=== PATIENT | male | born 1955 | race Caucasian/White ===

== ENCOUNTER → 2017-10-14 | Day surgery (SDC) | payer MEDICARE, SELFPAY | END | disposition home or self-care (01) | PROVIDERS: Family Provider Family Medicine; PCP Family Medicine; Visit Provider Surgery | DX: Z12.11 Encounter for screening for malignant neoplasm of colon (principal); K57.30 Diverticulosis of large intestine without perforation or abscess without bleeding; K64.0 First degree hemorrhoids; J44.9 Chronic obstructive pulmonary disease, unspecified; D12.4 Benign neoplasm of descending colon | CPT/HCPCS: 45380; 88305; 99152; 99153; J2250; J3010 ==

== ENCOUNTER 2017-10-28 09:00 | Outpatient (RCR) | payer MEDICARE, SELFPAY ==
--- NOTE | 2017-10-21 14:39 | PT.OTN ---
Addendum entered and electronically signed by Minal Whyte, PT 10/21/17 14:43: Transition note: On October 21, 2017 our therapy services consisting of Speech, Occupational, and Physical Therapy transitioned from the [employer] electronic documentation system to a new [employer] electronic documentation system.?? All documentation prior to October 21 can be found under [employer] saved data. From October 21 forward all medical record documentation will be in [email or web address] Original Note: Physical Therapy Treatment Note PT-OP-C Subjective Start: 10/21/17 11:13 Freq: Status: Active Protocol: Activity Type Activity Date Activity User E-Sign Co-Sign Detail Recorded Client Recorded Date Recorded By Document 10/21/17 09:55 EA [id number] 10/21/17 14:22 EA 10/21/17 09:55 OP-PT Subjective [Patient Comments] -Patient Comments Patient reports not using STC and been wlaking at home and outdoors more. Patient states has been following recommended HEP -Patient Reported Progress Improving PT-OP-Q Treatments Start: 10/21/17 11:13 Freq: Status: Active Protocol: Activity Type Activity Date Activity User E-Sign Co-Sign Detail Recorded Client Recorded Date Recorded By Document 10/21/17 14:01 EA [id number] 10/21/17 14:22 EA 10/21/17 14:01 Cardio Equipment [Recumbent Elliptical (Biode[employer])] -Duration (Minutes) 10 -Resistance 3 -Other No use of hands Gym Equipment [Cable Column (Body Solid)] Leg Extension -Resistance 30-50 -Reps/Time 12-15 Hip Adduction -Resistance 20-30 -Reps/Time 12-15 Hip Abduction -Resistance 20-30 -Reps/Time 12-15 Therapeutic Exercises [Standing Exercises] 3 -Standing Exercise Name 3 way hip F/ABD /EXT -Side bilateral -Resistance AROM -Reps/Minutes 15 reps x2 2 -Standing Exercise Name Lunges hip flexors stretch w/ //bars to support -Side bilateral -Reps/Minutes 30 SH x 2 reps each side 1 -Standing Exercise Name Rails side step squat w/ heel raises -Side bilateral -Resistance GTB to both ankles -Reps/Minutes x 2 lines -Comments Hand support for balance only Manual Therapy Treatment [Joint Mobilizations] 1 -Joint R hip -Direction ANT/POST -Grade II -Body Position Supine -Reps/Duration 5 PT-OP-R Modalities Start: 10/21/17 11:13 Freq: Status: Active Protocol: Activity Type Activity Date Activity User E-Sign Co-Sign Detail Recorded Client Recorded Date Recorded By Document 10/21/17 14:01 LIZBETH [id number] 10/21/17 14:22 EA 10/21/17 14:01 Hot Pack/Cold Pack [Treatment] Hot Pack -Patient Position Supine -Patient Tolerance Good PT-OP-T Assessment and Plan Start: 10/21/17 11:13 Freq: Status: Active Protocol: Activity Type Activity Date Activity User E-Sign Co-Sign Detail Recorded Client Recorded Date Recorded By Document 10/21/17 14:01 LIZBETH [id number] 10/21/17 14:22 EA 10/21/17 14:01 Physical Therapy Assessment [Rehab Potential] -Rehabilitation Potential Good [Assessment Summary] -Assessment Patient tolerated treatment well and exhibits improved capacity in mobility w/ increased tolerance. However still requires frequent rest due to SOB. Physical Therapy Plan [Next Visit Focus/Plan] -Next Visit Plan Continue w/ current plan. Addition of shuttle and SL balance Current Diagnoses Unilateral primary osteoarthritis, right hip (10/21/17) Trochanteric bursitis, right hip (10/21/17) Iliotibial band syndrome, right leg (10/21/17)
--- NOTE | 2017-10-23 10:56 | PT.OTN ---
Current Diagnoses Unilateral primary osteoarthritis, right hip (10/23/17) Trochanteric bursitis, right hip (10/23/17) Iliotibial band syndrome, right leg (10/23/17) Physical Therapy Treatment Note PT-OP-A Visit Information Start: 10/21/17 11:13 Freq: Status: Active Protocol: Activity Type Activity Date Activity User E-Sign Co-Sign Detail Recorded Client Recorded Date Recorded By Document 10/23/17 10:55 LIZBETH [id number] 10/23/17 10:55 EA 10/23/17 10:55 Out-Patient Physical Therapy Visit Information [Visit Information] -Visit Type Treatment Note -Total Visit Minutes 45 -Visit Number 7 -Number of HEALTH DATA ANALYST Visits 0 PT-OP-C Subjective Start: 10/21/17 11:13 Freq: Status: Active Protocol: Activity Type Activity Date Activity User E-Sign Co-Sign Detail Recorded Client Recorded Date Recorded By Document 10/23/17 10:44 LIZBETH [id number] 10/23/17 10:54 EA 10/23/17 10:44 OP-PT Subjective [Patient Comments] -Patient Comments Patient reports able to mow the lawn for an hour; states hip is quite sore today but okay to mobilize. -Patient Reported Progress Same PT-OP-Q Treatments Start: 10/21/17 11:13 Freq: Status: Active Protocol: Activity Type Activity Date Activity User E-Sign Co-Sign Detail Recorded Client Recorded Date Recorded By Document 10/23/17 10:44 LIZBETH [id number] 10/23/17 10:54 EA 10/23/17 10:44 Cardio Equipment [Recumbent Elliptical (Biodex)] -Duration (Minutes) 10 -Resistance 3 Gym Equipment [Cable Column (Body Solid)] Leg Extension -Resistance 30-50lbs -Reps/Time 12 reps x2 Hip Adduction -Resistance 20-30lbs -Reps/Time 12 -15 x 2sets Hip Abduction -Resistance 20-30 x 2 sets -Reps/Time 12 -15 x 2 sets [Shuttle Recovery] Unilateral Squats -Details Single leg squat -Resistance 2 cord -Reps/Time x 15 x 2 Therapeutic Exercises [Standing Exercises] 3 -Standing Exercise Name 3 way hip F/ABD /EXT -Side bilateral -Resistance AROM -Reps/Minutes 15 reps x2 2 -Standing Exercise Name Lunges hip flexors stretch w/ //bars to support -Side bilateral -Reps/Minutes 30 SH x 2 reps each side 1 -Standing Exercise Name Rails side step squat w/ heel raises -Side bilateral -Reps/Minutes x 2 lines PT-OP-R Modalities Start: 10/21/17 11:13 Freq: Status: Active Protocol: Activity Type Activity Date Activity User E-Sign Co-Sign Detail Recorded Client Recorded Date Recorded By Document 10/23/17 10:44 EA [id number] 10/23/17 10:54 EA 10/23/17 10:44 Electric Stimulation [Electric Stimulation] Interferential Current (IFC) -Body Location right posterolat hip -Duration (Minutes) 15 -Patient Position Supine -Combined With Heat/Cold Hot Pack Hot Pack/Cold Pack [Treatment] Hot Pack -Patient Position Supine -Patient Tolerance Good PT-OP-T Assessment and Plan Start: 10/21/17 11:13 Freq: Status: Active Protocol: Activity Type Activity Date Activity User E-Sign Co-Sign Detail Recorded Client Recorded Date Recorded By Document 10/23/17 10:44 EA [id number] 10/23/17 10:54 EA 10/23/17 10:44 Physical Therapy Assessment [Assessment Summary] -Assessment Patient tolerated treament today but with difficulty due to hip pain and discomfort; patient had decreased right hip WB tolerance toda. Physical Therapy Plan [Next Visit Focus/Plan] -Next Visit Plan Cont w/ current program advance as tolerated.
--- NOTE | 2017-10-28 13:33 | PT.OTN ---
Current Diagnoses Unilateral primary osteoarthritis, right hip (10/28/17) Trochanteric bursitis, right hip (10/28/17) Iliotibial band syndrome, right leg (10/28/17) Physical Therapy Treatment Note PT-OP-A Visit Information Start: 10/21/17 11:13 Freq: Status: Active Protocol: Activity Type Activity Date Activity User E-Sign Co-Sign Detail Recorded Client Recorded Date Recorded By Document 10/28/17 12:56 EA [id number] 10/28/17 13:20 EA 10/28/17 12:56 Out-Patient Physical Therapy Visit Information [Visit Information] -Visit Type Treatment Note PT-OP-C Subjective Start: 10/21/17 11:13 Freq: Status: Active Protocol: Activity Type Activity Date Activity User E-Sign Co-Sign Detail Recorded Client Recorded Date Recorded By Document 10/28/17 12:56 EA [id number] 10/28/17 13:20 EA 10/28/17 12:56 OP-PT Subjective [Patient Comments] -Patient Comments Patient reports right hip pain is not changing in pain intesity; states pain increase w/ weight bearing. Pt also c/o back pain when cooking and brishing his teeth. Pt reports although he has been doing his HEp and taking medication, pain seems not improving. OP-PT Pain Assessment [Pain Behaviors] -Pain Behaviors Guarding PT-OP-Q Treatments Start: 10/21/17 11:13 Freq: Status: Active Protocol: Activity Type Activity Date Activity User E-Sign Co-Sign Detail Recorded Client Recorded Date Recorded By Document 10/28/17 12:56 EA [id number] 10/28/17 13:20 EA 10/28/17 12:56 Cardio Equipment [Recumbent Stepper (Sci-Fit)] -Duration (Minutes) 10 -Resistance 3 Therapeutic Exercises [Standing Exercises] 3 -Standing Exercise Name 3 way hip F/ABD /EXT -Side bilateral -Resistance AROM -Reps/Minutes 15 reps x2 2 -Standing Exercise Name Lunges hip flexors stretch w/ //bars to support -Side bilateral -Reps/Minutes 30 SH x 2 reps each side 1 -Standing Exercise Name Rails side step squat w/ heel raises -Side bilateral -Reps/Minutes x 2 lines Manual Therapy Treatment [Soft Tissue Mobilization] 1 -Comments not performed [Joint Mobilizations] 1 -Joint R hip -Direction ANT/POST -Grade II -Body Position Supine -Reps/Duration 5 Self-Care/Home Management Treatment [Education] -Patient Education Body Mechanics Pain Management -Other Education Discussed patient body mechanics with lifting and other activites that increase back pain. Discussed importance heating/cold application for pain management. PT-OP-R Modalities Start: 10/21/17 11:13 Freq: Status: Active Protocol: Activity Type Activity Date Activity User E-Sign Co-Sign Detail Recorded Client Recorded Date Recorded By Document 10/23/17 10:44 EA [id number] 10/23/17 10:54 EA 10/23/17 10:44 Electric Stimulation [Electric Stimulation] Interferential Current (IFC) -Body Location right posterolat hip -Duration (Minutes) 15 -Patient Position Supine -Combined With Heat/Cold Hot Pack Hot Pack/Cold Pack [Treatment] Hot Pack -Patient Position Supine -Patient Tolerance Good PT-OP-T Assessment and Plan Start: 10/21/17 11:13 Freq: Status: Active Protocol: Activity Type Activity Date Activity User E-Sign Co-Sign Detail Recorded Client Recorded Date Recorded By Document 10/28/17 12:56 EA [id number] 10/28/17 13:20 EA 10/28/17 12:56 Physical Therapy Assessment [Assessment Summary] -Assessment Patient does not tolerate some of the weight bearing exercises and manual therapy to right gluteal today due increased of hip pain. Patient have difficulty of managing the pain at this time. unable to tolerate heat and ES application. Advised to patient to cancel next session if pain continue to increase and seek his primary care. Patient is not progressing at this time. Physical Therapy Plan [Next Visit Focus/Plan] -Next Visit Plan Cont with current program ; refer patient to primary care if patient sysmtoms do not improve.
--- NOTE | 2018-03-24 15:04 | PT.OPDS ---
Current Diagnoses Unilateral primary osteoarthritis, right hip (10/28/17) Trochanteric bursitis, right hip (10/28/17) Iliotibial band syndrome, right leg (10/28/17) Provider Visit Care Team Role Provider Type Quentin Ornelas MD Family Provider Physician Primary Care Provider Specialty: Family Practice Address: [address] [place] [address], [phone] Email: [email or web address] Tej Zacarias Attending Provider Non-Staff Specialty: Medical Address: [address] [place] [address], [phone] Email: Visit Number Visit Number 7 Discharge Summary PT-OP-C Subjective Start: 10/21/17 11:13 Freq: Status: Active Protocol: Document 03/24/18 15:01 EA (Rec: 03/24/18 15:03 EA [id number]) OP-PT Subjective Patient Comments Patient Comments Pt reports that he is undergoing hip surgery on and requested to discharge from PT so he would start fresh. Patient Reported Progress Same PT-OP-T Assessment and Plan Start: 10/21/17 11:13 Freq: Status: Active Protocol: Document 03/24/18 15:01 EA (Rec: 03/24/18 15:03 EA [id number]) Physical Therapy Assessment Assessment Summary Assessment Patient is discharged to skilled PT per request. Physical Therapy Plan Discharge Physical Therapy Discharge Reasons Patient Request Discharge Comments Change medical status.
== END 2018-04-02 10:39 ==
LOC: PHYS 09:00
PROVIDERS: Family Provider Family Medicine; PCP Family Medicine; Visit Provider Orthopaedic Surgery
DX: M16.11 Unilateral primary osteoarthritis, right hip (principal); M70.61 Trochanteric bursitis, right hip; M76.31 Iliotibial band syndrome, right leg
CPT/HCPCS: 64550; 97010; 97110; 97535

== ENCOUNTER 2018-01-12 09:36 | Emergency (ER) | payer MEDICARE, SELFPAY ==
--- NOTE | 2018-01-12 09:48 | DI.RAD.S_ITS ---
PROCEDURE: XR RIBS RT MIN 3V W CXR 1V INDICATIONS: right rib pain TECHNIQUE: 2 views of the right ribs were acquired, along with a single view chest. COMPARISON: None. FINDINGS: Excessive motion artifact on one of the 2 rib views. Surgical changes and devices: None. BB skin marker over the lower costal margin. Bones and chest wall: No fractures or dislocations. No suspicious bony lesions. Overlying soft tissues appear unremarkable. There is a small radiopaque foreign body or artifact overlying the right midlung field at the level of the fifth anterior rib. Lungs and pleura: No pleural effusions or pneumothorax. Lungs appear clear. Mediastinum: Mediastinal contours appear normal. Heart size is normal. Aortic calcification. IMPRESSION: 1. No apparent rib fracture or suspicious bone lesion. 2. Thoracolumbar spondylosis and disc degeneration. 3. No acute cardiopulmonary abnormality. Dictated by: Stephen Mcbride M.D. on 01/12/2018 at 10:20 Approved by: Stephen Mcbride M.D. on 01/12/2018 at 10:24
[2018-01-12 09:49] VITALS: BP 156/90; PULSE 90; RESP 22; TEMP 36.7; O2SAT 95; BMI 28.6
[2018-01-12 11:45] LABS: Add Manual Diff / Slide Review NO; Basophils Percent Auto 1.1 % (0-2); Eosinophils Percent Auto 2.2 % (2-4); Hematocrit 41.4 % (41-53); Hemoglobin 14.2 g/dL (13.5-17.5); Lymphocytes Percent Auto 20.2 % (25-40); Mean Corpuscular HGB Conc 34.4 % (30-36); Mean Corpuscular Volume 87.2 fL (80-100); Monocytes Percent Auto 9.8 % (3-14); Neutrophils Absolute Auto 4600 /uL (3000-5900); Neutrophils Percent Auto 66.7 % (50-75); Platelet Count 199 X10^3/uL (150-400); Red Blood Cell Count 4.74 X10^6/uL (4.5-5.9); Red Cell Distribution Width 13.8 % (11.6-14.8); White Blood Cell Count 6.9 X10^3/uL (4.5-11.0)
[2018-01-12 11:52] LABS: Alanine Aminotransferase 18 IU/L (21-72); Albumin 4.8 g/dL (3.5-5.0); Albumin Globulin Ratio 1.5 (1.0-2.8); Alkaline Phosphatase 118 U/L (38-126); Aspartate Aminotransferase 21 IU/L (17-59); BUN Creatinine Ratio 27.5 (6-22); Bilirubin Total 0.5 mg/dL (0.2-1.3); Blood Urea Nitrogen 22 mg/dL (9-20); Calcium 9.7 mg/dL (8.4-10.2); Carbon Dioxide 30 mmol/L (22-32); Chloride 95 mmol/L (98-107); Estimated Glomerular Filt Rate > 60.0 mL/min (>60); Globulin 3.1 g/dL (1.7-4.1); Glucose 108 mg/dL (80-110); HEMOLYSIS < 15 (0-50); Lipase 82 U/L (23-300); Potassium 5.1 mmol/L (3.4-5.1); Sodium 134 mmol/L (137-145); Total Protein 7.9 g/dL (6.3-8.2)
--- NOTE | 2018-01-12 12:40 | ED_ITS ---
HPI - Extremity Problem General Chief complaint: Extremity Problem,Nontraumatic Stated complaint: right side rib pain Time Seen by Provider: 01/12/18 09:38 History of Present Illness HPI Narrative: HPI 62-year-old male with smoker lumbar pain status post surgery and right hip pain with pending replacement presents for evaluation of right lower/lateral chest wall and flank pain that is worsened with movement/deep breaths, and occurred with a gradual onset after engaging in lifting and twisting fenceposts in the course of building a fence. Pain has been present for approximately 2 days. Patient is taking oxycodone (prescribed for back and hip pain) without significant improvement in symptoms. Patient denies fevers, chills, cough, shortness breath, change in symptoms with eating, continues to take PO, pass flatus and stool, and urinate at baseline. M/S/F/SocHx notable for: please see HPI; remainder reviewed with patient and in chart. ROS: Negative constitutional, eye, cardiovascular, pulmonary, GI, , MSK, skin , neurologic, psychiatric, endocrine unless noted in the HPI. Exam Gen: Pleasant, non-toxic appearing, resting comfortably. HEENT: NC, AT, PEERL, EOMI. Resp: Clear to auscultation bilaterally, normal work of breathing, no accessory muscle usage. Card: Regular rate and rhythm with no murmurs, rubs, or gallops, extremities warm and well perfused. GI: Non-tender to palpation throughout all quadrants, no focal tenderness at McBurney's point, negative Dhillon's sign, non-distended, no rebound or guarding. : No suprapubic tenderness to palpation. MSK: No visible deformities, strength and tone without visually appreciable deficit. Right torso from approximately the 10th ribs through the 12th from a posterior axillary to and anterior axillary line with diffuse tenderness to palpation no palpable abnormalities. Twisting movements in deep inspiration provoked pain in this area. Skin: Normal color with no visible lesions. Neuro: AO x 3, no facial asymmetry, vision and hearing WNL. Psych: Mood and affect appropriate. Labs / Imaging: XR ribs right: no acute cardiopulmonary abnormality. No apparent rib fracture or suspicious bony lesions. WBC 6.9, Hb 14.2, Na 134, K 5.1, total bilirubin 0.5, AST 21, ALT 18, ALP 118, lipase 82. MDM Previous chart, nursing note, labs, imaging, and vitals reviewed. A: 62-year-old male with smoker lumbar pain status post surgery and right hip pain with pending replacement presents for evaluation of right lower/lateral chest wall and flank pain that is worsened with movement/deep breaths, and occurred with a gradual onset after engaging in lifting and twisting fenceposts in the course of building a fence. DDx & Evaluation: strongly suspect a muscle strain given the gradual onset of discomfort after lifting and twisting, this discomfort is reproduced with provoking movements consistent with the prior repetitive motion as well as palpation of the affected muscles on the torso. PE was considered but given the absence of shortness of breath or further identifiable risk factors further investigation is not presently warranted. Similarly, ACS and unstable angina are considered unlikely to the degree of which further evaluation is not indicated. Given the unremarkable abdominal exam and normal CBC, CMP, and lipase strongly doubt acute intra-abdominal pathology. Patient instructed to use NSAIDs and to follow up with his primary care physician. Impression: muscle strain (please reference below for remainder of encounter information) Related Data Previous Rx's Medication Instructions Recorded albuterol sulfate HFA 90 1 puff INHALATION Q4HP PRN #1 each 11/21/17 mcg/actuation aerosol inhaler bupropion HCl 150 mg tablet,12 hr 150 mg PO BID 49 Days #60 tab 11/27/17 sustained-release(smoking deterrent) lisinopril 20 mg PO QDAY #30 tab 12/23/17 ibuprofen 600 mg tablet 600 mg PO QID PRN #120 tab 01/06/18 oxycodone 5 mg tablet 7.5 mg PO QID PRN #180 tab 01/11/18 Allergies Allergy/AdvReac Type Severity Reaction Status Date / Time No Known Drug Allergies Allergy Verified 01/12/18 09:59 [facility] Medical History Uncomplicated opioid dependence (Chronic) Chronic pain syndrome (Chronic Unknown) Spinal stenosis (Chronic Unknown) Hypertension (Chronic Unknown) COPD (chronic obstructive pulmonary disease) (Chronic Unknown) Generalized headaches (Chronic 1999) Chronic back pain (Chronic 1979) Primary osteoarthritis of right hip (Chronic 06/17/17) Social History Smoking Status: Current some day smoker Exam Initial Vital Signs Initial Vital Signs: Vital Signs Temperature 98.1 F 01/12/18 09:49 Pulse Rate 90 01/12/18 09:49 Respiratory Rate 22 01/12/18 09:49 Blood Pressure 156/90 H 01/12/18 09:49 Pulse Oximetry 95 01/12/18 09:49 Course Orders Ordered: ED Orders 01/12/18 09:48 XR ribs RT min 3V w CXR1V Stat 01/12/18 11:22 Complete Blood Count AUTO DIFF Stat Comprehensive Metabolic Panel Stat Lipase Stat Vital Signs - 8 hr 01/12/18 09:49 Temperature 98.1 F Pulse Rate 90 Respiratory Rate 22 Blood Pressure 156/90 H Pulse Oximetry 95 MDM - Extremity (Nontraumatic) Lab Data Result diagrams: 01/12/18 11:22 01/12/18 11:22 Lab Results 01/12/18 01/12/18 Range/Units 11:22 11:22 WBC 6.9 (4.5-11.0) X10^3/uL RBC 4.74 (4.5-5.9) X10^6/uL Hgb 14.2 (13.5-17.5) g/dL Hct 41.4 (41-53) % MCV 87.2 (80-100) fL MCH 30.0 (26-34) PG MCHC 34.4 (30-36) % RDW 13.8 (11.6-14.8) % Plt Count 199 (150-400) X10^3/uL Neut % (Auto) 66.7 (50-75) % Lymph % (Auto) 20.2 L (25-40) % Towns % (Auto) 9.8 (3-14) % Eos % (Auto) 2.2 (2-4) % Baso % (Auto) 1.1 (0-2) % Neut # (Auto) 4600 (6078-6467) /uL Sodium 134 L (137-145) mmol/L Potassium 5.1 (3.4-5.1) mmol/L Chloride 95 L (98-107) mmol/L Carbon Dioxide 30 (22-32) mmol/L BUN 22 H (9-20) mg/dL Creatinine 0.80 (0.66-1.25) mg/dL Estimated GFR > 60.0 (>60) mL/min BUN/Creatinine Ratio 27.5 H (6-22) Glucose 108 (80-110) mg/dL Calcium 9.7 (8.4-10.2) mg/dL Total Bilirubin 0.5 (0.2-1.3) mg/dL AST 21 (17-59) IU/L ALT 18 L (21-72) IU/L Alkaline Phosphatase 118 (38-126) U/L Total Protein 7.9 (6.3-8.2) g/dL Albumin 4.8 (3.5-5.0) g/dL Globulin 3.1 (1.7-4.1) g/dL Albumin/Globulin Ratio 1.5 (1.0-2.8) Lipase 82 (23-300) U/L Discharge Plan Departure Prescriptions: No Action bupropion HCl (smoking deter) 150 mg tablet extended release 12 hr 150 mg PO BID 49 Days Qty: 60 RF: 3 ibuprofen 600 mg tablet 600 mg PO QID PRN (Reason: pain) Qty: 120 RF: 3 albuterol sulfate [Ventolin HFA] 90 mcg/actuation HFA aerosol inhaler 1 puff INHALATION Q4HP PRN (Reason: shortness of breath or wheezing) Qty: 1 RF: 5 lisinopril 20 mg tablet 20 mg PO QDAY Qty: 30 RF: 11 oxycodone 5 mg tablet 7.5 mg PO QID PRN (Reason: pain) Qty: 180 RF: 0
[2018-01-12 12:57] VITALS: BP 118/76; PULSE 84; RESP 18; O2SAT 95
== END 2018-01-12 12:59 | disposition home or self-care (01) ==
PROVIDERS: Emergency Provider Emergency Medicine; Family Provider Family Medicine; PCP Family Medicine
DX: S39.011A Strain of muscle, fascia and tendon of abdomen, initial encounter (principal)
CPT/HCPCS: 36415; 71101; 80053; 83690; 85025; 99282; 99284

== ENCOUNTER → 2018-03-04 10:56 | Outpatient (CLI) | payer MEDICARE, SELFPAY | PROVIDERS: Family Provider Family Medicine; PCP Family Medicine; Visit Provider Family Medicine | DX: Z01.818 Encounter for other preprocedural examination (principal); Z53.9 Procedure and treatment not carried out, unspecified reason ==

== ENCOUNTER → 2018-03-05 11:24 | Outpatient (CLI) | payer MEDICARE, SELFPAY ==
--- NOTE | 2018-03-05 11:26 | DI.RAD.S_ITS ---
PROCEDURE: XR CHEST 2V INDICATIONS: CHRONIC OBSTRUCTIVE PULMONARY DISEASE TECHNIQUE: 2 views of the chest were acquired. COMPARISON: [facility], , CHEST 1 VIEW, 10/09/2016, 9:47. FINDINGS: Surgical changes and devices: None. Lungs and pleura: No pleural effusions or pneumothorax. Lungs are clear. Mediastinum: Mediastinal contours are normal. Heart size is normal. Bones and chest wall: No suspicious bony abnormalities. Soft tissues appear unremarkable. IMPRESSION: No acute cardiopulmonary disease. Dictated by: Natalee Le M.D. on 03/05/2018 at 15:12 Approved by: Natalee Le M.D. on 03/05/2018 at 15:19
== END ==
PROVIDERS: Family Provider Family Medicine; PCP Family Medicine; Visit Provider Family Medicine
DX: J44.9 Chronic obstructive pulmonary disease, unspecified (principal)
CPT/HCPCS: 71046

== ENCOUNTER → 2018-03-23 09:40 | Outpatient (CLI) | payer MEDICARE, SELFPAY ==
[2018-03-23 10:37] LABS: Add Manual Diff / Slide Review NO; Basophils Percent Auto 1.2 % (0-2); Eosinophils Percent Auto 4.3 % (2-4); Hematocrit 41.2 % (41-53); Hemoglobin 14.4 g/dL (13.5-17.5); Lymphocytes Percent Auto 21.6 % (25-40); Mean Corpuscular HGB Conc 34.9 % (30-36); Mean Corpuscular Hemoglobin 30.1 PG (26-34); Mean Corpuscular Volume 86.2 fL (80-100); Neutrophils Absolute Auto 4200 /uL (3000-5900); Neutrophils Percent Auto 62.9 % (50-75); Platelet Count 187 X10^3/uL (150-400); Red Blood Cell Count 4.78 X10^6/uL (4.5-5.9); White Blood Cell Count 6.7 X10^3/uL (4.5-11.0)
[2018-03-23 10:44] LABS: BUN Creatinine Ratio 22.5 (6-22); Blood Urea Nitrogen 18 mg/dL (9-20); Calcium 9.5 mg/dL (8.4-10.2); Carbon Dioxide 32 mmol/L (22-32); Chloride 99 mmol/L (98-107); Cholesterol 197 mg/dL (140-199); Estimated Glomerular Filt Rate > 60.0 mL/min (>60); Glucose 104 mg/dL (80-110); HDL Cholesterol 43 mg/dL (40-60); HEMOLYSIS < 15 (0-50); LDL Cholesterol Calculated 107 mg/dL (<100); Potassium 4.5 mmol/L (3.4-5.1); Sodium 141 mmol/L (137-145); Triglycerides 235 mg/dL (35-150)
[2018-03-23 10:48] LABS: Hemoglobin A1C% w Est Avg Glu 5.3 % (4.0-6.0)
[2018-03-23 11:24] LABS: Vitamin D 25 Hydroxy (D3) 31.8 ng/mL (30.0-100.0)
== END ==
PROVIDERS: Family Provider Family Medicine; PCP Family Medicine; Visit Provider Student in an Organized Health Care Education/Training Program
DX: E78.00 Pure hypercholesterolemia, unspecified (principal); I10 Essential (primary) hypertension
CPT/HCPCS: 36415; 80048; 80061; 82306; 83036; 85025

== ENCOUNTER → 2018-04-06 13:57 | Outpatient (CLI) | payer MEDICARE, SELFPAY ==
--- NOTE | 2018-04-06 14:04 | DI.US.S_ITS ---
PROCEDURE: US ABD AORTA ANEURYSM SCREEN INDICATIONS: SCREEN TECHNIQUE: Real time scanning was performed of the aorta and iliac arteries, with image documentation. COMPARISON: None. FINDINGS: Aorta: Proximal aortic diameter measures 2.3 cm. Mid-aorta measures 2 cm. Distal aortic diameter is 1.8 cm. Iliac arteries: Right common iliac artery measures 1.2 cm. Left common iliac artery measures 1.2 cm. IMPRESSION: Negative for aneurysm. Dictated by: Phill Preciado M.D. on 04/06/2018 at 14:49 Approved by: Phill Preciado M.D. on 04/06/2018 at 14:49
== END ==
PROVIDERS: PCP Student in an Organized Health Care Education/Training Program; Visit Provider Student in an Organized Health Care Education/Training Program
DX: Z13.6 Encounter for screening for cardiovascular disorders (principal); Z72.0 Tobacco use
CPT/HCPCS: 76706

== ENCOUNTER → 2018-07-27 10:38 | Outpatient (CLI) | payer MEDICARE, SELFPAY ==
[2018-07-27 12:07] LABS: Alanine Aminotransferase 29 IU/L (21-72); Albumin 4.8 g/dL (3.5-5.0); Albumin Globulin Ratio 1.5 (1.0-2.8); Alkaline Phosphatase 140 U/L (38-126); Aspartate Aminotransferase 26 IU/L (17-59); Bilirubin Total 0.3 mg/dL (0.2-1.3); Cholesterol 174 mg/dL (140-199); Globulin 3.3 g/dL (1.7-4.1); HDL Cholesterol 55 mg/dL (40-60); HEMOLYSIS < 15 (0-50); LDL Cholesterol Calculated 62 mg/dL (<100); Total Protein 8.1 g/dL (6.3-8.2); Triglycerides 287 mg/dL (35-150)
[2018-07-27 12:37] LABS: Prostate Specific Antigen Scrn 1.31 ng/mL (0.1-4.0)
== END ==
PROVIDERS: PCP Student in an Organized Health Care Education/Training Program; Visit Provider Student in an Organized Health Care Education/Training Program
DX: E78.00 Pure hypercholesterolemia, unspecified (principal); Z12.5 Encounter for screening for malignant neoplasm of prostate; Z79.899 Other long term (current) drug therapy
CPT/HCPCS: 36415; 80061; 80076; G0103

== ENCOUNTER → 2018-11-18 08:16 | Outpatient (CLI) | payer MEDICARE, SELFPAY ==
--- NOTE | 2018-11-18 08:17 | DI.RAD.S_ITS ---
PROCEDURE: XR CHEST 2V INDICATIONS: cough TECHNIQUE: 2 views of the chest were acquired. COMPARISON: [facility], , XR CHEST 2V, 03/05/2018, 11:07. [facility], CR, CHEST 1 VIEW, 10/09/2016, 9:47. FINDINGS: Surgical changes and devices: None. Lungs and pleura: Lungs are clear except for a small degree of interstitial prominence and lung volumes are large, potentially reflecting prior smoking history. No pleural effusions or pneumothorax. Mediastinum: Mediastinal contours are normal. Heart size is normal. Bones and chest wall: No suspicious bony abnormalities. Soft tissues appear unremarkable. IMPRESSION: No pneumonia or neoplasm found. Mild interstitial prominence and large lung volumes, suspect prior smoking history. Dictated by: Ramos Arteaga M.D. on 11/18/2018 at 8:41 Approved by: Ramos Arteaga M.D. on 11/18/2018 at 8:41
== END ==
PROVIDERS: PCP Student in an Organized Health Care Education/Training Program; Visit Provider Physician Assistant
DX: R05 Cough (principal)
CPT/HCPCS: 71046

== ENCOUNTER 2018-11-18 09:11 | Inpatient (IN) | payer MEDICARE, SELFPAY ==
[2018-11-18] VITALS (15 sets, daily range): BP systolic 116–171; BP diastolic 73–97; PULSE 74–136; RESP 16–30; TEMP 36.3–37; O2SAT 78–95; BMI 31.7; BMI 30.6
[2018-11-18] MEDS: ALBUTEROL/IPRATROPIUM 3 ML AMPUL INH (09:32)
--- NOTE | 2018-11-18 09:52 | ED.SOB ---
HPI - SOB/Dyspnea General Chief Complaint: Shortness of Breath/Dyspnea Stated Complaint: HIGH HEART RATE,LOW OXYGEN Source: patient and old records reviewed Mode of arrival: wheelchair ( from walk-in clinic) Limitations: no limitations History of Present Illness This is a 63-year-old male comes to the emergency department with complaint of shortness of breath. Patient states he has had cold he thinks for couple days. He has had some nasal congestion, cough with green/yellow soni sputum. And some wheezing. Patient states that he had some similar symptoms about 10 years ago. Patient states that he has not had any chest pain or pressure, he has felt short of breath particularly with exertion. If he is just sitting still he does not feel short of breath. He has not had any swelling in his lower extremities. He does have COPD, he states he is in the process of quitting, he smoked for about 40 years least a pack per day. 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 Patient states he does use albuterol as needed typically. He says he uses it most days of the week off and a couple times during the day unless he has a very sedentary. Patient is not on a steroid inhaler. He is not currently on any oral steroids. He does take medication for hypertension, dyslipidemia, pain medication. He does not take an aspirin. He denies any other cardiac history. He has had hip surgery a couple months ago as well as a spinal fusion L3 in 5 in the past remotely. He occasionally has alcohol he denies any illicit. Dr. Camarena is his primary care. He was sent from the walk-in clinic for low O2 83 he did have a chest x-ray which was reviewed here in the ED. Patient is currently on nasal cannula 3 L he received 1 DuoNeb prior to evaluation in is feeling better. Related Data Home Medications Medication Instructions Recorded Confirmed docusate sodium 100 mg PO BID 11/18/18 11/18/18 lisinopril 20 mg PO DAILY 11/18/18 11/18/18 Previous Rx's Medication Instructions Recorded albuterol sulfate HFA 90 1 puff INHALATION Q4HP PRN #1 each 05/25/18 mcg/actuation aerosol inhaler ibuprofen 600 mg tablet 600 mg PO QID PRN #120 tab 07/14/18 cyclobenzaprine 10 mg tablet 10 mg PO TID PRN #90 tab 07/27/18 bupropion HCl 150 mg tablet,12 hr 150 mg PO TID #270 tab 08/21/18 sustained-release(smoking deterrent) pravastatin 10 mg tablet 10 mg PO BEDTIME #30 tab 09/23/18 naloxone 0.4 mg/mL injection 0.4 mg IM ONCE PRN #1 ml 10/21/18 syringe oxycodone-acetaminophen 10 mg-325 1 tab PO Q6H PRN #120 tab 10/21/18 mg tablet Allergies Allergy/AdvReac Type Severity Reaction Status Date / Time No Known Drug Allergies Allergy Verified 10/21/18 15:15 Review of Systems Review of Systems ROS Unobtainable: All systems reviewed & are unremarkable except as noted in HPI and below Constitutional Denies chills, Reports excessive sweating (Stairs while in the walk-in clinic), Denies fever(s), Denies lethargy and Denies weakness ENT Ears, Nose, Mouth, and Throat: Reports nasal congestion Cardiovascular Denies chest pain, Denies chest pain at rest, Denies chest pain with activity, Denies syncope, Reports rapid heart rate (Patient states chronically), Denies edema, Denies irregular heart rhythm, Denies lightheadedness, Denies palpitations, Denies dyspnea, Reports dyspnea on exertion and Denies orthopnea Respiratory Reports change in phlegm color, Reports chest congestion, Reports cough, Denies hemoptysis, Denies dyspnea, Reports dyspnea on exertion and Reports wheezing Gastrointestinal Gastrointestinal: Denies abdominal pain, Denies change in bowel habits, Denies diarrhea, Denies nausea and Denies vomiting Neurologic Denies syncope and Denies weakness Endocrine Reports excessive sweating (Stairs while in the walk-in clinic) and Denies palpitations Allergic/Immunologic Reports wheezing [facility] Medical History (Updated 11/18/18 @ 15:50 by Carolin Hammond MD) Uncomplicated opioid dependence (Chronic) Hypertension (Chronic Unknown) COPD (chronic obstructive pulmonary disease) (Chronic Unknown) Generalized headaches (Chronic 1999) Chronic back pain (Chronic 1979) Primary osteoarthritis of right hip (Chronic 06/17/17) Hyperlipidemia (Acute) Surgical History (Updated 11/18/18 @ 15:45 by Carolin Hammond MD) Hx of inguinal hernia repair (Resolved 1999) History of lumbar surgery (Resolved ~2015) History of right hip replacement (Acute) History of total right hip arthroplasty (Resolved) Family History (Updated 11/18/18 @ 15:46 by Carolin Hammond MD) Mother No problems noted. Father No problems noted. Father Natural with probable cause suspected Social History (Updated 11/18/18 @ 09:58 by Alissa Banda DO) details: female partner household members: friend(s) Smoking Status: Current every day smoker alcohol intake: current substance use type: does not use Social History (Updated 11/18/18 @ 09:58 by Alsisa Banda DO) details: female partner household members: friend(s) Smoking Status: Current every day smoker alcohol intake: current substance use type: does not use Exam Narrative Exam Narrative: GEN: well nourished, obese male, alert and oriented x 3, patient appears to be in mild distress. HEENT: Atraumatic, pupils are equal round reactive to light, extraocular movements are intact, nares mild clear rhinorrhea. HEART: Tachycardic but regular rate and rhythm without murmur, clicks, rubs. Pulses are equal in upper extremities. No JVD. No swelling in lower extremities. LUNGS:Lungs slightly decreased bilaterally, patient has bilateral expiratory wheezes in upper and lower lungs no rales, crackles, chest moves symmetrically. No tachypnea the patient is post DuoNeb. He is able to speak in full sentences. ABD:bowel sounds normal, soft, slightly distended, non-tender, no guarding, rebound, rigidity, no masses noted, no hepatosplenomegaly :No CVA tenderness MSCL: Non-tender, no muscle atrophy NEURO:CN 2-12 intact, sensation normal Initial Vital Signs Initial Vital Signs: Vital Signs Temperature 98.0 F 11/18/18 09:20 Pulse Rate 136 H 11/18/18 09:20 Respiratory Rate 30 H 11/18/18 09:20 Blood Pressure 151/87 H 11/18/18 09:20 Pulse Oximetry 78 L 11/18/18 09:20 Course Orders Ordered: ED Orders 11/18/18 10:02 CMP [Comprehensive Metabolic Panel] Stat D Dimer Stat Procalcitonin Routine Troponin & CK Cardiac Panel Stat 11/18/18 11:25 CT angio chest PE protocol Stat 11/18/18 14:35 Consult to Respiratory Therapy Evaluate & Treat Education, smoking cessation ONGOING 11/18/18 14:45 MRSA PCR Stat 11/18/18 15:30 Respiratory Panel (Film Array) Routine 11/18/18 15:34 RT Consult Eval and Treat Now 11/18/18 15:37 Education, smoking cessation ONGOING 11/18/18 17:30 Sputum Culture Routine 11/19/18 05:00 B Type Natriuretic Peptide Routine Basic Metabolic Panel Routine Complete Blood Count AUTO DIFF Routine Acetaminophen (Tylenol) 650 mg PO Q6HR PRN PRN Reason: As Needed for Fever/Mild Pain Hydrocodone Bitart/Acetaminophen ([place] 5/325) 1 tab PO Q4HR PRN PRN Reason: Pain, Moderate (4-6) Albuterol (Ventolin) 2.5 mg INH [id number] PRN PRN Reason: Shortness Of Breath Or Wheezing Budesonide (Pulmicort Flexhaler) 2 puff INH BID [facility] Last Admin: 11/18/18 16:30 Dose: 2 puff Bupropion HCl (Welbutrin) 150 mg PO TID [facility] Cyclobenzaprine HCl (Flexeril) 10 mg PO TID PRN PRN Reason: muscle spasm Docusate Sodium (Colace) 100 mg PO BID [facility] Enoxaparin Sodium (Lovenox) 40 mg SUBCUT 1700 [facility] Last Admin: 11/18/18 16:14 Dose: 40 mg Sodium Chloride (Normal Saline 0.45%) 1,000 mls @ 100 mls/hr IV CONT [facility] Last Admin: 11/18/18 16:15 Dose: 100 mls/hr Levofloxacin (Levaquin) 750 mg in 150 mls @ 100 mls/hr IV Q24H [facility] Last Admin: 11/18/18 16:14 Dose: 100 mls/hr Ibuprofen (Advil) 600 mg PO Q6HR PRN PRN Reason: As Needed for Fever/Mild Pain Ipratropium [place] (Atrovent Neb) 0.5 mg INH RTQ4HR [facility] Last Admin: 11/18/18 16:29 Dose: 0.5 mg Lisinopril (Zestril) 20 mg PO DAILY [facility] Methylprednisolone (Solu-Medrol 125 Mg Vial) 60 mg IV Q6HR [facility] Last Admin: 11/18/18 17:42 Dose: 60 mg Naloxone HCl (Narcan) 0.4 mg IV PRN PRN PRN Reason: opioid reversal Ondansetron HCl (Zofran) 4 mg IV Q8HR PRN PRN Reason: Nausea And Vomiting Oxycodone/Acetaminophen (Percocet 5/325) 2 tab PO Q4HR PRN PRN Reason: Pain, Severe (7-10) Last Admin: 11/18/18 17:44 Dose: 2 tab Pravastatin Sodium (Pravachol) 10 mg PO BEDTIME JAKE Sennosides (Senna) 17.2 mg PO BEDTIME JAKE Discontinued Medications Albuterol (Ventolin) 5 mg INH NOW ONE Stop: 11/18/18 09:54 Last Admin: 11/18/18 09:56 Dose: 5 mg Albuterol/Ipratropium (Duoneb) 3 ml INH NOW ONE Stop: 11/18/18 09:28 Last Admin: 11/18/18 09:32 Dose: 3 ml Sodium Chloride (Normal Saline 0.9%) 1,000 mls @ 1,000 mls/hr IV BOLUS ONE Stop: 11/18/18 10:52 Last Infusion: 11/18/18 10:48 Dose: 0 mls/hr Admin: 11/18/18 09:54 Dose: 1,000 mls/hr Methylprednisolone (Solu-Medrol 125 Mg Vial) 125 mg IV NOW ONE Stop: 11/18/18 09:54 Last Admin: 11/18/18 09:54 Dose: 125 mg Vital Signs - 8 hr 11/18/18 11:00 11/18/18 11:30 11/18/18 14:15 Temperature 97.4 F L Pulse Rate 106 H 103 H 118 H Respiratory Rate 24 22 25 H Blood Pressure 151/96 H Blood Pressure [Right Arm] 155/80 H 143/79 H Pulse Oximetry 95 94 91 11/18/18 15:46 11/18/18 15:52 11/18/18 16:37 Temperature 98.6 F Pulse Rate 110 H 114 H Respiratory Rate 22 Blood Pressure 166/97 H Blood Pressure [Right Arm] Pulse Oximetry 95 93 92 MDM - SOB/Dyspnea Lab Data Attestation: I reviewed the patient's lab results. Result diagrams: 11/18/18 09:30 11/18/18 10:02 Lab Results 11/18/18 11/18/18 11/18/18 Range/Units 09:30 09:30 10:02 WBC 9.7 (4.5-11.0) X10^3/uL RBC 4.94 (4.5-5.9) X10^6/uL Hgb 14.8 (13.5-17.5) g/dL Hct 42.8 (41-53) % MCV 86.7 (80-100) fL MCH 30.0 (26-34) PG MCHC 34.6 (30-36) % RDW 15.1 H (11.6-14.8) % Plt Count 221 (150-400) X10^3/uL Neut % (Auto) 72.7 (50-75) % Lymph % (Auto) 13.8 L (25-40) % [place] % (Auto) 10.4 (3-14) % Eos % (Auto) 2.4 (2-4) % Baso % (Auto) 0.7 (0-2) % Neut # (Auto) 7100 H (3943-8347) /uL Lymph # (Auto) 1300 (5127-2346) /uL [place] # (Auto) 1000 H (0-900) /uL Eos # (Auto) 200 (0-450) /uL Baso # (Auto) 100 (0-100) /uL RBC Morphology See Polychromasia 1+ H Anisocytosis 1+ H D-Dimer (<230) ng/mL Sodium 143 (137-145) mmol/L Potassium 4.7 (3.4-5.1) mmol/L Chloride 100 (98-107) mmol/L Carbon Dioxide 35 H (22-32) mmol/L BUN 31 H (9-20) mg/dL Creatinine 0.90 (0.66-1.25) mg/dL Estimated GFR > 60.0 (>60) mL/min BUN/Creatinine Ratio 34.4 H (6-22) Glucose 130 H (80-110) mg/dL Calcium 10.4 H (8.4-10.2) mg/dL Total Bilirubin 0.4 (0.2-1.3) mg/dL AST 26 (17-59) IU/L ALT 21 (21-72) IU/L Alkaline Phosphatase 134 H (38-126) U/L Total Creatine Kinase (55-170) U/L CK-MB (CK-2) CK-MB (CK-2) Rel Index Troponin I (0.01-0.034) ng/mL B-Natriuretic Peptide < 100 (<100) Total Protein 8.0 (6.3-8.2) g/dL Albumin 4.6 (3.5-5.0) g/dL Globulin 3.4 (1.7-4.1) g/dL Albumin/Globulin Ratio 1.4 (1.0-2.8) Procalcitonin (<0.5) ng/mL Nasal Screen MRSA (PCR) (Negative) Chlamy pneumoniae PCR (Not Detect) Adenovirus (PCR) (Not Detect) B.parapertussis DNA PCR (Not Detect) Coronavirus OC43 (PCR) (Not Detect) Coronavirus HKU1 (PCR) (Not Detect) Coronavirus 229E (PCR) (Not Detect) Coronavirus NL63 (PCR) (Not Detect) Human Metapneumovir PCR (Not Detect) Influenza Type A (PCR) (Not Detect) Influenza Type B (PCR) (Not Detect) M. pneumoniae (PCR) (Not Detect) Parainfluenza 1 (PCR) (Not Detect) Parainfluenza 2 (PCR) (Not Detect) Parainfluenza 3 (PCR) (Not Detect) Parainfluenza 4 (PCR) (Not Detect) RSV (PCR) (Not Detect) Entero/Rhino (PCR) (Not Detect) 11/18/18 11/18/18 11/18/18 Range/Units 10:02 10:02 10:02 WBC (4.5-11.0) X10^3/uL RBC (4.5-5.9) X10^6/uL Hgb (13.5-17.5) g/dL Hct (41-53) % MCV (80-100) fL MCH (26-34) PG MCHC (30-36) % RDW (11.6-14.8) % Plt Count (150-400) X10^3/uL Neut % (Auto) (50-75) % Lymph % (Auto) (25-40) % [place] % (Auto) (3-14) % Eos % (Auto) (2-4) % Baso % (Auto) (0-2) % Neut # (Auto) (3182-0975) /uL Lymph # (Auto) (2441-5726) /uL [place] # (Auto) (0-900) /uL Eos # (Auto) (0-450) /uL Baso # (Auto) (0-100) /uL RBC Morphology Polychromasia Anisocytosis D-Dimer 272 H (<230) ng/mL Sodium (137-145) mmol/L Potassium (3.4-5.1) mmol/L Chloride (98-107) mmol/L Carbon Dioxide (22-32) mmol/L BUN (9-20) mg/dL Creatinine (0.66-1.25) mg/dL Estimated GFR (>60) mL/min BUN/Creatinine Ratio (6-22) Glucose (80-110) mg/dL Calcium (8.4-10.2) mg/dL Total Bilirubin (0.2-1.3) mg/dL AST (17-59) IU/L ALT (21-72) IU/L Alkaline Phosphatase (38-126) U/L Total Creatine Kinase 88 (55-170) U/L CK-MB (CK-2) TNP CK-MB (CK-2) Rel Index TNP Troponin I < 0.012 (0.01-0.034) ng/mL B-Natriuretic Peptide (<100) Total Protein (6.3-8.2) g/dL Albumin (3.5-5.0) g/dL Globulin (1.7-4.1) g/dL Albumin/Globulin Ratio (1.0-2.8) Procalcitonin 0.05 (<0.5) ng/mL Nasal Screen MRSA (PCR) (Negative) Chlamy pneumoniae PCR (Not Detect) Adenovirus (PCR) (Not Detect) B.parapertussis DNA PCR (Not Detect) Coronavirus OC43 (PCR) (Not Detect) Coronavirus HKU1 (PCR) (Not Detect) Coronavirus 229E (PCR) (Not Detect) Coronavirus NL63 (PCR) (Not Detect) Human Metapneumovir PCR (Not Detect) Influenza Type A (PCR) (Not Detect) Influenza Type B (PCR) (Not Detect) M. pneumoniae (PCR) (Not Detect) Parainfluenza 1 (PCR) (Not Detect) Parainfluenza 2 (PCR) (Not Detect) Parainfluenza 3 (PCR) (Not Detect) Parainfluenza 4 (PCR) (Not Detect) RSV (PCR) (Not Detect) Entero/Rhino (PCR) (Not Detect) 11/18/18 11/18/18 Range/Units 14:45 15:30 WBC (4.5-11.0) X10^3/uL RBC (4.5-5.9) X10^6/uL Hgb (13.5-17.5) g/dL Hct (41-53) % MCV (80-100) fL MCH (26-34) PG MCHC (30-36) % RDW (11.6-14.8) % Plt Count (150-400) X10^3/uL Neut % (Auto) (50-75) % Lymph % (Auto) (25-40) % [place] % (Auto) (3-14) % Eos % (Auto) (2-4) % Baso % (Auto) (0-2) % Neut # (Auto) (2034-4970) /uL Lymph # (Auto) (8765-4296) /uL [place] # (Auto) (0-900) /uL Eos # (Auto) (0-450) /uL Baso # (Auto) (0-100) /uL RBC Morphology Polychromasia Anisocytosis D-Dimer (<230) ng/mL Sodium (137-145) mmol/L Potassium (3.4-5.1) mmol/L Chloride (98-107) mmol/L Carbon Dioxide (22-32) mmol/L BUN (9-20) mg/dL Creatinine (0.66-1.25) mg/dL Estimated GFR (>60) mL/min BUN/Creatinine Ratio (6-22) Glucose (80-110) mg/dL Calcium (8.4-10.2) mg/dL Total Bilirubin (0.2-1.3) mg/dL AST (17-59) IU/L ALT (21-72) IU/L Alkaline Phosphatase (38-126) U/L Total Creatine Kinase (55-170) U/L CK-MB (CK-2) CK-MB (CK-2) Rel Index Troponin I (0.01-0.034) ng/mL B-Natriuretic Peptide (<100) Total Protein (6.3-8.2) g/dL Albumin (3.5-5.0) g/dL Globulin (1.7-4.1) g/dL Albumin/Globulin Ratio (1.0-2.8) Procalcitonin (<0.5) ng/mL Nasal Screen MRSA (PCR) Negative for mrsa (Negative) Chlamy pneumoniae PCR Not detected (Not Detect) Adenovirus (PCR) Not detected (Not Detect) B.parapertussis DNA PCR Not detected (Not Detect) Coronavirus OC43 (PCR) Not detected (Not Detect) Coronavirus HKU1 (PCR) Not detected (Not Detect) Coronavirus 229E (PCR) Not detected (Not Detect) Coronavirus NL63 (PCR) Not detected (Not Detect) Human Metapneumovir PCR Not detected (Not Detect) Influenza Type A (PCR) Not detected (Not Detect) Influenza Type B (PCR) Not detected (Not Detect) M. pneumoniae (PCR) Not detected (Not Detect) Parainfluenza 1 (PCR) Not detected (Not Detect) Parainfluenza 2 (PCR) Not detected (Not Detect) Parainfluenza 3 (PCR) Not detected (Not Detect) Parainfluenza 4 (PCR) Not detected (Not Detect) RSV (PCR) Not detected (Not Detect) Entero/Rhino (PCR) Not detected (Not Detect) Urine Dip Bedside Urine Glucose Negative Bedside Urine Bilirubin - Negative Bedside Urine Ketone - Negative Urine Specific [place] 1.030 Bedside Urine Occult Blood - Negative Bedside Urine pH 6 Bedside Urine Protein +/- 15 Bedside Urine Urobilinogen - Negative Bedside Urine Nitrite - Negative Bedside Urine Leukocytes - Negative Esterase Imaging Data Chest x-ray: Radiologist's impression: Harvey Roberts 63 M [address] [address] XRay Report Signed Patient: Harvey Roberts SMR#: [id number] : [id number]:[id number] Age/Sex: 63 / MDate of Service: 11/18/18 Loc: [facility] Accession Number: [id number] Procedure: XR chest 2V Ordering Provider: Marissa Swan P.A-C PROCEDURE: XR CHEST 2V INDICATIONS: cough TECHNIQUE: 2 views of the chest were acquired. COMPARISON: [facility], CR, XR CHEST 2V, 03/05/2018, 11:07. [facility], CR, CHEST 1 VIEW, 10/09/2016, 9:47. FINDINGS: Surgical changes and devices: None. Lungs and pleura: Lungs are clear except for a small degree of interstitial prominence and lung volumes are large, potentially reflecting prior smoking history. No pleural effusions or pneumothorax. Mediastinum: Mediastinal contours are normal. Heart size is normal. Bones and chest wall: No suspicious bony abnormalities. Soft tissues appear unremarkable. IMPRESSION: No pneumonia or neoplasm found. Mild interstitial prominence and large lung volumes, suspect prior smoking history. Dictated by: Ramos Arteaga M.D. on 11/18/2018 at 8:41 Approved by: Ramos Arteaga M.D. on 11/18/2018 at 8:41 CT Angio chest: Radiologist's impression: 85 Alissa Banda, DO Find Patient Imaging Harvey Roberts 63 M 1955 ACTIVITY DATE EXAM STATUS AUTHOR 11/18/18 11:25 [place] [address] CT Scan Report Signed Patient: Harvey Roberts [facility]#: [id number] : [id number]:[id number] Age/Sex: 63 / MDate of Service: 11/18/18 Loc: ED Accession Number: [id number] Procedure: CT angio chest PE protocol Ordering Provider: Alissa Banda D.O. PROCEDURE: CT ANGIO CHEST PE PROTOCOL INDICATIONS: sob, low O2, sx 3 months ago. COPD. TECHNIQUE: After the administration of intravenous contrast, 2 mm thick sections acquired from the pulmonary apices to the posterior costophrenic angles. 3-dimensional maximum intensity projection (MIP) coronal and sagittal reformats were then acquired through the thorax. For radiation dose reduction, the following was used: automated exposure control, adjustment of mA and/or kV according to patient size. COMPARISON: None. FINDINGS: Image quality: Excellent. Pulmonary arteries: Pulmonary arteries are normal in size, and demonstrate no intraluminal filling defects to suggest central pulmonary embolism. Lungs and pleura: There is biapical scarring. Mild bibasilar dependent atelectasis is seen. No focal infiltrate or discrete pulmonary nodule or mass. No pleural effusions or pneumothorax. Central and peripheral airways are patent. Mediastinum: Heart size is normal, without pericardial effusion. No mediastinal or hilar adenopathy by size criteria. Subcentimeter lymph nodes are seen in mediastinum measures up to 6 mm in short axis diameter.. Thoracic aorta is normal in caliber and enhancement. Esophagus is normal in caliber, with a small hiatal hernia. Bones and chest wall: No suspicious bony lesions. Degenerative disc disease throughout thoracic spine is seen. No acute compression fracture or spondylolisthesis. No discrete rib abnormality is seen. Thyroid gland is within normal limits. No axillary or supraclavicular adenopathy. Abdomen: Visualized upper abdominal solid organs appear normal in the early arterial phase of enhancement. There is hepatic steatosis. IMPRESSION: 1. No evidence of pulmonary emboli. No thoracic aortic aneurysm or dissection. 2. Biapical scarring. Bibasilar dependent atelectasis. No pleural effusion or pneumothorax. Airway is patent. 3. No gross mediastinal or hilar lymphadenopathy. 4. Hepatic steatosis. Dictated by: Lion Kendall M.D. on 11/18/2018 at 11:55 Approved by: Lion Kendall M.D. on 11/18/2018 at 12:00 ECG Data Attestation: I personally reviewed and interpreted this ECG as follows: Prior ECG tracings: available for review Interpretation: Sinus tachycardia with a rate of 120 P are 170 QRS of 102 and QTC of 370. No ST elevation is appreciated. The patient does have Q-waves in V4 5 6. As well as lead 3 and 1. Patient has prior EKG from 10/09/2016. Rhythm appears similar. [facility] Narrative Medical decision making narrative: Suspect patient is having a COPD exacerbation from recent infection. Patient's heart rate is quite tachycardic although he states this is typical for him. EKG shows a sinus tachycardia. Patient's oxygenation was in the 70s when he 1st arrived on room air. He came up quite quickly with 3 L and is feeling better with 1 DuoNeb but is still wheezy. Plan for several more albuterol nebulized, Solu-Medrol. Chest x-ray was reviewed does not show any acute changes but lab work was obtained and as well as D-dimer only suspicion for PE he is much lower but with patient's elevated heart rate and history of hip surgery 3 months ago felt to be prudent to include. Patient's heart rate has been improving. His blood pressures been normal. He has been on 3 L nasal cannula. Plan for CT PE to make sure patient does not have a pulmonary emboli his dimer is elevated, he has history of hip surgery 3 months ago. Angiography is negative for PE or any obvious pneumonia or other major changes.. On recheck his lungs sound clear although slightly diminished. No wheezing at this time. Patient feels better just sitting on the bed when I turn off his nasal cannula he drops down to 88% but does not feel dyspneic. On ambulation trial patient dropped to 75% and feels quite dyspneic. Discussed with patient I do not feel comfortable D seeing him home. He is agreeable to stay, spoke with Dr. Hammond who accepts patient for COPD exacerbation Discharge Plan Departure Patient Disposition: Admitted as Observation Clinical Impression: COPD exacerbation Discharge Date/Time: 11/18/18 14:00 Interventions: ED Discharge Assessment Last Done: 11/18/18 13:47 Referrals: Miguel Angel Park MD [Primary Care Provider] - Admit Date/Time: 11/18/18 13:51 Admit Provider: Carolin Hammond
[2018-11-18 09:53] LABS: Basophils Absolute Auto 100 /uL (0-100); Basophils Percent Auto 0.7 % (0-2); Eosinophils Absolute Auto 200 /uL (0-450); Eosinophils Percent Auto 2.4 % (2-4); Hematocrit 42.8 % (41-53); Hemoglobin 14.8 g/dL (13.5-17.5); Lymphocytes Absolute Auto 1300 /uL (1100-4500); Lymphocytes Percent Auto 13.8 % (25-40); Mean Corpuscular HGB Conc 34.6 % (30-36); Mean Corpuscular Volume 86.7 fL (80-100); Monocytes Absolute Auto 1000 /uL (0-900); Monocytes Percent Auto 10.4 % (3-14); Neutrophils Absolute Auto 7100 /uL (1500-7000); Neutrophils Percent Auto 72.7 % (50-75); Red Blood Cell Count 4.94 X10^6/uL (4.5-5.9); Red Cell Distribution Width 15.1 % (11.6-14.8); White Blood Cell Count 9.7 X10^3/uL (4.5-11.0)
[2018-11-18] MEDS: methylPREDNISolone 125 MG/2 ML VIAL IV (09:54)
[2018-11-18] MEDS: SODIUM CHLORIDE 0.9% 1,000 ML 1000 ML IV (09:54)
[2018-11-18] MEDS: ALBUTEROL 2.5 MG/3 ML NEB (ADULT) 5 MG INH (09:56)
[2018-11-18 10:01] LABS: Add Manual Diff / Slide Review SLIDE REVIEW
--- NOTE | 2018-11-18 10:03 | ED_ITS ---
HPI - SOB/Dyspnea General Chief Complaint: Shortness of Breath/Dyspnea Stated Complaint: HIGH HEART RATE,LOW OXYGEN Source: patient and old records reviewed Mode of arrival: wheelchair ( from walk-in clinic) Limitations: no limitations History of Present Illness This is a 63-year-old male comes to the emergency department with complaint of shortness of breath. Patient states he has had cold he thinks for couple days. He has had some nasal congestion, cough with green/yellow soni sputum. And some wheezing. Patient states that he had some similar symptoms about 10 years ago. Patient states that he has not had any chest pain or pressure, he has felt short of breath particularly with exertion. If he is just sitting still he does not feel short of breath. He has not had any swelling in his lower extremities. He does have COPD, he states he is in the process of quitting, he smoked for about 40 years least a pack per day. 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 Patient states he does use albuterol as needed typically. He says he uses it most days of the week off and a couple times during the day unless he has a very sedentary. Patient is not on a steroid inhaler. He is not currently on any oral steroids. He does take medication for hypertension, dyslipidemia, pain medication. He does not take an aspirin. He denies any other cardiac history. He has had hip surgery a couple months ago as well as a spinal fusion L3 in 5 in the past remotely. He occasionally has alcohol he denies any illicit. Dr. Camarena is his primary care. He was sent from the walk- in clinic for low O2 83 he did have a chest x-ray which was reviewed here in the ED. Patient is currently on nasal cannula 3 L he received 1 DuoNeb prior to evaluation in is feeling better. Related Data Home Medications Medication Instructions Recorded Confirmed docusate sodium 100 mg PO BID 11/18/18 11/18/18 lisinopril 20 mg PO DAILY 11/18/18 11/18/18 Previous Rx's Medication Instructions Recorded albuterol sulfate HFA 90 1 puff INHALATION Q4HP PRN #1 each 05/25/18 mcg/actuation aerosol inhaler ibuprofen 600 mg tablet 600 mg PO QID PRN #120 tab 07/14/18 cyclobenzaprine 10 mg tablet 10 mg PO TID PRN #90 tab 07/27/18 bupropion HCl 150 mg tablet,12 hr 150 mg PO TID #270 tab 08/21/18 sustained-release(smoking deterrent) pravastatin 10 mg tablet 10 mg PO BEDTIME #30 tab 09/23/18 naloxone 0.4 mg/mL injection 0.4 mg IM ONCE PRN #1 ml 10/21/18 syringe oxycodone-acetaminophen 10 mg-325 1 tab PO Q6H PRN #120 tab 10/21/18 mg tablet Allergies Allergy/AdvReac Type Severity Reaction Status Date / Time No Known Drug Allergies Allergy Verified 10/21/18 15:15 Review of Systems Review of Systems ROS Unobtainable: All systems reviewed & are unremarkable except as noted in HPI and below Constitutional Denies chills, Reports excessive sweating (Stairs while in the walk-in clinic), Denies fever(s), Denies lethargy and Denies weakness ENT Ears, Nose, Mouth, and Throat: Reports nasal congestion Cardiovascular Denies chest pain, Denies chest pain at rest, Denies chest pain with activity, Denies syncope, Reports rapid heart rate (Patient states chronically), Denies edema, Denies irregular heart rhythm, Denies lightheadedness, Denies palpitations, Denies dyspnea, Reports dyspnea on exertion and Denies orthopnea Respiratory Reports change in phlegm color, Reports chest congestion, Reports cough, Denies hemoptysis, Denies dyspnea, Reports dyspnea on exertion and Reports wheezing Gastrointestinal Gastrointestinal: Denies abdominal pain, Denies change in bowel habits, Denies diarrhea, Denies nausea and Denies vomiting Neurologic Denies syncope and Denies weakness Endocrine Reports excessive sweating (Stairs while in the walk-in clinic) and Denies palpitations Allergic/Immunologic Reports wheezing [facility] Medical History (Updated 11/18/18 @ 15:50 by Carolin Hammond MD) Uncomplicated opioid dependence (Chronic) Hypertension (Chronic Unknown) COPD (chronic obstructive pulmonary disease) (Chronic Unknown) Generalized headaches (Chronic 1999) Chronic back pain (Chronic 1979) Primary osteoarthritis of right hip (Chronic 06/17/17) Hyperlipidemia (Acute) Surgical History (Updated 11/18/18 @ 15:45 by Carolin Hammond MD) Hx of inguinal hernia repair (Resolved 1999) History of lumbar surgery (Resolved ~2015) History of right hip replacement (Acute) History of total right hip arthroplasty (Resolved) Family History (Updated 11/18/18 @ 15:46 by Carolin Hammond MD) Mother No problems noted. Father No problems noted. Father Natural with probable cause suspected Social History (Updated 11/18/18 @ 09:58 by Alissa Banda DO) details: female partner household members: friend(s) Smoking Status: Current every day smoker alcohol intake: current substance use type: does not use Social History (Updated 11/18/18 @ 09:58 by Alissa Banda DO) details: female partner household members: friend(s) Smoking Status: Current every day smoker alcohol intake: current substance use type: does not use Exam Narrative Exam Narrative: GEN: well nourished, obese male, alert and oriented x 3, patient appears to be in mild distress. HEENT: Atraumatic, pupils are equal round reactive to light, extraocular movements are intact, nares mild clear rhinorrhea. HEART: Tachycardic but regular rate and rhythm without murmur, clicks, rubs. Pulses are equal in upper extremities. No JVD. No swelling in lower extremities. LUNGS:Lungs slightly decreased bilaterally, patient has bilateral expiratory wheezes in upper and lower lungs no rales, crackles, chest moves symmetrically. No tachypnea the patient is post DuoNeb. He is able to speak in full sentences. ABD:bowel sounds normal, soft, slightly distended, non-tender, no guarding, rebound, rigidity, no masses noted, no hepatosplenomegaly :No CVA tenderness MSCL: Non-tender, no muscle atrophy NEURO:CN 2-12 intact, sensation normal Initial Vital Signs Initial Vital Signs: Vital Signs Temperature 98.0 F 11/18/18 09:20 Pulse Rate 136 H 11/18/18 09:20 Respiratory Rate 30 H 11/18/18 09:20 Blood Pressure 151/87 H 11/18/18 09:20 Pulse Oximetry 78 L 11/18/18 09:20 Course Orders Ordered: ED Orders 11/18/18 10:02 CMP [Comprehensive Metabolic Panel] Stat D Dimer Stat Procalcitonin Routine Troponin & CK Cardiac Panel Stat 11/18/18 11:25 CT angio chest PE protocol Stat 11/18/18 14:35 Consult to Respiratory Therapy Evaluate & Treat Education, smoking cessation ONGOING 11/18/18 14:45 MRSA PCR Stat 11/18/18 15:30 Respiratory Panel (Film Array) Routine 11/18/18 15:34 RT Consult Eval and Treat Now 11/18/18 15:37 Education, smoking cessation ONGOING 11/18/18 17:30 Sputum Culture Routine 11/19/18 05:00 B Type Natriuretic Peptide Routine Basic Metabolic Panel Routine Complete Blood Count AUTO DIFF Routine Acetaminophen (Tylenol) 650 mg PO Q6HR PRN PRN Reason: As Needed for Fever/Mild Pain Hydrocodone Bitart/Acetaminophen ([place] 5/325) 1 tab PO Q4HR PRN PRN Reason: Pain, Moderate (4-6) Albuterol (Ventolin) 2.5 mg INH [id number] PRN PRN Reason: Shortness Of Breath Or Wheezing Budesonide (Pulmicort Flexhaler) 2 puff INH BID [facility] Last Admin: 11/18/18 16:30 Dose: 2 puff Bupropion HCl (Welbutrin) 150 mg PO TID [facility] Cyclobenzaprine HCl (Flexeril) 10 mg PO TID PRN PRN Reason: muscle spasm Docusate Sodium (Colace) 100 mg PO BID [facility] Enoxaparin Sodium (Lovenox) 40 mg SUBCUT 1700 [facility] Last Admin: 11/18/18 16:14 Dose: 40 mg Sodium Chloride (Normal Saline 0.45%) 1,000 mls @ 100 mls/hr IV CONT [facility] Last Admin: 11/18/18 16:15 Dose: 100 mls/hr Levofloxacin (Levaquin) 750 mg in 150 mls @ 100 mls/hr IV Q24H [facility] Last Admin: 11/18/18 16:14 Dose: 100 mls/hr Ibuprofen (Advil) 600 mg PO Q6HR PRN PRN Reason: As Needed for Fever/Mild Pain Ipratropium [place] (Atrovent Neb) 0.5 mg INH RTQ4HR [facility] Last Admin: 11/18/18 16:29 Dose: 0.5 mg Lisinopril (Zestril) 20 mg PO DAILY [facility] Methylprednisolone (Solu-Medrol 125 Mg Vial) 60 mg IV Q6HR [facility] Last Admin: 11/18/18 17:42 Dose: 60 mg Naloxone HCl (Narcan) 0.4 mg IV PRN PRN PRN Reason: opioid reversal Ondansetron HCl (Zofran) 4 mg IV Q8HR PRN PRN Reason: Nausea And Vomiting Oxycodone/Acetaminophen (Percocet 5/325) 2 tab PO Q4HR PRN PRN Reason: Pain, Severe (7-10) Last Admin: 11/18/18 17:44 Dose: 2 tab Pravastatin Sodium (Pravachol) 10 mg PO BEDTIME JAKE Sennosides (Senna) 17.2 mg PO BEDTIME JAKE Discontinued Medications Albuterol (Ventolin) 5 mg INH NOW ONE Stop: 11/18/18 09:54 Last Admin: 11/18/18 09:56 Dose: 5 mg Albuterol/Ipratropium (Duoneb) 3 ml INH NOW ONE Stop: 11/18/18 09:28 Last Admin: 11/18/18 09:32 Dose: 3 ml Sodium Chloride (Normal Saline 0.9%) 1,000 mls @ 1,000 mls/hr IV BOLUS ONE Stop: 11/18/18 10:52 Last Infusion: 11/18/18 10:48 Dose: 0 mls/hr Admin: 11/18/18 09:54 Dose: 1,000 mls/hr Methylprednisolone (Solu-Medrol 125 Mg Vial) 125 mg IV NOW ONE Stop: 11/18/18 09:54 Last Admin: 11/18/18 09:54 Dose: 125 mg Vital Signs - 8 hr 11/18/18 11:00 11/18/18 11:30 11/18/18 14:15 Temperature 97.4 F L Pulse Rate 106 H 103 H 118 H Respiratory Rate 24 22 25 H Blood Pressure 151/96 H Blood Pressure [Right Arm] 155/80 H 143/79 H Pulse Oximetry 95 94 91 11/18/18 15:46 11/18/18 15:52 11/18/18 16:37 Temperature 98.6 F Pulse Rate 110 H 114 H Respiratory Rate 22 Blood Pressure 166/97 H Blood Pressure [Right Arm] Pulse Oximetry 95 93 92 MDM - SOB/Dyspnea Lab Data Attestation: I reviewed the patient's lab results. Result diagrams: 11/18/18 09:30 11/18/18 10:02 Lab Results 11/18/18 11/18/18 11/18/18 Range/Units 09:30 09:30 10:02 WBC 9.7 (4.5-11.0) X10^3/uL RBC 4.94 (4.5-5.9) X10^6/uL Hgb 14.8 (13.5-17.5) g/dL Hct 42.8 (41-53) % MCV 86.7 (80-100) fL MCH 30.0 (26-34) PG MCHC 34.6 (30-36) % RDW 15.1 H (11.6-14.8) % Plt Count 221 (150-400) X10^3/uL Neut % (Auto) 72.7 (50-75) % Lymph % (Auto) 13.8 L (25-40) % [place] % (Auto) 10.4 (3-14) % Eos % (Auto) 2.4 (2-4) % Baso % (Auto) 0.7 (0-2) % Neut # (Auto) 7100 H (0077-7284) /uL Lymph # (Auto) 1300 (2628-8651) /uL [place] # (Auto) 1000 H (0-900) /uL Eos # (Auto) 200 (0-450) /uL Baso # (Auto) 100 (0-100) /uL RBC Morphology See Polychromasia 1+ H Anisocytosis 1+ H D-Dimer (<230) ng/mL Sodium 143 (137-145) mmol/L Potassium 4.7 (3.4-5.1) mmol/L Chloride 100 (98-107) mmol/L Carbon Dioxide 35 H (22-32) mmol/L BUN 31 H (9-20) mg/dL Creatinine 0.90 (0.66-1.25) mg/dL Estimated GFR > 60.0 (>60) mL/min BUN/Creatinine Ratio 34.4 H (6-22) Glucose 130 H (80-110) mg/dL Calcium 10.4 H (8.4-10.2) mg/dL Total Bilirubin 0.4 (0.2-1.3) mg/dL AST 26 (17-59) IU/L ALT 21 (21-72) IU/L Alkaline Phosphatase 134 H (38-126) U/L Total Creatine Kinase (55-170) U/L CK-MB (CK-2) CK-MB (CK-2) Rel Index Troponin I (0.01-0.034) ng/mL B-Natriuretic Peptide < 100 (<100) Total Protein 8.0 (6.3-8.2) g/dL Albumin 4.6 (3.5-5.0) g/dL Globulin 3.4 (1.7-4.1) g/dL Albumin/Globulin Ratio 1.4 (1.0-2.8) Procalcitonin (<0.5) ng/mL Nasal Screen MRSA (PCR) (Negative) Chlamy pneumoniae PCR (Not Detect) Adenovirus (PCR) (Not Detect) B.parapertussis DNA PCR (Not Detect) Coronavirus OC43 (PCR) (Not Detect) Coronavirus HKU1 (PCR) (Not Detect) Coronavirus 229E (PCR) (Not Detect) Coronavirus NL63 (PCR) (Not Detect) Human Metapneumovir PCR (Not Detect) Influenza Type A (PCR) (Not Detect) Influenza Type B (PCR) (Not Detect) M. pneumoniae (PCR) (Not Detect) Parainfluenza 1 (PCR) (Not Detect) Parainfluenza 2 (PCR) (Not Detect) Parainfluenza 3 (PCR) (Not Detect) Parainfluenza 4 (PCR) (Not Detect) RSV (PCR) (Not Detect) Entero/Rhino (PCR) (Not Detect) 11/18/18 11/18/18 11/18/18 Range/Units 10:02 10:02 10:02 WBC (4.5-11.0) X10^3/uL RBC (4.5-5.9) X10^6/uL Hgb (13.5-17.5) g/dL Hct (41-53) % MCV (80-100) fL MCH (26-34) PG MCHC (30-36) % RDW (11.6-14.8) % Plt Count (150-400) X10^3/uL Neut % (Auto) (50-75) % Lymph % (Auto) (25-40) % [place] % (Auto) (3-14) % Eos % (Auto) (2-4) % Baso % (Auto) (0-2) % Neut # (Auto) (7111-9716) /uL Lymph # (Auto) (7125-0601) /uL [place] # (Auto) (0-900) /uL Eos # (Auto) (0-450) /uL Baso # (Auto) (0-100) /uL RBC Morphology Polychromasia Anisocytosis D-Dimer 272 H (<230) ng/mL Sodium (137-145) mmol/L Potassium (3.4-5.1) mmol/L Chloride (98-107) mmol/L Carbon Dioxide (22-32) mmol/L BUN (9-20) mg/dL Creatinine (0.66-1.25) mg/dL Estimated GFR (>60) mL/min BUN/Creatinine Ratio (6-22) Glucose (80-110) mg/dL Calcium (8.4-10.2) mg/dL Total Bilirubin (0.2-1.3) mg/dL AST (17-59) IU/L ALT (21-72) IU/L Alkaline Phosphatase (38-126) U/L Total Creatine Kinase 88 (55-170) U/L CK-MB (CK-2) TNP CK-MB (CK-2) Rel Index TNP Troponin I < 0.012 (0.01-0.034) ng/mL B-Natriuretic Peptide (<100) Total Protein (6.3-8.2) g/dL Albumin (3.5-5.0) g/dL Globulin (1.7-4.1) g/dL Albumin/Globulin Ratio (1.0-2.8) Procalcitonin 0.05 (<0.5) ng/mL Nasal Screen MRSA (PCR) (Negative) Chlamy pneumoniae PCR (Not Detect) Adenovirus (PCR) (Not Detect) B.parapertussis DNA PCR (Not Detect) Coronavirus OC43 (PCR) (Not Detect) Coronavirus HKU1 (PCR) (Not Detect) Coronavirus 229E (PCR) (Not Detect) Coronavirus NL63 (PCR) (Not Detect) Human Metapneumovir PCR (Not Detect) Influenza Type A (PCR) (Not Detect) Influenza Type B (PCR) (Not Detect) M. pneumoniae (PCR) (Not Detect) Parainfluenza 1 (PCR) (Not Detect) Parainfluenza 2 (PCR) (Not Detect) Parainfluenza 3 (PCR) (Not Detect) Parainfluenza 4 (PCR) (Not Detect) RSV (PCR) (Not Detect) Entero/Rhino (PCR) (Not Detect) 11/18/18 11/18/18 Range/Units 14:45 15:30 WBC (4.5-11.0) X10^3/uL RBC (4.5-5.9) X10^6/uL Hgb (13.5-17.5) g/dL Hct (41-53) % MCV (80-100) fL MCH (26-34) PG MCHC (30-36) % RDW (11.6-14.8) % Plt Count (150-400) X10^3/uL Neut % (Auto) (50-75) % Lymph % (Auto) (25-40) % [place] % (Auto) (3-14) % Eos % (Auto) (2-4) % Baso % (Auto) (0-2) % Neut # (Auto) (5727-3754) /uL Lymph # (Auto) (2730-0396) /uL [place] # (Auto) (0-900) /uL Eos # (Auto) (0-450) /uL Baso # (Auto) (0-100) /uL RBC Morphology Polychromasia Anisocytosis D-Dimer (<230) ng/mL Sodium (137-145) mmol/L Potassium (3.4-5.1) mmol/L Chloride (98-107) mmol/L Carbon Dioxide (22-32) mmol/L BUN (9-20) mg/dL Creatinine (0.66-1.25) mg/dL Estimated GFR (>60) mL/min BUN/Creatinine Ratio (6-22) Glucose (80-110) mg/dL Calcium (8.4-10.2) mg/dL Total Bilirubin (0.2-1.3) mg/dL AST (17-59) IU/L ALT (21-72) IU/L Alkaline Phosphatase (38-126) U/L Total Creatine Kinase (55-170) U/L CK-MB (CK-2) CK-MB (CK-2) Rel Index Troponin I (0.01-0.034) ng/mL B-Natriuretic Peptide (<100) Total Protein (6.3-8.2) g/dL Albumin (3.5-5.0) g/dL Globulin (1.7-4.1) g/dL Albumin/Globulin Ratio (1.0-2.8) Procalcitonin (<0.5) ng/mL Nasal Screen MRSA (PCR) Negative for mrsa (Negative) Chlamy pneumoniae PCR Not detected (Not Detect) Adenovirus (PCR) Not detected (Not Detect) B.parapertussis DNA PCR Not detected (Not Detect) Coronavirus OC43 (PCR) Not detected (Not Detect) Coronavirus HKU1 (PCR) Not detected (Not Detect) Coronavirus 229E (PCR) Not detected (Not Detect) Coronavirus NL63 (PCR) Not detected (Not Detect) Human Metapneumovir PCR Not detected (Not Detect) Influenza Type A (PCR) Not detected (Not Detect) Influenza Type B (PCR) Not detected (Not Detect) M. pneumoniae (PCR) Not detected (Not Detect) Parainfluenza 1 (PCR) Not detected (Not Detect) Parainfluenza 2 (PCR) Not detected (Not Detect) Parainfluenza 3 (PCR) Not detected (Not Detect) Parainfluenza 4 (PCR) Not detected (Not Detect) RSV (PCR) Not detected (Not Detect) Entero/Rhino (PCR) Not detected (Not Detect) Urine Dip Bedside Urine Glucose Negative Bedside Urine Bilirubin - Negative Bedside Urine Ketone - Negative Urine Specific [place] 1.030 Bedside Urine Occult Blood - Negative Bedside Urine pH 6 Bedside Urine Protein +/- 15 Bedside Urine Urobilinogen - Negative Bedside Urine Nitrite - Negative Bedside Urine Leukocytes - Negative Esterase Imaging Data Chest x-ray: Radiologist's impression: Harvey Roberts 63 M [address] [address] XRay Report Signed Patient: Harvey Roberts SMR#: [id number] : 1955cct:[id number] Age/Sex: 63 / MDate of Service: 11/18/18 Loc: [facility] Accession Number: [id number] Procedure: XR chest 2V Ordering Provider: Marissa Swan P.A-C PROCEDURE: XR CHEST 2V INDICATIONS: cough TECHNIQUE: 2 views of the chest were acquired. COMPARISON: [facility], CR, XR CHEST 2V, 03/05/2018, 11:07. [facility], CR, CHEST 1 VIEW, 10/09/2016, 9:47. FINDINGS: Surgical changes and devices: None. Lungs and pleura: Lungs are clear except for a small degree of interstitial prominence and lung volumes are large, potentially reflecting prior smoking history. No pleural effusions or pneumothorax. Mediastinum: Mediastinal contours are normal. Heart size is normal. Bones and chest wall: No suspicious bony abnormalities. Soft tissues appear unremarkable. IMPRESSION: No pneumonia or neoplasm found. Mild interstitial prominence and large lung volumes, suspect prior smoking history. Dictated by: Ramos Arteaga M.D. on 11/18/2018 at 8:41 Approved by: Ramos Arteaga M.D. on 11/18/2018 at 8:41 CT Angio chest: Radiologist's impression: 85 Alissa Banda, DO Find Patient Imaging Harvey Roberts 63 M 1955 ACTIVITY DATE EXAM STATUS AUTHOR 11/18/18 11:25 [place] [address] CT Scan Report Signed Patient: Harvey Roberts [facility]#: [id number] : [id number]:[id number] Age/Sex: 63 / MDate of Service: 11/18/18 Loc: ED Accession Number: [id number] Procedure: CT angio chest PE protocol Ordering Provider: Alissa Banda D.O. PROCEDURE: CT ANGIO CHEST PE PROTOCOL INDICATIONS: sob, low O2, sx 3 months ago. COPD. TECHNIQUE: After the administration of intravenous contrast, 2 mm thick sections acquired from the pulmonary apices to the posterior costophrenic angles. 3-dimensional maximum intensity projection (MIP) coronal and sagittal reformats were then acquired through the thorax. For radiation dose reduction, the following was used: automated exposure control, adjustment of mA and/or kV according to patient size. COMPARISON: None. FINDINGS: Image quality: Excellent. Pulmonary arteries: Pulmonary arteries are normal in size, and demonstrate no intraluminal filling defects to suggest central pulmonary embolism. Lungs and pleura: There is biapical scarring. Mild bibasilar dependent atelectasis is seen. No focal infiltrate or discrete pulmonary nodule or mass. No pleural effusions or pneumothorax. Central and peripheral airways are patent. Mediastinum: Heart size is normal, without pericardial effusion. No me diastinal or hilar adenopathy by size criteria. Subcentimeter lymph nodes are seen in mediastinum measures up to 6 mm in short axis diameter.. Thoracic aorta is normal in caliber and enhancement. Esophagus is normal in caliber, with a small hiatal hernia. Bones and chest wall: No suspicious bony lesions. Degenerative disc disease throughout thoracic spine is seen. No acute compression fracture or spondylolisthesis. No discrete rib abnormality is seen. Thyroid gland is within normal limits. No axillary or supraclavicular adenopathy. Abdomen: Visualized upper abdominal solid organs appear normal in the early arterial phase of enhancement. There is hepatic steatosis. IMPRESSION: 1. No evidence of pulmonary emboli. No thoracic aortic aneurysm or dissection. 2. Biapical scarring. Bibasilar dependent atelectasis. No pleural effusion or pneumothorax. Airway is patent. 3. No gross mediastinal or hilar lymphadenopathy. 4. Hepatic steatosis. Dictated by: Lion Kendall M.D. on 11/18/2018 at 11:55 Approved by: Lion Kendall M.D. on 11/18/2018 at 12:00 ECG Data Attestation: I personally reviewed and interpreted this ECG as follows: Prior ECG tracings: available for review Interpretation: Sinus tachycardia with a rate of 120 P are 170 QRS of 102 and QTC of 370. No ST elevation is appreciated. The patient does have Q-waves in V4 5 6. As well as lead 3 and 1. Patient has prior EKG from 10/09/2016. Rhythm appears similar. [facility] Narrative Medical decision making narrative: Suspect patient is having a COPD exacerbation from recent infection. Patient's heart rate is quite tachycardic although he states this is typical for him. EKG shows a sinus tachycardia. Patient's oxygenation was in the 70s when he 1st arrived on room air. He came up quite quickly with 3 L and is feeling better with 1 DuoNeb but is still wheezy. Plan for several more albuterol nebulized, Solu-Medrol. Chest x-ray was reviewed does not show any acute changes but lab work was obtained and as well as D-dimer only suspicion for PE he is much lower but with patient's elevated heart rate and history of hip surgery 3 months ago felt to be prudent to include. Patient's heart rate has been improving. His blood pressures been normal. He has been on 3 L nasal cannula. Plan for CT PE to make sure patient does not have a pulmonary emboli his dimer is elevated, he has history of hip surgery 3 months ago. Angiography is negative for PE or any obvious pneumonia or other major changes.. On recheck his lungs sound clear although slightly diminished. No wheezing at this time. Patient feels better just sitting on the bed when I turn off his nasal cannula he drops down to 88% but does not feel dyspneic. On ambulation trial patient dropped to 75% and feels quite dyspneic. Discussed with patient I do not feel comfortable D seeing him home. He is agreeable to stay, spoke with Dr. Hammond who accepts patient for COPD exacerbation Discharge Plan Departure Patient Disposition: Admitted as Observation Clinical Impression: COPD exacerbation Discharge Date/Time: 11/18/18 14:00 Interventions: ED Discharge Assessment Last Done: 11/18/18 13:47 Referrals: Miguel Angel Park MD [Primary Care Provider] - Admit Date/Time: 11/18/18 13:51 Admit Provider: Carolin Hammond
[2018-11-18 10:12] LABS: B Type Natriuretic Peptide < 100 (<100)
[2018-11-18 10:22] LABS: Anisocytosis 1+; Polychromasia 1+; RBC Morphology See
[2018-11-18 10:23] LABS: Platelet Count 221 X10^3/uL (150-400)
[2018-11-18 10:33] LABS: Creatine Kinase 88 U/L (55-170); D Dimer 272 ng/mL (<230)
[2018-11-18 10:34] LABS: Alanine Aminotransferase 21 IU/L (21-72); Albumin 4.6 g/dL (3.5-5.0); Albumin Globulin Ratio 1.4 (1.0-2.8); Alkaline Phosphatase 134 U/L (38-126); Aspartate Aminotransferase 26 IU/L (17-59); BUN Creatinine Ratio 34.4 (6-22); Bilirubin Total 0.4 mg/dL (0.2-1.3); Blood Urea Nitrogen 31 mg/dL (9-20); Calcium 10.4 mg/dL (8.4-10.2); Carbon Dioxide 35 mmol/L (22-32); Chloride 100 mmol/L (98-107); Estimated Glomerular Filt Rate > 60.0 mL/min (>60); Globulin 3.4 g/dL (1.7-4.1); Glucose 130 mg/dL (80-110); HEMOLYSIS < 15 (0-50); Potassium 4.7 mmol/L (3.4-5.1); Sodium 143 mmol/L (137-145)
[2018-11-18 10:45] LABS: Troponin I < 0.012 ng/mL (0.01-0.034)
--- NOTE | 2018-11-18 11:25 | DI.CT.S_ITS ---
PROCEDURE: CT ANGIO CHEST PE PROTOCOL INDICATIONS: sob, low O2, sx 3 months ago. COPD. TECHNIQUE: After the administration of intravenous contrast, 2 mm thick sections acquired from the pulmonary apices to the posterior costophrenic angles. 3-dimensional maximum intensity projection (MIP) coronal and sagittal reformats were then acquired through the thorax. For radiation dose reduction, the following was used: automated exposure control, adjustment of mA and/or kV according to patient size. COMPARISON: None. FINDINGS: Image quality: Excellent. Pulmonary arteries: Pulmonary arteries are normal in size, and demonstrate no intraluminal filling defects to suggest central pulmonary embolism. Lungs and pleura: There is biapical scarring. Mild bibasilar dependent atelectasis is seen. No focal infiltrate or discrete pulmonary nodule or mass. No pleural effusions or pneumothorax. Central and peripheral airways are patent. Mediastinum: Heart size is normal, without pericardial effusion. No mediastinal or hilar adenopathy by size criteria. Subcentimeter lymph nodes are seen in mediastinum measures up to 6 mm in short axis diameter.. Thoracic aorta is normal in caliber and enhancement. Esophagus is normal in caliber, with a small hiatal hernia. Bones and chest wall: No suspicious bony lesions. Degenerative disc disease throughout thoracic spine is seen. No acute compression fracture or spondylolisthesis. No discrete rib abnormality is seen. Thyroid gland is within normal limits. No axillary or supraclavicular adenopathy. Abdomen: Visualized upper abdominal solid organs appear normal in the early arterial phase of enhancement. There is hepatic steatosis. IMPRESSION: 1. No evidence of pulmonary emboli. No thoracic aortic aneurysm or dissection. 2. Biapical scarring. Bibasilar dependent atelectasis. No pleural effusion or pneumothorax. Airway is patent. 3. No gross mediastinal or hilar lymphadenopathy. 4. Hepatic steatosis. Dictated by: Lion Kendall M.D. on 11/18/2018 at 11:55 Approved by: Lion Kendall M.D. on 11/18/2018 at 12:00
--- NOTE | 2018-11-18 14:46 | PC.ADMIT ---
Admission Note: Retrieved patient from ER at 1410 and brought to room 103 via stretcher. Patient walked self from stretcher to bed using own cane, SBA. Alert and oriented x3. Lung sounds decreased with slight exp. wheeze throughout. Oxygen sats 96% on 2L NC, desats to 85% with activity. HR up to 120s with activity, down to 110s with rest (ST). Intermittent cough - nonproductive at this time but pt reports has been coughing up yellow/green sputum at home. Denies pain. RR in the 20s. Standing at bedside to void via urinal. Oriented to room and to call light/bed/tv controls. Call light within reach, using appropriately to make needs known. The patient,Harvey Roberts,63 y/o, was given written information regarding hospital policies, unit procedures and contact persons. Patient's smoking status: Current every day smoker. Vital Signs - 8 hr 11/18/18 09:20 11/18/18 09:30 11/18/18 09:36 Temperature 98.0 F Pulse Rate 136 H 119 H 74 Respiratory Rate 30 H 18 16 Blood Pressure 151/87 H Blood Pressure [Right Arm] 171/73 H Pulse Oximetry 78 L 94 92 11/18/18 10:00 11/18/18 10:30 11/18/18 11:00 Temperature Pulse Rate 115 H 114 H 106 H Respiratory Rate 16 24 24 Blood Pressure Blood Pressure [Right Arm] 116/88 149/75 H 155/80 H Pulse Oximetry 93 93 95 11/18/18 11:30 11/18/18 14:15 Temperature 97.4 F L Pulse Rate 103 H 118 H Respiratory Rate 22 25 H Blood Pressure 151/96 H Blood Pressure [Right Arm] 143/79 H Pulse Oximetry 94 91
--- NOTE | 2018-11-18 15:42 | PM.HP.1 ---
History of Present Illness Date Patient Seen: 11/18/18 Chief complaint: HIGH HEART RATE,LOW OXYGEN Narrative: Patient is a 63-year-old male the patient is a 63-year-old male with a history of COPD, 40 pack-year history of smoking hypertension, chronic back pain, and hyperlipidemia who was in his usual state of health until 2-3 days prior to admission. At that time the patient developed a cough with green productive sputum. He also developed shortness of breath and wheezing. He was seen in the walk-in clinic today and found to be markedly hypoxic. His initial O2 sat was 75%. The patient received several nebulizer treatments. They attempted to ambulate him and he again became markedly hypoxic. A D-dimer was obtained which was mildly elevated. He underwent a CT angio to rule pulmonary embolus. The CT angio was negative for PE and negative for pneumonia. Given the patient's persistent hypoxia, cough, shortness, and wheezing he was admitted to the hospital for further evaluation. Patient denies any fever or chills. He does report some sweats. He has had an intermittent headache over the past week. He reports no chest pain or palpitations. He has no nausea vomiting or diarrhea. No dysuria hematuria or pyuria. Patient has chronic back pain. He had a hip surgery 6 months ago and has no longer any hip pain. He denies any lower extremity edema, no orthopnea, no PND. Patient History Medical History (Updated 11/18/18 @ 15:50 by Carolin Hammond MD) Uncomplicated opioid dependence (Chronic) Hypertension (Chronic Unknown) COPD (chronic obstructive pulmonary disease) (Chronic Unknown) Generalized headaches (Chronic 1999) Chronic back pain (Chronic 1979) Primary osteoarthritis of right hip (Chronic 06/17/17) Hyperlipidemia (Acute) Surgical History (Updated 11/18/18 @ 15:45 by Carolin Hammond MD) Hx of inguinal hernia repair (Resolved 1999) History of lumbar surgery (Resolved ~2015) History of right hip replacement (Acute) History of total right hip arthroplasty (Resolved) Family History (Updated 11/18/18 @ 15:46 by Carolin Hammond MD) Mother No problems noted. Father No problems noted. Father Natural with probable cause suspected Social History (Updated 11/18/18 @ 09:58 by Alissa Banda DO) details: female partner household members: friend(s) Smoking Status: Current every day smoker alcohol intake: current substance use type: does not use Family & Social History Family History (Updated 11/18/18 @ 15:46 by Carolin Hammond MD) Mother No problems noted. Father No problems noted. Father Natural with probable cause suspected Social History: household members friend(s) Prior Living Arrangements House Safety & Behavioral: Feels Safe in Current Yes Environment Been Physically Hurt or No Threatened By a Person Suicidal Ideation Description None Suicide Plan Description No Plan Tobacco & Substance use: Smoking Status Current every day smoker alcohol intake current alcohol intake frequency holiday/special occasion Substance Use Type does not use Meds Home Medications Medication Instructions Recorded Confirmed Type albuterol sulfate HFA 90 1 puff INHALATION Q4HP PRN #1 each 05/25/18 11/18/18 Rx mcg/actuation aerosol inhaler ibuprofen 600 mg tablet 600 mg PO QID PRN #120 tab 07/14/18 11/18/18 Rx cyclobenzaprine 10 mg tablet 10 mg PO TID PRN #90 tab 07/27/18 11/18/18 Rx bupropion HCl 150 mg tablet,12 hr 150 mg PO TID #270 tab 08/21/18 11/18/18 Rx sustained-release(smoking deterrent) pravastatin 10 mg tablet 10 mg PO BEDTIME #30 tab 09/23/18 11/18/18 Rx naloxone 0.4 mg/mL injection 0.4 mg IM ONCE PRN #1 ml 10/21/18 11/18/18 Rx syringe oxycodone-acetaminophen 10 mg-325 1 tab PO Q6H PRN #120 tab 10/21/18 11/18/18 Rx mg tablet docusate sodium 100 mg PO BID 11/18/18 11/18/18 History lisinopril 20 mg PO DAILY 11/18/18 11/18/18 History Allergies Allergy/AdvReac Type Severity Reaction Status Date / Time No Known Drug Allergies Allergy Verified 10/21/18 15:15 Review of Systems Review of Systems All systems reviewed & are unremarkable except as noted in HPI and below Exam Vital Signs (past 8 hours): - 11/18/18 09:20 11/18/18 09:30 11/18/18 09:36 Temperature 98.0 F Pulse Rate 136 H 119 H 74 Respiratory Rate 30 H 18 16 Blood Pressure 151/87 H Blood Pressure [Right Arm] 171/73 H Pulse Oximetry 78 L 94 92 11/18/18 10:00 11/18/18 10:30 11/18/18 11:00 Temperature Pulse Rate 115 H 114 H 106 H Respiratory Rate 16 24 24 Blood Pressure Blood Pressure [Right Arm] 116/88 149/75 H 155/80 H Pulse Oximetry 93 93 95 11/18/18 11:30 11/18/18 14:15 Temperature 97.4 F L Pulse Rate 103 H 118 H Respiratory Rate 22 25 H Blood Pressure 151/96 H Blood Pressure [Right Arm] 143/79 H Pulse Oximetry 94 91 Oxygen Delivery Method Nasal Cannula Oxygen Flow Rate 2 Narrative Exam Narrative: Pleasant male who appears short of breath HEENT: Normocephalic atraumatic, extraocular muscles are intact, oropharynx is clear, neck is supple there is no adenopathy, no evidence of thyromegaly Lungs decreased breath sounds bilaterally, end-expiratory wheezing noted Cardiac exam: Tachycardic, normal S1-S2 Abdomen: Distended, soft, nontender, no appreciable hepatosplenomegaly Extremities: No edema Neuro exam: Nonfocal Skin exam: No lesion Psychiatric exam no hallucinations, tics, or abnormal movements or delusions. Objective Labs Result Diagrams: 11/18/18 09:30 11/18/18 10:02 Labs: Laboratory Results - last 24 hr 11/18/18 11/18/18 11/18/18 09:30 09:30 10:02 WBC 9.7 RBC 4.94 Hgb 14.8 Hct 42.8 MCV 86.7 MCH 30.0 MCHC 34.6 RDW 15.1 H Plt Count 221 Neut % (Auto) 72.7 Lymph % (Auto) 13.8 L [place] % (Auto) 10.4 Eos % (Auto) 2.4 Baso % (Auto) 0.7 Neut # (Auto) 7100 H Lymph # (Auto) 1300 [place] # (Auto) 1000 H Eos # (Auto) 200 Baso # (Auto) 100 RBC Morphology See Polychromasia 1+ H Anisocytosis 1+ H D-Dimer Sodium 143 Potassium 4.7 Chloride 100 Carbon Dioxide 35 H BUN 31 H Creatinine 0.90 Estimated GFR > 60.0 BUN/Creatinine Ratio 34.4 H Glucose 130 H Calcium 10.4 H Total Bilirubin 0.4 AST 26 ALT 21 Alkaline Phosphatase 134 H Total Creatine Kinase CK-MB (CK-2) CK-MB (CK-2) Rel Index Troponin I B-Natriuretic Peptide < 100 Total Protein 8.0 Albumin 4.6 Globulin 3.4 Albumin/Globulin Ratio 1.4 11/18/18 11/18/18 10:02 10:02 WBC RBC Hgb Hct MCV MCH MCHC RDW Plt Count Neut % (Auto) Lymph % (Auto) [place] % (Auto) Eos % (Auto) Baso % (Auto) Neut # (Auto) Lymph # (Auto) [place] # (Auto) Eos # (Auto) Baso # (Auto) RBC Morphology Polychromasia Anisocytosis D-Dimer 272 H Sodium Potassium Chloride Carbon Dioxide BUN Creatinine Estimated GFR BUN/Creatinine Ratio Glucose Calcium Total Bilirubin AST ALT Alkaline Phosphatase Total Creatine Kinase 88 CK-MB (CK-2) TNP CK-MB (CK-2) Rel Index TNP Troponin I < 0.012 B-Natriuretic Peptide Total Protein Albumin Globulin Albumin/Globulin Ratio Assessment & Plan (1) Acute respiratory failure with hypoxia: Problem details: Patient is a 63-year-old male with a 42 year pack history of smoking who presents with acute hypoxic respiratory failure, present on admission. The patient will continue on oxygen. He will also receive antibiotics, steroids, and nebulizers. Will obtain a respiratory viral panel and procalcitonin as well. Current visit: Yes Status: Acute (2) COPD exacerbation: Problem details: COPD exacerbation, present on admission. Treatment as above Current visit: Yes Status: Acute (3) Uncomplicated opioid dependence: Problem details: Patient has chronic back pain. Will continue is usual home regimen. Current visit: No Status: Chronic (4) Constipation due to opioid therapy: Problem details: Constipation, chronic, secondary to opioid therapy. Will continue a bowel program. Current visit: No Status: Chronic (5) Hypertension: Problem details: Hypertension, chronic, present on admission. Will continue his lisinopril. Qualifiers: Hypertension type: essential hypertension Qualified Code(s): I10 - Essential (primary) hypertension Current visit: No Status: Chronic (6) Pure hypercholesterolemia: Problem details: Hyperlipidemia, chronic, present on admission. Will continue statin therapy Current visit: No Status: Chronic (7) Tobacco abuse counseling: Problem details: Tobacco abuse counseling, discussed with patient. He denies wanting nicotine patch at this time. Will continue to monitor him closely. Current visit: No Status: Acute Assessment & Plan narrative: Patient indicates he is a full code and will note that in his record accordingly. Quality VTE Deep Vein Thrombosis/Pulmonary Embolism Present on Admission: No
[2018-11-18] MEDS: levoFLOXacin 750 MG/150 ML PIGGYBACK 100 MG IV (16:14)
[2018-11-18] MEDS: ENOXAPARIN 40 MG/0.4 ML SYRINGE SUBCUT (16:14)
[2018-11-18] MEDS: SODIUM CHLORIDE 0.45% 1,000 ML 100 ML IV (16:15)
[2018-11-18] MEDS: IPRATROPIUM 0.5 MG/2.5 ML NEB INH ×3 (16:29→22:01)
[2018-11-18] MEDS: BUDESONIDE 60 PUFF/DEVICE INHALER INH (16:30)
--- NOTE | 2018-11-18 17:25 | PC.NURSE ---
Addendum entered by Christy Barbosa R.N. 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 Order obtained monitor for CIWA. Pt reports occasional beer, last drink approximately, 2 weeks ago. Pt does report occasional smoking, requesting welbutrin, RX given as ordered. Educated to contact isolation. Denies further questions. Call light in reach. Original Note: 3017 - Pt eating meal. HR increased to 130. Pt removed O2 to blow his nose. Sats 83% on RA with activity. Encouraged pt to take rest periods. Educated to slow deep breaths. Sats increased to 92%. Monitor.
[2018-11-18] MEDS: methylPREDNISolone 125 MG/2 ML VIAL 60 MG IV ×2 (17:42→23:51)
[2018-11-18] MEDS: OXYCODONE/ACETAMINOPHEN 5/325 TABLET 2 TAB PO (17:44)
[2018-11-18 17:59] LABS: Procalcitonin 0.05 ng/mL (<0.5)
[2018-11-18 18:31] LABS: Adenovirus Not Detected (Not Detect); Bordetella pertussis Not Detected (Not Detect); Chlamydophila pneumoniae Not Detected (Not Detect); Coronavirus 229E Not Detected (Not Detect); Coronavirus HKU1 Not Detected (Not Detect); Coronavirus NL 63 Not Detected (Not Detect); Coronavirus OC43 Not Detected (Not Detect); Human Metapneumovirus Not Detected (Not Detect); Human Rhinovirus/Enterovirus Not Detected (Not Detect); Influenza A Not Detected (Not Detect); Influenza B Not Detected (Not Detect); Mycoplasma pneumoniae Not Detected (Not Detect); Parainfluenza Virus 1 Not Detected (Not Detect); Parainfluenza Virus 2 Not Detected (Not Detect); Parainfluenza Virus 3 Not Detected (Not Detect); Parainfluenza Virus 4 Not Detected (Not Detect); Respiratory Syncytial Virus Not Detected (Not Detect)
[2018-11-18] MEDS: buPROPion 75 MG TABLET 150 MG PO (20:26)
[2018-11-18] MEDS: PRAVASTATIN 20 MG TABLET 10 MG PO (20:27)
[2018-11-18] MEDS: SENNOSIDES 8.6 MG TABLET 17.2 MG PO (20:27)
[2018-11-18] MEDS: DOCUSATE 100 MG CAPSULE PO (20:27)
[2018-11-18] MEDS: IBUPROFEN 600 MG TABLET PO (20:29)
[2018-11-19] VITALS (18 sets, daily range): BP systolic 128–165; BP diastolic 72–91; PULSE 103–122; RESP 16–22; TEMP 36.4–37.4; O2SAT 83–97
[2018-11-19] MEDS: OXYCODONE/ACETAMINOPHEN 5/325 TABLET 2 TAB PO ×3 (02:17→21:43)
[2018-11-19] MEDS: SODIUM CHLORIDE 0.45% 1,000 ML 100 ML IV (03:06)
[2018-11-19 04:52] LABS: Add Manual Diff / Slide Review NO; Basophils Absolute Auto 0 /uL (0-100); Basophils Percent Auto 0.3 % (0-2); Eosinophils Absolute Auto 0 /uL (0-450); Eosinophils Percent Auto 0.1 % (2-4); Hematocrit 42.9 % (41-53); Hemoglobin 14.3 g/dL (13.5-17.5); Lymphocytes Absolute Auto 900 /uL (1100-4500); Mean Corpuscular HGB Conc 33.3 % (30-36); Mean Corpuscular Hemoglobin 29.1 PG (26-34); Mean Corpuscular Volume 87.5 fL (80-100); Monocytes Absolute Auto 200 /uL (0-900); Monocytes Percent Auto 2.3 % (3-14); Neutrophils Absolute Auto 9300 /uL (1500-7000); Neutrophils Percent Auto 88.3 % (50-75); Platelet Count 194 X10^3/uL (150-400); Red Cell Distribution Width 15.1 % (11.6-14.8); White Blood Cell Count 10.5 X10^3/uL (4.5-11.0)
[2018-11-19 05:00] LABS: Blood Urea Nitrogen 28 mg/dL (9-20); Calcium 9.3 mg/dL (8.4-10.2); Carbon Dioxide 33 mmol/L (22-32); Chloride 97 mmol/L (98-107); Estimated Glomerular Filt Rate > 60.0 mL/min (>60); Glucose 145 mg/dL (80-110); HEMOLYSIS < 15 (0-50); Potassium 4.6 mmol/L (3.4-5.1); Sodium 138 mmol/L (137-145)
[2018-11-19 05:11] LABS: B Type Natriuretic Peptide < 100 (<100)
[2018-11-19] MEDS: methylPREDNISolone 125 MG/2 ML VIAL 60 MG IV (05:51)
--- NOTE | 2018-11-19 06:12 | PC.NURSE ---
A/Ox3. SpO2 90-95% on 2L NC, increased to 3L in am after ambulating to BR, RR 20, has intermittent loose non-productive cough, crackles with exp wheezes. ST 100-110 at rest, increases to 120s with activity, denies chest pain or dyspnea. Percocet given for chronic back pain. CIWA 2.
[2018-11-19] MEDS: LISINOPRIL 20 MG TABLET PO (08:19)
[2018-11-19] MEDS: DOCUSATE 100 MG CAPSULE PO ×2 (08:19→20:08)
[2018-11-19] MEDS: IBUPROFEN 600 MG TABLET PO (08:19)
[2018-11-19] MEDS: buPROPion 75 MG TABLET 150 MG PO ×3 (08:20→20:07)
[2018-11-19] MEDS: IPRATROPIUM 0.5 MG/2.5 ML NEB INH ×3 (08:25→19:26)
[2018-11-19] MEDS: ALBUTEROL 2.5 MG/3 ML NEB (ADULT) INH (08:26)
[2018-11-19] MEDS: BUDESONIDE 60 PUFF/DEVICE INHALER INH (08:27)
--- NOTE | 2018-11-19 08:32 | CM.DANOTE ---
DCP: Case received, EMR reviewed and met with patient. Was able to obtain baseline history from patient. DCP template assessment completed with information currently available. Patient is a 63 year old male who admitted yesterday afternoon to the care of the hospitalist team. PCP: Dr. Park. Payer: confirmed: Medicare. Patient came to hospital from the walk in clinic secondary to hypoxia. Patient has history of COPD, and has been a smoker. At this time, patient holds diagnosis of COPD exacerbation. Stated that he has been a smoker, and knows that he has COPD. Patient lives here in [place] with [facility]. He is independent, and does not have home oxygen. Confirmed that his primary provider is Dr. Park. P: DCP to continue to follow. Patient should be able to return home when he is medically stable. Sofía Michael RN/Lithograph Operator
--- NOTE | 2018-11-19 10:38 | P.PN_ITS ---
Subjective Date Patient Seen: 11/19/18 Interval history: The patient is a 63-year-old male who was admitted to the hospital for acute respiratory failure. He reports he continues to have a cough although it is nonproductive. He is short of breath with activity. And he was noted to be hypoxic today with a room air sat of 83% at rest. He is slowly making progress however he continues to be markedly short of breath. Exam Vital Signs (past 8 hours): - 11/19/18 04:40 11/19/18 06:06 11/19/18 07:00 Temperature 98.0 F Pulse Rate 112 H Respiratory Rate 19 Blood Pressure 165/91 H Pulse Oximetry 92 93 92 11/19/18 08:00 11/19/18 08:27 11/19/18 08:55 Temperature 98.3 F Pulse Rate 122 H 112 H Respiratory Rate 20 18 Blood Pressure 161/79 H Pulse Oximetry 93 93 83 L 11/19/18 08:58 Temperature Pulse Rate Respiratory Rate Blood Pressure Pulse Oximetry 92 Oxygen Delivery Method Nasal Cannula Oxygen Flow Rate 2 Narrative Exam Narrative: Lungs: Decreased breath sounds with minimal airway movement bilaterally Cardiac exam: Regular rate and rhythm normal S1-S2 Abdomen: Soft nontender nondistended Extremities: No edema Objective Labs Result Diagrams: 11/19/18 04:40 11/19/18 04:40 Labs: Laboratory Results - last 24 hr 11/18/18 11/18/18 11/18/18 10:02 10:02 10:02 WBC RBC Hgb Hct MCV MCH MCHC RDW Plt Count Neut % (Auto) Lymph % (Auto) [place] % (Auto) Eos % (Auto) Baso % (Auto) Neut # (Auto) Lymph # (Auto) [place] # (Auto) Eos # (Auto) Baso # (Auto) Sodium 143 Potassium 4.7 Chloride 100 Carbon Dioxide 35 H BUN 31 H Creatinine 0.90 Estimated GFR > 60.0 BUN/Creatinine Ratio 34.4 H Glucose 130 H Calcium 10.4 H Total Bilirubin 0.4 AST 26 ALT 21 Alkaline Phosphatase 134 H Troponin I < 0.012 B-Natriuretic Peptide Total Protein 8.0 Albumin 4.6 Globulin 3.4 Albumin/Globulin Ratio 1.4 Procalcitonin 0.05 Nasal Screen MRSA (PCR) Chlamy pneumoniae PCR Adenovirus (PCR) B.parapertussis DNA PCR Coronavirus OC43 (PCR) Coronavirus HKU1 (PCR) Coronavirus 229E (PCR) Coronavirus NL63 (PCR) Human Metapneumovir PCR Influenza Type A (PCR) Influenza Type B (PCR) M. pneumoniae (PCR) Parainfluenza 1 (PCR) Parainfluenza 2 (PCR) Parainfluenza 3 (PCR) Parainfluenza 4 (PCR) RSV (PCR) Entero/Rhino (PCR) 11/18/18 11/18/18 11/19/18 14:45 15:30 04:40 WBC 10.5 RBC 4.90 Hgb 14.3 Hct 42.9 MCV 87.5 MCH 29.1 MCHC 33.3 RDW 15.1 H Plt Count 194 Neut % (Auto) 88.3 H Lymph % (Auto) 9.0 L [place] % (Auto) 2.3 L Eos % (Auto) 0.1 L Baso % (Auto) 0.3 Neut # (Auto) 9300 H Lymph # (Auto) 900 L [place] # (Auto) 200 Eos # (Auto) 0 Baso # (Auto) 0 Sodium Potassium Chloride Carbon Dioxide BUN Creatinine Estimated GFR BUN/Creatinine Ratio Glucose Calcium Total Bilirubin AST ALT Alkaline Phosphatase Troponin I B-Natriuretic Peptide < 100 Total Protein Albumin Globulin Albumin/Globulin Ratio Procalcitonin Nasal Screen MRSA (PCR) Negative for mrsa Chlamy pneumoniae PCR Not detected Adenovirus (PCR) Not detected B.parapertussis DNA PCR Not detected Coronavirus OC43 (PCR) Not detected Coronavirus HKU1 (PCR) Not detected Coronavirus 229E (PCR) Not detected Coronavirus NL63 (PCR) Not detected Human Metapneumovir PCR Not detected Influenza Type A (PCR) Not detected Influenza Type B (PCR) Not detected M. pneumoniae (PCR) Not detected Parainfluenza 1 (PCR) Not detected Parainfluenza 2 (PCR) Not detected Parainfluenza 3 (PCR) Not detected Parainfluenza 4 (PCR) Not detected RSV (PCR) Not detected Entero/Rhino (PCR) Not detected 11/19/18 04:40 WBC RBC Hgb Hct MCV MCH MCHC RDW Plt Count Neut % (Auto) Lymph % (Auto) [place] % (Auto) Eos % (Auto) Baso % (Auto) Neut # (Auto) Lymph # (Auto) [place] # (Auto) Eos # (Auto) Baso # (Auto) Sodium 138 Potassium 4.6 Chloride 97 L Carbon Dioxide 33 H BUN 28 H Creatinine 0.80 Estimated GFR > 60.0 BUN/Creatinine Ratio 35.0 H Glucose 145 H Calcium 9.3 Total Bilirubin AST ALT Alkaline Phosphatase Troponin I B-Natriuretic Peptide Total Protein Albumin Globulin Albumin/Globulin Ratio Procalcitonin Nasal Screen MRSA (PCR) Chlamy pneumoniae PCR Adenovirus (PCR) B.parapertussis DNA PCR Coronavirus OC43 (PCR) Coronavirus HKU1 (PCR) Coronavirus 229E (PCR) Coronavirus NL63 (PCR) Human Metapneumovir PCR Influenza Type A (PCR) Influenza Type B (PCR) M. pneumoniae (PCR) Parainfluenza 1 (PCR) Parainfluenza 2 (PCR) Parainfluenza 3 (PCR) Parainfluenza 4 (PCR) RSV (PCR) Entero/Rhino (PCR) Assessment & Plan (1) Acute respiratory failure with hypoxia: Problem details: Patient is a 63-year-old male with a 42 year pack history of smoking who presents with acute hypoxic respiratory failure, present on admission. The patient will continue on oxygen. He will also receive antibiotics, steroids, and nebulizers. Will obtain a respiratory viral panel and procalcitonin as well. Viral panel is negative, CRP is negative. Patient will be switched to oral antibiotics. Will continue oxygen nebulizer there is an steroids. The goal would be to have the patient be able to ambulate and be at rest not requiring oxygen. However given his significant hypoxemia he may require oxygen at discharge Current visit: Yes Status: Acute (2) COPD exacerbation: Problem details: COPD exacerbation, present on admission. Treatment as above Will switch antibiotics to oral, will switch prednisone to oral. Current visit: Yes Status: Acute (3) Constipation due to opioid therapy: Problem details: Constipation, chronic, secondary to opioid therapy. Will continue a bowel program. Current visit: No Status: Chronic (4) Uncomplicated opioid dependence: Problem details: Patient has chronic back pain. Will continue is usual home regimen. Current visit: No Status: Chronic (5) Hypertension: Problem details: Hypertension, chronic, present on admission. Will continue his lisinopril. Qualifiers: Hypertension type: essential hypertension Qualified Code(s): I10 - Essential (primary) hypertension Current visit: No Status: Chronic (6) Pure hypercholesterolemia: Problem details: Hyperlipidemia, chronic, present on admission. Will continue statin therapy Current visit: No Status: Chronic Assessment & Plan narrative: Anticipate discharge home once the patient is able to no longer be markedly hypoxic on room air. Quality VTE Deep Vein Thrombosis/Pulmonary Embolism Present on Admission: No
--- NOTE | 2018-11-19 13:55 | PC.NURSE ---
Patient still short of breath and unable to maintain oxygen saturation on room air, requiring 2-3L NC this shift. Pleasant. Cooperative. 1 person stand by assistance with cane to bathroom. Declined offer to wash up today, declines offers to sit up in chair. Pain medications as ordered for chronic back pain. SLIV. Tolerating meals. Passing gas. Voiding without difficulty. Continue to monitor. Call light within reach.
[2018-11-19] MEDS: LEVALBUTEROL 1.25 MG/0.5 ML NEB INH ×2 (14:28→19:26)
[2018-11-19] MEDS: ENOXAPARIN 40 MG/0.4 ML SYRINGE SUBCUT (17:36)
[2018-11-19] MEDS: SENNOSIDES 8.6 MG TABLET 17.2 MG PO (20:07)
[2018-11-19] MEDS: PRAVASTATIN 20 MG TABLET 10 MG PO (20:08)
[2018-11-20] VITALS (13 sets, daily range): BP systolic 124–143; BP diastolic 68–94; PULSE 96–116; RESP 12–20; TEMP 36.4–36.8; O2SAT 86–97
[2018-11-20] MEDS: BUDESONIDE 60 PUFF/DEVICE INHALER INH ×3 (01:46→18:31)
[2018-11-20] MEDS: IPRATROPIUM 0.5 MG/2.5 ML NEB INH ×4 (01:46→18:29)
[2018-11-20] MEDS: LEVALBUTEROL 1.25 MG/0.5 ML NEB INH ×4 (01:46→18:30)
--- NOTE | 2018-11-20 07:15 | PC.NURSE ---
Slept in naps, when sleeping sats would drop with his snoring and obstructing into low 80's until aroused and neck repositioned even with O2. Could perhaps use a sleep study?
--- NOTE | 2018-11-20 07:26 | P.PN_ITS ---
Subjective Date Patient Seen: 11/20/18 Time Patient Seen: 08:23 Interval history: He is seen today to follow-up the COPD exacerbation with hypoxia. Staff tell me that he has been less than energetic about pushing himself physically. He looks quite well but remains hypoxic and oxygen depen dent. He is afebrile and vital signs are stable with heart rate of 102. His blood tests were all normal yesterday except for a blood sugar 145. Exam Vital Signs (past 8 hours): - 11/19/18 23:36 11/20/18 01:47 11/20/18 05:02 Temperature 98.5 F 98.2 F Pulse Rate 103 H 116 H 102 H Respiratory Rate 18 20 18 Blood Pressure 139/83 125/72 Pulse Oximetry 96 91 93 Oxygen Delivery Method Nasal Cannula Oxygen Flow Rate 2 Narrative Exam Narrative: Alert and oriented x3. No apparent distress. He says he feels ?a little better.? Heart is regular rate and rhythm without murmur. Lungs have wheezing and tight air flow bilaterally. Extremities have no ankle edema. Objective Labs Result Diagrams: 11/19/18 04:40 11/19/18 04:40 Assessment & Plan Assessment & Plan narrative: (1) Acute respiratory failure with hypoxia: Problem details: Patient is a 63-year-old male with a 42 year pack history of smoking who presents with acute hypoxic respiratory failure, present on admission. He continues to need oxygen, antibiotics, steroids, and nebulizers. Viral panel is negative, CRP is negative. Patient was changed to oral antibiotics. Will continue oxygen nebulizer and steroids. The goal would be to have the patient be able to ambulate and be at rest not requiring oxygen. However given his significant hypoxemia he may require oxygen at discharge. Tentative discharge is tomorrow. Current visit: Yes Status: Acute (2) COPD exacerbation: Problem details: COPD exacerbation, present on admission. Treatment as above Continue oral prednisone. Current visit: Yes Status: Acute (3) Constipation due to opioid therapy: Problem details: Constipation, chronic, secondary to opioid therapy. Will continue a bowel program. Current visit: No Status: Chronic (4) Uncomplicated opioid dependence: Problem details: Patient has chronic back pain. Will continue his usual home regimen. Current visit: No Status: Chronic (5) Hypertension: Problem details: Hypertension, chronic, present on admission. Will continue his lisinopril. Qualifiers: Hypertension type: essential hypertension Qualified Code(s): I10 - Essential (primary) hypertension Current visit: No Status: Chronic (6) Pure hypercholesterolemia: Problem details: Hyperlipidemia, chronic, present on admission. Will continue statin therapy Current visit: No Status: Chronic The mild hyperglycemia suggests a steroid induced component which will be followed and is likely not true diabetes. Check A1c Assessment & Plan narrative: Anticipate discharge home on oxygen tomorrow if still needed or possibly without oxygen if he improves rapidly by then.. Quality VTE Deep Vein Thrombosis/Pulmonary Embolism Present on Admission: No
[2018-11-20] MEDS: IBUPROFEN 600 MG TABLET PO ×2 (08:24→20:19)
[2018-11-20] MEDS: CYCLOBENZAPRINE 10 MG TABLET PO ×2 (08:24→20:19)
[2018-11-20] MEDS: predniSONE 20 MG TABLET 40 MG PO (08:25)
[2018-11-20] MEDS: levoFLOXacin 500 MG TABLET PO (08:25)
[2018-11-20] MEDS: buPROPion 75 MG TABLET 150 MG PO ×3 (08:25→20:15)
[2018-11-20] MEDS: LISINOPRIL 20 MG TABLET PO (08:26)
[2018-11-20] MEDS: DOCUSATE 100 MG CAPSULE PO ×2 (08:26→20:15)
--- NOTE | 2018-11-20 10:03 | CM.DPC ---
DCP: continued: Case received, EMR reviewed. Discussed case in Team Rounds. Pt remains hypoxic with elevated HR per Dr. Mtz. Is unclear if pt will be able to go home without oxygen. Pt is a cigarette smoker. He drives. Per RN notes pt is up in room with one person assist and cane. He is SOB with activity. Pt is noted to be disabled and is on chronic pain medication. Hx of spinal surgery in 2016. Admission status: INPT: as of 11/18: confirmed by PT and OT orders are obtained. RN Coordinator Pool states that pt is currently floor care:but will remain in the ICU setting for now. P: follow prn as d/c needs unfold.
[2018-11-20 11:07] LABS: Hemoglobin A1C% w Est Avg Glu 5.3 % (4.0-6.0)
--- NOTE | 2018-11-20 11:50 | PT.IIE ---
Current Diagnoses Pure hypercholesterolemia, unspecified (11/18/18) Opioid dependence, uncomplicated (11/18/18) Essential (primary) hypertension (11/18/18) Chronic obstructive pulmonary disease with (acute) exacerbation (11/18/18) Acute respiratory failure with hypoxia (11/18/18) Drug induced constipation (11/18/18) Adverse effect of other opioids, initial encounter (11/18/18) Tobacco abuse counseling (11/18/18) Surgical History (Last Updated 11/18/18 @ 15:45 by Carolin Hammond MD) Hx of inguinal hernia repair (Resolved 1999) History of lumbar surgery (Resolved ~2015) History of right hip replacement (Acute) History of total right hip arthroplasty (Resolved) Medical History (Last Updated 11/18/18 @ 15:45 by Carolin Hammond MD) Uncomplicated opioid dependence (Chronic) Hypertension (Chronic Unknown) COPD (chronic obstructive pulmonary disease) (Chronic Unknown) Generalized headaches (Chronic 1999) Chronic back pain (Chronic 1979) Primary osteoarthritis of right hip (Chronic 06/17/17) Hyperlipidemia (Acute) Physical Therapy Inpatient Evaluation/Re-Eval M1 PT/OT-IP Prior Functional Status Start: 11/20/18 14:01 Freq: NEEDED Status: Active Protocol: Document 11/20/18 11:50 AB (Rec: 11/20/18 14:17 AB [id number]) Medical Review Prior Functional Status Medical History Reviewed Yes Diet/Fluid Consistency Regular Communication able to make needs known Mobility and Gait pt stated that he is modified independent with all mobilities and ambulation using SPC. stated that he is receiving PT for his back and R hip replacement (surgery was 6 months ago) Social History Household Members friend(s) Living Arrangements House Number of Floors (Floors) One Floor Number of Stairs To Enter/Railing? 2 steps to enter with L rail ascending Home Environment Standard Height Toilet Tub/Shower Home Equipment Straight Cane Shower Seat without Backrest Hand Held Shower Grab Bars In Shower M2 PT-IP Current Condition Start: 11/20/18 14:01 Freq: NEEDED Status: Active Protocol: Document 11/20/18 11:50 AB (Rec: 11/20/18 14:17 AB [id number]) Physical Therapy Current Condition Current Condition Evaluation Date 11/20/18 Treatment Diagnosis COPD exacerbation; generalized weakness Onset Date 11/18/18 Precautions Other Precautions droplet precaution: sputum O2 sat at 2L/min O2 at this time M3 PT-IP Subjective Start: 11/20/18 14:01 Freq: NEEDED Status: Active Protocol: Document 11/20/18 11:50 AB (Rec: 11/20/18 14:17 AB [id number]) Subjective Physical Therapy Visit Type Type Initial Evaluation Visit Start Time 11:50 Visit Stop Time 12:15 Total Visit Minutes 25 Number of FIELD CROP FARMER Visits 0 Physical Therapy Visit Comments Patient Comments pt agreeable to do PT Therapy Pain Assessment Pain Present Pain Present Denied Pain M4 PT-IP Mobility and Gait Start: 11/20/18 14:01 Freq: NEEDED Status: Active Protocol: Document 11/20/18 11:50 AB (Rec: 11/20/18 14:17 AB [id number]) PT-Bed Mobility Assessment Supine to Sit Supine to Sit Standby Assistance PT-Transfer Assessment Sit to and From Stand Sit to and from Stand Standby Assistance Equipment Transfer Assistive Device Gait Belt Straight Cane Orthotic/Prosthetic Devices or Brace: No Transfers Transfer Destination Chair Transfer Technique Stand Step Pivot Transfer Ability Level of Assist Standby Assistance Gait Assessment Gait Gait Assistance Required: Standby Assistance Distance (Feet) 40 Able to Maintain Weight Bearing Status Yes During Gait Assistive Devices Assistive Device Gait Belt Front Wheeled Walker Orthotic/Prosthetic Devices or Brace: No Gait Deviations General Gait Pattern Antalgic Factors Limiting Gait Function Factors Limiting Gait Function Decreased Activity Tolerance Decreased Strength Poor Balance Comments Gait Comments pt was able to maintain O2 sat 90 to 94% with activity at 2Lmin O2. HR increased to 120 bpm with ambulation PT-Balance Assessment Sitting Balance and Reactions Static Sitting Balance Ability Good Dynamic Sitting Balance Ability Good Standing Balance and Reactions Static Standing Balance Ability Fair Dynamic Standing Balance Ability Fair Device Used SPC M5 PT-IP Objective Assessments Start: 11/20/18 14:01 Freq: NEEDED Status: Active Protocol: Document 11/20/18 11:50 AB (Rec: 11/20/18 14:17 AB [id number]) Orientation Orientation/Cognition Level of Alertness Alert Orientation Name Age Birthday Month Date Year Day of Week Place Situation Language Function Ability No Deficits Noted Safety Awareness Understands Safety Issues Memory Description No Deficits Noted Gross Range of Motion Lower Extremity ROM Assessment Within Functional Limits Strength Lower Extremity Strength Assessment Within Functional Limits Coordination Assessment Gross Coordination Gross Coordination WNL Muscle Tone Muscle Tone WNL Yes M6 PT-IP Treatment Start: 11/20/18 14:01 Freq: NEEDED Status: Active Protocol: Document 11/20/18 11:50 AB (Rec: 11/20/18 14:17 AB [id number]) Physical Therapy Treatment Education Education Provided Safety M7 PT-IP Assessment and Plan Start: 11/20/18 14:01 Freq: NEEDED Status: Active Protocol: Document 11/20/18 11:50 AB (Rec: 11/20/18 14:17 AB [id number]) PT Summary Assessment and Plan Potential Rehabilitation Potential Good Status of Condition at Evaluation Stable Summary Impairments Pain ROM Strength Balance Coordination Sensation Tone Cognition Bed Mobility Transfers Gait Activity Tolerance Assessment Summary pt requiring SBA with mobility but has decrease activity tolerance with decrease in O2 sat with activity and HR increased with ambulation. pt stated that his roommate will be able to assist him at home. pt may go home when medically stable. pt will benefit from cardiopulmonary rehab. Goals Bed Mobility Goal Independent Transfer Goal Independent Cane Gait Goal Independent Cane Gait Distance 200 Other Goals up/down 2 steps with L rail ascending SBA Days to Meet Goals 5 Frequency of Treatment Frequency Of Treatment Once a Day Treatment Plan Physical Therapy Treatment Plan Bed Mobility Training Transfer Training Gait Training Therapeutic Exercise Balance Retraining Discharge Planning Hot or Cold Pack Neuromuscular Re-ed Coordination Retraining Manual Therapy Recommendations To Nursing Amount of Assist Needed Standby Assistance Discharge Recommendations PT Discharge Recommendations Home with Assistance Outpatient PT Other Discharge Recommendations cardiopulmonary rehab
[2018-11-20] MEDS: OXYCODONE/ACETAMINOPHEN 5/325 TABLET 2 TAB PO ×2 (13:07→20:18)
[2018-11-20] MEDS: ENOXAPARIN 40 MG/0.4 ML SYRINGE SUBCUT (17:19)
[2018-11-20] MEDS: PRAVASTATIN 20 MG TABLET 10 MG PO (20:15)
[2018-11-20] MEDS: SENNOSIDES 8.6 MG TABLET 17.2 MG PO (20:16)
--- NOTE | 2018-11-20 22:06 | PC.NURSE ---
2200- 02 turned off but after about ten minutes patient desaturated to 85% with a normal pleth. 02 placed on again at 1l via nasal cannula. Patient does appear to have sleep apnea. Will monitor.
[2018-11-21 01:28] VITALS: PULSE 94; RESP 14; O2SAT 96
[2018-11-21] MEDS: IPRATROPIUM 0.5 MG/2.5 ML NEB INH ×2 (01:28→08:39)
[2018-11-21] MEDS: LEVALBUTEROL 1.25 MG/0.5 ML NEB INH ×2 (01:28→08:39)
[2018-11-21 07:35] VITALS: BP 128/94; PULSE 110; RESP 18; TEMP 36.1; O2SAT 92
[2018-11-21 07:50] VITALS: O2SAT 94
[2018-11-21] MEDS: IBUPROFEN 600 MG TABLET PO (07:54)
[2018-11-21] MEDS: buPROPion 75 MG TABLET 150 MG PO (07:56)
[2018-11-21] MEDS: OXYCODONE/ACETAMINOPHEN 5/325 TABLET 2 TAB PO (07:56)
[2018-11-21] MEDS: CYCLOBENZAPRINE 10 MG TABLET PO (07:56)
[2018-11-21 07:57] VITALS: BP 128/94; PULSE 121
[2018-11-21] MEDS: predniSONE 20 MG TABLET 40 MG PO (07:57)
[2018-11-21] MEDS: DOCUSATE 100 MG CAPSULE PO (07:57)
[2018-11-21] MEDS: LISINOPRIL 20 MG TABLET PO (07:57)
[2018-11-21] MEDS: levoFLOXacin 500 MG TABLET PO (07:57)
[2018-11-21] MEDS: BUDESONIDE 60 PUFF/DEVICE INHALER INH (08:39)
[2018-11-21 08:40] VITALS: PULSE 102; RESP 16; O2SAT 93
--- NOTE | 2018-11-21 10:50 | PT.IPTN ---
Current Diagnoses Pure hypercholesterolemia, unspecified (11/18/18) Opioid dependence, uncomplicated (11/18/18) Essential (primary) hypertension (11/18/18) Chronic obstructive pulmonary disease with (acute) exacerbation (11/18/18) Acute respiratory failure with hypoxia (11/18/18) Drug induced constipation (11/18/18) Adverse effect of other opioids, initial encounter (11/18/18) Tobacco abuse counseling (11/18/18) Physical Therapy Treatment Note M2 PT-IP Current Condition Start: 11/20/18 14:01 Freq: NEEDED Status: Active Protocol: Document 11/20/18 11:50 AB (Rec: 11/20/18 14:17 AB [id number]) Physical Therapy Current Condition Current Condition Evaluation Date 11/20/18 Treatment Diagnosis COPD exacerbation; generalized weakness Onset Date 11/18/18 Precautions Other Precautions droplet precaution: sputum O2 sat at 2L/min O2 at this time M3 PT-IP Subjective Start: 11/20/18 14:01 Freq: NEEDED Status: Active Protocol: Document 11/21/18 10:50 GGD (Rec: 11/21/18 11:43 GGD [id number]) Subjective Physical Therapy Visit Type Type Treatment Note Visit Start Time 10:30 Visit Stop Time 10:50 Total Visit Minutes 20 Number of DIRECTOR OF IT OPERATIONS Visits 1 Physical Therapy Visit Comments Patient Comments Pt willing to work with therapy. M4 PT-IP Mobility and Gait Start: 11/20/18 14:01 Freq: NEEDED Status: Active Protocol: Document 11/21/18 10:50 GGD (Rec: 11/21/18 11:43 GGD [id number]) PT-Transfer Assessment Sit to and From Stand Sit to and from Stand Standby Assistance Equipment Transfer Assistive Device Gait Belt Straight Cane Orthotic/Prosthetic Devices or Brace: No Transfers Transfer Destination Bedside Commode Transfer Ability Level of Assist Standby Assistance Gait Assessment Gait Gait Assistance Required: Standby Assistance Distance (Feet) 80 Able to Maintain Weight Bearing Status Yes During Gait Assistive Devices Assistive Device Gait Belt Straight Cane Orthotic/Prosthetic Devices or Brace: No Gait Deviations General Gait Pattern Antalgic Factors Limiting Gait Function Factors Limiting Gait Function Decreased Activity Tolerance Decreased Strength Poor Balance Comments Gait Comments pt was able to maintain O2 sat 90 to 92% with activity at 2L . HR increased to 125 bpm with ambulation Stair Climbing Assessment Evaluation Level of Assist On Stairs Standby Assistance Devices Stair Climbing Assistive Devices Straight Cane Technique/Endurance Stair Climbing Direction Ascend and Descend Stair Climbing Technique Step to Step Number of Steps Climbed 1 Query Text: Stair Climbing Set # Repetitions (reps) 1 M5 PT-IP Objective Assessments Start: 11/20/18 14:01 Freq: NEEDED Status: Active Protocol: Document 11/20/18 11:50 AB (Rec: 11/20/18 14:17 AB [id number]) Orientation Orientation/Cognition Level of Alertness Alert Orientation Name Age Birthday Month Date Year Day of Week Place Situation Language Function Ability No Deficits Noted Safety Awareness Understands Safety Issues Memory Description No Deficits Noted Gross Range of Motion Lower Extremity ROM Assessment Within Functional Limits Strength Lower Extremity Strength Assessment Within Functional Limits Coordination Assessment Gross Coordination Gross Coordination WNL Muscle Tone Muscle Tone WNL Yes M6 PT-IP Treatment Start: 11/20/18 14:01 Freq: NEEDED Status: Active Protocol: Document 11/20/18 11:50 AB (Rec: 11/20/18 14:17 AB [id number]) Physical Therapy Treatment Education Education Provided Safety M7 PT-IP Assessment and Plan Start: 11/20/18 14:01 Freq: NEEDED Status: Active Protocol: Document 11/21/18 10:50 GGD (Rec: 11/21/18 11:43 GGD [id number]) PT Summary Assessment and Plan Summary Assessment Summary Pt is SBA with mobility. He was safe and stable with stair mobility. He was able safely manage O2 tank with gait. Pt safe for home D/C when medically stable. Frequency of Treatment Frequency Of Treatment Once a Day Treatment Plan Physical Therapy Treatment Plan Bed Mobility Training Transfer Training Gait Training Therapeutic Exercise Balance Retraining Discharge Planning Hot or Cold Pack Neuromuscular Re-ed Coordination Retraining Manual Therapy Discharge Recommendations PT Discharge Recommendations Home with Assistance Outpatient PT
--- NOTE | 2018-11-21 11:14 | P.DS_ITS ---
History of Present Illness Date Patient Seen: 11/18/18 Chief complaint: HIGH HEART RATE,LOW OXYGEN Narrative: Written by Dr. Hammond: Patient is a 63-year-old male the patient is a 63-year-old male with a history of COPD, 40 pack-year history of smoking hypertension, chronic back pain, and hyperlipidemia who was in his usual state of health until 2-3 days prior to admission. At that time the patient developed a cough with green productive sputum. He also developed shortness of breath and wheezing. He was seen in the walk-in clinic today and found to be markedly hypoxic. His initial O2 sat was 75%. The patient received several nebulizer treatments. They attempted to ambulate him and he again became markedly hypoxic. A D-dimer was obtained which was mildly elevated. He underwent a CT angio to rule pulmonary embolus. The CT angio was negative for PE and negative for pneumonia. Given the patient's persistent hypoxia, cough, shortness, and wheezing he was admitted to the hospital for further evaluation. Patient denies any fever or chills. He does report some sweats. He has had an intermittent headache over the past week. He reports no chest pain or palpitations. He has no nausea vomiting or diarrhea. No dysuria hematuria or pyuria. Patient has chronic back pain. He had a hip surgery 6 months ago and has no longer any hip pain. He denies any lower extremity edema, no orthopnea, no PND. Discharge Providers Date of admission: 11/18/18 13:51 Discharge Date: 11/21/18 Primary care physician: Miguel Angel Park MD Consults: 11/18/18 09:25 Consult to Respiratory Therapy Evaluate & Treat Comment: Physician Instructions: Evaluate and treat 11/18/18 14:35 Consult to Respiratory Therapy Evaluate & Treat Comment: Physician Instructions: Evaluate and treat 11/20/18 09:55 Consult to Occupational Therapy Evaluate & Treat Comment: Physician Instructions: Evaluate and treat 11/20/18 09:57 Consult to Physical Therapy Evaluate & Treat Comment: Physician Instructions: Evaluate and Treat Discharge provider: Katie Contreras DO Summary Discharge Diagnosis: 1. Acute COPD exacerbation with tracheobronchitis, present on admission. Resolving. 2. Acute hypoxemic respiratory failure, present on admission. Improving. 3. Hyperlipidemia, chronic, present on admission. Stable. 4. Hypertension, chronic, present on admission. Stable. 5. Chronic back pain with opiate dependence, present on admission. Stable. 6. Opiate induced constipation, chronic, present on admission. Stable. 7. Nicotine dependence, chronic, present on admission. Stable. Hospital Course: 1. Acute COPD exacerbation with tracheobronchitis, present on admission. Resolving. -Patient presented with progressive worsening productive cough, shortness of breath, wheezing and significant hypoxemia. -Chest x-ray demonstrated COPD. -CTA chest did not demonstrate pulmonary emboli, thoracic aortic aneurysm or dissection, pleural effusion or pneumothorax.. Biapical scarring and bibasilar dependent atelectasis present. Airway is patent. No gross mediastinal or hilar lymphadenopathy. Hepatic steatosis. -Continued supplemental oxygen as needed to keep oxygen saturation 88-92%. Luis Enrique laguna discharged with 2L oxygen for activity and nocturnal until sleep study and CPAP to treat MAUREEN can be obtained. Also provided him nebulizers through [employer]: DuoNeb 2-4 times daily, albuterol nebs every 6 hours as needed for shortness of breath or wheezing, and budesonide twice daily. -Recommend PFTs in 1-2 months after recovered from acute COPD exacerbation. Also would benefit from pulmonology referral to optimize lung function and consideration of pulmonary rehab. -Recommend sleep study to assess for undoubted MAUREEN. -Sputum culture grew Moraxella catarrhalis with sensitivities pending. Patient has been treated with levofloxacin 750 mg daily and will continue to complete 7 day course. -Continued prednisone 40 mg daily and discharged with 3 additional doses to complete 5 day burst. 2. Acute hypoxemic respiratory failure, present on admission. Improving. -Possible chronic component that had yet to be identified? -Patient has been titrated off continuous supplemental oxygen and is now only on 2 L of oxygen with activity. Also recommended 2 L nocturnal use until MAUREEN can be evaluated and treated. 3. Hyperlipidemia, chronic, present on admission. Stable. -Continued pravastatin 10 mg daily at bedtime. 4. Hypertension, chronic, present on admission. Stable. -Continued lisinopril 20 mg daily. 5. Chronic back pain with opiate dependence, present on admission. Stable. -Continued oxycodone 10-325 mg every 6 hours as needed for severe pain. 6. Opiate induced constipation, chronic, present on admission. Stable. -Continued bowel regimen. 7. Nicotine dependence, chronic, present on admission. Stable. -Discussed smoking including risks (cancer, CV disease, etc), effect on lung function over time, and cessation in detail. Recommended continuing Wellbutrin 150 mg 3 times daily and in addition using Nicoderm patch daily or every other day and lozenges 1-2 times daily as needed for oral fixation. -Recommended abstaining from smoking indefinitely. Status at Discharge Functional status at discharge: uses cane/walker Overall status at discharge: patient is progressing back to baseline Exam Vital Signs (past 8 hours): - 11/21/18 07:35 11/21/18 07:50 11/21/18 07:57 Temperature 97.0 F L Pulse Rate 110 H 121 H Respiratory Rate 18 Blood Pressure 128/94 H 128/94 H Pulse Oximetry 92 94 11/21/18 08:40 Temperature Pulse Rate 102 H Respiratory Rate 16 Blood Pressure Pulse Oximetry 93 Oxygen Delivery Method Room Air Oxygen Flow Rate 1 Narrative Exam Narrative: General: Older gentleman sitting in bedside chair and in no acute distress, appears older than stated age, mildly diaphoretic, well-developed, well- nourished, appropriately interactive. HEENT: Normocephalic, atraumatic. External ears without defect. Pupils equal, round, and reactive to light. Anicteric sclerae, moist conjunctivae, and no lid lag. Oropharynx free of erythema and cobble stoning with moist mucosa. Neck: Supple with full range of motion. No lymphadenopathy or thyromegaly. Cardiovascular: Regular rhythm, mild tachycardia, without murmurs, rubs, or gallops appreciated. Pulmonary: Clear to auscultation bilaterally with occasional scattered rhonchi. No wheezes or crackles. Mild use of accessory muscles after ambulation. Abdomen: Soft, bowel sounds present, nontender, nondistended. No hepatosplenomegaly or masses appreciated. Extremities: No clubbing, cyanosis, or edema. Skin: Normal temperature, turgor, and texture; no rash, ulcers, or subcutaneous nodules appreciated. Neurological: Cranial nerves grossly intact. Psychiatric: Normal mood and affect. Alert and oriented to person, place, and time. Objective Labs Result Diagrams: 11/19/18 04:40 11/19/18 04:40 Discharge Plan Discharge Plan Patient Disposition: Home Discharge comment: You're being discharged home. Please make an appointment with your PCP for hospital follow-up as soon as possible. You were prescribed levofloxacin 750 mg daily for 5 additional days to treat the bacteria growing in your trachea. You are being discharged with 2 L oxygen to wear with activity a nd at night (for now until your probable obstructive sleep apnea is assessed). Your inhalers have been prescribed as nebulizers. You will be on 3 nebulizers total: Albuterol (for rescue only) every 4 hours as needed for shortness of breath or wheezing, DuoNeb (muscle relaxant of the airway) 2-4 times daily, and budesonide twice daily and rinse your mouth after each use. Recommend in the next 1-2 months a lung study called pulmonary function testing to assess the severity of your COPD. You may want to establish care with a inspector final assembly mechanical to optimize your lung function in the future. Also recommend a sleep study to assess for probable obstructive sleep apnea. Please continue to abstain from tobacco use. You may want to use Nicoderm patch every day or every other day with additional nicotine lozenges 1-2 times per day as needed for oral fixation/craving and slowly titrate off. Continue your Wellbutrin as prescribed. Discharge Med Rec/Prescriptions Prescriptions: New prednisone 20 mg Tablet 40 mg PO DAILY Qty: 6 RF: 0 levofloxacin 750 mg tablet 750 mg PO DAILY Qty: 5 RF: 0 Continued albuterol sulfate [Ventolin HFA] 90 mcg/actuation HFA aerosol inhaler 1 puff INHALATION Q4HP PRN (Reason: shortness of breath or wheezing) Qty: 1 RF: 5 ibuprofen 600 mg tablet 600 mg PO QID PRN (Reason: pain) Qty: 120 RF: 3 cyclobenzaprine 10 mg tablet 10 mg PO TID PRN (Reason: muscle spasm) Qty: 90 RF: 5 bupropion HCl (smoking deter) 150 mg tablet extended release 12 hr 150 mg PO TID Qty: 270 RF: 1 pravastatin 10 mg tablet 10 mg PO BEDTIME Qty: 30 RF: 5 oxycodone-acetaminophen 10-325 mg tablet 1 tab PO Q6H PRN (Reason: pain) Qty: 120 RF: 0 naloxone 0.4 mg/mL syringe 0.4 mg IM ONCE PRN (Reason: opioid reversal) Qty: 1 RF: 5 lisinopril 20 mg tablet 20 mg PO DAILY RF: 0 docusate sodium 100 mg capsule 100 mg PO BID RF: 0 Follow up/Referrals: Miguel Angel Park MD [Primary Care Provider] - Provider Discharge Instructions Activity: Activity as tolerated with cane and physical therapy Visit Report/Discharge Packet Instructions: Nicotine Addiction, DI for Chronic Obstructive Pulmonary Disease, DI for Pneumonia -- Adult, DI for Oxygen Therapy -- Adult Discharge Data Primary Care Provider: Miguel Angel Park Attending Provider: Carolin Hammond Admit Date/Time: 11/18/18 13:51 Quality VTE Deep Vein Thrombosis/Pulmonary Embolism Present on Admission: No
[2018-11-21] MEDS: levoFLOXacin 250 MG TABLET PO (11:39)
--- NOTE | 2018-11-21 12:20 | CM.DPC ---
DCP: continued: Case discussed in Team Rounds and Dr. Contreras, taking over today for hospitalist team, said she anticipated sending pt home today, on oxygen if he has not been weaned of it yet. JAMIA Alamo noted she would be seeing pt this morning and would look at walker vs his usual cane for home setting. 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 Met now with pt after seeing final d/c order. Pt is dressed, eating lunch, says he is comfortable with the d/c today but not as comfortable with fact that he is still needing the o2. He reports RT has given him information on [facility] as they will be the vendor for the oxygen as well as nebulizer treatments that pt will need. At their instruction he will be calling them as soon as he gets home. He says his girlfriend and/or her son will be picking him up today. Asked about his insurance coverage as face sheet indicates only Medicare with no supplement. He confirms this and says he pays for his medications out of pocket. He says RT has explained that [facility] does have a program to help people who qualify pay for the needed respiratory treatments. Went briefly over the snf option as pt said he hoped he would not need the oxygen for very long. Explained how that might work in a snf stay (pt with a 3 day qualifying stay and thus would qualify for this under his Medicare). Also discussed HH as pt indicated that at baseline and now with oxygen he would be primarily homebound. Intent of HH would be to have RN follow for step down from hospital COPD management and GENERAL MAINTENANCE HELPER for resources going forward due to pt's disability and limited insurance. Pt immediately said No, I wouldn't need anything like that. Pt does plan to followup right away with Dr. Park/PCP. Explained to pt that his desire for home is understood but that this [place] funeral planner did want him to be aware that there were other options open to him. Dr. Contreras has also recommended a sleep study and a pulmonology consultation. Pt plans to discuss all this with Dr. Park. Pt was ok'd for the home setting by JAMIA Alamo using his cane and no need for walker and he says he is pleased about that. Pt expressed thankfulness for the visit. GISSELL Lofton is updated. P: home as noted when ride arrives and his d/c paperwork is completed by Rolly.
--- NOTE | 2018-11-21 12:48 | PC.NURSE ---
Addendum entered by Rolly House R.N. 11/21/18 13:15: Pt transferred self to w/c using cane. All belongings gathered and given to pt. SILVERWARE BUFFER escorted pt with belongings and O2 to POV driven by S/O in no acute distress. Original Note: Pt up to chair. Provided d/c packet and reviewed d/c teaching regarding disease process, COPD/bronchitis, medications, regimen, side effects of medications, dosing. Reviewed use of home O2 and provided printed materials. PIV removed earlier with cath tip intact. Pt verbalizes understanding of teaching and states no questions at this time. 2 printed rxs provided to patient. All belongings are gathered. Pt states his ride will be here in approx 15 minutes.
== END 2018-11-21 13:15 | disposition home or self-care (01) | DRG 190 ==
LOC: ED 13:35 → ICU 15:14
PROVIDERS: Family Medicine; Admitting Provider Internal Medicine; Emergency Provider Emergency Medicine; PCP Student in an Organized Health Care Education/Training Program; Visit Provider Internal Medicine
DX: J44.1 Chronic obstructive pulmonary disease with (acute) exacerbation (principal); J96.01 Acute respiratory failure with hypoxia; F11.20 Opioid dependence, uncomplicated; J20.9 Acute bronchitis, unspecified; J44.0 Chronic obstructive pulmonary disease with (acute) lower respiratory infection; G89.29 Other chronic pain; I10 Essential (primary) hypertension; F17.210 Nicotine dependence, cigarettes, uncomplicated; K59.03 Drug induced constipation; T40.2X5A Adverse effect of other opioids, initial encounter; E78.00 Pure hypercholesterolemia, unspecified; R00.0 Tachycardia, unspecified
CPT/HCPCS: 36415; 71046; 71275; 80048; 80053; 81003; 82550; 83036; 83880; 84145; 84484; 85025; 85379; 87070; 87077; 87205; 87633; 87797; 93005; 93041; 94640; 94760; 96361; 96374; 97161; 97165; 97530; 99284; 99285; 99406; J1650; J1956; J2930; J7050; J7613; J7614; Q9967

== ENCOUNTER 2019-01-14 14:30 | Outpatient (RCR) | payer MEDICARE, SELFPAY ==
--- NOTE | 2018-07-28 13:51 | PT.OIE ---
Current Diagnoses Other chronic pain (07/28/18) Unilateral primary osteoarthritis, right hip (07/28/18) Pain in right hip (07/28/18) Spinal stenosis, lumbar region without neurogenic claudication (07/28/18) Dorsalgia, unspecified (07/28/18) Difficulty in walking, not elsewhere classified (07/28/18) Abnormal posture (07/28/18) Weakness (07/28/18) Past Medical History (Last Updated 03/23/18 @ 10:07 by Miguel Angel Park MD) Uncomplicated opioid dependence (Chronic) Hypertension (Chronic Unknown) COPD (chronic obstructive pulmonary disease) (Chronic Unknown) Generalized headaches (Chronic 1999) Chronic back pain (Chronic 1979) Primary osteoarthritis of right hip (Chronic 06/17/17) Past Surgical History (Last Updated 05/19/18 @ 18:04 by Melissa Bailey LPN) Hx of inguinal hernia repair (Resolved 1999) History of lumbar surgery (Resolved ~2015) History of total right hip arthroplasty (Resolved) Provider Visit Care Team Role Provider Type Tej Zacarias MD Referring Provider Non-Staff Specialty: Orthopedics Address: [address] [place] [address], [id number] Email: Miguel Angel Park MD Primary Care Provider Physician Specialty: Internal Medicine Address: [address] [place] [address], [id number] Email: Tej Zacarias Attending Provider Non-Staff Specialty: Medical Address: [address] [place] [address], [id number] Email: Physical Therapy Initial Evaluation PT-OP-A Visit Information Start: 07/27/18 17:40 Freq: Status: Active Protocol: Document 07/28/18 08:15 [facility] (Rec: 07/28/18 09:04 [facility] [id number]) Out-Patient Physical Therapy Visit Information Visit Information Visit Type Initial Evaluation Visit Start Time 08:15 Visit Stop Time 09:15 Total Visit Minutes 60 Visit Number 1 Number of DOLLY OPERATOR Visits 0 PT-OP-B Current Condition Start: 07/27/18 17:40 Freq: Status: Active Protocol: Document 07/28/18 08:15 [facility] (Rec: 07/28/18 09:04 [facility] [id number]) Current Condition History of Current Condition Onset Date ant FRIEDA 05/15/18 History of Current Condition Pt has hx of fusion 2 years ago with chronic LBP and R hip pain. Pt is using cane only when he is going out of the house. He did his own exercises at home for his hip replacement and is starting formal PT now. Reports LBP has inc since his hip is feeling better. Pt reports back pain since high school with no specific injuries. Prior Treatments and Tests Currently doing APs, heel raises, standing abd, heel slides, glute sets, quad sets, abdominal braces Treatment Goals Patient/Caregiver Goals Pt wants to get back to work- somewhat more physical, be able to walk around PT-OP-C Subjective Start: 07/27/18 17:40 Freq: Status: Active Protocol: Document 07/28/18 08:15 [facility] (Rec: 07/28/18 09:04 [facility] [id number]) Patient Questionnaires Lower Extremity Functional Scale LEFS Score 15 LEFS Impairment 80 to 99% Impaired (Score 1-16 ) OP-PT Pain Assessment Location R hip Pain Location Details lat R hip Intensity 8 Scale Used Numeric (1 - 10) Description Aching Frequency Intermittent Radiating Location lat thigh to ant knee Pain Aggravating Factors Standing Walking Other Pain Aggravating Factors in/out of bed, WB on RLE Pain Alleviating Factors Sitting LBP Pain Location Details B LB Intensity 5 Scale Used Numeric (1 - 10) Description Aching Description- Other up to 9/10 Frequency Constant Pain Duration pain dec soon after sitting to 5/10 Pain Aggravating Factors Activity Standing Walking Lifting Other Pain Aggravating Factors lifting off ground/overhead, being up extended, driving, laying down Pain Alleviating Factors Heat Sitting PT-OP-G Mobility & Gait Start: 07/27/18 17:40 Freq: Status: Active Protocol: Document 07/28/18 08:15 [facility] (Rec: 07/28/18 09:04 [facility] [id number]) OP Gait Assessment Comments Gait Comments Amb with cane with lat leaning PT-OP-M Strength Start: 07/27/18 17:40 Freq: Status: Active Protocol: Document 07/28/18 08:15 [facility] (Rec: 07/28/18 09:04 [facility] [id number]) Hip Strength Hip Manual Muscle Testing Left Flexion (L2) 4+ Good+ Abduction 4 Good External Rotation 5 Normal Internal Rotation 5 Normal Right Flexion (L2) 3+ Fair+ Abduction 3 Fair External Rotation 3+ Fair+ Internal Rotation 4- Good- Knee Strength Knee Manual Muscle Testing Right Flexion (S2) 4- Good- Extension (L3) 4 Good Left Flexion (S2) 5 Normal Extension (L3) 5 Normal Ankle/Foot Strength Ankle and Foot Manual Muscle Testing Right Dorsiflexion (L4) 4+ Good+ Plantarflexion (S1) 4+ Good+ Comments seated testing Left Dorsiflexion (L4) 4+ Good+ Plantarflexion (S1) 4+ Good+ Comments seated testing PT-OP-Q Treatments Start: 07/27/18 17:40 Freq: Status: Active Protocol: Document 07/28/18 08:15 [facility] (Rec: 07/28/18 09:04 [facility] [id number]) Therapeutic Exercises Sitting Exercises hip abd Sitting Exercise Name hip abd then ER Side bilateral Equipment Used L5 Reps/Minutes 10 Standing Exercises 3 Standing Exercise Name hip abd Side right Reps/Minutes 5 Comments focus on neutral PT-OP-R Modalities Start: 07/27/18 17:40 Freq: Status: Active Protocol: Document 07/28/18 08:15 [facility] (Rec: 07/28/18 09:04 [facility] [id number]) Hot Pack/Cold Pack Treatment Hot Pack Location lumbar Patient Position Sitting Treatment Duration (minutes) 15 Comments extra layer PT-OP-T Assessment and Plan Start: 07/27/18 17:40 Freq: Status: Active Protocol: Document 07/28/18 08:15 [facility] (Rec: 07/28/18 13:51 [facility] [id number]) Physical Therapy Assessment Rehab Potential Rehabilitation Potential Good Evaluation Complexity Number of Personal Factors/Comorbidities 3 or More Number of Body Systems Impaired 4 or More Clinical Presentation at Evaluation Evolving Impairments Impairments Activity Tolerance Balance Functional Activities Functional Mobility Gait Pain Posture ROM Soft Tissue Mobility Strength Goals posture Production Coordinator Goal (LTG) Pt will be able to stand with only mild postural abnormalities. LTG Duration 09/25/18 gait Short Term Goal (STG) Pt will be able to amb for 5 min with no more than 2 point increase in pain. STG Duration 08/25/18 Production Coordinator Goal (LTG) Pt will be able to amb for 30 min at a time with no more than 2 point inc in pain, allowing him to participate in more functional activities and work towards return to working. LTG Duration 09/25/18 strength Short Term Goal (STG) Pt will be indep with HEP. STG Duration 08/25/18 Fpc Goal (LTG) Pt will have 5/5 LE strength B in order to allow inc ability to do activity. LTG Duration 09/25/18 Assessment Summary Assessment Pt presents 2.5 months s/p R FRIEDA with pt reporting overall good begining of recovery, but has noted exasterbation of chronic LBP since the surgery. Pt has impaired posture, dec core and LE strength, impaired gait, and dec flexiblity, which all likely contribute to his cont pain. Pt would benefit from skilled PT to work on these deficits and progress his mobility. Physical Therapy Plan Frequency and Duration Frequency of Treatment 2x/Week Duration of Treatment 2 months Plan of Care Start Date 07/28/18 Plan of Care End Date 09/25/18 Therapeutic Interventions Therapeutic Interventions Aquatic Therapy Balance Training Gait Training Home Exercise Program Joint Mobilizations Manual Therapy Neuromuscular Re-education Patient/Caregiver Education Self-Care/Home Management Soft Tissue Mobilization Taping Therapeutic Activities Therapeutic Exercises Modalities Cold Pack/Ice Massage Electric Stimulation Hot Packs Infrared Therapy Ultrasound Next Visit Focus/Plan Next Note Type Treatment Note Next Visit Plan Stretching HEP, stepper, leg press, STM
--- NOTE | 2018-07-28 13:51 | PT.OPPOC ---
Current Diagnoses Other chronic pain (07/28/18) Unilateral primary osteoarthritis, right hip (07/28/18) Pain in right hip (07/28/18) Spinal stenosis, lumbar region without neurogenic claudication (07/28/18) Dorsalgia, unspecified (07/28/18) Difficulty in walking, not elsewhere classified (07/28/18) Abnormal posture (07/28/18) Weakness (07/28/18) Provider Visit Care Team Role Provider Type Tej Zacarias MD Referring Provider Non-Staff Specialty: Orthopedics Address: [address] [place], [address] Email: Miguel Angel Park MD Primary Care Provider Physician Specialty: Internal Medicine Address: [address] [place] [address], [address] Email: Tej Zacarias Attending Provider Non-Staff Specialty: Medical Address: [address] [place] [address], [phone] Email: Plan Of Care PT-OP-T Assessment and Plan Start: 07/27/18 17:40 Freq: Status: Active Protocol: Document 07/28/18 08:15 [facility] (Rec: 07/28/18 13:51 [facility] [id number]) Physical Therapy Assessment Rehab Potential Rehabilitation Potential Good Evaluation Complexity Number of Personal Factors/Comorbidities 3 or More Number of Body Systems Impaired 4 or More Clinical Presentation at Evaluation Evolving Impairments Impairments Activity Tolerance Balance Functional Activities Functional Mobility Gait Pain Posture ROM Soft Tissue Mobility Strength Goals posture Slate Roofer Goal (LTG) Pt will be able to stand with only mild postural abnormalities. LTG Duration 09/25/18 gait Short Term Goal (STG) Pt will be able to amb for 5 min with no more than 2 point increase in pain. STG Duration 08/25/18 Slate Roofer Goal (LTG) Pt will be able to amb for 30 min at a time with no more than 2 point inc in pain, allowing him to participate in more functional activities and work towards return to working. LTG Duration 09/25/18 strength Short Term Goal (STG) Pt will be indep with HEP. STG Duration 08/25/18 Slate Roofer Goal (LTG) Pt will have 5/5 LE strength B in order to allow inc ability to do activity. LTG Duration 09/25/18 Assessment Summary Assessment Pt presents 2.5 months s/p R FRIEDA with pt reporting overall good begining of recovery, but has noted exasterbation of chronic LBP since the surgery. Pt has impaired posture, dec core and LE strength, impaired gait, and dec flexiblity, which all likely contribute to his cont pain. Pt would benefit from skilled PT to work on these deficits and progress his mobility. Physical Therapy Plan Frequency and Duration Frequency of Treatment 2x/Week Duration of Treatment 2 months Plan of Care Start Date 07/28/18 Plan of Care End Date 09/25/18 Therapeutic Interventions Therapeutic Interventions Aquatic Therapy Balance Training Gait Training Home Exercise Program Joint Mobilizations Manual Therapy Neuromuscular Re-education Patient/Caregiver Education Self-Care/Home Management Soft Tissue Mobilization Taping Therapeutic Activities Therapeutic Exercises Modalities Cold Pack/Ice Massage Electric Stimulation Hot Packs Infrared Therapy Ultrasound Next Visit Focus/Plan Next Note Type Treatment Note Next Visit Plan Stretching HEP, stepper, leg press, STM Plan of Care Dates Plan of Care Start Date 07/28/18 Plan of Care End Date 09/25/18 Please Sign and Return: I have reviewed this Plan of Care and certify that the skilled therapy services above are required to meet the patient?s needs. Physician Signature Date Printed Name and Credentials Clinical Instructor Signature Printed Name and Credentials
--- NOTE | 2018-07-30 09:04 | PT.OTN ---
Current Diagnoses Other chronic pain (07/30/18) Unilateral primary osteoarthritis, right hip (07/30/18) Pain in right hip (07/30/18) Spinal stenosis, lumbar region without neurogenic claudication (07/30/18) Dorsalgia, unspecified (07/30/18) Physical Therapy Treatment Note PT-OP-A Visit Information Start: 07/27/18 17:40 Freq: Status: Active Protocol: Document 07/30/18 08:20 [facility] (Rec: 07/30/18 09:03 [facility] [id number]) Out-Patient Physical Therapy Visit Information Visit Information Visit Type Treatment Note Visit Start Time 08:15 Visit Stop Time 09:00 Total Visit Minutes 45 Visit Number 2 Number of TEACHER BALLET Visits 0 PT-OP-B Current Condition Start: 07/27/18 17:40 Freq: Status: Active Protocol: Document 07/28/18 08:15 [facility] (Rec: 07/28/18 09:04 [facility] [id number]) Current Condition History of Current Condition Onset Date ant FRIEDA 05/15/18 History of Current Condition Pt has hx of fusion 2 years ago with chronic LBP and R hip pain. Pt is using cane only when he is going out of the house. He did his own exercises at home for his hip replacement and is starting formal PT now. Reports LBP has inc since his hip is feeling better. Pt reports back pain since high school with no specific injuries. Prior Treatments and Tests Currently doing APs, heel raises, standing abd, heel slides, glute sets, quad sets, abdominal braces Treatment Goals Patient/Caregiver Goals Pt wants to get back to work- somewhat more physical, be able to walk around PT-OP-C Subjective Start: 07/27/18 17:40 Freq: Status: Active Protocol: Document 07/30/18 08:20 [facility] (Rec: 07/30/18 09:03 [facility] [id number]) OP-PT Subjective Patient Comments Patient Comments Pt reports some mm soreness with exercises. PT-OP-G Mobility & Gait Start: 07/27/18 17:40 Freq: Status: Active Protocol: Document 07/28/18 08:15 [facility] (Rec: 07/28/18 09:04 [facility] [id number]) OP Gait Assessment Comments Gait Comments Amb with cane with lat leaning PT-OP-M Strength Start: 07/27/18 17:40 Freq: Status: Active Protocol: Document 07/28/18 08:15 [facility] (Rec: 07/28/18 09:04 [facility] [id number]) Hip Strength Hip Manual Muscle Testing Left Flexion (L2) 4+ Good+ Abduction 4 Good External Rotation 5 Normal Internal Rotation 5 Normal Right Flexion (L2) 3+ Fair+ Abduction 3 Fair External Rotation 3+ Fair+ Internal Rotation 4- Good- Knee Strength Knee Manual Muscle Testing Right Flexion (S2) 4- Good- Extension (L3) 4 Good Left Flexion (S2) 5 Normal Extension (L3) 5 Normal Ankle/Foot Strength Ankle and Foot Manual Muscle Testing Right Dorsiflexion (L4) 4+ Good+ Plantarflexion (S1) 4+ Good+ Comments seated testing Left Dorsiflexion (L4) 4+ Good+ Plantarflexion (S1) 4+ Good+ Comments seated testing PT-OP-Q Treatments Start: 07/27/18 17:40 Freq: Status: Active Protocol: Document 07/30/18 08:20 [facility] (Rec: 07/30/18 09:03 [facility] [id number]) Cardio Equipment Recumbent Stepper (Sci-Fit) Duration (Minutes) 6 Resistance 5 Seat Position 16 Gym Equipment Shuttle Recovery Unilateral Squats Resistance 50 to 62 after 10 Shuttle Recovery Platform Stable Reps/Time 30 Therapeutic Exercises Supine Exercises SKTC Supine Exercise Name SKTC w/opposite leg in knee ext position on mat Side bilateral Reps/Minutes 30 secx2 Sitting Exercises piriformis stretch Sitting Exercise Name piriformis Side bilateral Reps/Minutes 30 sec HS stretch Sitting Exercise Name HS stretch Side bilateral Reps/Minutes 30 sec holds Standing Exercises 2 Standing Exercise Name march Side bilateral Reps/Minutes 10 1 Standing Exercise Name tandem stance Manual Therapy Treatment Soft Tissue Mobilization 1 Body Location lumbar paraspinals Mobilization Type Rolling Intensity/Depth Moderate Body Position Sitting PT-OP-R Modalities Start: 07/27/18 17:40 Freq: Status: Active Protocol: Document 07/30/18 08:20 [facility] (Rec: 07/30/18 09:04 [facility] [id number]) Hot Pack/Cold Pack Treatment Hot Pack Location lumbar Patient Position Sitting Treatment Duration (minutes) 15 Comments extra layer PT-OP-T Assessment and Plan Start: 07/27/18 17:40 Freq: Status: Active Protocol: Document 07/30/18 08:20 [facility] (Rec: 07/30/18 09:03 [facility] [id number]) Physical Therapy Assessment Goals posture Penitentiary Goal (LTG) Pt will be able to stand with only mild postural abnormalities. LTG Duration 09/25/18 gait Short Term Goal (STG) Pt will be able to amb for 5 min with no more than 2 point increase in pain. STG Duration 08/25/18 Heel Seater Goal (LTG) Pt will be able to amb for 30 min at a time with no more than 2 point inc in pain, allowing him to participate in more functional activities and work towards return to working. LTG Duration 09/25/18 strength Short Term Goal (STG) Pt will be indep with HEP. STG Duration 08/25/18 Heel Seater Goal (LTG) Pt will have 5/5 LE strength B in order to allow inc ability to do activity. LTG Duration 09/25/18 Assessment Summary Assessment Pt did well with new stretching exercises without c /o pain. He is very tight with lumbar paraspinals and is limited to time spent in standing. Pt tolerated intermittent standing exercises today. Physical Therapy Plan Frequency and Duration Frequency of Treatment 2x/Week Duration of Treatment 2 months Plan of Care Start Date 07/28/18 Plan of Care End Date 09/25/18 Next Visit Focus/Plan Next Note Type Treatment Note Next Visit Plan Advance core & LE strength
--- NOTE | 2018-08-06 09:00 | PT.OTN ---
Current Diagnoses Other chronic pain (08/06/18) Unilateral primary osteoarthritis, right hip (08/06/18) Pain in right hip (08/06/18) Spinal stenosis, lumbar region without neurogenic claudication (08/06/18) Dorsalgia, unspecified (08/06/18) Physical Therapy Treatment Note PT-OP-A Visit Information Start: 07/27/18 17:40 Freq: Status: Active Protocol: Document 08/06/18 08:20 [facility] (Rec: 08/06/18 09:00 [facility] [id number]) Out-Patient Physical Therapy Visit Information Visit Information Visit Type Treatment Note Visit Start Time 08:15 Visit Stop Time 09:00 Total Visit Minutes 45 Visit Number 3 Number of ADVANCE SCOUT Visits 0 Precautions Precautions ant hip precautions + no adduction w/flex PT-OP-B Current Condition Start: 07/27/18 17:40 Freq: Status: Active Protocol: Document 07/28/18 08:15 [facility] (Rec: 07/28/18 09:04 [facility] [id number]) Current Condition History of Current Condition Onset Date ant FRIEDA 05/15/18 History of Current Condition Pt has hx of fusion 2 years ago with chronic LBP and R hip pain. Pt is using cane only when he is going out of the house. He did his own exercises at home for his hip replacement and is starting formal PT now. Reports LBP has inc since his hip is feeling better. Pt reports back pain since high school with no specific injuries. Prior Treatments and Tests Currently doing APs, heel raises, standing abd, heel slides, glute sets, quad sets, abdominal braces Treatment Goals Patient/Caregiver Goals Pt wants to get back to work- somewhat more physical, be able to walk around PT-OP-C Subjective Start: 07/27/18 17:40 Freq: Status: Active Protocol: Document 08/06/18 08:20 [facility] (Rec: 08/06/18 09:00 [facility] [id number]) OP-PT Subjective Patient Comments Patient Comments Pt reports mm soreness that was pretty bad the next day in R quad PT-OP-G Mobility & Gait Start: 07/27/18 17:40 Freq: Status: Active Protocol: Document 07/28/18 08:15 [facility] (Rec: 07/28/18 09:04 [facility] [id number]) OP Gait Assessment Comments Gait Comments Amb with cane with lat leaning PT-OP-M Strength Start: 07/27/18 17:40 Freq: Status: Active Protocol: Document 07/28/18 08:15 [facility] (Rec: 07/28/18 09:04 [facility] [id number]) Hip Strength Hip Manual Muscle Testing Left Flexion (L2) 4+ Good+ Abduction 4 Good External Rotation 5 Normal Internal Rotation 5 Normal Right Flexion (L2) 3+ Fair+ Abduction 3 Fair External Rotation 3+ Fair+ Internal Rotation 4- Good- Knee Strength Knee Manual Muscle Testing Right Flexion (S2) 4- Good- Extension (L3) 4 Good Left Flexion (S2) 5 Normal Extension (L3) 5 Normal Ankle/Foot Strength Ankle and Foot Manual Muscle Testing Right Dorsiflexion (L4) 4+ Good+ Plantarflexion (S1) 4+ Good+ Comments seated testing Left Dorsiflexion (L4) 4+ Good+ Plantarflexion (S1) 4+ Good+ Comments seated testing PT-OP-Q Treatments Start: 07/27/18 17:40 Freq: Status: Active Protocol: Document 08/06/18 08:20 [facility] (Rec: 08/06/18 09:00 [facility] [id number]) Cardio Equipment Recumbent Stepper (Sci-Fit) Duration (Minutes) 6 Resistance 5 Seat Position 15 Gym Equipment Shuttle Recovery Unilateral Squats Resistance 50 Shuttle Recovery Platform Stable Reps/Time 30 Therapeutic Exercises Supine Exercises bridge Supine Exercise Name bridge Reps/Minutes 10 marching Supine Exercise Name alt marching Side bilateral Reps/Minutes 20 Comments focus on core Sitting Exercises HS curl Sitting Exercise Name HS curl Side right Equipment Used L3 Reps/Minutes 20 Standing Exercises minisquat Standing Exercise Name over chair & at counter Reps/Minutes 10 2 Standing Exercise Name march Side bilateral Reps/Minutes 10 Manual Therapy Treatment Soft Tissue Mobilization 1 Body Location lumbar paraspinals/QL Mobilization Type Rolling Intensity/Depth Moderate Body Position Sitting PT-OP-R Modalities Start: 07/27/18 17:40 Freq: Status: Active Protocol: Document 08/06/18 08:20 [facility] (Rec: 08/06/18 09:00 [facility] [id number]) Hot Pack/Cold Pack Treatment Hot Pack Location lumbar Patient Position Sitting Treatment Duration (minutes) 15 Comments extra layer PT-OP-T Assessment and Plan Start: 07/27/18 17:40 Freq: Status: Active Protocol: Document 08/06/18 08:20 [facility] (Rec: 08/06/18 09:00 [facility] [id number]) Physical Therapy Assessment Goals posture Ssis Architect Goal (LTG) Pt will be able to stand with only mild postural abnormalities. LTG Duration 09/25/18 gait Short Term Goal (STG) Pt will be able to amb for 5 min with no more than 2 point increase in pain. STG Duration 08/25/18 Fpc Goal (LTG) Pt will be able to amb for 30 min at a time with no more than 2 point inc in pain, allowing him to participate in more functional activities and work towards return to working. LTG Duration 09/25/18 strength Short Term Goal (STG) Pt will be indep with HEP. STG Duration 08/25/18 Fpc Goal (LTG) Pt will have 5/5 LE strength B in order to allow inc ability to do activity. LTG Duration 09/25/18 Assessment Summary Assessment Pt is improving toleranace to more difficult standing exercise and to about 25 min of strengthening today. He gets fatigue in quads with activity. Physical Therapy Plan Frequency and Duration Frequency of Treatment 2x/Week Duration of Treatment 2 months Plan of Care Start Date 07/28/18 Plan of Care End Date 09/25/18 Next Visit Focus/Plan Next Note Type Treatment Note Next Visit Plan Advance core & LE strength
--- NOTE | 2018-08-11 09:02 | PT.OTN ---
Current Diagnoses Other chronic pain (08/11/18) Unilateral primary osteoarthritis, right hip (08/11/18) Pain in right hip (08/11/18) Spinal stenosis, lumbar region without neurogenic claudication (08/11/18) Dorsalgia, unspecified (08/11/18) Physical Therapy Treatment Note PT-OP-A Visit Information Start: 07/27/18 17:40 Freq: Status: Active Protocol: Document 08/11/18 08:10 [facility] (Rec: 08/11/18 09:02 [facility] [id number]) Out-Patient Physical Therapy Visit Information Visit Information Visit Type Treatment Note Visit Start Time 08:15 Visit Stop Time 09:10 Total Visit Minutes 55 Visit Number 4 Number of INFRASTRUCTURE SOFTWARE ENGINEER Visits 0 PT-OP-B Current Condition Start: 07/27/18 17:40 Freq: Status: Active Protocol: Document 07/28/18 08:15 [facility] (Rec: 07/28/18 09:04 [facility] [id number]) Current Condition History of Current Condition Onset Date ant FRIEDA 05/15/18 History of Current Condition Pt has hx of fusion 2 years ago with chronic LBP and R hip pain. Pt is using cane only when he is going out of the house. He did his own exercises at home for his hip replacement and is starting formal PT now. Reports LBP has inc since his hip is feeling better. Pt reports back pain since high school with no specific injuries. Prior Treatments and Tests Currently doing APs, heel raises, standing abd, heel slides, glute sets, quad sets, abdominal braces Treatment Goals Patient/Caregiver Goals Pt wants to get back to work- somewhat more physical, be able to walk around PT-OP-C Subjective Start: 07/27/18 17:40 Freq: Status: Active Protocol: Document 08/11/18 08:10 [facility] (Rec: 08/11/18 09:02 [facility] [id number]) OP-PT Subjective Patient Comments Patient Comments Pt reports he was able to sleep through the night without pain last night and was able to stretch out this AM which he has not been able to do in a long time. PT-OP-G Mobility & Gait Start: 07/27/18 17:40 Freq: Status: Active Protocol: Document 07/28/18 08:15 [facility] (Rec: 07/28/18 09:04 [facility] [id number]) OP Gait Assessment Comments Gait Comments Amb with cane with lat leaning PT-OP-M Strength Start: 07/27/18 17:40 Freq: Status: Active Protocol: Document 07/28/18 08:15 [facility] (Rec: 07/28/18 09:04 [facility] [id number]) Hip Strength Hip Manual Muscle Testing Left Flexion (L2) 4+ Good+ Abduction 4 Good External Rotation 5 Normal Internal Rotation 5 Normal Right Flexion (L2) 3+ Fair+ Abduction 3 Fair External Rotation 3+ Fair+ Internal Rotation 4- Good- Knee Strength Knee Manual Muscle Testing Right Flexion (S2) 4- Good- Extension (L3) 4 Good Left Flexion (S2) 5 Normal Extension (L3) 5 Normal Ankle/Foot Strength Ankle and Foot Manual Muscle Testing Right Dorsiflexion (L4) 4+ Good+ Plantarflexion (S1) 4+ Good+ Comments seated testing Left Dorsiflexion (L4) 4+ Good+ Plantarflexion (S1) 4+ Good+ Comments seated testing PT-OP-Q Treatments Start: 07/27/18 17:40 Freq: Status: Active Protocol: Document 08/11/18 08:10 [facility] (Rec: 08/11/18 09:02 [facility] [id number]) Cardio Equipment Recumbent Stepper (Sci-Fit) Duration (Minutes) 6 Resistance 5 Seat Position 15 Gym Equipment Shuttle Recovery Unilateral Squats Resistance 62 Shuttle Recovery Platform Stable Reps/Time 2x15 Therapeutic Exercises Supine Exercises piriformis stretch Supine Exercise Name into IR Side bilateral Reps/Minutes 30 sec hold Comments w/towel bridge Supine Exercise Name mini bridge Reps/Minutes 10 Comments focus on breathing marching Supine Exercise Name alt marching progressed to scissor Side bilateral Reps/Minutes 12 Comments focus on core SKTC Supine Exercise Name SKTC w/opposite leg in knee ext position on mat Side bilateral Reps/Minutes 30 sec Standing Exercises minisquat Standing Exercise Name over chair & at counter Reps/Minutes 10 2 Standing Exercise Name march Side bilateral Reps/Minutes 10 1 Standing Exercise Name tandem stance Side bilateral Manual Therapy Treatment Soft Tissue Mobilization piriformis Body Location piriformis R Mobilization Type Rolling Body Position Sidelying 1 Body Location lumbar paraspinals/QL Mobilization Type Rolling Intensity/Depth Moderate Body Position Sidelying PT-OP-R Modalities Start: 07/27/18 17:40 Freq: Status: Active Protocol: Document 08/11/18 08:10 [facility] (Rec: 08/11/18 09:02 [facility] [id number]) Hot Pack/Cold Pack Treatment Hot Pack Location lumbar Patient Position Sitting Treatment Duration (minutes) 15 Comments extra layer PT-OP-T Assessment and Plan Start: 07/27/18 17:40 Freq: Status: Active Protocol: Document 08/11/18 08:10 [facility] (Rec: 08/11/18 09:02 [facility] [id number]) Physical Therapy Assessment Goals posture Jail Goal (LTG) Pt will be able to stand with only mild postural abnormalities. LTG Duration 09/25/18 gait Short Term Goal (STG) Pt will be able to amb for 5 min with no more than 2 point increase in pain. STG Duration 08/25/18 Jail Goal (LTG) Pt will be able to amb for 30 min at a time with no more than 2 point inc in pain, allowing him to participate in more functional activities and work towards return to working. LTG Duration 09/25/18 strength Short Term Goal (STG) Pt will be indep with HEP. STG Duration 08/25/18 Brass Polisher Goal (LTG) Pt will have 5/5 LE strength B in order to allow inc ability to do activity. LTG Duration 09/25/18 Assessment Summary Assessment Pt cont to improve with exercise form with min cueing. He cont to tolerate inc standing activity. Physical Therapy Plan Frequency and Duration Frequency of Treatment 2x/Week Duration of Treatment 2 months Plan of Care Start Date 07/28/18 Plan of Care End Date 09/25/18 Next Visit Focus/Plan Next Note Type Treatment Note Next Visit Plan Cont to progress standing LE strength
--- NOTE | 2018-08-13 08:58 | PT.OTN ---
Current Diagnoses Other chronic pain (08/13/18) Unilateral primary osteoarthritis, right hip (08/13/18) Pain in right hip (08/13/18) Spinal stenosis, lumbar region without neurogenic claudication (08/13/18) Dorsalgia, unspecified (08/13/18) Physical Therapy Treatment Note PT-OP-A Visit Information Start: 07/27/18 17:40 Freq: Status: Active Protocol: Document 08/13/18 08:12 [facility] (Rec: 08/13/18 08:58 [facility] [id number]) Out-Patient Physical Therapy Visit Information Visit Information Visit Type Treatment Note Visit Start Time 08:15 Visit Stop Time 09:10 Total Visit Minutes 55 Visit Number 5 Number of HOME DAY CARE PROVIDER Visits 0 PT-OP-B Current Condition Start: 07/27/18 17:40 Freq: Status: Active Protocol: Document 07/28/18 08:15 [facility] (Rec: 07/28/18 09:04 [facility] [id number]) Current Condition History of Current Condition Onset Date ant FRIEDA 05/15/18 History of Current Condition Pt has hx of fusion 2 years ago with chronic LBP and R hip pain. Pt is using cane only when he is going out of the house. He did his own exercises at home for his hip replacement and is starting formal PT now. Reports LBP has inc since his hip is feeling better. Pt reports back pain since high school with no specific injuries. Prior Treatments and Tests Currently doing APs, heel raises, standing abd, heel slides, glute sets, quad sets, abdominal braces Treatment Goals Patient/Caregiver Goals Pt wants to get back to work- somewhat more physical, be able to walk around PT-OP-C Subjective Start: 07/27/18 17:40 Freq: Status: Active Protocol: Document 08/13/18 08:12 [facility] (Rec: 08/13/18 08:58 [facility] [id number]) OP-PT Subjective Patient Comments Patient Comments Pt reports R quads have been sore. No pain pills needed past few nights. PT-OP-G Mobility & Gait Start: 07/27/18 17:40 Freq: Status: Active Protocol: Document 07/28/18 08:15 [facility] (Rec: 07/28/18 09:04 [facility] [id number]) OP Gait Assessment Comments Gait Comments Amb with cane with lat leaning PT-OP-M Strength Start: 07/27/18 17:40 Freq: Status: Active Protocol: Document 07/28/18 08:15 [facility] (Rec: 07/28/18 09:04 [facility] [id number]) Hip Strength Hip Manual Muscle Testing Left Flexion (L2) 4+ Good+ Abduction 4 Good External Rotation 5 Normal Internal Rotation 5 Normal Right Flexion (L2) 3+ Fair+ Abduction 3 Fair External Rotation 3+ Fair+ Internal Rotation 4- Good- Knee Strength Knee Manual Muscle Testing Right Flexion (S2) 4- Good- Extension (L3) 4 Good Left Flexion (S2) 5 Normal Extension (L3) 5 Normal Ankle/Foot Strength Ankle and Foot Manual Muscle Testing Right Dorsiflexion (L4) 4+ Good+ Plantarflexion (S1) 4+ Good+ Comments seated testing Left Dorsiflexion (L4) 4+ Good+ Plantarflexion (S1) 4+ Good+ Comments seated testing PT-OP-Q Treatments Start: 07/27/18 17:40 Freq: Status: Active Protocol: Document 08/13/18 08:12 [facility] (Rec: 08/13/18 08:58 [facility] [id number]) Cardio Equipment Recumbent Stepper (Sci-Fit) Duration (Minutes) 6 Resistance 5 Seat Position 15 Gym Equipment Shuttle Recovery Unilateral Squats Resistance 62 Shuttle Recovery Platform Stable Reps/Time 2x15 Therapeutic Exercises Standing Exercises sidestep Standing Exercise Name side step B Reps/Minutes 2x7ft tandem walk Standing Exercise Name tandem walk Reps/Minutes 4x7ft minisquat Standing Exercise Name over chair & at counter Reps/Minutes 10 3 Standing Exercise Name hip abd Side bilateral Reps/Minutes 10 Comments focus on neutral 1 Standing Exercise Name tandem stance Side bilateral Manual Therapy Treatment Soft Tissue Mobilization 1 Body Location lumbar paraspinals/QL Mobilization Type Rolling Intensity/Depth Moderate Body Position Sidelying PT-OP-R Modalities Start: 07/27/18 17:40 Freq: Status: Active Protocol: Document 08/13/18 08:12 [facility] (Rec: 08/13/18 08:58 [facility] [id number]) Hot Pack/Cold Pack Treatment Hot Pack Location lumbar Patient Position Sitting Treatment Duration (minutes) 15 Comments extra layer PT-OP-T Assessment and Plan Start: 07/27/18 17:40 Freq: Status: Active Protocol: Document 08/13/18 08:12 [facility] (Rec: 08/13/18 08:58 [facility] [id number]) Physical Therapy Assessment Goals posture Alf Goal (LTG) Pt will be able to stand with only mild postural abnormalities. LTG Duration 09/25/18 gait Short Term Goal (STG) Pt will be able to amb for 5 min with no more than 2 point increase in pain. STG Duration 08/25/18 Alf Goal (LTG) Pt will be able to amb for 30 min at a time with no more than 2 point inc in pain, allowing him to participate in more functional activities and work towards return to working. LTG Duration 09/25/18 strength Short Term Goal (STG) Pt will be indep with HEP. STG Duration 08/25/18 Energy Administrator Goal (LTG) Pt will have 5/5 LE strength B in order to allow inc ability to do activity. LTG Duration 09/25/18 Assessment Summary Assessment Pt is improving tolerance to standing with less cueing required for dec lat leaning. He cont to have fwd lean likely d/t tight hip flexors. COnt paraspinal tightness. Physical Therapy Plan Frequency and Duration Frequency of Treatment 2x/Week Duration of Treatment 2 months Plan of Care Start Date 07/28/18 Plan of Care End Date 09/25/18 Next Visit Focus/Plan Next Note Type Treatment Note Next Visit Plan Cont to progress standing LE strength & tolerance
--- NOTE | 2018-08-17 09:35 | PT.OTN ---
Current Diagnoses Other chronic pain (08/17/18) Unilateral primary osteoarthritis, right hip (08/17/18) Pain in right hip (08/17/18) Spinal stenosis, lumbar region without neurogenic claudication (08/17/18) Dorsalgia, unspecified (08/17/18) Physical Therapy Treatment Note PT-OP-A Visit Information Start: 07/27/18 17:40 Freq: Status: Active Protocol: Document 08/17/18 08:55 [facility] (Rec: 08/17/18 09:01 [facility] [id number]) Out-Patient Physical Therapy Visit Information Visit Information Visit Type Treatment Note Visit Start Time 08:15 Visit Stop Time 09:10 Total Visit Minutes 55 Visit Number 6 Number of ASSISTANT PASSENGER LOCOMOTIVE ENGINEER Visits 0 PT-OP-B Current Condition Start: 07/27/18 17:40 Freq: Status: Active Protocol: Document 07/28/18 08:15 [facility] (Rec: 07/28/18 09:04 [facility] [id number]) Current Condition History of Current Condition Onset Date ant FRIEDA 05/15/18 History of Current Condition Pt has hx of fusion 2 years ago with chronic LBP and R hip pain. Pt is using cane only when he is going out of the house. He did his own exercises at home for his hip replacement and is starting formal PT now. Reports LBP has inc since his hip is feeling better. Pt reports back pain since high school with no specific injuries. Prior Treatments and Tests Currently doing APs, heel raises, standing abd, heel slides, glute sets, quad sets, abdominal braces Treatment Goals Patient/Caregiver Goals Pt wants to get back to work- somewhat more physical, be able to walk around PT-OP-C Subjective Start: 07/27/18 17:40 Freq: Status: Active Protocol: Document 08/17/18 08:55 [facility] (Rec: 08/17/18 09:01 [facility] [id number]) OP-PT Subjective Patient Comments Patient Comments Pt reports has to take pain meds as pain still bother hi,; states consistent with HEP but less mobility outside. PT-OP-G Mobility & Gait Start: 07/27/18 17:40 Freq: Status: Active Protocol: Document 07/28/18 08:15 [facility] (Rec: 07/28/18 09:04 [facility] [id number]) OP Gait Assessment Comments Gait Comments Amb with cane with lat leaning PT-OP-M Strength Start: 07/27/18 17:40 Freq: Status: Active Protocol: Document 07/28/18 08:15 [facility] (Rec: 07/28/18 09:04 [facility] [id number]) Hip Strength Hip Manual Muscle Testing Left Flexion (L2) 4+ Good+ Abduction 4 Good External Rotation 5 Normal Internal Rotation 5 Normal Right Flexion (L2) 3+ Fair+ Abduction 3 Fair External Rotation 3+ Fair+ Internal Rotation 4- Good- Knee Strength Knee Manual Muscle Testing Right Flexion (S2) 4- Good- Extension (L3) 4 Good Left Flexion (S2) 5 Normal Extension (L3) 5 Normal Ankle/Foot Strength Ankle and Foot Manual Muscle Testing Right Dorsiflexion (L4) 4+ Good+ Plantarflexion (S1) 4+ Good+ Comments seated testing Left Dorsiflexion (L4) 4+ Good+ Plantarflexion (S1) 4+ Good+ Comments seated testing PT-OP-Q Treatments Start: 07/27/18 17:40 Freq: Status: Active Protocol: Document 08/17/18 08:55 [facility] (Rec: 08/17/18 09:01 [facility] [id number]) Cardio Equipment Recumbent Stepper (Sci-Fit) Duration (Minutes) 6 Resistance 5 Seat Position 15 Gym Equipment Shuttle Recovery Unilateral Squats Resistance 62 Shuttle Recovery Platform Stable Reps/Time 2x15 Therapeutic Exercises Supine Exercises piriformis stretch Supine Exercise Name into IR Side bilateral Reps/Minutes 30 sec hold Comments w/towel bridge Supine Exercise Name mini bridge Reps/Minutes 10 Comments focus on breathing SKTC Supine Exercise Name SKTC w/opposite leg in knee ext position on mat Side bilateral Reps/Minutes 30 sec Standing Exercises sidestep Standing Exercise Name side step B Resistance GTB Reps/Minutes 2x12 ft 3 Standing Exercise Name hip abd Side bilateral Reps/Minutes 10 Comments focus on neutral 2 Standing Exercise Name march Side bilateral Reps/Minutes 10 1 Standing Exercise Name SLS Side right Reps/Minutes x 10SH x 3 Comments single hand support Manual Therapy Treatment Soft Tissue Mobilization 1 Body Location lumbar paraspinals/QL Mobilization Type Rolling Intensity/Depth Moderate Body Position Sidelying PT-OP-R Modalities Start: 07/27/18 17:40 Freq: Status: Active Protocol: Document 08/17/18 09:01 [facility] (Rec: 08/17/18 09:01 [facility] [id number]) Hot Pack/Cold Pack Treatment Hot Pack Location lumbar Patient Position Sitting Treatment Duration (minutes) 15 Comments extra layer PT-OP-T Assessment and Plan Start: 07/27/18 17:40 Freq: Status: Active Protocol: Document 08/17/18 08:55 [facility] (Rec: 08/17/18 09:01 [facility] [id number]) Physical Therapy Assessment Assessment Summary Assessment Pt requires frequent rest due to SOB with pain. noted leg weakness after supine position as patient right stance tends to gave out. Physical Therapy Plan Next Visit Focus/Plan Next Note Type Treatment Note Next Visit Plan Cont to progress standing LE strength & tolerance
--- NOTE | 2018-08-20 16:25 | PT.OTN ---
Current Diagnoses Other chronic pain (08/20/18) Unilateral primary osteoarthritis, right hip (08/20/18) Pain in right hip (08/20/18) Spinal stenosis, lumbar region without neurogenic claudication (08/20/18) Dorsalgia, unspecified (08/20/18) Physical Therapy Treatment Note PT-OP-A Visit Information Start: 07/27/18 17:40 Freq: Status: Active Protocol: Document 08/20/18 08:17 [facility] (Rec: 08/20/18 09:07 [facility] [id number]) Out-Patient Physical Therapy Visit Information Visit Information Visit Type Treatment Note Visit Start Time 08:17 Visit Stop Time 09:09 Total Visit Minutes 52 Visit Number 7 Number of PRODUCT PROMOTER RETAIL PET Visits 0 Precautions Precautions ant hip precautions + no adduction w/flex PT-OP-B Current Condition Start: 07/27/18 17:40 Freq: Status: Active Protocol: Document 07/28/18 08:15 [facility] (Rec: 07/28/18 09:04 [facility] [id number]) Current Condition History of Current Condition Onset Date ant FRIEDA 05/15/18 History of Current Condition Pt has hx of fusion 2 years ago with chronic LBP and R hip pain. Pt is using cane only when he is going out of the house. He did his own exercises at home for his hip replacement and is starting formal PT now. Reports LBP has inc since his hip is feeling better. Pt reports back pain since high school with no specific injuries. Prior Treatments and Tests Currently doing APs, heel raises, standing abd, heel slides, glute sets, quad sets, abdominal braces Treatment Goals Patient/Caregiver Goals Pt wants to get back to work- somewhat more physical, be able to walk around PT-OP-C Subjective Start: 07/27/18 17:40 Freq: Status: Active Protocol: Document 08/20/18 08:17 [facility] (Rec: 08/20/18 09:07 [facility] [id number]) OP-PT Subjective Patient Comments Patient Comments Hurt pretty bad after last session at the implant part of the hip and back. PT-OP-G Mobility & Gait Start: 07/27/18 17:40 Freq: Status: Active Protocol: Document 07/28/18 08:15 [facility] (Rec: 07/28/18 09:04 [facility] [id number]) OP Gait Assessment Comments Gait Comments Amb with cane with lat leaning PT-OP-M Strength Start: 07/27/18 17:40 Freq: Status: Active Protocol: Document 07/28/18 08:15 [facility] (Rec: 07/28/18 09:04 [facility] [id number]) Hip Strength Hip Manual Muscle Testing Left Flexion (L2) 4+ Good+ Abduction 4 Good External Rotation 5 Normal Internal Rotation 5 Normal Right Flexion (L2) 3+ Fair+ Abduction 3 Fair External Rotation 3+ Fair+ Internal Rotation 4- Good- Knee Strength Knee Manual Muscle Testing Right Flexion (S2) 4- Good- Extension (L3) 4 Good Left Flexion (S2) 5 Normal Extension (L3) 5 Normal Ankle/Foot Strength Ankle and Foot Manual Muscle Testing Right Dorsiflexion (L4) 4+ Good+ Plantarflexion (S1) 4+ Good+ Comments seated testing Left Dorsiflexion (L4) 4+ Good+ Plantarflexion (S1) 4+ Good+ Comments seated testing PT-OP-Q Treatments Start: 07/27/18 17:40 Freq: Status: Active Protocol: Document 08/20/18 08:17 [facility] (Rec: 08/20/18 09:07 [facility] [id number]) Cardio Equipment Recumbent Stepper (Sci-Fit) Duration (Minutes) 7 Resistance 5 Seat Position 15 Gym Equipment Shuttle Recovery Unilateral Squats Details R LE Resistance 50#, 62# Shuttle Recovery Platform Stable Reps/Time 1x15 each Therapeutic Exercises Standing Exercises sidestep Standing Exercise Name side step B Side bilateral Resistance GTB Reps/Minutes 2x12 ft minisquat Standing Exercise Name at bar Side bilateral Reps/Minutes 10 3 Standing Exercise Name hip abd Side bilateral Reps/Minutes 15 Comments focus on neutral & breathing 2 Standing Exercise Name march Side bilateral Reps/Minutes 15 1 Standing Exercise Name SLS Side right Reps/Minutes 18' Comments single hand > none support PT-OP-R Modalities Start: 07/27/18 17:40 Freq: Status: Active Protocol: Document 08/20/18 08:17 [facility] (Rec: 08/20/18 09:07 [facility] [id number]) Hot Pack/Cold Pack Treatment Hot Pack Location lumbar. Cold pack to anterior R hip Patient Position Supine Treatment Duration (minutes) 10 Comments extra layer, pt in as much neutral positioning of pelvis as tolerated. PT-OP-T Assessment and Plan Start: 07/27/18 17:40 Freq: Status: Active Protocol: Document 08/20/18 08:17 [facility] (Rec: 08/20/18 09:07 [facility] [id number]) Physical Therapy Assessment Assessment Summary Assessment Pt requires rests due to SOB with pain. Weakness after supine position not noted today. Pt sometimes limited more due to back pain than hip pain: therefore posture appears to have excessive anterior pelvic rotation of increased lumbar lordosis. Pt weakness of R hip limits SLS. Physical Therapy Plan Frequency and Duration Frequency of Treatment 2x/Week Duration of Treatment 2 months Plan of Care Start Date 07/28/18 Plan of Care End Date 09/25/18 Next Visit Focus/Plan Next Note Type Treatment Note Next Visit Plan Cont to progress standing LE strength & tolerance
--- NOTE | 2018-08-28 10:38 | PT.OTN ---
Current Diagnoses Other chronic pain (08/28/18) Unilateral primary osteoarthritis, right hip (08/28/18) Pain in right hip (08/28/18) Spinal stenosis, lumbar region without neurogenic claudication (08/28/18) Dorsalgia, unspecified (08/28/18) Physical Therapy Treatment Note PT-OP-A Visit Information Start: 07/27/18 17:40 Freq: Status: Active Protocol: Document 08/28/18 09:45 AMB (Rec: 08/28/18 09:53 AMB [id number]) Out-Patient Physical Therapy Visit Information Visit Information Visit Type Treatment Note Visit Start Time 09:45 Visit Stop Time 10:30 Total Visit Minutes 52 Visit Number 8 Number of BOX LINING MACHINE FEEDER Visits 0 PT-OP-B Current Condition Start: 07/27/18 17:40 Freq: Status: Active Protocol: Document 07/28/18 08:15 [facility] (Rec: 07/28/18 09:04 [facility] [id number]) Current Condition History of Current Condition Onset Date ant FRIEDA 05/15/18 History of Current Condition Pt has hx of fusion 2 years ago with chronic LBP and R hip pain. Pt is using cane only when he is going out of the house. He did his own exercises at home for his hip replacement and is starting formal PT now. Reports LBP has inc since his hip is feeling better. Pt reports back pain since high school with no specific injuries. Prior Treatments and Tests Currently doing APs, heel raises, standing abd, heel slides, glute sets, quad sets, abdominal braces Treatment Goals Patient/Caregiver Goals Pt wants to get back to work- somewhat more physical, be able to walk around PT-OP-C Subjective Start: 07/27/18 17:40 Freq: Status: Active Protocol: Document 08/28/18 09:45 AMB (Rec: 08/28/18 09:53 AMB [id number]) OP-PT Subjective Patient Comments Patient Comments Pt reports he was trying to trim his bushes and that really bothered his back. PT-OP-G Mobility & Gait Start: 07/27/18 17:40 Freq: Status: Active Protocol: Document 07/28/18 08:15 [facility] (Rec: 07/28/18 09:04 [facility] [id number]) OP Gait Assessment Comments Gait Comments Amb with cane with lat leaning PT-OP-M Strength Start: 07/27/18 17:40 Freq: Status: Active Protocol: Document 07/28/18 08:15 [facility] (Rec: 07/28/18 09:04 [facility] [id number]) Hip Strength Hip Manual Muscle Testing Left Flexion (L2) 4+ Good+ Abduction 4 Good External Rotation 5 Normal Internal Rotation 5 Normal Right Flexion (L2) 3+ Fair+ Abduction 3 Fair External Rotation 3+ Fair+ Internal Rotation 4- Good- Knee Strength Knee Manual Muscle Testing Right Flexion (S2) 4- Good- Extension (L3) 4 Good Left Flexion (S2) 5 Normal Extension (L3) 5 Normal Ankle/Foot Strength Ankle and Foot Manual Muscle Testing Right Dorsiflexion (L4) 4+ Good+ Plantarflexion (S1) 4+ Good+ Comments seated testing Left Dorsiflexion (L4) 4+ Good+ Plantarflexion (S1) 4+ Good+ Comments seated testing PT-OP-Q Treatments Start: 07/27/18 17:40 Freq: Status: Active Protocol: Document 08/28/18 09:45 AMB (Rec: 08/28/18 10:37 AMB [id number]) Therapeutic Exercises Standing Exercises sidestep Standing Exercise Name side step B Side bilateral Resistance GTB Reps/Minutes 2x12 ft tandem walk Standing Exercise Name tandem walk Reps/Minutes 4x7ft 3 Standing Exercise Name hip abd Side bilateral Reps/Minutes 15 Comments focus on neutral & breathing 2 Standing Exercise Name march Side bilateral Reps/Minutes 15 1 Standing Exercise Name SLS Side right Reps/Minutes 18' Comments single hand > none support Manual Therapy Treatment Soft Tissue Mobilization 1 Body Location lumbar paraspinals/QL Mobilization Type Rolling Intensity/Depth Moderate Body Position Sidelying PT-OP-R Modalities Start: 07/27/18 17:40 Freq: Status: Active Protocol: Document 08/28/18 09:45 AMB (Rec: 08/28/18 10:38 AMB [id number]) Hot Pack/Cold Pack Treatment Hot Pack Location lumbar Patient Position Sitting Treatment Duration (minutes) 15 Comments extra layer PT-OP-T Assessment and Plan Start: 07/27/18 17:40 Freq: Status: Active Protocol: Document 08/28/18 09:45 AMB (Rec: 08/28/18 10:37 AMB [id number]) Physical Therapy Assessment Assessment Summary Assessment The patient continues to be challenged with single leg balance, but overall his gait is improving. Low back pain does increase with gait, and pt does note back gives way on occasion after extended walking/ standing. Physical Therapy Plan Next Visit Focus/Plan Next Note Type Treatment Note Next Visit Plan Cont to progress standing LE strength & tolerance
--- NOTE | 2018-09-08 15:20 | PT.OTN ---
Current Diagnoses Other chronic pain (09/08/18) Unilateral primary osteoarthritis, right hip (09/08/18) Pain in right hip (09/08/18) Spinal stenosis, lumbar region without neurogenic claudication (09/08/18) Dorsalgia, unspecified (09/08/18) Physical Therapy Treatment Note PT-OP-A Visit Information Start: 07/27/18 17:40 Freq: Status: Active Protocol: Document 09/08/18 14:16 [facility] (Rec: 09/08/18 15:20 [facility] [id number]) Out-Patient Physical Therapy Visit Information Visit Information Visit Type Treatment Note Visit Start Time 14:30 Visit Stop Time 15:00 Total Visit Minutes 30 Visit Number 9 Number of CAKE TESTER Visits 0 PT-OP-B Current Condition Start: 07/27/18 17:40 Freq: Status: Active Protocol: Document 07/28/18 08:15 [facility] (Rec: 07/28/18 09:04 [facility] [id number]) Current Condition History of Current Condition Onset Date ant FRIEDA 05/15/18 History of Current Condition Pt has hx of fusion 2 years ago with chronic LBP and R hip pain. Pt is using cane only when he is going out of the house. He did his own exercises at home for his hip replacement and is starting formal PT now. Reports LBP has inc since his hip is feeling better. Pt reports back pain since high school with no specific injuries. Prior Treatments and Tests Currently doing APs, heel raises, standing abd, heel slides, glute sets, quad sets, abdominal braces Treatment Goals Patient/Caregiver Goals Pt wants to get back to work- somewhat more physical, be able to walk around PT-OP-C Subjective Start: 07/27/18 17:40 Freq: Status: Active Protocol: Document 09/08/18 14:16 [facility] (Rec: 09/08/18 15:20 [facility] [id number]) OP-PT Subjective Patient Comments Patient Comments Pt reports he sees the MD next Friday. Reports hip is getting better but back is still troublesome. PT-OP-G Mobility & Gait Start: 07/27/18 17:40 Freq: Status: Active Protocol: Document 07/28/18 08:15 [facility] (Rec: 07/28/18 09:04 [facility] [id number]) OP Gait Assessment Comments Gait Comments Amb with cane with lat leaning PT-OP-M Strength Start: 07/27/18 17:40 Freq: Status: Active Protocol: Document 07/28/18 08:15 [facility] (Rec: 07/28/18 09:04 [facility] [id number]) Hip Strength Hip Manual Muscle Testing Left Flexion (L2) 4+ Good+ Abduction 4 Good External Rotation 5 Normal Internal Rotation 5 Normal Right Flexion (L2) 3+ Fair+ Abduction 3 Fair External Rotation 3+ Fair+ Internal Rotation 4- Good- Knee Strength Knee Manual Muscle Testing Right Flexion (S2) 4- Good- Extension (L3) 4 Good Left Flexion (S2) 5 Normal Extension (L3) 5 Normal Ankle/Foot Strength Ankle and Foot Manual Muscle Testing Right Dorsiflexion (L4) 4+ Good+ Plantarflexion (S1) 4+ Good+ Comments seated testing Left Dorsiflexion (L4) 4+ Good+ Plantarflexion (S1) 4+ Good+ Comments seated testing PT-OP-Q Treatments Start: 07/27/18 17:40 Freq: Status: Active Protocol: Document 09/08/18 14:16 [facility] (Rec: 09/08/18 15:20 [facility] [id number]) Cardio Equipment Recumbent Stepper (Sci-Fit) Duration (Minutes) 5 Resistance 5-7 Therapeutic Exercises Standing Exercises lunges Standing Exercise Name minilunges Side bilateral Reps/Minutes 10 resisted walk Standing Exercise Name fwd & back Equipment Used green Reps/Minutes 2x20ft sidestep Standing Exercise Name side step B w/squat Side bilateral Resistance GTB Reps/Minutes 20ft Manual Therapy Treatment Soft Tissue Mobilization 1 Body Location lumbar paraspinals/QL Mobilization Type Rolling Intensity/Depth Moderate Body Position Sidelying PT-OP-R Modalities Start: 07/27/18 17:40 Freq: Status: Active Protocol: Document 08/28/18 09:45 AMB (Rec: 08/28/18 10:38 AMB [id number]) Hot Pack/Cold Pack Treatment Hot Pack Location lumbar Patient Position Sitting Treatment Duration (minutes) 15 Comments extra layer PT-OP-T Assessment and Plan Start: 07/27/18 17:40 Freq: Status: Active Protocol: Document 09/08/18 14:16 [facility] (Rec: 09/08/18 15:20 [facility] [id number]) Physical Therapy Assessment Goals posture Correction Goal (LTG) Pt will be able to stand with only mild postural abnormalities. LTG Duration 09/25/18 gait Short Term Goal (STG) Pt will be able to amb for 5 min with no more than 2 point increase in pain. STG Duration 08/25/18 Correction Goal (LTG) Pt will be able to amb for 30 min at a time with no more than 2 point inc in pain, allowing him to participate in more functional activities and work towards return to working. LTG Duration 09/25/18 strength Short Term Goal (STG) Pt will be indep with HEP. STG Duration 08/25/18 Bonsai Tender Goal (LTG) Pt will have 5/5 LE strength B in order to allow inc ability to do activity. LTG Duration 09/25/18 Assessment Summary Assessment Pt is improving with stance time on LEs and cont to advance with ability to amb more upright. Physical Therapy Plan Frequency and Duration Frequency of Treatment 2x/Week Duration of Treatment 2 months Plan of Care Start Date 07/28/18 Plan of Care End Date 09/25/18 Next Visit Focus/Plan Next Note Type Treatment Note Next Visit Plan Advance standing LE strenght & balance
--- NOTE | 2018-10-05 10:32 | PT.OTN ---
Current Diagnoses Other chronic pain (10/05/18) Unilateral primary osteoarthritis, right hip (10/05/18) Pain in right hip (10/05/18) Spinal stenosis, lumbar region without neurogenic claudication (10/05/18) Dorsalgia, unspecified (10/05/18) Physical Therapy Treatment Note PT-OP-A Visit Information Start: 07/27/18 17:40 Freq: Status: Active Protocol: Document 10/05/18 09:44 [facility] (Rec: 10/05/18 10:32 [facility] [id number]) Out-Patient Physical Therapy Visit Information Visit Information Visit Type Progress Note Visit Note 10 total 2019 Visit Start Time 09:45 Visit Stop Time 10:25 Total Visit Minutes 40 Visit Number 07/02 Number of CNC MACHINE PROGRAMMER Visits 0 PT-OP-B Current Condition Start: 07/27/18 17:40 Freq: Status: Active Protocol: Document 07/28/18 08:15 [facility] (Rec: 07/28/18 09:04 [facility] [id number]) Current Condition History of Current Condition Onset Date ant FRIEDA 05/15/18 History of Current Condition Pt has hx of fusion 2 years ago with chronic LBP and R hip pain. Pt is using cane only when he is going out of the house. He did his own exercises at home for his hip replacement and is starting formal PT now. Reports LBP has inc since his hip is feeling better. Pt reports back pain since high school with no specific injuries. Prior Treatments and Tests Currently doing APs, heel raises, standing abd, heel slides, glute sets, quad sets, abdominal braces Treatment Goals Patient/Caregiver Goals Pt wants to get back to work- somewhat more physical, be able to walk around PT-OP-C Subjective Start: 07/27/18 17:40 Freq: Status: Active Protocol: Document 10/05/18 09:44 [facility] (Rec: 10/05/18 10:32 [facility] [id number]) OP-PT Subjective Patient Comments Patient Comments Pt reports he saw the MD and the MD wanted him to try more PT. He feels like his hip is much improved but back is still a problem. PT-OP-G Mobility & Gait Start: 07/27/18 17:40 Freq: Status: Active Protocol: Document 10/05/18 09:44 [facility] (Rec: 10/05/18 10:32 [facility] [id number]) OP Gait Assessment Comments Gait Comments Pt amb with improved wt acceptance onto RLE but still has significant trunk flex and lat movement with gait. PT-OP-J Posture/Palpation/Skin Start: 07/27/18 17:40 Freq: Status: Active Protocol: Document 10/05/18 09:44 [facility] (Rec: 10/05/18 10:32 [facility] [id number]) Posture Evaluation Comments Posture Comments fwd lean through hips wifht fwd shoulders. PT-OP-M Strength Start: 07/27/18 17:40 Freq: Status: Active Protocol: Document 10/05/18 09:44 [facility] (Rec: 10/05/18 10:32 [facility] [id number]) Hip Strength Hip Manual Muscle Testing Left Flexion (L2) 5 Normal Extension (S1) 3- Fair- Abduction 5 Normal External Rotation 5 Normal Internal Rotation 5 Normal Right Flexion (L2) 5 Normal Abduction 3+ Fair+ External Rotation 5 Normal Internal Rotation 5 Normal Knee Strength Knee Manual Muscle Testing Right Flexion (S2) 4+ Good+ Extension (L3) 4+ Good+ Left Flexion (S2) 5 Normal Extension (L3) 5 Normal Ankle/Foot Strength Ankle and Foot Manual Muscle Testing Right Dorsiflexion (L4) 5 Normal Plantarflexion (S1) 5 Normal Comments tested seated Left Dorsiflexion (L4) 5 Normal Plantarflexion (S1) 5 Normal PT-OP-Q Treatments Start: 07/27/18 17:40 Freq: Status: Active Protocol: Document 10/05/18 09:44 [facility] (Rec: 10/05/18 10:32 [facility] [id number]) Cardio Equipment Recumbent Stepper (Sci-Fit) Duration (Minutes) 6 Resistance 5 Seat Position 15 Therapeutic Exercises Supine Exercises SKTC Supine Exercise Name w/opposite knee ext Side bilateral Reps/Minutes 30 sec Sidelying Exercises hip abd Sidelying Exercise Name abd Side right Reps/Minutes 10 Standing Exercises 3 Standing Exercise Name wall posture Reps/Minutes 45 sec hold Comments back against wall Manual Therapy Treatment Soft Tissue Mobilization iliacus Body Location iliacus Mobilization Type Rolling 1 Body Location lumbar paraspinals/QL Mobilization Type Rolling Intensity/Depth Moderate Body Position Sidelying PT-OP-R Modalities Start: 07/27/18 17:40 Freq: Status: Active Protocol: Document 08/28/18 09:45 AMB (Rec: 08/28/18 10:38 AMB [id number]) Hot Pack/Cold Pack Treatment Hot Pack Location lumbar Patient Position Sitting Treatment Duration (minutes) 15 Comments extra layer PT-OP-T Assessment and Plan Start: 07/27/18 17:40 Freq: Status: Active Protocol: Document 10/05/18 09:44 [facility] (Rec: 10/05/18 10:32 [facility] [id number]) Physical Therapy Assessment Goals posture Senior Living Goal (LTG) Pt will be able to stand with only mild postural abnormalities. LTG Duration 11/25/18 gait Short Term Goal (STG) Pt will be able to amb for 5 min with no more than 2 point increase in pain. STG Duration 10/25/18- able to walk but inc pain Senior Living Goal (LTG) Pt will be able to amb for 30 min at a time with no more than 2 point inc in pain, allowing him to participate in more functional activities and work towards return to working. LTG Duration 11/25/18 strength Short Term Goal (STG) Pt will be indep with HEP. STG Duration 08/25/18-achieved will advance as neeed [employer] Farmworker Goal (LTG) Pt will have 5/5 LE strength B in order to allow inc ability to do activity. LTG Duration 11/25/18-improving Assessment Summary Assessment Pt is improving with strength & gait overall but is still limited by dec core, abd & ext strength. he would benefit from cont PT to cont to work on posture, core stability & hip stability & gait in order to improve daily function. Physical Therapy Plan Frequency and Duration Frequency of Treatment 2x/Week Duration of Treatment 2 months Plan of Care Start Date 10/05/18 Plan of Care End Date 12/05/18 Next Visit Focus/Plan Next Note Type Treatment Note Next Visit Plan Advance standing LE strength & balance; work on core exericses & hip flexor mobility
--- NOTE | 2018-10-05 10:33 | PT.OPPOC ---
Current Diagnoses Other chronic pain (10/05/18) Unilateral primary osteoarthritis, right hip (10/05/18) Pain in right hip (10/05/18) Spinal stenosis, lumbar region without neurogenic claudication (10/05/18) Dorsalgia, unspecified (10/05/18) Provider Visit Care Team Role Provider Type Tej Zacarias MD Referring Provider Non-Staff Specialty: Orthopedics Address: [address] [place], [address] Email: Miguel Angel Park MD Primary Care Provider Physician Specialty: Internal Medicine Address: [address] [place] [address], [id number] Email: Tej Zacarias Attending Provider Non-Staff Specialty: Medical Address: [address] [place] [address], [id number] Email: Plan Of Care PT-OP-T Assessment and Plan Start: 07/27/18 17:40 Freq: Status: Active Protocol: Document 10/05/18 09:44 [facility] (Rec: 10/05/18 10:32 [facility] [id number]) Physical Therapy Assessment Goals posture Care Home Goal (LTG) Pt will be able to stand with only mild postural abnormalities. LTG Duration 11/25/18 gait Short Term Goal (STG) Pt will be able to amb for 5 min with no more than 2 point increase in pain. STG Duration 10/25/18- able to walk but inc pain Care Home Goal (LTG) Pt will be able to amb for 30 min at a time with no more than 2 point inc in pain, allowing him to participate in more functional activities and work towards return to working. LTG Duration 11/25/18 strength Short Term Goal (STG) Pt will be indep with HEP. STG Duration 08/25/18-achieved will advance as neeed Care Home Goal (LTG) Pt will have 5/5 LE strength B in order to allow inc ability to do activity. LTG Duration 11/25/18-improving Assessment Summary Assessment Pt is improving with strength & gait overall but is still limited by dec core, abd & ext strength. he would benefit from cont PT to cont to work on posture, core stability & hip stability & gait in order to improve daily function. Physical Therapy Plan Frequency and Duration Frequency of Treatment 2x/Week Duration of Treatment 2 months Plan of Care Start Date 10/05/18 Plan of Care End Date 12/05/18 Next Visit Focus/Plan Next Note Type Treatment Note Next Visit Plan Advance standing LE strength & balance; work on core exericses & hip flexor mobility Plan of Care Dates Plan of Care Start Date 10/05/18 Plan of Care End Date 12/05/18 Please Sign and Return: I have reviewed this Plan of Care and certify that the skilled therapy services above are required to meet the patient?s needs. Physician Signature Date Printed Name and Credentials Clinical Instructor Signature Printed Name and Credentials
--- NOTE | 2018-10-08 10:29 | PT.OTN ---
Current Diagnoses Other chronic pain (10/08/18) Unilateral primary osteoarthritis, right hip (10/08/18) Pain in right hip (10/08/18) Spinal stenosis, lumbar region without neurogenic claudication (10/08/18) Dorsalgia, unspecified (10/08/18) Physical Therapy Treatment Note PT-OP-A Visit Information Start: 07/27/18 17:40 Freq: Status: Active Protocol: Document 10/08/18 09:49 [facility] (Rec: 10/08/18 10:29 [facility] [id number]) Out-Patient Physical Therapy Visit Information Visit Information Visit Type Treatment Note Visit Note 11 total 2019 Visit Start Time 09:45 Visit Stop Time 10:25 Total Visit Minutes 40 Visit Number 2/ Number of ASSISTANT DIRECTOR OF SECURITY Visits 0 PT-OP-B Current Condition Start: 07/27/18 17:40 Freq: Status: Active Protocol: Document 07/28/18 08:15 [facility] (Rec: 07/28/18 09:04 [facility] [id number]) Current Condition History of Current Condition Onset Date ant FRIEDA 05/15/18 History of Current Condition Pt has hx of fusion 2 years ago with chronic LBP and R hip pain. Pt is using cane only when he is going out of the house. He did his own exercises at home for his hip replacement and is starting formal PT now. Reports LBP has inc since his hip is feeling better. Pt reports back pain since high school with no specific injuries. Prior Treatments and Tests Currently doing APs, heel raises, standing abd, heel slides, glute sets, quad sets, abdominal braces Treatment Goals Patient/Caregiver Goals Pt wants to get back to work- somewhat more physical, be able to walk around PT-OP-C Subjective Start: 07/27/18 17:40 Freq: Status: Active Protocol: Document 10/08/18 09:49 [facility] (Rec: 10/08/18 10:29 [facility] [id number]) OP-PT Subjective Patient Comments Patient Comments Pt reports soreness in back after last session PT-OP-G Mobility & Gait Start: 07/27/18 17:40 Freq: Status: Active Protocol: Document 10/05/18 09:44 [facility] (Rec: 10/05/18 10:32 [facility] [id number]) OP Gait Assessment Comments Gait Comments Pt amb with improved wt acceptance onto RLE but still has significant trunk flex and lat movement with gait. PT-OP-J Posture/Palpation/Skin Start: 07/27/18 17:40 Freq: Status: Active Protocol: Document 10/05/18 09:44 [facility] (Rec: 10/05/18 10:32 [facility] [id number]) Posture Evaluation Comments Posture Comments fwd lean through hips wifht fwd shoulders. PT-OP-M Strength Start: 07/27/18 17:40 Freq: Status: Active Protocol: Document 10/05/18 09:44 [facility] (Rec: 10/05/18 10:32 [facility] [id number]) Hip Strength Hip Manual Muscle Testing Left Flexion (L2) 5 Normal Extension (S1) 3- Fair- Abduction 5 Normal External Rotation 5 Normal Internal Rotation 5 Normal Right Flexion (L2) 5 Normal Abduction 3+ Fair+ External Rotation 5 Normal Internal Rotation 5 Normal Knee Strength Knee Manual Muscle Testing Right Flexion (S2) 4+ Good+ Extension (L3) 4+ Good+ Left Flexion (S2) 5 Normal Extension (L3) 5 Normal Ankle/Foot Strength Ankle and Foot Manual Muscle Testing Right Dorsiflexion (L4) 5 Normal Plantarflexion (S1) 5 Normal Comments tested seated Left Dorsiflexion (L4) 5 Normal Plantarflexion (S1) 5 Normal PT-OP-Q Treatments Start: 07/27/18 17:40 Freq: Status: Active Protocol: Document 10/08/18 09:49 [facility] (Rec: 10/08/18 10:29 [facility] [id number]) Cardio Equipment Recumbent Stepper (Sci-Fit) Duration (Minutes) 6 Resistance 7myughj Seat Position 15 Gym Equipment Shuttle Recovery Unilateral Squats Resistance 75# Shuttle Recovery Platform Stable Reps/Time 2x15 each Manual Therapy Treatment Soft Tissue Mobilization 1 Body Location lumbar paraspinals/QL Mobilization Type Rolling Intensity/Depth Moderate Body Position Sidelying Neuro Re-Education Treatment Balance Activities bosu Details standing balance tandem Details walking Reps/Duration 2x10ft ea Comments fwd & back hurdles Details w/blue & black tpads between Reps/Duration 6x PT-OP-R Modalities Start: 07/27/18 17:40 Freq: Status: Active Protocol: Document 10/08/18 09:49 [facility] (Rec: 10/08/18 10:29 [facility] [id number]) Hot Pack/Cold Pack Treatment Hot Pack Location lumbar Patient Position Sitting Treatment Duration (minutes) 15 Comments extra layer PT-OP-T Assessment and Plan Start: 07/27/18 17:40 Freq: Status: Active Protocol: Document 10/08/18 09:49 [facility] (Rec: 10/08/18 10:29 [facility] [id number]) Physical Therapy Assessment Goals posture Filling Mixer Goal (LTG) Pt will be able to stand with only mild postural abnormalities. LTG Duration 11/25/18 gait Short Term Goal (STG) Pt will be able to amb for 5 min with no more than 2 point increase in pain. STG Duration 10/25/18- able to walk but inc pain Filling Mixer Goal (LTG) Pt will be able to amb for 30 min at a time with no more than 2 point inc in pain, allowing him to participate in more functional activities and work towards return to working. LTG Duration 11/25/18 strength Short Term Goal (STG) Pt will be indep with HEP. STG Duration 08/25/18-achieved will advance as neeed Halfway Goal (LTG) Pt will have 5/5 LE strength B in order to allow inc ability to do activity. LTG Duration 11/25/18-improving Assessment Summary Assessment Pt was challenged by uneven surfaces today. He was able to complete balance exercises but did require occ gait belt assit or hand rail assit. Physical Therapy Plan Frequency and Duration Frequency of Treatment 2x/Week Duration of Treatment 2 months Plan of Care Start Date 10/05/18 Plan of Care End Date 12/05/18 Next Visit Focus/Plan Next Note Type Treatment Note Next Visit Plan Advance standing balance & postural stability; balance board & tball
--- NOTE | 2018-10-26 09:51 | PT.OTN ---
Current Diagnoses Other chronic pain (10/26/18) Unilateral primary osteoarthritis, right hip (10/26/18) Pain in right hip (10/26/18) Spinal stenosis, lumbar region without neurogenic claudication (10/26/18) Dorsalgia, unspecified (10/26/18) Physical Therapy Treatment Note PT-OP-A Visit Information Start: 07/27/18 17:40 Freq: Status: Active Protocol: Document 10/26/18 08:25 [facility] (Rec: 10/26/18 09:50 [facility] [id number]) Out-Patient Physical Therapy Visit Information Visit Information Visit Type Treatment Note Visit Note 12 total 2019 Visit Start Time 08:15 Visit Stop Time 09:10 Total Visit Minutes 55 Visit Number 3/ Number of SHAKE SAWYER Visits 0 PT-OP-B Current Condition Start: 07/27/18 17:40 Freq: Status: Active Protocol: Document 07/28/18 08:15 [facility] (Rec: 07/28/18 09:04 [facility] [id number]) Current Condition History of Current Condition Onset Date ant FRIEDA 05/15/18 History of Current Condition Pt has hx of fusion 2 years ago with chronic LBP and R hip pain. Pt is using cane only when he is going out of the house. He did his own exercises at home for his hip replacement and is starting formal PT now. Reports LBP has inc since his hip is feeling better. Pt reports back pain since high school with no specific injuries. Prior Treatments and Tests Currently doing APs, heel raises, standing abd, heel slides, glute sets, quad sets, abdominal braces Treatment Goals Patient/Caregiver Goals Pt wants to get back to work- somewhat more physical, be able to walk around PT-OP-C Subjective Start: 07/27/18 17:40 Freq: Status: Active Protocol: Document 10/26/18 08:25 [facility] (Rec: 10/26/18 09:50 [facility] [id number]) OP-PT Subjective Patient Comments Patient Comments Pt reprots his hip feels pretty good but back is still bad PT-OP-G Mobility & Gait Start: 07/27/18 17:40 Freq: Status: Active Protocol: Document 10/05/18 09:44 [facility] (Rec: 10/05/18 10:32 [facility] [id number]) OP Gait Assessment Comments Gait Comments Pt amb with improved wt acceptance onto RLE but still has significant trunk flex and lat movement with gait. PT-OP-J Posture/Palpation/Skin Start: 07/27/18 17:40 Freq: Status: Active Protocol: Document 10/05/18 09:44 [facility] (Rec: 10/05/18 10:32 [facility] [id number]) Posture Evaluation Comments Posture Comments fwd lean through hips wifht fwd shoulders. PT-OP-M Strength Start: 07/27/18 17:40 Freq: Status: Active Protocol: Document 10/05/18 09:44 [facility] (Rec: 10/05/18 10:32 [facility] [id number]) Hip Strength Hip Manual Muscle Testing Left Flexion (L2) 5 Normal Extension (S1) 3- Fair- Abduction 5 Normal External Rotation 5 Normal Internal Rotation 5 Normal Right Flexion (L2) 5 Normal Abduction 3+ Fair+ External Rotation 5 Normal Internal Rotation 5 Normal Knee Strength Knee Manual Muscle Testing Right Flexion (S2) 4+ Good+ Extension (L3) 4+ Good+ Left Flexion (S2) 5 Normal Extension (L3) 5 Normal Ankle/Foot Strength Ankle and Foot Manual Muscle Testing Right Dorsiflexion (L4) 5 Normal Plantarflexion (S1) 5 Normal Comments tested seated Left Dorsiflexion (L4) 5 Normal Plantarflexion (S1) 5 Normal PT-OP-Q Treatments Start: 07/27/18 17:40 Freq: Status: Active Protocol: Document 10/26/18 08:25 [facility] (Rec: 10/26/18 09:50 [facility] [id number]) Gym Equipment Shuttle Balance blue clips Details fwd & side:WBOS & NBOS Therapeutic Ball seated Exercise Details toe taps & heel sldies Body Position Sitting Reps/Duration 15 B ea Manual Therapy Treatment Soft Tissue Mobilization ant Body Location general visceral Mobilization Type Sustained Pressure Comments w/LTR; R to L iliacus Body Location iliacus Mobilization Type Rolling Neuro Re-Education Treatment Balance Activities bosu Details standing balance PT-OP-R Modalities Start: 07/27/18 17:40 Freq: Status: Active Protocol: Document 10/26/18 08:25 [facility] (Rec: 10/26/18 09:51 [facility] [id number]) Hot Pack/Cold Pack Treatment Hot Pack Location lumbar Patient Position Sitting Treatment Duration (minutes) 15 Comments extra layer PT-OP-T Assessment and Plan Start: 07/27/18 17:40 Freq: Status: Active Protocol: Document 10/26/18 08:25 [facility] (Rec: 10/26/18 09:50 [facility] [id number]) Physical Therapy Assessment Goals posture [facility] Goal (LTG) Pt will be able to stand with only mild postural abnormalities. LTG Duration 11/25/18 gait Short Term Goal (STG) Pt will be able to amb for 5 min with no more than 2 point increase in pain. STG Duration 10/25/18- able to walk but inc pain Adjusto Writer Operator Goal (LTG) Pt will be able to amb for 30 min at a time with no more than 2 point inc in pain, allowing him to participate in more functional activities and work towards return to working. LTG Duration 11/25/18 strength Short Term Goal (STG) Pt will be indep with HEP. STG Duration 08/25/18-achieved will advance as neeed Adjusto Writer Operator Goal (LTG) Pt will have 5/5 LE strength B in order to allow inc ability to do activity. LTG Duration 11/25/18-improving Assessment Summary Assessment Pt did better today on uneven surfaces but still was challenged in LE strength with balance. He has signifcant ant limiations in hip and abdomen that limit his ability to ext into upright standing position Physical Therapy Plan Frequency and Duration Frequency of Treatment 2x/Week Duration of Treatment 2 months Plan of Care Start Date 10/05/18 Plan of Care End Date 12/05/18 Next Visit Focus/Plan Next Note Type Treatment Note Next Visit Plan cont to advance balance & ant mobility to allow further upright standing
--- NOTE | 2018-11-05 15:09 | PT.OTN ---
Current Diagnoses Other chronic pain (11/05/18) Unilateral primary osteoarthritis, right hip (11/05/18) Pain in right hip (11/05/18) Spinal stenosis, lumbar region without neurogenic claudication (11/05/18) Dorsalgia, unspecified (11/05/18) Physical Therapy Treatment Note PT-OP-A Visit Information Start: 07/27/18 17:40 Freq: Status: Active Protocol: Document 11/05/18 14:32 [facility] (Rec: 11/05/18 15:08 [facility] [id number]) Out-Patient Physical Therapy Visit Information Visit Information Visit Type Treatment Note Visit Note 13 total 2019 Visit Start Time 14:30 Visit Stop Time 15:10 Total Visit Minutes 40 Visit Number 4/10 Number of FAIRING WORKER Visits 0 PT-OP-B Current Condition Start: 07/27/18 17:40 Freq: Status: Active Protocol: Document 07/28/18 08:15 [facility] (Rec: 07/28/18 09:04 [facility] [id number]) Current Condition History of Current Condition Onset Date ant FRIEDA 05/15/18 History of Current Condition Pt has hx of fusion 2 years ago with chronic LBP and R hip pain. Pt is using cane only when he is going out of the house. He did his own exercises at home for his hip replacement and is starting formal PT now. Reports LBP has inc since his hip is feeling better. Pt reports back pain since high school with no specific injuries. Prior Treatments and Tests Currently doing APs, heel raises, standing abd, heel slides, glute sets, quad sets, abdominal braces Treatment Goals Patient/Caregiver Goals Pt wants to get back to work- somewhat more physical, be able to walk around PT-OP-C Subjective Start: 07/27/18 17:40 Freq: Status: Active Protocol: Document 11/05/18 14:32 [facility] (Rec: 11/05/18 15:08 [facility] [id number]) OP-PT Subjective Patient Comments Patient Comments Reports he feels like last session was helpful and working on balance is helpful. PT-OP-G Mobility & Gait Start: 07/27/18 17:40 Freq: Status: Active Protocol: Document 10/05/18 09:44 [facility] (Rec: 10/05/18 10:32 [facility] [id number]) OP Gait Assessment Comments Gait Comments Pt amb with improved wt acceptance onto RLE but still has significant trunk flex and lat movement with gait. PT-OP-J Posture/Palpation/Skin Start: 07/27/18 17:40 Freq: Status: Active Protocol: Document 10/05/18 09:44 [facility] (Rec: 10/05/18 10:32 [facility] [id number]) Posture Evaluation Comments Posture Comments fwd lean through hips wifht fwd shoulders. PT-OP-M Strength Start: 07/27/18 17:40 Freq: Status: Active Protocol: Document 10/05/18 09:44 [facility] (Rec: 10/05/18 10:32 [facility] [id number]) Hip Strength Hip Manual Muscle Testing Left Flexion (L2) 5 Normal Extension (S1) 3- Fair- Abduction 5 Normal External Rotation 5 Normal Internal Rotation 5 Normal Right Flexion (L2) 5 Normal Abduction 3+ Fair+ External Rotation 5 Normal Internal Rotation 5 Normal Knee Strength Knee Manual Muscle Testing Right Flexion (S2) 4+ Good+ Extension (L3) 4+ Good+ Left Flexion (S2) 5 Normal Extension (L3) 5 Normal Ankle/Foot Strength Ankle and Foot Manual Muscle Testing Right Dorsiflexion (L4) 5 Normal Plantarflexion (S1) 5 Normal Comments tested seated Left Dorsiflexion (L4) 5 Normal Plantarflexion (S1) 5 Normal PT-OP-Q Treatments Start: 07/27/18 17:40 Freq: Status: Active Protocol: Document 11/05/18 14:32 [facility] (Rec: 11/05/18 15:08 [facility] [id number]) Cardio Equipment Recumbent Stepper (Sci-Fit) Duration (Minutes) 6 Resistance 6 Seat Position 15 Gym Equipment Shuttle Recovery Unilateral Squats Resistance 75# Shuttle Recovery Platform Unstable Reps/Time 2x10 each Shuttle Balance blue clips Details fwd & side:WBOS & NBOS Comments w/head turns Therapeutic Ball seated Exercise Details marches & knee ext/heel sldies Body Position Sitting Reps/Duration 12 B ea Manual Therapy Treatment Soft Tissue Mobilization iliacus Body Location iliacus Mobilization Type Rolling Sustained Pressure Neuro Re-Education Treatment Balance Activities bosu Details standing balance Comments w/head turns hurdles Details w/blue & black tpads between Reps/Duration 4x PT-OP-R Modalities Start: 07/27/18 17:40 Freq: Status: Active Protocol: Document 10/26/18 08:25 [facility] (Rec: 10/26/18 09:51 [facility] [id number]) Hot Pack/Cold Pack Treatment Hot Pack Location lumbar Patient Position Sitting Treatment Duration (minutes) 15 Comments extra layer PT-OP-T Assessment and Plan Start: 07/27/18 17:40 Freq: Status: Active Protocol: Document 11/05/18 14:32 [facility] (Rec: 11/05/18 15:08 [facility] [id number]) Physical Therapy Assessment Goals posture [facility] Goal (LTG) Pt will be able to stand with only mild postural abnormalities. LTG Duration 11/25/18 gait Short Term Goal (STG) Pt will be able to amb for 5 min with no more than 2 point increase in pain. STG Duration 10/25/18- able to walk but inc pain [facility] Goal (LTG) Pt will be able to amb for 30 min at a time with no more than 2 point inc in pain, allowing him to participate in more functional activities and work towards return to working. LTG Duration 11/25/18 strength Short Term Goal (STG) Pt will be indep with HEP. STG Duration 08/25/18-achieved will advance as neeed Eligibility Analyst Goal (LTG) Pt will have 5/5 LE strength B in order to allow inc ability to do activity. LTG Duration 11/25/18-improving Assessment Summary Assessment Pt did well with inc challenge on uneven surfaces today and was able to head turns on uneven surfaces with good challenge. He did better on ball and was able to do full leg lifts vs taps/slides. Physical Therapy Plan Frequency and Duration Frequency of Treatment 2x/Week Duration of Treatment 2 months Plan of Care Start Date 10/05/18 Plan of Care End Date 12/05/18 Next Visit Focus/Plan Next Note Type Treatment Note Next Visit Plan cont to advance balance & ant mobility to allow further upright standing
--- NOTE | 2018-11-12 11:17 | PT.OTN ---
Current Diagnoses Other chronic pain (11/12/18) Unilateral primary osteoarthritis, right hip (11/12/18) Pain in right hip (11/12/18) Spinal stenosis, lumbar region without neurogenic claudication (11/12/18) Dorsalgia, unspecified (11/12/18) Physical Therapy Treatment Note PT-OP-A Visit Information Start: 07/27/18 17:40 Freq: Status: Active Protocol: Document 11/12/18 10:37 [facility] (Rec: 11/12/18 11:17 [facility] [id number]) Out-Patient Physical Therapy Visit Information Visit Information Visit Type Treatment Note Visit Note 14 total 2019 Visit Start Time 10:32 Visit Stop Time 11:12 Total Visit Minutes 40 Visit Number 5/ Number of SECURITY SERVICES SPECIALIST Visits 0 PT-OP-B Current Condition Start: 07/27/18 17:40 Freq: Status: Active Protocol: Document 07/28/18 08:15 [facility] (Rec: 07/28/18 09:04 [facility] [id number]) Current Condition History of Current Condition Onset Date ant FRIEDA 05/15/18 History of Current Condition Pt has hx of fusion 2 years ago with chronic LBP and R hip pain. Pt is using cane only when he is going out of the house. He did his own exercises at home for his hip replacement and is starting formal PT now. Reports LBP has inc since his hip is feeling better. Pt reports back pain since high school with no specific injuries. Prior Treatments and Tests Currently doing APs, heel raises, standing abd, heel slides, glute sets, quad sets, abdominal braces Treatment Goals Patient/Caregiver Goals Pt wants to get back to work- somewhat more physical, be able to walk around PT-OP-C Subjective Start: 07/27/18 17:40 Freq: Status: Active Protocol: Document 11/12/18 10:37 [facility] (Rec: 11/12/18 11:17 [facility] [id number]) OP-PT Subjective Patient Comments Patient Comments Pt reports having minutes of no pain. Notes he felt he worked his abdominal muscles last session. Patient Reported Progress Improving PT-OP-G Mobility & Gait Start: 07/27/18 17:40 Freq: Status: Active Protocol: Document 10/05/18 09:44 [facility] (Rec: 10/05/18 10:32 [facility] [id number]) OP Gait Assessment Comments Gait Comments Pt amb with improved wt acceptance onto RLE but still has significant trunk flex and lat movement with gait. PT-OP-J Posture/Palpation/Skin Start: 07/27/18 17:40 Freq: Status: Active Protocol: Document 10/05/18 09:44 [facility] (Rec: 10/05/18 10:32 [facility] [id number]) Posture Evaluation Comments Posture Comments fwd lean through hips wifht fwd shoulders. PT-OP-M Strength Start: 07/27/18 17:40 Freq: Status: Active Protocol: Document 10/05/18 09:44 [facility] (Rec: 10/05/18 10:32 [facility] [id number]) Hip Strength Hip Manual Muscle Testing Left Flexion (L2) 5 Normal Extension (S1) 3- Fair- Abduction 5 Normal External Rotation 5 Normal Internal Rotation 5 Normal Right Flexion (L2) 5 Normal Abduction 3+ Fair+ External Rotation 5 Normal Internal Rotation 5 Normal Knee Strength Knee Manual Muscle Testing Right Flexion (S2) 4+ Good+ Extension (L3) 4+ Good+ Left Flexion (S2) 5 Normal Extension (L3) 5 Normal Ankle/Foot Strength Ankle and Foot Manual Muscle Testing Right Dorsiflexion (L4) 5 Normal Plantarflexion (S1) 5 Normal Comments tested seated Left Dorsiflexion (L4) 5 Normal Plantarflexion (S1) 5 Normal PT-OP-Q Treatments Start: 07/27/18 17:40 Freq: Status: Active Protocol: Document 11/12/18 10:37 [facility] (Rec: 11/12/18 11:17 [facility] [id number]) Cardio Equipment Recumbent Stepper (Sci-Fit) Duration (Minutes) 6 Resistance 6 Seat Position 15 Gym Equipment Shuttle Balance red clip Details fwd & side: WBOS & NBOS Therapeutic Ball seated Exercise Details marches & kicks Body Position Sitting Reps/Duration 12 B ea Manual Therapy Treatment Soft Tissue Mobilization iliacus Body Location iliacus Mobilization Type Rolling Sustained Pressure Neuro Re-Education Treatment Balance Activities march Details fwd/back Reps/Duration 2x10ft ea bosu Details standing balance Comments w/head turns; also B step ups x5 w/balance tandem Details walking Reps/Duration 2x10ft ea Comments fwd & back PT-OP-R Modalities Start: 07/27/18 17:40 Freq: Status: Active Protocol: Document 10/26/18 08:25 [facility] (Rec: 10/26/18 09:51 [facility] [id number]) Hot Pack/Cold Pack Treatment Hot Pack Location lumbar Patient Position Sitting Treatment Duration (minutes) 15 Comments extra layer PT-OP-T Assessment and Plan Start: 07/27/18 17:40 Freq: Status: Active Protocol: Document 11/12/18 10:37 [facility] (Rec: 11/12/18 11:17 [facility] [id number]) Physical Therapy Assessment Goals posture Examiner Of Currency Goal (LTG) Pt will be able to stand with only mild postural abnormalities. LTG Duration 11/25/18 gait Short Term Goal (STG) Pt will be able to amb for 5 min with no more than 2 point increase in pain. STG Duration 10/25/18- able to walk but inc pain Examiner Of Currency Goal (LTG) Pt will be able to amb for 30 min at a time with no more than 2 point inc in pain, allowing him to participate in more functional activities and work towards return to working. LTG Duration 11/25/18 strength Short Term Goal (STG) Pt will be indep with HEP. STG Duration 08/25/18-achieved will advance as neeed Senior Living Goal (LTG) Pt will have 5/5 LE strength B in order to allow inc ability to do activity. LTG Duration 11/25/18-improving Assessment Summary Assessment Pt cont to improve with uneven surfaces and was able to tolerate progression to red clips and progression on tball today. He is improving with upright positioning. Physical Therapy Plan Frequency and Duration Frequency of Treatment 2x/Week Duration of Treatment 2 months Plan of Care Start Date 10/05/18 Plan of Care End Date 12/05/18 Next Visit Focus/Plan Next Note Type Treatment Note Next Visit Plan Advance balance and standing tolerance/abdomenal control
--- NOTE | 2018-12-15 14:27 | PT.OTN ---
Current Diagnoses Other chronic pain (12/15/18) Unilateral primary osteoarthritis, right hip (12/15/18) Pain in right hip (12/15/18) Spinal stenosis, lumbar region without neurogenic claudication (12/15/18) Dorsalgia, unspecified (12/15/18) Physical Therapy Treatment Note PT-OP-A Visit Information Start: 07/27/18 17:40 Freq: Status: Active Protocol: Document 12/15/18 13:46 [facility] (Rec: 12/15/18 14:27 [facility] [id number]) Out-Patient Physical Therapy Visit Information Visit Information Visit Type Progress Note Visit Note 15 total 2019 Visit Start Time 13:45 Visit Stop Time 14:25 Total Visit Minutes 40 Visit Number 07/02 PT-OP-B Current Condition Start: 07/27/18 17:40 Freq: Status: Active Protocol: Document 07/28/18 08:15 [facility] (Rec: 07/28/18 09:04 [facility] [id number]) Current Condition History of Current Condition Onset Date ant FRIEDA 05/15/18 History of Current Condition Pt has hx of fusion 2 years ago with chronic LBP and R hip pain. Pt is using cane only when he is going out of the house. He did his own exercises at home for his hip replacement and is starting formal PT now. Reports LBP has inc since his hip is feeling better. Pt reports back pain since high school with no specific injuries. Prior Treatments and Tests Currently doing APs, heel raises, standing abd, heel slides, glute sets, quad sets, abdominal braces Treatment Goals Patient/Caregiver Goals Pt wants to get back to work- somewhat more physical, be able to walk around PT-OP-C Subjective Start: 07/27/18 17:40 Freq: Status: Active Protocol: Document 12/15/18 13:46 [facility] (Rec: 12/15/18 14:27 [facility] [id number]) OP-PT Subjective Patient Comments Patient Comments Pt had a bout in the hospital for HR issue. Reports that is feeling fine but he has not been doing exercises d/t recent MD follow ups since this issue. Notes hip is improving well but back is still painful. PT-OP-G Mobility & Gait Start: 07/27/18 17:40 Freq: Status: Active Protocol: Document 10/05/18 09:44 [facility] (Rec: 10/05/18 10:32 [facility] [id number]) OP Gait Assessment Comments Gait Comments Pt amb with improved wt acceptance onto RLE but still has significant trunk flex and lat movement with gait. PT-OP-J Posture/Palpation/Skin Start: 07/27/18 17:40 Freq: Status: Active Protocol: Document 10/05/18 09:44 [facility] (Rec: 10/05/18 10:32 [facility] [id number]) Posture Evaluation Comments Posture Comments fwd lean through hips wifht fwd shoulders. PT-OP-M Strength Start: 07/27/18 17:40 Freq: Status: Active Protocol: Document 12/15/18 13:46 [facility] (Rec: 12/15/18 14:27 [facility] [id number]) Hip Strength Hip Manual Muscle Testing Left Flexion (L2) 5 Normal Extension (S1) 4- Good- Abduction 4+ Good+ External Rotation 5 Normal Internal Rotation 5 Normal Right Flexion (L2) 5 Normal Extension (S1) 3+ Fair+ Abduction 4 Good External Rotation 5 Normal Internal Rotation 5 Normal Knee Strength Knee Manual Muscle Testing Right Flexion (S2) 5 Normal Extension (L3) 5 Normal Left Flexion (S2) 5 Normal Extension (L3) 5 Normal PT-OP-Q Treatments Start: 07/27/18 17:40 Freq: Status: Active Protocol: Document 12/15/18 13:46 [facility] (Rec: 12/15/18 14:27 [facility] [id number]) Cardio Equipment Recumbent Stepper (Sci-Fit) Duration (Minutes) 7 Resistance 6 Seat Position 15 Gym Equipment Shuttle Recovery Unilateral Squats Resistance 75# Shuttle Recovery Platform Unstable Reps/Time 2x15 B each Shuttle Balance blue clips Details fwd & side:WBOS & NBOS; fwd staggered stance Comments w/head turns Manual Therapy Treatment Soft Tissue Mobilization iliacus Body Location iliacus Mobilization Type Rolling Sustained Pressure Neuro Re-Education Treatment Balance Activities hurdles Details w/tpads in between Reps/Duration 8x PT-OP-R Modalities Start: 07/27/18 17:40 Freq: Status: Active Protocol: Document 10/26/18 08:25 [facility] (Rec: 10/26/18 09:51 [facility] [id number]) Hot Pack/Cold Pack Treatment Hot Pack Location lumbar Patient Position Sitting Treatment Duration (minutes) 15 Comments extra layer PT-OP-T Assessment and Plan Start: 07/27/18 17:40 Freq: Status: Active Protocol: Document 12/15/18 13:46 [facility] (Rec: 12/15/18 14:27 [facility] [id number]) Physical Therapy Assessment Goals posture Halfway Goal (LTG) Pt will be able to stand with only mild postural abnormalities. 12/15-improved but still limited LTG Duration 01/25/19 gait Short Term Goal (STG) Pt will be able to amb for 5 min with no more than 2 point increase in pain. STG Duration 01/04/19- able to walk but inc pain Pest Control Technician Goal (LTG) Pt will be able to amb for 30 min at a time with no more than 2 point inc in pain, allowing him to participate in more functional activities and work towards return to working. LTG Duration 01/25/19 strength Short Term Goal (STG) Pt will be indep with HEP. STG Duration 08/25/18-achieved will advance as neeed Pest Control Technician Goal (LTG) Pt will have 5/5 LE strength B in order to allow inc ability to do activity. LTG Duration 01/25/19-improving Assessment Summary Assessment Pt is limited in progress d/t limited appt d/t scheduling conflicts & pt hospitalization for separate issues. He was able to resume to his same level of balance as 1 month ago and progress with repetitions of activities today which does show some improvement. He had inc back pain in staggered stance with R leg back which is consistant with tightness of hip flexors (iliacus & psoas) ant. Physical Therapy Plan Frequency and Duration Frequency of Treatment 1-2x/week Duration of Treatment 2 months Plan of Care Start Date 12/15/18 Plan of Care End Date 02/14/19 Therapeutic Interventions Therapeutic Interventions Aquatic Therapy Balance Training Gait Training Home Exercise Program Joint Mobilizations Manual Therapy Neuromuscular Re-education Patient/Caregiver Education Self-Care/Home Management Soft Tissue Mobilization Taping Therapeutic Activities Therapeutic Exercises Modalities Cold Pack/Ice Massage Electric Stimulation Hot Packs Ultrasound Next Visit Focus/Plan Next Note Type Treatment Note Next Visit Plan advance balance & abdomenal control
--- NOTE | 2018-12-15 14:27 | PT.OPPOC ---
Current Diagnoses Other chronic pain (12/15/18) Unilateral primary osteoarthritis, right hip (12/15/18) Pain in right hip (12/15/18) Spinal stenosis, lumbar region without neurogenic claudication (12/15/18) Dorsalgia, unspecified (12/15/18) Provider Visit Care Team Role Provider Type Tej Zacarias MD Referring Provider Non-Staff Specialty: Orthopedics Address: [address] [place], [address] Email: Miguel Angel Park MD Primary Care Provider Physician Specialty: Internal Medicine Address: [address] [place] [address], [phone] Email: Tej Zacarias Attending Provider Non-Staff Specialty: Medical Address: [address] [place] [address], [id number] Email: Plan Of Care PT-OP-T Assessment and Plan Start: 07/27/18 17:40 Freq: Status: Active Protocol: Document 12/15/18 13:46 [facility] (Rec: 12/15/18 14:27 [facility] [id number]) Physical Therapy Assessment Goals posture Fci Goal (LTG) Pt will be able to stand with only mild postural abnormalities. 12/15-improved but still limited LTG Duration 01/25/19 gait Short Term Goal (STG) Pt will be able to amb for 5 min with no more than 2 point increase in pain. STG Duration 01/04/19- able to walk but inc pain Fci Goal (LTG) Pt will be able to amb for 30 min at a time with no more than 2 point inc in pain, allowing him to participate in more functional activities and work towards return to working. LTG Duration 01/25/19 strength Short Term Goal (STG) Pt will be indep with HEP. STG Duration 08/25/18-achieved will advance as neeed Frame Feeder Goal (LTG) Pt will have 5/5 LE strength B in order to allow inc ability to do activity. LTG Duration 01/25/19-improving Assessment Summary Assessment Pt is limited in progress d/t limited appt d/t scheduling conflicts & pt hospitalization for separate issues. He was able to resume to his same level of balance as 1 month ago and progress with repetitions of activities today which does show some improvement. He had inc back pain in staggered stance with R leg back which is consistant with tightness of hip flexors (iliacus & psoas) ant. Physical Therapy Plan Frequency and Duration Frequency of Treatment 1-2x/week Duration of Treatment 2 months Plan of Care Start Date 12/15/18 Plan of Care End Date 02/14/19 Therapeutic Interventions Therapeutic Interventions Aquatic Therapy Balance Training Gait Training Home Exercise Program Joint Mobilizations Manual Therapy Neuromuscular Re-education Patient/Caregiver Education Self-Care/Home Management Soft Tissue Mobilization Taping Therapeutic Activities Therapeutic Exercises Modalities Cold Pack/Ice Massage Electric Stimulation Hot Packs Ultrasound Next Visit Focus/Plan Next Note Type Treatment Note Next Visit Plan advance balance & abdomenal control Plan of Care Dates Plan of Care Start Date 12/15/18 Plan of Care End Date 02/14/19 Please Sign and Return: I have reviewed this Plan of Care and certify that the skilled therapy services above are required to meet the patient?s needs. Physician Signature Date Printed Name and Credentials Clinical Instructor Signature Printed Name and Credentials
--- NOTE | 2018-12-28 17:02 | PT.OTN ---
Current Diagnoses Other chronic pain (12/28/18) Unilateral primary osteoarthritis, right hip (12/28/18) Pain in right hip (12/28/18) Spinal stenosis, lumbar region without neurogenic claudication (12/28/18) Dorsalgia, unspecified (12/28/18) Physical Therapy Treatment Note PT-OP-A Visit Information Start: 07/27/18 17:40 Freq: Status: Active Protocol: Document 12/28/18 16:56 [facility] (Rec: 12/28/18 17:02 [facility] [id number]) Out-Patient Physical Therapy Visit Information Visit Information Visit Type Treatment Note Visit Note 14 total 2019 Visit Start Time 13:45 Visit Stop Time 14:30 Total Visit Minutes 40 Visit Number 2/10 Number of AUTOMOTIVE LEASING SALES REPRESENTATIVE Visits 0 PT-OP-B Current Condition Start: 07/27/18 17:40 Freq: Status: Active Protocol: Document 07/28/18 08:15 [facility] (Rec: 07/28/18 09:04 [facility] [id number]) Current Condition History of Current Condition Onset Date ant FRIEDA 05/15/18 History of Current Condition Pt has hx of fusion 2 years ago with chronic LBP and R hip pain. Pt is using cane only when he is going out of the house. He did his own exercises at home for his hip replacement and is starting formal PT now. Reports LBP has inc since his hip is feeling better. Pt reports back pain since high school with no specific injuries. Prior Treatments and Tests Currently doing APs, heel raises, standing abd, heel slides, glute sets, quad sets, abdominal braces Treatment Goals Patient/Caregiver Goals Pt wants to get back to work- somewhat more physical, be able to walk around PT-OP-C Subjective Start: 07/27/18 17:40 Freq: Status: Active Protocol: Document 12/28/18 16:56 [facility] (Rec: 12/28/18 17:02 [facility] [id number]) OP-PT Subjective Patient Comments Patient Comments Pt reports pain to low back area; feels hip is improving. PT-OP-G Mobility & Gait Start: 07/27/18 17:40 Freq: Status: Active Protocol: Document 10/05/18 09:44 [facility] (Rec: 10/05/18 10:32 [facility] [id number]) OP Gait Assessment Comments Gait Comments Pt amb with improved wt acceptance onto RLE but still has significant trunk flex and lat movement with gait. PT-OP-J Posture/Palpation/Skin Start: 07/27/18 17:40 Freq: Status: Active Protocol: Document 10/05/18 09:44 [facility] (Rec: 10/05/18 10:32 [facility] [id number]) Posture Evaluation Comments Posture Comments fwd lean through hips wifht fwd shoulders. PT-OP-M Strength Start: 07/27/18 17:40 Freq: Status: Active Protocol: Document 12/15/18 13:46 [facility] (Rec: 12/15/18 14:27 [facility] [id number]) Hip Strength Hip Manual Muscle Testing Left Flexion (L2) 5 Normal Extension (S1) 4- Good- Abduction 4+ Good+ External Rotation 5 Normal Internal Rotation 5 Normal Right Flexion (L2) 5 Normal Extension (S1) 3+ Fair+ Abduction 4 Good External Rotation 5 Normal Internal Rotation 5 Normal Knee Strength Knee Manual Muscle Testing Right Flexion (S2) 5 Normal Extension (L3) 5 Normal Left Flexion (S2) 5 Normal Extension (L3) 5 Normal PT-OP-Q Treatments Start: 07/27/18 17:40 Freq: Status: Active Protocol: Document 12/28/18 16:56 [facility] (Rec: 12/28/18 17:02 [facility] [id number]) Cardio Equipment Recumbent Stepper (Sci-Fit) Duration (Minutes) 7 Resistance 6 Seat Position 15 Gym Equipment Shuttle Recovery Unilateral Squats Resistance 75# Shuttle Recovery Platform Unstable Reps/Time 2x15 B each Shuttle Balance red clip Details fwd & side: WBOS & NBOS Therapeutic Ball seated Exercise Details marches & kicks Body Position Sitting Reps/Duration 12 B ea Therapeutic Exercises Supine Exercises SKTC Supine Exercise Name w/opposite knee ext Side bilateral Reps/Minutes 30 sec Sidelying Exercises 1 Sidelying Exercise Name hip flexor stretch Reps/Minutes 30 secs hold hip abd Sidelying Exercise Name abd Side right Reps/Minutes 10 Sitting Exercises HS stretch Sitting Exercise Name HS stretch Side bilateral Reps/Minutes 30 sec holds Standing Exercises sidestep Standing Exercise Name side step B w/squat Side bilateral Resistance GTB Reps/Minutes 20ft 3 Standing Exercise Name wall posture Reps/Minutes 45 sec hold Comments back against wall Neuro Re-Education Treatment Balance Activities bosu Details standing balance Comments w/head turns; also B step ups x5 w/balance hurdles Details w/tpads in between Reps/Duration 8x PT-OP-R Modalities Start: 07/27/18 17:40 Freq: Status: Active Protocol: Document 10/26/18 08:25 [facility] (Rec: 10/26/18 09:51 [facility] [id number]) Hot Pack/Cold Pack Treatment Hot Pack Location lumbar Patient Position Sitting Treatment Duration (minutes) 15 Comments extra layer PT-OP-T Assessment and Plan Start: 07/27/18 17:40 Freq: Status: Active Protocol: Document 12/28/18 16:56 [facility] (Rec: 12/28/18 17:02 [facility] [id number]) Physical Therapy Assessment Assessment Summary Assessment SOB during exercises and that requires frequent rests. Physical Therapy Plan Next Visit Focus/Plan Next Note Type Treatment Note Next Visit Plan advance balance & abdomenal control
--- NOTE | 2019-01-04 16:49 | PT.OTN ---
Current Diagnoses Other chronic pain (01/04/19) Unilateral primary osteoarthritis, right hip (01/04/19) Pain in right hip (01/04/19) Spinal stenosis, lumbar region without neurogenic claudication (01/04/19) Dorsalgia, unspecified (01/04/19) Physical Therapy Treatment Note PT-OP-A Visit Information Start: 07/27/18 17:40 Freq: Status: Active Protocol: Document 01/04/19 15:09 [facility] (Rec: 01/04/19 15:17 [facility] [id number]) Out-Patient Physical Therapy Visit Information Visit Information Visit Type Treatment Note Visit Note 14 total 2019 Visit Start Time 14:30 Visit Stop Time 15:15 Total Visit Minutes 42 Visit Number 8/ Number of GLASS MECHANIC Visits 0 PT-OP-B Current Condition Start: 07/27/18 17:40 Freq: Status: Active Protocol: Document 07/28/18 08:15 [facility] (Rec: 07/28/18 09:04 [facility] [id number]) Current Condition History of Current Condition Onset Date ant FRIEDA 05/15/18 History of Current Condition Pt has hx of fusion 2 years ago with chronic LBP and R hip pain. Pt is using cane only when he is going out of the house. He did his own exercises at home for his hip replacement and is starting formal PT now. Reports LBP has inc since his hip is feeling better. Pt reports back pain since high school with no specific injuries. Prior Treatments and Tests Currently doing APs, heel raises, standing abd, heel slides, glute sets, quad sets, abdominal braces Treatment Goals Patient/Caregiver Goals Pt wants to get back to work- somewhat more physical, be able to walk around PT-OP-C Subjective Start: 07/27/18 17:40 Freq: Status: Active Protocol: Document 01/04/19 15:09 [facility] (Rec: 01/04/19 15:17 [facility] [id number]) OP-PT Subjective Patient Comments Patient Comments Patient pain to low back treament is not working to anything except sitting position; he feels his back no gonna get better. Patient Reported Progress Improving PT-OP-G Mobility & Gait Start: 07/27/18 17:40 Freq: Status: Active Protocol: Document 10/05/18 09:44 [facility] (Rec: 10/05/18 10:32 [facility] [id number]) OP Gait Assessment Comments Gait Comments Pt amb with improved wt acceptance onto RLE but still has significant trunk flex and lat movement with gait. PT-OP-J Posture/Palpation/Skin Start: 07/27/18 17:40 Freq: Status: Active Protocol: Document 10/05/18 09:44 [facility] (Rec: 10/05/18 10:32 [facility] [id number]) Posture Evaluation Comments Posture Comments fwd lean through hips wifht fwd shoulders. PT-OP-M Strength Start: 07/27/18 17:40 Freq: Status: Active Protocol: Document 12/15/18 13:46 [facility] (Rec: 12/15/18 14:27 [facility] [id number]) Hip Strength Hip Manual Muscle Testing Left Flexion (L2) 5 Normal Extension (S1) 4- Good- Abduction 4+ Good+ External Rotation 5 Normal Internal Rotation 5 Normal Right Flexion (L2) 5 Normal Extension (S1) 3+ Fair+ Abduction 4 Good External Rotation 5 Normal Internal Rotation 5 Normal Knee Strength Knee Manual Muscle Testing Right Flexion (S2) 5 Normal Extension (L3) 5 Normal Left Flexion (S2) 5 Normal Extension (L3) 5 Normal PT-OP-Q Treatments Start: 07/27/18 17:40 Freq: Status: Active Protocol: Document 01/04/19 15:09 [facility] (Rec: 01/04/19 15:17 [facility] [id number]) Cardio Equipment Recumbent Stepper (Sci-Fit) Duration (Minutes) 7 Resistance 6 Seat Position 15 Gym Equipment Shuttle Recovery Bilateral Squats Resistance 150 Reps/Time x 2 x 15 reps Unilateral Squats Resistance 75# Shuttle Recovery Platform Unstable Reps/Time 2x15 B each Shuttle Balance red clip Details fwd & side: WBOS & NBOS Therapeutic Exercises Standing Exercises lunges Standing Exercise Name minilunges Side bilateral Reps/Minutes 10 resisted walk Standing Exercise Name fwd & back Equipment Used green Reps/Minutes 2x20ft tandem walk Standing Exercise Name tandem walk Reps/Minutes 4x7ft minisquat Standing Exercise Name at bar Side bilateral Reps/Minutes 10 3 Standing Exercise Name wall posture and squat Reps/Minutes x 10 reps Manual Therapy Treatment Soft Tissue Mobilization iliacus Body Location iliacus Mobilization Type Rolling Sustained Pressure piriformis Body Location piriformis R Mobilization Type Rolling Body Position Sidelying 1 Body Location lumbar paraspinals/QL Mobilization Type Rolling Intensity/Depth Moderate Body Position Sidelying PT-OP-R Modalities Start: 07/27/18 17:40 Freq: Status: Active Protocol: Document 01/04/19 15:09 [facility] (Rec: 01/04/19 15:17 EA [id number]) Hot Pack/Cold Pack Treatment Hot Pack Location lumbar Patient Position Sitting Treatment Duration (minutes) 15 Comments extra layer PT-OP-T Assessment and Plan Start: 07/27/18 17:40 Freq: Status: Active Protocol: Document 01/04/19 15:09 [facility] (Rec: 01/04/19 15:17 [facility] [id number]) Physical Therapy Assessment Assessment Summary Assessment Pt tolerated treatment with minor breaks from SOB; still noted trunk bending during gait Vc's was given. Physical Therapy Plan Next Visit Focus/Plan Next Note Type Treatment Note Next Visit Plan advance balance & abdomenal control
--- NOTE | 2019-01-14 15:29 | PT.OTN ---
Current Diagnoses Other chronic pain (01/14/19) Unilateral primary osteoarthritis, right hip (01/14/19) Pain in right hip (01/14/19) Spinal stenosis, lumbar region without neurogenic claudication (01/14/19) Dorsalgia, unspecified (01/14/19) Physical Therapy Treatment Note PT-OP-A Visit Information Start: 07/27/18 17:40 Freq: Status: Active Protocol: Document 01/14/19 14:41 [facility] (Rec: 01/14/19 15:26 [facility] [id number]) Out-Patient Physical Therapy Visit Information Visit Information Visit Type Treatment Note Visit Note 17 total 2019 Visit Start Time 14:30 Visit Stop Time 15:15 Total Visit Minutes 45 Visit Number 07/02 Number of MIXING PICKER TENDER Visits 0 PT-OP-B Current Condition Start: 07/27/18 17:40 Freq: Status: Active Protocol: Document 07/28/18 08:15 [facility] (Rec: 07/28/18 09:04 [facility] [id number]) Current Condition History of Current Condition Onset Date ant FRIEDA 05/15/18 History of Current Condition Pt has hx of fusion 2 years ago with chronic LBP and R hip pain. Pt is using cane only when he is going out of the house. He did his own exercises at home for his hip replacement and is starting formal PT now. Reports LBP has inc since his hip is feeling better. Pt reports back pain since high school with no specific injuries. Prior Treatments and Tests Currently doing APs, heel raises, standing abd, heel slides, glute sets, quad sets, abdominal braces Treatment Goals Patient/Caregiver Goals Pt wants to get back to work- somewhat more physical, be able to walk around PT-OP-C Subjective Start: 07/27/18 17:40 Freq: Status: Active Protocol: Document 01/14/19 14:41 [facility] (Rec: 01/14/19 15:26 [facility] [id number]) OP-PT Subjective Patient Comments Patient Comments Pt reports he feels like his is plateauing at this time. PT-OP-G Mobility & Gait Start: 07/27/18 17:40 Freq: Status: Active Protocol: Document 10/05/18 09:44 [facility] (Rec: 10/05/18 10:32 [facility] [id number]) OP Gait Assessment Comments Gait Comments Pt amb with improved wt acceptance onto RLE but still has significant trunk flex and lat movement with gait. PT-OP-J Posture/Palpation/Skin Start: 07/27/18 17:40 Freq: Status: Active Protocol: Document 10/05/18 09:44 [facility] (Rec: 10/05/18 10:32 [facility] [id number]) Posture Evaluation Comments Posture Comments fwd lean through hips wifht fwd shoulders. PT-OP-M Strength Start: 07/27/18 17:40 Freq: Status: Active Protocol: Document 01/14/19 14:41 [facility] (Rec: 01/14/19 15:26 [facility] [id number]) Hip Strength Hip Manual Muscle Testing Left Flexion (L2) 5 Normal Extension (S1) 3- Fair- Abduction 5 Normal External Rotation 5 Normal Internal Rotation 5 Normal Comments 5/5 B knee strength Right Flexion (L2) 5 Normal Extension (S1) 3- Fair- External Rotation 5 Normal Internal Rotation 5 Normal PT-OP-Q Treatments Start: 07/27/18 17:40 Freq: Status: Active Protocol: Document 01/14/19 14:41 [facility] (Rec: 01/14/19 15:26 [facility] [id number]) Cardio Equipment Recumbent Stepper (Sci-Fit) Duration (Minutes) 6 Resistance 6 Seat Position 15 Gym Equipment Shuttle Balance red clip Details fwd & side: WBOS & NBOS Therapeutic Ball seated Exercise Details marches & kicks Body Position Sitting Reps/Duration 10 B ea Therapeutic Exercises Supine Exercises LTR Supine Exercise Name focus on core stability bridge Supine Exercise Name focus on core Reps/Minutes 10 Standing Exercises hip flexor Standing Exercise Name stretch Side bilateral Reps/Minutes 30 sec 3 Standing Exercise Name wall posture and squat Reps/Minutes x 10 reps 2 Standing Exercise Name hip ext Side bilateral Reps/Minutes 10 1 Standing Exercise Name hip abd Side bilateral Reps/Minutes 10 PT-OP-R Modalities Start: 07/27/18 17:40 Freq: Status: Active Protocol: Document 01/04/19 15:09 [facility] (Rec: 01/04/19 15:17 [facility] [id number]) Hot Pack/Cold Pack Treatment Hot Pack Location lumbar Patient Position Sitting Treatment Duration (minutes) 15 Comments extra layer PT-OP-T Assessment and Plan Start: 07/27/18 17:40 Freq: Status: Active Protocol: Document 01/14/19 14:41 [facility] (Rec: 01/14/19 15:26 [facility] [id number]) Physical Therapy Assessment Goals posture Poultry Picking Machine Tender Goal (LTG) Pt will be able to stand with only mild postural abnormalities. 12/15-improved but still limited LTG Duration improved but still limited gait Short Term Goal (STG) Pt will be able to amb for 5 min with no more than 2 point increase in pain. STG Duration 01/04/19- able to walk but inc pain Half-Way Goal (LTG) Pt will be able to amb for 30 min at a time with no more than 2 point inc in pain, allowing him to participate in more functional activities and work towards return to working. LTG Duration 01/25/19 strength Short Term Goal (STG) Pt will be indep with HEP. STG Duration 08/25/18-achieved will advance as neeed Poultry Picking Machine Tender Goal (LTG) Pt will have 5/5 LE strength B in order to allow inc ability to do activity. LTG Duration improved Assessment Summary Assessment Pt has made good improvement with gait mechanics, strength, ROM & activity tolerance, but at this time has plateaued with progress. Pt is to cont to work on strength with HEP. Physical Therapy Plan Discharge Physical Therapy Discharge Reasons Plateau in Progress
--- NOTE | 2019-01-14 15:30 | PT.OPDS ---
Current Diagnoses Other chronic pain (01/14/19) Unilateral primary osteoarthritis, right hip (01/14/19) Pain in right hip (01/14/19) Spinal stenosis, lumbar region without neurogenic claudication (01/14/19) Dorsalgia, unspecified (01/14/19) Provider Visit Care Team Role Provider Type Tej Zacarias MD Referring Provider Non-Staff Specialty: Orthopedics Address: [address] [place], [address] Email: Miguel Angel Park MD Primary Care Provider Physician Specialty: Internal Medicine Address: [address] [place] [address], [id number] Email: Tej Zacarias Attending Provider Non-Staff Specialty: Medical Address: [address] [place] [address], [id number] Email: Visit Number Visit Number 07/02 Discharge Summary PT-OP-B Current Condition Start: 07/27/18 17:40 Freq: Status: Active Protocol: Document 07/28/18 08:15 [facility] (Rec: 07/28/18 09:04 [facility] [id number]) Current Condition History of Current Condition Onset Date ant FRIEDA 05/15/18 History of Current Condition Pt has hx of fusion 2 years ago with chronic LBP and R hip pain. Pt is using cane only when he is going out of the house. He did his own exercises at home for his hip replacement and is starting formal PT now. Reports LBP has inc since his hip is feeling better. Pt reports back pain since high school with no specific injuries. Prior Treatments and Tests Currently doing APs, heel raises, standing abd, heel slides, glute sets, quad sets, abdominal braces Treatment Goals Patient/Caregiver Goals Pt wants to get back to work- somewhat more physical, be able to walk around PT-OP-C Subjective Start: 07/27/18 17:40 Freq: Status: Active Protocol: Document 01/14/19 14:41 [facility] (Rec: 01/14/19 15:26 [facility] [id number]) OP-PT Subjective Patient Comments Patient Comments Pt reports he feels like his is plateauing at this time. PT-OP-G Mobility & Gait Start: 07/27/18 17:40 Freq: Status: Active Protocol: Document 10/05/18 09:44 [facility] (Rec: 10/05/18 10:32 [facility] [id number]) OP Gait Assessment Comments Gait Comments Pt amb with improved wt acceptance onto RLE but still has significant trunk flex and lat movement with gait. PT-OP-J Posture/Palpation/Skin Start: 07/27/18 17:40 Freq: Status: Active Protocol: Document 10/05/18 09:44 [facility] (Rec: 10/05/18 10:32 [facility] [id number]) Posture Evaluation Comments Posture Comments fwd lean through hips wifht fwd shoulders. PT-OP-M Strength Start: 07/27/18 17:40 Freq: Status: Active Protocol: Document 01/14/19 14:41 [facility] (Rec: 01/14/19 15:26 [facility] [id number]) Hip Strength Hip Manual Muscle Testing Left Flexion (L2) 5 Normal Extension (S1) 3- Fair- Abduction 5 Normal External Rotation 5 Normal Internal Rotation 5 Normal Comments 5/5 B knee strength Right Flexion (L2) 5 Normal Extension (S1) 3- Fair- External Rotation 5 Normal Internal Rotation 5 Normal PT-OP-T Assessment and Plan Start: 07/27/18 17:40 Freq: Status: Active Protocol: Document 01/14/19 14:41 [facility] (Rec: 01/14/19 15:26 [facility] [id number]) Physical Therapy Assessment Goals posture Prison Goal (LTG) Pt will be able to stand with only mild postural abnormalities. 12/15-improved but still limited LTG Duration improved but still limited gait Short Term Goal (STG) Pt will be able to amb for 5 min with no more than 2 point increase in pain. STG Duration 01/04/19- able to walk but inc pain Prison Goal (LTG) Pt will be able to amb for 30 min at a time with no more than 2 point inc in pain, allowing him to participate in more functional activities and work towards return to working. LTG Duration 01/25/19 strength Short Term Goal (STG) Pt will be indep with HEP. STG Duration 08/25/18-achieved will advance as neeed Prison Goal (LTG) Pt will have 5/5 LE strength B in order to allow inc ability to do activity. LTG Duration improved Assessment Summary Assessment Pt has made good improvement with gait mechanics, strength, ROM & activity tolerance, but at this time has plateaued with progress. Pt is to cont to work on strength with HEP. Physical Therapy Plan Discharge Physical Therapy Discharge Reasons Plateau in Progress
== END 2019-04-01 13:54 ==
LOC: PHYS 14:30
PROVIDERS: PCP Student in an Organized Health Care Education/Training Program; Referring Provider Orthopaedic Surgery; Visit Provider Orthopaedic Surgery
DX: M25.551 Pain in right hip (principal); M16.11 Unilateral primary osteoarthritis, right hip; M48.061 Spinal stenosis, lumbar region without neurogenic claudication; M54.9 Dorsalgia, unspecified; G89.29 Other chronic pain
CPT/HCPCS: 97010; 97110; 97112; 97140; 97162

== ENCOUNTER 2019-05-19 08:15 | Outpatient (RCR) | payer MEDICARE, SELFPAY ==
[2018-11-18 14:26] VITALS: BMI 30.6
--- NOTE | 2019-04-06 15:02 | PT.OPPOC ---
Current Diagnoses Postlaminectomy syndrome, not elsewhere classified (04/06/19) Visit Care Team Role Provider Type Miguel Angel Park MD Primary Care Provider Physician Specialty: Internal Medicine Address: [address] [place] [address], [address], [address] Email: [email or web address] Hasmukh Cordon DO Attending Provider Non-Staff Specialty: Medical Address: [address] [place] [address], [id number] Email: Plan Of Care PT-OP-T Assessment and Plan Start: 04/05/19 18:41 Freq: Status: Active Protocol: Document 04/06/19 09:52 [facility] (Rec: 04/06/19 11:01 [facility] [id number]) Physical Therapy Assessment Rehab Potential Rehabilitation Potential Good Evaluation Complexity Number of Personal Factors/Comorbidities 3 or More Number of Body Systems Impaired 4 or More Clinical Presentation at Evaluation Stable Impairments Impairments Activity Tolerance,Balance, Functional Activities, Functional Mobility,Gait,Pain, Posture,ROM,Soft Tissue Mobility,Strength Goals standing Multiple Needle Stitcher Goal (LTG) Pt will be able to stand and/ or amb for 15 min at a time without requiring seated rest break. LTG Duration 06/06/19 balance Short Term Goal (STG) Pt will improve FGA to 17/30 to dec fall risk STG Duration 05/07/19 Multiple Needle Stitcher Goal (LTG) Pt will improve FGA to 23/30 to be a low fall risk and show improved core stability and standing stability in his ability to balance and stabilize better. LTG Duration 06/06/19 strength Short Term Goal (STG) Pt will be indep with HEP. STG Duration 05/09/19 [facility] Goal (LTG) Pt will improve LE strength to 5/5 B with no trunk leaning and 3/5 LPM in order to show improved core stability. LTG Duration 06/08/19 Assessment Summary Assessment Pt presents with chronic LBP with history of lumbar fusion and R FRIEDA. He has limited standing and walking tolerance which impairs his ability to participate in daily ADLs, ability to work and his ability ambulate anywhere without a signifiacnt inc in pain. He would benefit from skilled PT to work on core stability, balance, posture, strength and gait mechanics. Physical Therapy Plan Frequency and Duration Frequency of Treatment 2x/Week Duration of Treatment 2 months Plan of Care Start Date 04/06/19 Plan of Care End Date 06/06/19 Therapeutic Interventions Therapeutic Interventions Aquatic Therapy,Balance Training,Gait Training,Home Exercise Program,Joint Mobilizations,Manual Therapy, Neuromuscular Re-education, Patient/Caregiver Education, Self-Care/Home Management,Soft Tissue Mobilization,Taping, Therapeutic Activities, Therapeutic Exercises Modalities Cold Pack/Ice Massage,Electric Stimulation,Hot Packs, Ultrasound Next Visit Focus/Plan Next Note Type Treatment Note Next Visit Plan balance board, recumbant stepper, standing hip strengthening, STM to scar Plan of Care Dates Plan of Care Start Date 04/06/19 Plan of Care End Date 06/06/19
--- NOTE | 2019-04-06 17:01 | PT.OIE ---
Current Diagnoses Postlaminectomy syndrome, not elsewhere classified (04/06/19) Past Medical History (Last Reviewed 03/17/19 @ 13:09 by Lai Fernandez MD) Chronic back pain (Chronic 1979) COPD (chronic obstructive pulmonary disease) (Chronic Unknown) Generalized headaches (Chronic 1999) Hyperlipidemia (Acute) Hypertension (Chronic Unknown) Primary osteoarthritis of right hip (Chronic 06/17/17) Uncomplicated opioid dependence (Chronic) Past Surgical History (Last Reviewed 03/17/19 @ 13:09 by Lai Fernandez MD) History of lumbar surgery (Resolved ~2015) History of right hip replacement (Acute) History of total right hip arthroplasty (Resolved) Hx of inguinal hernia repair (Resolved 1999) Visit Care Team Role Provider Type Miguel Angel Park MD Primary Care Provider Physician Specialty: Internal Medicine Address: [address] [place] [address], [address] Email: [email or web address] Hasmukh Cordon DO Attending Provider Non-Staff Specialty: Medical Address: [address] [place] [address], [address] Email: Physical Therapy Initial Evaluation PT-OP-B Current Condition Start: 04/05/19 18:41 Freq: Status: Active Protocol: Document 04/06/19 09:52 [facility] (Rec: 04/06/19 11:01 [facility] [id number]) Current Condition History of Current Condition Onset Date chronic years Current Complaints low back History of Current Condition Pt is seeing a new back specialist who is working on adjusting his meds and dec his pain. He recommended PT and gabapentin. He reports not much of a difference with the med change. Pt cont to have difficulty with standing and walking extended. Pt reports he can stand or walk probably about 5-10 min before he has to sits down but it is painful . Prior Treatments and Tests PT Treatment Goals Patient/Caregiver Goals 15 min of standing or walking without UE support PT-OP-C Subjective Start: 04/05/19 18:41 Freq: Status: Active Protocol: Document 04/06/19 09:52 [facility] (Rec: 04/06/19 11:01 [facility] [id number]) Patient Questionnaires Oswestry Low Back Index Oswestry Score 64 Oswestry Impairment 60 to 79% Impaired (Score 60- 79) OP-PT Pain Assessment Location Back Pain Location Details lumbar region Intensity 9 Scale Used Numeric (1 - 10) Description Dull,With Movement Description- Other constant but light when sitting Frequency Daily Pain Aggravating Factors Standing,Walking,Lifting Other Pain Aggravating Factors kitchen ADLs requiring standing Pain Alleviating Factors Sitting PT-OP-E Functional Tests Start: 04/05/19 18:41 Freq: Status: Active Protocol: Document 04/06/19 09:52 [facility] (Rec: 04/06/19 11:01 [facility] [id number]) Functional Tests 6 Minute Walk Test Distance 638 Device Used cane prn Functional Gait Assessment Score 13 Functional Gait Assessment Impairment 40 to <60% Impaired (Score 13- Rating 18) PT-OP-F Manual Assessment Start: 04/05/19 18:41 Freq: Status: Active Protocol: Document 04/06/19 09:52 [facility] (Rec: 04/06/19 11:01 [facility] [id number]) Manual Assessments Soft Tissue Assessment Soft Tissue Mobility Assessment significant scar restriction & soft tissue tightness in QL & ES PT-OP-G Mobility & Gait Start: 04/05/19 18:41 Freq: Status: Active Protocol: Document 04/06/19 09:52 [facility] (Rec: 04/06/19 11:01 [facility] [id number]) OP Gait Assessment Comments Gait Comments Pt amb with significant fwd lean at hips and lat leaning w /inc with inc time walking PT-OP-M Strength Start: 04/05/19 18:41 Freq: Status: Active Protocol: Document 04/06/19 09:52 [facility] (Rec: 04/06/19 11:01 [facility] [id number]) Hip Strength Hip Manual Muscle Testing Right Flexion (L2) 5 Normal Extension (S1) 4 Good Abduction 5 Normal External Rotation 5 Normal Internal Rotation 4+ Good+ Left Flexion (L2) 5 Normal Extension (S1) 4 Good Abduction 5 Normal External Rotation 5 Normal Internal Rotation 4+ Good+ Comments core stability with LE testing dec as pt leans with testing PT-OP-T Assessment and Plan Start: 04/05/19 18:41 Freq: Status: Active Protocol: Document 04/06/19 09:52 [facility] (Rec: 04/06/19 11:01 [facility] [id number]) Physical Therapy Assessment Rehab Potential Rehabilitation Potential Good Evaluation Complexity Number of Personal Factors/Comorbidities 3 or More Number of Body Systems Impaired 4 or More Clinical Presentation at Evaluation Stable Impairments Impairments Activity Tolerance,Balance, Functional Activities, Functional Mobility,Gait,Pain, Posture,ROM,Soft Tissue Mobility,Strength Goals standing Clean Out Driller Helper Goal (LTG) Pt will be able to stand and/ or amb for 15 min at a time without requiring seated rest break. LTG Duration 06/06/19 balance Short Term Goal (STG) Pt will improve FGA to to dec fall risk STG Duration 05/07/19 Clean Out Driller Helper Goal (LTG) Pt will improve FGA to to be a low fall risk and show improved core stability and standing stability in his ability to balance and stabilize better. LTG Duration 06/06/19 strength Short Term Goal (STG) Pt will be indep with HEP. STG Duration 05/09/19 Clean Out Driller Helper Goal (LTG) Pt will improve LE strength to 5/5 B with no trunk leaning and 3/5 LPM in order to show improved core stability. LTG Duration 06/08/19 Assessment Summary Assessment Pt presents with chronic LBP with history of lumbar fusion and R FRIEDA. He has limited standing and walking tolerance which impairs his ability to participate in daily ADLs, ability to work and his ability ambulate anywhere without a signifiacnt inc in pain. He would benefit from skilled PT to work on core stability, balance, posture, strength and gait mechanics. Physical Therapy Plan Frequency and Duration Frequency of Treatment 2x/Week Duration of Treatment 2 months Plan of Care Start Date 04/06/19 Plan of Care End Date 06/06/19 Therapeutic Interventions Therapeutic Interventions Aquatic Therapy,Balance Training,Gait Training,Home Exercise Program,Joint Mobilizations,Manual Therapy, Neuromuscular Re-education, Patient/Caregiver Education, Self-Care/Home Management,Soft Tissue Mobilization,Taping, Therapeutic Activities, Therapeutic Exercises Modalities Cold Pack/Ice Massage,Electric Stimulation,Hot Packs, Ultrasound Next Visit Focus/Plan Next Note Type Treatment Note Next Visit Plan balance board, recumbant stepper, standing hip strengthening, STM to scar
--- NOTE | 2019-04-12 18:37 | PT.OTN ---
Current Diagnoses Postlaminectomy syndrome, not elsewhere classified (04/12/19) Physical Therapy Treatment Note PT-OP-A Visit Information Start: 04/05/19 18:41 Freq: Status: Active Protocol: Document 04/12/19 08:17 MT (Rec: 04/12/19 09:26 MT [email or web address]) Out-Patient Physical Therapy Visit Information Visit Information Visit Type Treatment Note Visit Start Time 08:17 Visit Stop Time 08:59 Total Visit Minutes 42 Visit Number 2 Number of OPEN SHANK COVERER Visits 0 PT-OP-B Current Condition Start: 04/05/19 18:41 Freq: Status: Active Protocol: Document 04/06/19 09:52 [facility] (Rec: 04/06/19 11:01 [facility] [id number]) Current Condition History of Current Condition Onset Date chronic years Current Complaints low back History of Current Condition Pt is seeing a new back specialist who is working on adjusting his meds and dec his pain. He recommended PT and gabapentin. He reports not much of a difference with the med change. Pt cont to have difficulty with standing and walking extended. Pt reports he can stand or walk probably about 5-10 min before he has to sits down but it is painful . Prior Treatments and Tests PT Treatment Goals Patient/Caregiver Goals 15 min of standing or walking without UE support PT-OP-C Subjective Start: 04/05/19 18:41 Freq: Status: Active Protocol: Document 04/12/19 08:17 MT (Rec: 04/12/19 09:26 MT [email or web address]) OP-PT Subjective Patient Comments Patient Comments Pt reported that he has no unusual soreness or pain since the last treatment. He has been inconsistently doing some of his exercises from his [facility] . PT-OP-E Functional Tests Start: 04/05/19 18:41 Freq: Status: Active Protocol: Document 04/06/19 09:52 [facility] (Rec: 04/06/19 11:01 [facility] [id number]) Functional Tests 6 Minute Walk Test Distance 638 Device Used cane prn Functional Gait Assessment Score 13 Functional Gait Assessment Impairment 40 to <60% Impaired (Score 13- Rating 18) PT-OP-F Manual Assessment Start: 04/05/19 18:41 Freq: Status: Active Protocol: Document 04/06/19 09:52 [facility] (Rec: 04/06/19 11:01 [facility] [id number]) Manual Assessments Soft Tissue Assessment Soft Tissue Mobility Assessment significant scar restriction & soft tissue tightness in QL & ES PT-OP-G Mobility & Gait Start: 04/05/19 18:41 Freq: Status: Active Protocol: Document 04/06/19 09:52 [facility] (Rec: 04/06/19 11:01 [facility] [id number]) OP Gait Assessment Comments Gait Comments Pt amb with significant fwd lean at hips and lat leaning w /inc with inc time walking PT-OP-M Strength Start: 04/05/19 18:41 Freq: Status: Active Protocol: Document 04/06/19 09:52 [facility] (Rec: 04/06/19 11:01 [facility] [id number]) Hip Strength Hip Manual Muscle Testing Right Flexion (L2) 5 Normal Extension (S1) 4 Good Abduction 5 Normal External Rotation 5 Normal Internal Rotation 4+ Good+ Left Flexion (L2) 5 Normal Extension (S1) 4 Good Abduction 5 Normal External Rotation 5 Normal Internal Rotation 4+ Good+ Comments core stability with LE testing dec as pt leans with testing PT-OP-Q Treatments Start: 04/05/19 18:41 Freq: Status: Active Protocol: Document 04/12/19 08:17 MT (Rec: 04/12/19 09:26 MT [email or web address]) Cardio Equipment Recumbent Stepper (Sci-Fit) Duration (Minutes) 5 Resistance 5 Seat Position 14 Gym Equipment Shuttle Balance blue clips Details weight shift + balance holds Reps/Duration 10 weight shifts + 30 second balance Comments fwd/bck; side/side Therapeutic Exercises Supine Exercises SKTC Supine Exercise Name hamstring stretch Side bilateral Equipment Used towel Reps/Minutes 30 second hold/per side Comments pt uses towel to bring knee to chest, then extends knee, then DF ankle Sidelying Exercises hip abd Sidelying Exercise Name straight leg abd Side bilateral Reps/Minutes 15/side Comments pt continued to have pain in SI area Standing Exercises 4 way hip Standing Exercise Name hip aB/extension Side bilateral Reps/Minutes 15/side Comments cueing for pt to isolate hip and not achieve movement from trunk lean hip flexor Standing Exercise Name hip flexor stretch Side bilateral Reps/Minutes 15/side Comments with D2 UE pattern to encourage hip extension and rotation Neuro Re-Education Treatment Balance Activities semi-tandem Surface blue foam pad on front leg Reps/Duration 30 second hold/foot position tandem Details tandem stance Surface firm Reps/Duration 1 minute each foot position Comments p PT-OP-T Assessment and Plan Start: 04/05/19 18:41 Freq: Status: Active Protocol: Document 04/12/19 08:17 MT (Rec: 04/12/19 09:26 MT [email or web address]) Physical Therapy Assessment Goals standing Senior Advisory Goal (LTG) Pt will be able to stand and/ or amb for 15 min at a time without requiring seated rest break. LTG Duration 06/06/19 balance Short Term Goal (STG) Pt will improve FGA to to dec fall risk STG Duration 05/07/19 Senior Advisory Goal (LTG) Pt will improve FGA to 30 to be a low fall risk and show improved core stability and standing stability in his ability to balance and stabilize better. LTG Duration 06/06/19 strength Short Term Goal (STG) Pt will be indep with HEP. STG Duration 05/09/19 Penitentiary Goal (LTG) Pt will improve LE strength to 5/5 B with no trunk leaning and 3/5 LPM in order to show improved core stability. LTG Duration 06/08/19 Assessment Summary Assessment Pt continues to demonstrate high levels of back pain with all standing actvities and LE movement. He is also limited in his activity tolerance and requires frequent breaks. Reviewed pt's HEP with pt and provided cueing for proper form. He was challenged by his HEP and would benefit from continued review fo program. He presents with tight hip flexors (R>L) and his pain and hypomobility in SI allow for very little movement. Added hip flexor and hamstring stretch to pt's HEP. Physical Therapy Plan Next Visit Focus/Plan Next Note Type Treatment Note Next Visit Plan balance training, recumbant stepper, STM to scar, standing hip strengthening, SI/pelvis mobilization
--- NOTE | 2019-04-14 18:43 | PT.OTN ---
Current Diagnoses Postlaminectomy syndrome, not elsewhere classified (04/14/19) Physical Therapy Treatment Note PT-OP-A Visit Information Start: 04/05/19 18:41 Freq: Status: Active Protocol: Document 04/14/19 16:02 MT (Rec: 04/14/19 17:15 MT [email or web address]) Out-Patient Physical Therapy Visit Information Visit Information Visit Type Treatment Note Visit Start Time 16:02 Visit Stop Time 16:45 Total Visit Minutes 43 Visit Number 3 Number of EKG TECHNICIAN Visits 0 PT-OP-B Current Condition Start: 04/05/19 18:41 Freq: Status: Active Protocol: Document 04/06/19 09:52 [facility] (Rec: 04/06/19 11:01 [facility] [id number]) Current Condition History of Current Condition Onset Date chronic years Current Complaints low back History of Current Condition Pt is seeing a new back specialist who is working on adjusting his meds and dec his pain. He recommended PT and gabapentin. He reports not much of a difference with the med change. Pt cont to have difficulty with standing and walking extended. Pt reports he can stand or walk probably about 5-10 min before he has to sits down but it is painful . Prior Treatments and Tests PT Treatment Goals Patient/Caregiver Goals 15 min of standing or walking without UE support PT-OP-C Subjective Start: 04/05/19 18:41 Freq: Status: Active Protocol: Document 04/14/19 16:02 MT (Rec: 04/14/19 17:15 MT [email or web address]) OP-PT Subjective Patient Comments Patient Comments Pt reported that he had no unusual increase in back pain from the last PT session, but his arm was tired from the D2 muscle patterns from his last session. He reported that he has been to the doctor multiple times recently and is going to be getting a stimulator placed in his lumbar region.. PT-OP-E Functional Tests Start: 04/05/19 18:41 Freq: Status: Active Protocol: Document 04/06/19 09:52 [facility] (Rec: 04/06/19 11:01 [facility] [id number]) Functional Tests 6 Minute Walk Test Distance 638 Device Used cane prn Functional Gait Assessment Score 13 Functional Gait Assessment Impairment 40 to <60% Impaired (Score 13- Rating 18) PT-OP-F Manual Assessment Start: 10/14/19 18:41 Freq: Status: Active Protocol: Document 04/06/19 09:52 [facility] (Rec: 04/06/19 11:01 [facility] [id number]) Manual Assessments Soft Tissue Assessment Soft Tissue Mobility Assessment significant scar restriction & soft tissue tightness in QL & ES PT-OP-G Mobility & Gait Start: 04/05/19 18:41 Freq: Status: Active Protocol: Document 04/06/19 09:52 [facility] (Rec: 04/06/19 11:01 [facility] [id number]) OP Gait Assessment Comments Gait Comments Pt amb with significant fwd lean at hips and lat leaning w /inc with inc time walking PT-OP-M Strength Start: 04/05/19 18:41 Freq: Status: Active Protocol: Document 04/06/19 09:52 [facility] (Rec: 04/06/19 11:01 [facility] [id number]) Hip Strength Hip Manual Muscle Testing Right Flexion (L2) 5 Normal Extension (S1) 4 Good Abduction 5 Normal External Rotation 5 Normal Internal Rotation 4+ Good+ Left Flexion (L2) 5 Normal Extension (S1) 4 Good Abduction 5 Normal External Rotation 5 Normal Internal Rotation 4+ Good+ Comments core stability with LE testing dec as pt leans with testing PT-OP-Q Treatments Start: 04/05/19 18:41 Freq: Status: Active Protocol: Document 04/14/19 16:02 MT (Rec: 04/14/19 17:15 MT [email or web address]) Cardio Equipment Recumbent Stepper (Sci-Fit) Duration (Minutes) 6 Resistance 5 Seat Position 14 Gym Equipment Shuttle Balance red clip Details fwd/bck, NBOS+WBOS Reps/Duration 10 weight shifts + 1 minute holds Comments pt highly challenged with NBOS and side/side direction Therapeutic Exercises Standing Exercises 4 way hip Standing Exercise Name hip aB/extension Side bilateral Reps/Minutes 15/side Comments cueing for pt to isolate hip and not achieve movement from trunk lean hip flexor Standing Exercise Name hip flexor stretch Side bilateral Reps/Minutes 15/side Comments with D2 UE pattern to encourage hip extension and rotation Manual Therapy Treatment Soft Tissue Mobilization scar Body Location bilateral lumbar scars Mobilization Type Myofascial Release, Oscillations,Strumming, Sustained Pressure Intensity/Depth Moderate Body Position Sidelying Comments Pt had some areas of tenderness during massage, on which very superficial pressure had to be utilized Neuro Re-Education Treatment Balance Activities semi-tandem Surface blue foam pad on front leg Reps/Duration 30 second hold/foot position PT-OP-T Assessment and Plan Start: 04/05/19 18:41 Freq: Status: Active Protocol: Document 04/14/19 16:02 MT (Rec: 04/14/19 18:39 MT [email or web address]) Physical Therapy Assessment Goals standing Alf Goal (LTG) Pt will be able to stand and/ or amb for 15 min at a time without requiring seated rest break. LTG Duration 06/06/19 balance Short Term Goal (STG) Pt will improve FGA to to dec fall risk STG Duration 05/07/19 Fringe Maker Goal (LTG) Pt will improve FGA to to be a low fall risk and show improved core stability and standing stability in his ability to balance and stabilize better. LTG Duration 06/06/19 strength Short Term Goal (STG) Pt will be indep with HEP. STG Duration 05/09/19 Alf Goal (LTG) Pt will improve LE strength to 5/5 B with no trunk leaning and 3/5 LPM in order to show improved core stability. LTG Duration 06/08/19 Assessment Summary Assessment Pt's back pain was present but not elevated by any of the activities performed in PT. He continues to demonstrate poor standing tolerance, needing frequent breaks in between activities. He was able to perform balance activities of increased difficulty with higher instability of surfaces and incorporating NBOS, whcih was a challenge for him. During STM of his lumbar scars, he had some points of tenderness that were not able to tolerate more than superficial pressure throughout the session, but his scar mobiltiy did increase after STM. Physical Therapy Plan Next Visit Focus/Plan Next Note Type Treatment Note Next Visit Plan continue balance training with NBOS and increased unstable surfaces, standing hip strengthening, hip flexor mobility
--- NOTE | 2019-04-20 08:05 | PT-OP ANOTE ---
Pt called and message left with his re: missed appt (no show). Informed of pt's next appt.
--- NOTE | 2019-04-26 19:11 | PT.OTN ---
Current Diagnoses Postlaminectomy syndrome, not elsewhere classified (04/26/19) Physical Therapy Treatment Note PT-OP-A Visit Information Start: 04/05/19 18:41 Freq: Status: Active Protocol: Document 04/26/19 08:16 MT (Rec: 04/26/19 09:24 MT [id number]) Out-Patient Physical Therapy Visit Information Visit Information Visit Type Treatment Note Visit Start Time 08:16 Visit Stop Time 08:59 Total Visit Minutes 43 Visit Number 4 Number of HIGH SCHOOL MUSIC DIRECTOR Visits 0 PT-OP-B Current Condition Start: 04/05/19 18:41 Freq: Status: Active Protocol: Document 04/06/19 09:52 [facility] (Rec: 04/06/19 11:01 [facility] [id number]) Current Condition History of Current Condition Onset Date chronic years Current Complaints low back History of Current Condition Pt is seeing a new back specialist who is working on adjusting his meds and dec his pain. He recommended PT and gabapentin. He reports not much of a difference with the med change. Pt cont to have difficulty with standing and walking extended. Pt reports he can stand or walk probably about 5-10 min before he has to sits down but it is painful . Prior Treatments and Tests PT Treatment Goals Patient/Caregiver Goals 15 min of standing or walking without UE support PT-OP-C Subjective Start: 04/05/19 18:41 Freq: Status: Active Protocol: Document 04/26/19 08:16 MT (Rec: 04/26/19 09:24 MT [id number]) OP-PT Subjective Patient Comments Patient Comments Pt reported that his back has been feeling the same with no unusual increases in pain since the last session. He said that he tried working in his yard a bit over the weekend, but required frequent breaks due to pain and fatigue. PT-OP-E Functional Tests Start: 04/05/19 18:41 Freq: Status: Active Protocol: Document 04/06/19 09:52 [facility] (Rec: 04/06/19 11:01 [facility] [id number]) Functional Tests 6 Minute Walk Test Distance 638 Device Used cane prn Functional Gait Assessment Score 13 Functional Gait Assessment Impairment 40 to <60% Impaired (Score 13- Rating 18) PT-OP-F Manual Assessment Start: 04/05/19 18:41 Freq: Status: Active Protocol: Document 04/06/19 09:52 [facility] (Rec: 04/06/19 11:01 [facility] [id number]) Manual Assessments Soft Tissue Assessment Soft Tissue Mobility Assessment significant scar restriction & soft tissue tightness in QL & ES PT-OP-G Mobility & Gait Start: 04/05/19 18:41 Freq: Status: Active Protocol: Document 04/06/19 09:52 [facility] (Rec: 04/06/19 11:01 [facility] [id number]) OP Gait Assessment Comments Gait Comments Pt amb with significant fwd lean at hips and lat leaning w /inc with inc time walking PT-OP-M Strength Start: 04/05/19 18:41 Freq: Status: Active Protocol: Document 04/06/19 09:52 [facility] (Rec: 04/06/19 11:01 [facility] [id number]) Hip Strength Hip Manual Muscle Testing Right Flexion (L2) 5 Normal Extension (S1) 4 Good Abduction 5 Normal External Rotation 5 Normal Internal Rotation 4+ Good+ Left Flexion (L2) 5 Normal Extension (S1) 4 Good Abduction 5 Normal External Rotation 5 Normal Internal Rotation 4+ Good+ Comments core stability with LE testing dec as pt leans with testing PT-OP-Q Treatments Start: 04/05/19 18:41 Freq: Status: Active Protocol: Document 04/26/19 08:16 MT (Rec: 04/26/19 09:24 MT [id number]) Cardio Equipment Recumbent Stepper (Sci-Fit) Duration (Minutes) 6 Resistance 6 Seat Position 14 Gym Equipment Shuttle Balance red clip Details fwd/bck, side/side, NBOS+WBOS Reps/Duration 10 weight shifts + 1 minute holds Comments pt challenged with NBOS and side/side direction Therapeutic Exercises Supine Exercises SKTC Supine Exercise Name hamstring stretch Side bilateral Reps/Minutes 30 second hold/per side Comments hold behind knee while quad setting on other leg Standing Exercises 4 way hip Standing Exercise Name hip aB/ext Side bilateral Resistance L1 Reps/Minutes 15/side Comments less cueing required hip flexor Standing Exercise Name hip flexor stretch Side bilateral Reps/Minutes 30 sec/side Manual Therapy Treatment Soft Tissue Mobilization ant Body Location R hip flexor/quad Mobilization Type Myofascial Release, Oscillations,Rolling,Strumming ,Sustained Pressure Intensity/Depth Moderate Body Position Supine Neuro Re-Education Treatment Balance Activities semi-tandem Surface blue foam pad on front leg Reps/Duration 1 min hold/foot position tandem Details tandem stance Surface firm Reps/Duration 1 minute each foot position PT-OP-T Assessment and Plan Start: 04/05/19 18:41 Freq: Status: Active Protocol: Document 04/26/19 08:16 MT (Rec: 04/26/19 09:24 MT [id number]) Physical Therapy Assessment Goals standing Long-Term Goal (LTG) Pt will be able to stand and/ or amb for 15 min at a time without requiring seated rest break. LTG Duration 06/06/19 balance Short Term Goal (STG) Pt will improve FGA to 17 to dec fall risk STG Duration 05/07/19 Long-Term Goal (LTG) Pt will improve FGA to 23/30 to be a low fall risk and show improved core stability and standing stability in his ability to balance and stabilize better. LTG Duration 06/06/19 strength Short Term Goal (STG) Pt will be indep with HEP. STG Duration 05/09/19 Long-Term Goal (LTG) Pt will improve LE strength to 5/5 B with no trunk leaning and 3/5 LPM in order to show improved core stability. LTG Duration 06/08/19 Assessment Summary Assessment Pt is able to tolerate exercises, but requires frequent sitting rest breaks. He was able to perform his standing 4 way hip exercises with much less cueing for compensations. He also demonstrated improved balance with less deviation in the tandem and semitandem positions. NBOS and surfaces with lateral instability continue to provide a challenge for him. Performed STM on R hip flexor region due to tightness during stretching. Pt was able to tolerate greater ROM after massage with SKTC exercise. Physical Therapy Plan Frequency and Duration Frequency of Treatment 2x/Week Duration of Treatment 2 months Plan of Care Start Date 04/06/19 Plan of Care End Date 06/06/19 Next Visit Focus/Plan Next Note Type Treatment Note Next Visit Plan continue balance training with NBOS and increased unstable surfaces, standing hip strengthening, hip flexor mobility, bosu balance
--- NOTE | 2019-04-28 14:41 | PT.OTN ---
Current Diagnoses Postlaminectomy syndrome, not elsewhere classified (04/28/19) Physical Therapy Treatment Note PT-OP-A Visit Information Start: 04/05/19 18:41 Freq: Status: Active Protocol: Document 04/28/19 08:15 MT (Rec: 04/28/19 10:18 MT [id number]) Out-Patient Physical Therapy Visit Information Visit Information Visit Type Treatment Note Visit Start Time 08:15 Visit Stop Time 09:13 Total Visit Minutes 58 Visit Number 5 Number of ELECTRICAL PROSPECTING ENGINEER Visits 0 PT-OP-B Current Condition Start: 04/05/19 18:41 Freq: Status: Active Protocol: Document 04/06/19 09:52 [facility] (Rec: 04/06/19 11:01 [facility] [id number]) Current Condition History of Current Condition Onset Date chronic years Current Complaints low back History of Current Condition Pt is seeing a new back specialist who is working on adjusting his meds and dec his pain. He recommended PT and gabapentin. He reports not much of a difference with the med change. Pt cont to have difficulty with standing and walking extended. Pt reports he can stand or walk probably about 5-10 min before he has to sits down but it is painful . Prior Treatments and Tests PT Treatment Goals Patient/Caregiver Goals 15 min of standing or walking without UE support PT-OP-C Subjective Start: 04/05/19 18:41 Freq: Status: Active Protocol: Document 04/28/19 08:15 MT (Rec: 04/28/19 10:18 MT [id number]) OP-PT Subjective Patient Comments Patient Comments Pt reported that he has experienced no change with his back. He continues to have pain. PT-OP-E Functional Tests Start: 04/05/19 18:41 Freq: Status: Active Protocol: Document 04/06/19 09:52 [facility] (Rec: 04/06/19 11:01 [facility] [id number]) Functional Tests 6 Minute Walk Test Distance 638 Device Used cane prn Functional Gait Assessment Score 13 Functional Gait Assessment Impairment 40 to <60% Impaired (Score 13- Rating 18) PT-OP-F Manual Assessment Start: 04/05/19 18:41 Freq: Status: Active Protocol: Document 04/06/19 09:52 [facility] (Rec: 04/06/19 11:01 [facility] [id number]) Manual Assessments Soft Tissue Assessment Soft Tissue Mobility Assessment significant scar restriction & soft tissue tightness in QL & ES PT-OP-G Mobility & Gait Start: 04/05/19 18:41 Freq: Status: Active Protocol: Document 04/06/19 09:52 [facility] (Rec: 04/06/19 11:01 [facility] [id number]) OP Gait Assessment Comments Gait Comments Pt amb with significant fwd lean at hips and lat leaning w /inc with inc time walking PT-OP-M Strength Start: 04/05/19 18:41 Freq: Status: Active Protocol: Document 04/06/19 09:52 [facility] (Rec: 04/06/19 11:01 [facility] [id number]) Hip Strength Hip Manual Muscle Testing Right Flexion (L2) 5 Normal Extension (S1) 4 Good Abduction 5 Normal External Rotation 5 Normal Internal Rotation 4+ Good+ Left Flexion (L2) 5 Normal Extension (S1) 4 Good Abduction 5 Normal External Rotation 5 Normal Internal Rotation 4+ Good+ Comments core stability with LE testing dec as pt leans with testing PT-OP-Q Treatments Start: 04/05/19 18:41 Freq: Status: Active Protocol: Document 04/28/19 08:15 MT (Rec: 04/28/19 10:18 MT [id number]) Cardio Equipment Recumbent Stepper (Sci-Fit) Duration (Minutes) 7 Resistance 6 Seat Position 14 Gym Equipment Shuttle Balance red clip Details fwd/bck, side/side, NBOS+WBOS Reps/Duration 10 weight shifts + 1 minute holds Comments pt challenged with NBOS and side/side direction Therapeutic Exercises Supine Exercises SKTC Supine Exercise Name hamstring stretch Side bilateral Equipment Used towel around knee Reps/Minutes 30 second hold/per side Comments hold behind knee while quad setting on other leg Standing Exercises 4 way hip Standing Exercise Name ext Side bilateral Resistance L1 Reps/Minutes 15/side Comments less cueing required to avoid compensations hip flexor Standing Exercise Name hip flexor stretch Side bilateral Reps/Minutes 30 sec/side Comments added to HEP sidestep Standing Exercise Name side steps Side bilateral Resistance L1 Reps/Minutes 10 ea Comments cueing for avoiding ER of leg Manual Therapy Treatment Soft Tissue Mobilization ant Body Location R hip flexor/quad Mobilization Type Myofascial Release, Oscillations,Rolling,Strumming ,Sustained Pressure Intensity/Depth Moderate Body Position Supine Neuro Re-Education Treatment Balance Activities bosu Details balance Surface blue side Reps/Duration 2 min PT-OP-R Modalities Start: 04/05/19 18:41 Freq: Status: Active Protocol: Document 04/28/19 08:15 MT (Rec: 04/28/19 10:21 MT [id number]) Hot Pack/Cold Pack Treatment Hot Pack Location low back Patient Position Sitting Treatment Duration (minutes) 15 Patient Tolerance Good PT-OP-T Assessment and Plan Start: 04/05/19 18:41 Freq: Status: Active Protocol: Document 04/28/19 08:15 MT (Rec: 04/28/19 10:18 MT [id number]) Physical Therapy Assessment Goals standing [facility] Goal (LTG) Pt will be able to stand and/ or amb for 15 min at a time without requiring seated rest break. LTG Duration 06/06/19 balance Short Term Goal (STG) Pt will improve FGA to 17/30 to dec fall risk STG Duration 05/07/19 Physical Therapy Aide Goal (LTG) Pt will improve FGA to 23/30 to be a low fall risk and show improved core stability and standing stability in his ability to balance and stabilize better. LTG Duration 06/06/19 strength Short Term Goal (STG) Pt will be indep with HEP. STG Duration 05/09/19 [facility] Goal (LTG) Pt will improve LE strength to 5/5 B with no trunk leaning and 3/5 LPM in order to show improved core stability. LTG Duration 06/08/19 Assessment Summary Assessment Pt was able to mainatian his balance with more difficult babalcne activities. He continues to be challenged with NBOS and unstable surfaces. His back does have low tolerances and fatigues easily with standing and balance activity. Standing hip flexor stretch was added to pt's HEP as he continues to be very tight in his hip flexors. Pt demonstarted greater range with his stretches after STM of hip flexors and quads. Physical Therapy Plan Frequency and Duration Frequency of Treatment 2x/Week Duration of Treatment 2 months Plan of Care Start Date 04/06/19 Plan of Care End Date 06/06/19 Next Visit Focus/Plan Next Note Type Treatment Note Next Visit Plan continue woring on balance with NBOS and unstable surfaces, standing tolerance, hip flexor stretch, 6 minute walk for warm up
--- NOTE | 2019-05-03 08:15 | PT.OTN ---
Current Diagnoses Postlaminectomy syndrome, not elsewhere classified (05/03/19) Physical Therapy Treatment Note PT-OP-A Visit Information Start: 04/05/19 18:41 Freq: Status: Active Protocol: Document 05/03/19 07:32 SP (Rec: 05/03/19 08:18 SP [id number]) Out-Patient Physical Therapy Visit Information Visit Information Visit Type Treatment Note Visit Start Time 07:32 Visit Stop Time 08:15 Total Visit Minutes 43 Visit Number 6 Number of PROPOSAL ANALYST Visits 1 PT-OP-B Current Condition Start: 04/05/19 18:41 Freq: Status: Active Protocol: Document 04/06/19 09:52 [facility] (Rec: 04/06/19 11:01 [facility] [id number]) Current Condition History of Current Condition Onset Date chronic years Current Complaints low back History of Current Condition Pt is seeing a new back specialist who is working on adjusting his meds and dec his pain. He recommended PT and gabapentin. He reports not much of a difference with the med change. Pt cont to have difficulty with standing and walking extended. Pt reports he can stand or walk probably about 5-10 min before he has to sits down but it is painful . Prior Treatments and Tests PT Treatment Goals Patient/Caregiver Goals 15 min of standing or walking without UE support PT-OP-C Subjective Start: 04/05/19 18:41 Freq: Status: Active Protocol: Document 05/03/19 07:32 SP (Rec: 05/03/19 08:18 SP [id number]) OP-PT Subjective Patient Comments Patient Comments Pt stated always has pain in back mostly central 5/10 and lately achy with occasional calf, knee pain but no significant change. Does h PT-OP-E Functional Tests Start: 04/05/19 18:41 Freq: Status: Active Protocol: Document 04/06/19 09:52 [facility] (Rec: 04/06/19 11:01 [facility] [id number]) Functional Tests 6 Minute Walk Test Distance 638 Device Used cane prn Functional Gait Assessment Score 13 Functional Gait Assessment Impairment 40 to <60% Impaired (Score 13- Rating 18) PT-OP-F Manual Assessment Start: 04/05/19 18:41 Freq: Status: Active Protocol: Document 04/06/19 09:52 [facility] (Rec: 04/06/19 11:01 [facility] [id number]) Manual Assessments Soft Tissue Assessment Soft Tissue Mobility Assessment significant scar restriction & soft tissue tightness in QL & ES PT-OP-G Mobility & Gait Start: 04/05/19 18:41 Freq: Status: Active Protocol: Document 04/06/19 09:52 [facility] (Rec: 04/06/19 11:01 [facility] [id number]) OP Gait Assessment Comments Gait Comments Pt amb with significant fwd lean at hips and lat leaning w /inc with inc time walking PT-OP-M Strength Start: 04/05/19 18:41 Freq: Status: Active Protocol: Document 04/06/19 09:52 [facility] (Rec: 04/06/19 11:01 [facility] [id number]) Hip Strength Hip Manual Muscle Testing Right Flexion (L2) 5 Normal Extension (S1) 4 Good Abduction 5 Normal External Rotation 5 Normal Internal Rotation 4+ Good+ Left Flexion (L2) 5 Normal Extension (S1) 4 Good Abduction 5 Normal External Rotation 5 Normal Internal Rotation 4+ Good+ Comments core stability with LE testing dec as pt leans with testing PT-OP-Q Treatments Start: 04/05/19 18:41 Freq: Status: Active Protocol: Document 05/03/19 07:32 SP (Rec: 05/03/19 08:18 SP [id number]) Cardio Equipment Recumbent Stepper (Sci-Fit) Duration (Minutes) 7 Resistance 6 Seat Position 14 Gym Equipment Shuttle Balance red clip Details fwd/bck, side/side, NBOS+WBOS, split stance Reps/Duration 10 weight shifts + 1 minute holds Comments pt challenged with NBOS and side/side direction. Trialed split stance with increased challenge, increase LBP Min support for recovery/ BUE on rails. Therapeutic Exercises Standing Exercises 4 way hip Standing Exercise Name ext Side bilateral Resistance L1 Reps/Minutes 15/side Comments less cueing required to avoid LS ext compensations hip flexor Standing Exercise Name hip flexor stretch Side bilateral Reps/Minutes 30 sec/side Comments added to HEP lunges Standing Exercise Name minilunges Side bilateral Equipment Used blue oval cushion Reps/Minutes 2x5 each position Comments contact cue for front knee behind toes and glut facilitaion, hip hinge sidestep Standing Exercise Name side steps Side bilateral Resistance L1 Reps/Minutes 10 ea Comments cueing for avoiding ER of leg Neuro Re-Education Treatment Balance Activities uneven cushion Details foward stepping Surface blue oval cushions Reps/Duration 3 foward steps at rail x3 laps Comments cued COG over HALI PT-OP-R Modalities Start: 04/05/19 18:41 Freq: Status: Active Protocol: Document 04/28/19 08:15 MT (Rec: 04/28/19 10:21 MT [id number]) Hot Pack/Cold Pack Treatment Hot Pack Location low back Patient Position Sitting Treatment Duration (minutes) 15 Patient Tolerance Good PT-OP-T Assessment and Plan Start: 04/05/19 18:41 Freq: Status: Active Protocol: Document 05/03/19 07:32 SP (Rec: 05/03/19 08:18 SP [id number]) Physical Therapy Assessment Goals standing Longterm Goal (LTG) Pt will be able to stand and/ or amb for 15 min at a time without requiring seated rest break. LTG Duration 06/06/19 balance Short Term Goal (STG) Pt will improve FGA to 17/30 to dec fall risk STG Duration 05/07/19 Sales Apprentice Goal (LTG) Pt will improve FGA to 23/30 to be a low fall risk and show improved core stability and standing stability in his ability to balance and stabilize better. LTG Duration 06/06/19 strength Short Term Goal (STG) Pt will be indep with HEP. STG Duration 05/09/19 Sales Apprentice Goal (LTG) Pt will improve LE strength to 5/5 B with no trunk leaning and 3/5 LPM in order to show improved core stability. LTG Duration 06/08/19 Assessment Summary Assessment Pt tolerated exercises and balance activities today. Cued for neutral spine proper knee alignment to decrease LB compensations. He is still challenged on NBOS and unevensurfaces. Pt reported no increase in pain, declilned modalities today end of tx to assist pain control. Physical Therapy Plan Frequency and Duration Frequency of Treatment 2x/Week Duration of Treatment 2 months Plan of Care Start Date 04/06/19 Plan of Care End Date 06/06/19 Therapeutic Interventions Therapeutic Interventions Aquatic Therapy,Balance Training,Gait Training,Home Exercise Program,Joint Mobilizations,Manual Therapy, Neuromuscular Re-education, Patient/Caregiver Education, Self-Care/Home Management,Soft Tissue Mobilization,Taping, Therapeutic Activities, Therapeutic Exercises Modalities Cold Pack/Ice Massage,Electric Stimulation,Hot Packs, Ultrasound Next Visit Focus/Plan Next Note Type Treatment Note Next Visit Plan continue woring on balance with NBOS and unstable surfaces, standing tolerance, hip flexor stretch, 6 minute walk for warm up
--- NOTE | 2019-05-05 11:16 | PT.OTN ---
Current Diagnoses Postlaminectomy syndrome, not elsewhere classified (05/05/19) Physical Therapy Treatment Note PT-OP-A Visit Information Start: 04/05/19 18:41 Freq: Status: Active Protocol: Document 05/05/19 08:17 MT (Rec: 05/05/19 09:14 MT [id number]) Out-Patient Physical Therapy Visit Information Visit Information Visit Type Treatment Note Visit Start Time 08:17 Visit Stop Time 08:59 Total Visit Minutes 42 Visit Number 7 Number of APPEALS RN Visits 0 PT-OP-B Current Condition Start: 04/05/19 18:41 Freq: Status: Active Protocol: Document 04/06/19 09:52 [facility] (Rec: 04/06/19 11:01 [facility] [id number]) Current Condition History of Current Condition Onset Date chronic years Current Complaints low back History of Current Condition Pt is seeing a new back specialist who is working on adjusting his meds and dec his pain. He recommended PT and gabapentin. He reports not much of a difference with the med change. Pt cont to have difficulty with standing and walking extended. Pt reports he can stand or walk probably about 5-10 min before he has to sits down but it is painful . Prior Treatments and Tests PT Treatment Goals Patient/Caregiver Goals 15 min of standing or walking without UE support PT-OP-C Subjective Start: 04/05/19 18:41 Freq: Status: Active Protocol: Document 05/05/19 08:17 MT (Rec: 05/05/19 09:14 MT [id number]) OP-PT Subjective Patient Comments Patient Comments Pt remarked that his back has been feeling about the same. He did have one 2 minute window after going to the grocery store and getting out of the car where he did not have any back pain. he has been mostly compliant with his HEP PT-OP-E Functional Tests Start: 04/05/19 18:41 Freq: Status: Active Protocol: Document 04/06/19 09:52 [facility] (Rec: 04/06/19 11:01 [facility] [id number]) Functional Tests 6 Minute Walk Test Distance 638 Device Used cane prn Functional Gait Assessment Score 13 Functional Gait Assessment Impairment 40 to <60% Impaired (Score 13- Rating 18) PT-OP-F Manual Assessment Start: 04/05/19 18:41 Freq: Status: Active Protocol: Document 04/06/19 09:52 [facility] (Rec: 04/06/19 11:01 [facility] [id number]) Manual Assessments Soft Tissue Assessment Soft Tissue Mobility Assessment significant scar restriction & soft tissue tightness in QL & ES PT-OP-G Mobility & Gait Start: 04/05/19 18:41 Freq: Status: Active Protocol: Document 04/06/19 09:52 [facility] (Rec: 04/06/19 11:01 [facility] [id number]) OP Gait Assessment Comments Gait Comments Pt amb with significant fwd lean at hips and lat leaning w /inc with inc time walking PT-OP-M Strength Start: 04/05/19 18:41 Freq: Status: Active Protocol: Document 04/06/19 09:52 [facility] (Rec: 04/06/19 11:01 [facility] [id number]) Hip Strength Hip Manual Muscle Testing Right Flexion (L2) 5 Normal Extension (S1) 4 Good Abduction 5 Normal External Rotation 5 Normal Internal Rotation 4+ Good+ Left Flexion (L2) 5 Normal Extension (S1) 4 Good Abduction 5 Normal External Rotation 5 Normal Internal Rotation 4+ Good+ Comments core stability with LE testing dec as pt leans with testing PT-OP-Q Treatments Start: 04/05/19 18:41 Freq: Status: Active Protocol: Document 05/05/19 08:17 MT (Rec: 05/05/19 09:14 MT [id number]) Cardio Equipment Recumbent Stepper (Sci-Fit) Duration (Minutes) 7 Resistance 6 Seat Position 14 Gym Equipment Shuttle Balance red clip Details fwd/bck, side/side, NBOS+WBOS, split stance Reps/Duration 2 minute holds Comments pt performed semi tandem stance with fwd/back position, and feet together for side/ side position. Therapeutic Exercises Supine Exercises SKTC Supine Exercise Name hamstring stretch Side bilateral Equipment Used towel around knee Reps/Minutes 30 second hold/per side Comments hold behind knee while quad setting on other leg Manual Therapy Treatment Soft Tissue Mobilization ant Body Location R hip flexor/quad Mobilization Type Myofascial Release, Oscillations,Rolling,Strumming ,Sustained Pressure Intensity/Depth Moderate Body Position Supine Neuro Re-Education Treatment Balance Activities semi-tandem Surface 1 blue and 1 black therapad Reps/Duration 1 minute holds per foot position bosu Details balance Surface blue side Reps/Duration 2 min tandem Surface firm Reps/Duration 2 minute per foot position PT-OP-R Modalities Start: 04/05/19 18:41 Freq: Status: Active Protocol: Document 04/28/19 08:15 MT (Rec: 04/28/19 10:21 MT [id number]) Hot Pack/Cold Pack Treatment Hot Pack Location low back Patient Position Sitting Treatment Duration (minutes) 15 Patient Tolerance Good PT-OP-T Assessment and Plan Start: 04/05/19 18:41 Freq: Status: Active Protocol: Document 05/05/19 08:17 MT (Rec: 05/05/19 09:14 MT [id number]) Physical Therapy Assessment Goals standing Manager Product Design Goal (LTG) Pt will be able to stand and/ or amb for 15 min at a time without requiring seated rest break. LTG Duration 06/06/19 balance Short Term Goal (STG) Pt will improve FGA to 17/30 to dec fall risk STG Duration 05/07/19 [facility] Goal (LTG) Pt will improve FGA to 23/30 to be a low fall risk and show improved core stability and standing stability in his ability to balance and stabilize better. LTG Duration 06/06/19 strength Short Term Goal (STG) Pt will be indep with HEP. STG Duration 05/09/19 Manager Product Design Goal (LTG) Pt will improve LE strength to 5/5 B with no trunk leaning and 3/5 LPM in order to show improved core stability. LTG Duration 06/08/19 Assessment Summary Assessment Pt showed improvement with his balance with more difficult balance tasks and less LOB events. He was able to perform tandem stance on firm surface nuch better than before. Pt continued to require rest breaks butopted not to use his cane as frequently between activties. Physical Therapy Plan Frequency and Duration Frequency of Treatment 2x/Week Duration of Treatment 2 months Plan of Care Start Date 04/06/19 Plan of Care End Date 06/06/19 Next Visit Focus/Plan Next Note Type Treatment Note Next Visit Plan continue working with balance on uneven surfaces and with NBOS, tandem stance can progress to uneven surface
--- NOTE | 2019-05-11 08:15 | PT.OTN ---
Current Diagnoses Postlaminectomy syndrome, not elsewhere classified (05/11/19) Physical Therapy Treatment Note PT-OP-A Visit Information Start: 04/05/19 18:41 Freq: Status: Active Protocol: Document 05/11/19 07:32 SP (Rec: 05/11/19 08:07 SP [id number]) Out-Patient Physical Therapy Visit Information Visit Information Visit Type Treatment Note Visit Start Time 07:32 Visit Stop Time 08:15 Total Visit Minutes 43 Visit Number 8 Number of BRIDGE WORKER Visits 1 PT-OP-B Current Condition Start: 04/05/19 18:41 Freq: Status: Active Protocol: Document 04/06/19 09:52 [facility] (Rec: 04/06/19 11:01 [facility] [id number]) Current Condition History of Current Condition Onset Date chronic years Current Complaints low back History of Current Condition Pt is seeing a new back specialist who is working on adjusting his meds and dec his pain. He recommended PT and gabapentin. He reports not much of a difference with the med change. Pt cont to have difficulty with standing and walking extended. Pt reports he can stand or walk probably about 5-10 min before he has to sits down but it is painful . Prior Treatments and Tests PT Treatment Goals Patient/Caregiver Goals 15 min of standing or walking without UE support PT-OP-C Subjective Start: 04/05/19 18:41 Freq: Status: Active Protocol: Document 05/11/19 07:32 SP (Rec: 05/11/19 08:07 SP [id number]) OP-PT Subjective Patient Comments Patient Comments Pt report overall feels PT helps but short lasting decreased pain post tx. Pt reports compliant with standing HEP:back and side kicks at home. Central LBP 3/10 pre PT with noted trunk flexion with SPC support antalgic gait. PT-OP-E Functional Tests Start: 04/05/19 18:41 Freq: Status: Active Protocol: Document 04/06/19 09:52 [facility] (Rec: 04/06/19 11:01 [facility] [id number]) Functional Tests 6 Minute Walk Test Distance 638 Device Used cane prn Functional Gait Assessment Score 13 Functional Gait Assessment Impairment 40 to <60% Impaired (Score 13- Rating 18) PT-OP-F Manual Assessment Start: 04/05/19 18:41 Freq: Status: Active Protocol: Document 04/06/19 09:52 [facility] (Rec: 04/06/19 11:01 [facility] [id number]) Manual Assessments Soft Tissue Assessment Soft Tissue Mobility Assessment significant scar restriction & soft tissue tightness in QL & ES PT-OP-G Mobility & Gait Start: 04/05/19 18:41 Freq: Status: Active Protocol: Document 04/06/19 09:52 [facility] (Rec: 04/06/19 11:01 [facility] [id number]) OP Gait Assessment Comments Gait Comments Pt amb with significant fwd lean at hips and lat leaning w /inc with inc time walking PT-OP-M Strength Start: 04/05/19 18:41 Freq: Status: Active Protocol: Document 04/06/19 09:52 [facility] (Rec: 04/06/19 11:01 [facility] [id number]) Hip Strength Hip Manual Muscle Testing Right Flexion (L2) 5 Normal Extension (S1) 4 Good Abduction 5 Normal External Rotation 5 Normal Internal Rotation 4+ Good+ Left Flexion (L2) 5 Normal Extension (S1) 4 Good Abduction 5 Normal External Rotation 5 Normal Internal Rotation 4+ Good+ Comments core stability with LE testing dec as pt leans with testing PT-OP-Q Treatments Start: 04/05/19 18:41 Freq: Status: Active Protocol: Document 05/11/19 07:32 SP (Rec: 05/11/19 08:21 SP [id number]) Cardio Equipment Recumbent Stepper (Sci-Fit) Duration (Minutes) 8 Resistance 6 Seat Position 14 Gym Equipment Shuttle Balance red clip Details fwd/bck, side/side, NBOS+WBOS, split stance Reps/Duration 2 minute holds Comments pt performed semi tandem stance with fwd/back position, and feet together for side/ side position. Therapeutic Exercises Supine Exercises Jey stretch Side bilateral Equipment Used off ta ble Reps/Minutes 30 x3 Comments cued opposite LE bent 90* with PPT spinal alignment Standing Exercises hip flexor Standing Exercise Name hip flexor stretch Side bilateral Equipment Used counter support Reps/Minutes 30 sec/side x2 Comments Reviewed HEP Other Exercises quadruped cat camel Reps/Minutes 10 sec hold x10 Manual Therapy Treatment Soft Tissue Mobilization ant Body Location R hip flexor/quad Mobilization Type Myofascial Release, Oscillations,Rolling,Strumming ,Sustained Pressure Intensity/Depth Moderate Body Position Supine Comments Bilateral Neuro Re-Education Treatment Balance Activities semi-tandem Surface 1 blue and 1 black therapad Reps/Duration 1 minute holds per foot position Comments waving arms at side near rail bosu Details balance Surface blue side Reps/Duration 2 min PT-OP-R Modalities Start: 04/05/19 18:41 Freq: Status: Active Protocol: Document 04/28/19 08:15 MT (Rec: 04/28/19 10:21 MT [id number]) Hot Pack/Cold Pack Treatment Hot Pack Location low back Patient Position Sitting Treatment Duration (minutes) 15 Patient Tolerance Good PT-OP-T Assessment and Plan Start: 04/05/19 18:41 Freq: Status: Active Protocol: Document 05/11/19 07:32 SP (Rec: 05/11/19 08:07 SP [id number]) Physical Therapy Assessment Goals standing Penitentiary Goal (LTG) Pt will be able to stand and/ or amb for 15 min at a time without requiring seated rest break. LTG Duration 06/06/19 balance Short Term Goal (STG) Pt will improve FGA to 17/30 to dec fall risk STG Duration 05/07/19 Asset Administrator Goal (LTG) Pt will improve FGA to 23/30 to be a low fall risk and show improved core stability and standing stability in his ability to balance and stabilize better. LTG Duration 06/06/19 strength Short Term Goal (STG) Pt will be indep with HEP. STG Duration 05/09/19 Penitentiary Goal (LTG) Pt will improve LE strength to 5/5 B with no trunk leaning and 3/5 LPM in order to show improved core stability. LTG Duration 06/08/19 Assessment Summary Assessment Tx reviewed NBOS including semi tandem and feet together with noted increased time stance with occasional cuing for PPT and glut activation to support core facilitation with decreased LB discomfort recruitment. Noted improved upright posture during gait end of tx but central pain increased 5/10 but states ususally goes down little while after PT visit. Physical Therapy Plan Frequency and Duration Frequency of Treatment 2x/Week Duration of Treatment 2 months Plan of Care Start Date 04/06/19 Plan of Care End Date 06/06/19 Therapeutic Interventions Therapeutic Interventions Aquatic Therapy,Balance Training,Gait Training,Home Exercise Program,Joint Mobilizations,Manual Therapy, Neuromuscular Re-education, Patient/Caregiver Education, Self-Care/Home Management,Soft Tissue Mobilization,Taping, Therapeutic Activities, Therapeutic Exercises Modalities Cold Pack/Ice Massage,Electric Stimulation,Hot Packs, Ultrasound Next Visit Focus/Plan Next Note Type Treatment Note Next Visit Plan continue working with balance on uneven surfaces and with NBOS, tandem stance can progress to uneven surface
--- NOTE | 2019-05-13 08:16 | PT.OTN ---
Current Diagnoses Postlaminectomy syndrome, not elsewhere classified (05/13/19) Physical Therapy Treatment Note PT-OP-A Visit Information Start: 04/05/19 18:41 Freq: Status: Active Protocol: Document 05/13/19 07:34 [facility] (Rec: 05/13/19 08:16 [facility] [id number]) Out-Patient Physical Therapy Visit Information Visit Information Visit Type Treatment Note Visit Start Time 07:30 Visit Stop Time 08:12 Total Visit Minutes 42 Visit Number 9 Number of EXCEPTIONAL STUDENT EDUCATION TEACHER Visits 0 PT-OP-B Current Condition Start: 04/05/19 18:41 Freq: Status: Active Protocol: Document 04/06/19 09:52 [facility] (Rec: 04/06/19 11:01 [facility] [id number]) Current Condition History of Current Condition Onset Date chronic years Current Complaints low back History of Current Condition Pt is seeing a new back specialist who is working on adjusting his meds and dec his pain. He recommended PT and gabapentin. He reports not much of a difference with the med change. Pt cont to have difficulty with standing and walking extended. Pt reports he can stand or walk probably about 5-10 min before he has to sits down but it is painful . Prior Treatments and Tests PT Treatment Goals Patient/Caregiver Goals 15 min of standing or walking without UE support PT-OP-C Subjective Start: 04/05/19 18:41 Freq: Status: Active Protocol: Document 05/13/19 07:34 [facility] (Rec: 05/13/19 08:16 [facility] [id number]) OP-PT Subjective Patient Comments Patient Comments Pt reports being sore in legs after last treatment but back was really sore all day yesterday. He did go shopping, clean the kitchen and cook that day though too which is always hard on him. PT-OP-E Functional Tests Start: 04/05/19 18:41 Freq: Status: Active Protocol: Document 04/06/19 09:52 [facility] (Rec: 04/06/19 11:01 [facility] [id number]) Functional Tests 6 Minute Walk Test Distance 638 Device Used cane prn Functional Gait Assessment Score 13 Functional Gait Assessment Impairment 40 to <60% Impaired (Score 13- Rating 18) PT-OP-F Manual Assessment Start: 04/05/19 18:41 Freq: Status: Active Protocol: Document 04/06/19 09:52 [facility] (Rec: 04/06/19 11:01 [facility] [id number]) Manual Assessments Soft Tissue Assessment Soft Tissue Mobility Assessment significant scar restriction & soft tissue tightness in QL & ES PT-OP-G Mobility & Gait Start: 04/05/19 18:41 Freq: Status: Active Protocol: Document 04/06/19 09:52 [facility] (Rec: 04/06/19 11:01 [facility] [id number]) OP Gait Assessment Comments Gait Comments Pt amb with significant fwd lean at hips and lat leaning w /inc with inc time walking PT-OP-M Strength Start: 04/05/19 18:41 Freq: Status: Active Protocol: Document 04/06/19 09:52 [facility] (Rec: 04/06/19 11:01 [facility] [id number]) Hip Strength Hip Manual Muscle Testing Right Flexion (L2) 5 Normal Extension (S1) 4 Good Abduction 5 Normal External Rotation 5 Normal Internal Rotation 4+ Good+ Left Flexion (L2) 5 Normal Extension (S1) 4 Good Abduction 5 Normal External Rotation 5 Normal Internal Rotation 4+ Good+ Comments core stability with LE testing dec as pt leans with testing PT-OP-Q Treatments Start: 04/05/19 18:41 Freq: Status: Active Protocol: Document 05/13/19 07:34 [facility] (Rec: 05/13/19 08:16 [facility] [id number]) Cardio Equipment Recumbent Stepper (Sci-Fit) Duration (Minutes) 7 Resistance 6 Seat Position 14 Gym Equipment Shuttle Balance red clip Details fwd/bck, side/side, NBOS+WBOS, split stance Therapeutic Exercises Supine Exercises Jey stretch Supine Exercise Name modified on table Side bilateral Comments w/quad set into mat and opp knee to chest Manual Therapy Treatment Soft Tissue Mobilization scar Body Location post spine Mobilization Type Myofascial Release Intensity/Depth Superficial iliacus Body Location In modified jey test position Mobilization Type Sustained Pressure Comments w/c/r into ext Neuro Re-Education Treatment Balance Activities EC Details fwd/back walk Reps/Duration 3x20ft ea semi-tandem Comments 1. black tpad in back and blue under front foot head turns 2. blue tpads w/EC PT-OP-R Modalities Start: 04/05/19 18:41 Freq: Status: Active Protocol: Document 04/28/19 08:15 MT (Rec: 04/28/19 10:21 MT [id number]) Hot Pack/Cold Pack Treatment Hot Pack Location low back Patient Position Sitting Treatment Duration (minutes) 15 Patient Tolerance Good PT-OP-T Assessment and Plan Start: 04/05/19 18:41 Freq: Status: Active Protocol: Document 05/13/19 07:34 LR (Rec: 05/13/19 08:16 [facility] [id number]) Physical Therapy Assessment Goals standing Group Home Goal (LTG) Pt will be able to stand and/ or amb for 15 min at a time without requiring seated rest break. LTG Duration 06/06/19 balance Short Term Goal (STG) Pt will improve FGA to 17/30 to dec fall risk STG Duration 05/07/19 Group Home Goal (LTG) Pt will improve FGA to 23/30 to be a low fall risk and show improved core stability and standing stability in his ability to balance and stabilize better. LTG Duration 06/06/19 strength Short Term Goal (STG) Pt will be indep with HEP. STG Duration 05/09/19 Group Home Goal (LTG) Pt will improve LE strength to 5/5 B with no trunk leaning and 3/5 LPM in order to show improved core stability. LTG Duration 06/08/19 Assessment Summary Assessment Pt is improving with balanc exercises and did well with addition of EC & horizontal head turns. He was challenged more by these activties but still able to maintain balance . Improved hip ext after manual hip flexor release. Physical Therapy Plan Frequency and Duration Frequency of Treatment 2x/Week Duration of Treatment 2 months Plan of Care Start Date 04/06/19 Plan of Care End Date 06/06/19 Next Visit Focus/Plan Next Note Type Treatment Note Next Visit Plan Cont to work on standing balance activities to work on core stability
--- NOTE | 2019-05-17 08:15 | PT.OTN ---
Current Diagnoses Postlaminectomy syndrome, not elsewhere classified (05/17/19) Physical Therapy Treatment Note PT-OP-A Visit Information Start: 04/05/19 18:41 Freq: Status: Active Protocol: Document 05/17/19 07:30 SP (Rec: 05/17/19 08:21 SP [id number]) Out-Patient Physical Therapy Visit Information Visit Information Visit Type Treatment Note Visit Start Time 07:30 Visit Stop Time 08:15 Total Visit Minutes 45 Visit Number 10 Number of TRACTOR TRAILER DRIVER Visits 1 PT-OP-B Current Condition Start: 04/05/19 18:41 Freq: Status: Active Protocol: Document 04/06/19 09:52 [facility] (Rec: 04/06/19 11:01 [facility] [id number]) Current Condition History of Current Condition Onset Date chronic years Current Complaints low back History of Current Condition Pt is seeing a new back specialist who is working on adjusting his meds and dec his pain. He recommended PT and gabapentin. He reports not much of a difference with the med change. Pt cont to have difficulty with standing and walking extended. Pt reports he can stand or walk probably about 5-10 min before he has to sits down but it is painful . Prior Treatments and Tests PT Treatment Goals Patient/Caregiver Goals 15 min of standing or walking without UE support PT-OP-C Subjective Start: 04/05/19 18:41 Freq: Status: Active Protocol: Document 05/17/19 07:30 SP (Rec: 05/17/19 08:21 SP [id number]) OP-PT Subjective Patient Comments Patient Comments Pt stated felt had a good work out after last tx. LBP is is the same today 10/30 central . Pt stated is seeing a surgeon/pain management phycian Dec 3 for his LBP. PT-OP-E Functional Tests Start: 04/05/19 18:41 Freq: Status: Active Protocol: Document 04/06/19 09:52 [facility] (Rec: 04/06/19 11:01 [facility] [id number]) Functional Tests 6 Minute Walk Test Distance 638 Device Used cane prn Functional Gait Assessment Score 13 Functional Gait Assessment Impairment 40 to <60% Impaired (Score 13- Rating 18) PT-OP-F Manual Assessment Start: 04/05/19 18:41 Freq: Status: Active Protocol: Document 04/06/19 09:52 [facility] (Rec: 04/06/19 11:01 [facility] [id number]) Manual Assessments Soft Tissue Assessment Soft Tissue Mobility Assessment significant scar restriction & soft tissue tightness in QL & ES PT-OP-G Mobility & Gait Start: 04/05/19 18:41 Freq: Status: Active Protocol: Document 04/06/19 09:52 [facility] (Rec: 04/06/19 11:01 [facility] [id number]) OP Gait Assessment Comments Gait Comments Pt amb with significant fwd lean at hips and lat leaning w /inc with inc time walking PT-OP-M Strength Start: 04/05/19 18:41 Freq: Status: Active Protocol: Document 04/06/19 09:52 [facility] (Rec: 04/06/19 11:01 [facility] [id number]) Hip Strength Hip Manual Muscle Testing Right Flexion (L2) 5 Normal Extension (S1) 4 Good Abduction 5 Normal External Rotation 5 Normal Internal Rotation 4+ Good+ Left Flexion (L2) 5 Normal Extension (S1) 4 Good Abduction 5 Normal External Rotation 5 Normal Internal Rotation 4+ Good+ Comments core stability with LE testing dec as pt leans with testing PT-OP-Q Treatments Start: 04/05/19 18:41 Freq: Status: Active Protocol: Document 05/17/19 07:30 SP (Rec: 05/17/19 08:21 SP [id number]) Cardio Equipment Recumbent Stepper (Sci-Fit) Duration (Minutes) 8 Resistance 6 Seat Position 14 Gym Equipment Shuttle Balance red clip Details fwd/bck, side/side, NBOS+WBOS, split stance Reps/Duration 2 min each stance Therapeutic Exercises Supine Exercises Jey stretch Supine Exercise Name modified on table Side bilateral Comments w/quad set into mat and opp knee to chest bridge Supine Exercise Name focus on core Reps/Minutes 10 Comments cued PPT and posterior chain activation marching Supine Exercise Name alt marching progressed to scissor Side bilateral Reps/Minutes 12 Comments focus on core, cued PPT/ neutral spine SKTC Supine Exercise Name LS Side bilateral Reps/Minutes 30 second hold/per side Comments hold behind knee Manual Therapy Treatment Soft Tissue Mobilization scar Body Location post spine Mobilization Type Myofascial Release Intensity/Depth Superficial iliacus Body Location In modified jey test position Mobilization Type Sustained Pressure Comments w/c/r into ext Neuro Re-Education Treatment Balance Activities EC Details fwd/back walk Reps/Duration 3x20ft ea semi-tandem Comments 1. black tpad in back and blue under front foot head turns 2. blue tpads w/EC PT-OP-R Modalities Start: 04/05/19 18:41 Freq: Status: Active Protocol: Document 04/28/19 08:15 MT (Rec: 04/28/19 10:21 MT [id number]) Hot Pack/Cold Pack Treatment Hot Pack Location low back Patient Position Sitting Treatment Duration (minutes) 15 Patient Tolerance Good PT-OP-T Assessment and Plan Start: 04/05/19 18:41 Freq: Status: Active Protocol: Document 05/17/19 07:30 SP (Rec: 05/17/19 08:21 SP [id number]) Physical Therapy Assessment Goals standing Bias Cutting Machine Operator Goal (LTG) Pt will be able to stand and/ or amb for 15 min at a time without requiring seated rest break. LTG Duration 06/06/19 balance Short Term Goal (STG) Pt will improve FGA to 17/30 to dec fall risk STG Duration 05/07/19 Mcfp Goal (LTG) Pt will improve FGA to 23/30 to be a low fall risk and show improved core stability and standing stability in his ability to balance and stabilize better. LTG Duration 06/06/19 strength Short Term Goal (STG) Pt will be indep with HEP. STG Duration 05/09/19 Bias Cutting Machine Operator Goal (LTG) Pt will improve LE strength to 5/5 B with no trunk leaning and 3/5 LPM in order to show improved core stability. LTG Duration 06/08/19 Assessment Summary Assessment Pt tolerated balance exercies today, was able to maintain up to 2 min each stance on shuttle bal, and horizontal head turns but challenged 2 sec Ec at stairs with min A for recovery but note more upright spinal alignment post manual. Physical Therapy Plan Frequency and Duration Frequency of Treatment 2x/Week Duration of Treatment 2 months Plan of Care Start Date 04/06/19 Plan of Care End Date 06/06/19 Therapeutic Interventions Therapeutic Interventions Aquatic Therapy,Balance Training,Gait Training,Home Exercise Program,Joint Mobilizations,Manual Therapy, Neuromuscular Re-education, Patient/Caregiver Education, Self-Care/Home Management,Soft Tissue Mobilization,Taping, Therapeutic Activities, Therapeutic Exercises Modalities Cold Pack/Ice Massage,Electric Stimulation,Hot Packs, Ultrasound Discharge Physical Therapy Discharge Reasons Plateau in Progress Next Visit Focus/Plan Next Note Type Treatment Note Next Visit Plan Cont to work on standing balance activities to work on core stability
--- NOTE | 2019-05-19 09:03 | PT.OTN ---
Current Diagnoses Postlaminectomy syndrome, not elsewhere classified (05/19/19) Physical Therapy Treatment Note PT-OP-A Visit Information Start: 04/05/19 18:41 Freq: Status: Active Protocol: Document 05/19/19 08:18 [facility] (Rec: 05/19/19 09:03 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 (Rec: 04/06/19 11:01 [facility] [id number]) Current Condition History of Current Condition Onset Date chronic years Current Complaints low back History of Current Condition Pt is seeing a new back specialist who is working on adjusting his meds and dec his pain. He recommended PT and gabapentin. He reports not much of a difference with the med change. Pt cont to have difficulty with standing and walking extended. Pt reports he can stand or walk probably about 5-10 min before he has to sits down but it is painful . Prior Treatments and Tests PT Treatment Goals Patient/Caregiver Goals 15 min of standing or walking without UE support PT-OP-C Subjective Start: 04/05/19 18:41 Freq: Status: Active Protocol: Document 05/19/19 08:18 [facility] (Rec: 05/19/19 09:03 [facility] [id number]) OP-PT Subjective Patient Comments Patient Comments Pt reports he can stand 5-10 min at a time. PT-OP-E Functional Tests Start: 04/05/19 18:41 Freq: Status: Active Protocol: Document 04/06/19 09:52 [facility] (Rec: 04/06/19 11:01 [facility] [id number]) Functional Tests 6 Minute Walk Test Distance 638 Device Used cane prn Functional Gait Assessment Score 13 Functional Gait Assessment Impairment 40 to <60% Impaired (Score 13- Rating 18) PT-OP-F Manual Assessment Start: 04/05/19 18:41 Freq: Status: Active Protocol: Document 04/06/19 09:52 [facility] (Rec: 04/06/19 11:01 [facility] [id number]) Manual Assessments Soft Tissue Assessment Soft Tissue Mobility Assessment significant scar restriction & soft tissue tightness in QL & ES PT-OP-G Mobility & Gait Start: 04/05/19 18:41 Freq: Status: Active Protocol: Document 04/06/19 09:52 [facility] (Rec: 04/06/19 11:01 [facility] [id number]) OP Gait Assessment Comments Gait Comments Pt amb with significant fwd lean at hips and lat leaning w /inc with inc time walking PT-OP-J Posture/Palpation/Skin Start: 04/05/19 18:41 Freq: Status: Active Protocol: Document 05/19/19 08:18 [facility] (Rec: 05/19/19 09:03 [facility] [id number]) Posture Evaluation Kamla Postural Classification System Lumbar Protective Mechanism Left AP 2 Lumbar Protective Mechanism Right AP 0 Lumbar Protective Mechanism Left PA 0 Lumbar Protective Mechanism Right PA 2 PT-OP-M Strength Start: 04/05/19 18:41 Freq: Status: Active Protocol: Document 05/19/19 08:18 [facility] (Rec: 05/19/19 09:03 [facility] [id number]) Hip Strength Hip Manual Muscle Testing Right Flexion (L2) 5 Normal Extension (S1) 4+ Good+ Abduction 5 Normal External Rotation 5 Normal Internal Rotation 5 Normal Left Flexion (L2) 5 Normal Extension (S1) 4+ Good+ Abduction 5 Normal External Rotation 5 Normal Internal Rotation 5 Normal PT-OP-Q Treatments Start: 04/05/19 18:41 Freq: Status: Active Protocol: Document 05/19/19 08:18 [facility] (Rec: 05/19/19 09:03 [facility] [id number]) Cardio Equipment Recumbent Elliptical (KitCheck) Duration (Minutes) 6 Resistance 9 Therapeutic Exercises Supine Exercises LTR Supine Exercise Name focus on core stability Side bilateral Reps/Minutes 8 piriformis stretch Side bilateral Reps/Minutes 30 sec hold Comments w/towel bridge Supine Exercise Name w/arms in air Reps/Minutes 10 Comments cued PPT and posterior chain activation marching Side bilateral Reps/Minutes 10 Comments focus on core, cued PPT/ neutral spine SKTC Supine Exercise Name w/opposite knee bent Side bilateral Reps/Minutes 30 second hold/per side Standing Exercises hip flexor Standing Exercise Name hip flexor stretch Side bilateral Equipment Used counter support Reps/Minutes 30 sec/side Comments Reviewed HEP lunges Standing Exercise Name minilunges Side bilateral Reps/Minutes 5 ea minisquat Standing Exercise Name at counter with chair behind Side bilateral Reps/Minutes 10 3 Standing Exercise Name hip ext & abd Side bilateral Reps/Minutes 15 each B Neuro Re-Education Treatment Balance Activities FGA Details PT-OP-R Modalities Start: 04/05/19 18:41 Freq: Status: Active Protocol: Document 04/28/19 08:15 [facility] (Rec: 04/28/19 10:21 [facility] [id number]) Hot Pack/Cold Pack Treatment Hot Pack Location low back Patient Position Sitting Treatment Duration (minutes) 15 Patient Tolerance Good PT-OP-T Assessment and Plan Start: 04/05/19 18:41 Freq: Status: Active Protocol: Document 05/19/19 08:18 [facility] (Rec: 05/19/19 09:03 [facility] [id number]) Physical Therapy Assessment Goals standing Skilled Nursing Goal (LTG) Pt will be able to stand and/ or amb for 15 min at a time without requiring seated rest break. 05/19-5-10 min LTG Duration 06/06/19 balance Short Term Goal (STG) Pt will improve FGA to 17 to dec fall risk STG Duration achieved Skilled Nursing Goal (LTG) Pt will improve FGA to 30 to be a low fall risk and show improved core stability and standing stability in his ability to balance and stabilize better. LTG Duration achieved strength Short Term Goal (STG) Pt will be indep with HEP. STG Duration achieved Battery Parts Assembler Goal (LTG) Pt will improve LE strength to 5/5 B with no trunk leaning and 3/5 LPM in order to show improved core stability. LTG Duration improved Assessment Summary Assessment Pt required min cueing throughout exercises. He has done well with progression of core stability with balance tasks and is at less risk for falls. Improving overall strength, but back pain cont to persist. At this time pt is dc d/t plateau with progression of decreasing back pain and is to cont HEP. Physical Therapy Plan Discharge Physical Therapy Discharge Reasons Plateau in Progress
--- NOTE | 2019-05-19 09:04 | PT.OPDS ---
Current Diagnoses Postlaminectomy syndrome, not elsewhere classified (05/19/19) Visit Care Team Role Provider Type Miguel Angel Prak MD Primary Care Provider Physician Specialty: Internal Medicine Address: [address] [place] [address], [facility] [address], [place], [address] Email: [email or web address] Hasmukh Cordon DO Attending Provider Non-Staff Specialty: Medical Address: [address] [place] [address], [id number] Email: Visit Number Visit Number 11 Discharge Summary PT-OP-B Current Condition Start: 04/05/19 18:41 Freq: Status: Active Protocol: Document 04/06/19 09:52 [facility] (Rec: 04/06/19 11:01 [facility] [id number]) Current Condition History of Current Condition Onset Date chronic years Current Complaints low back History of Current Condition Pt is seeing a new back specialist who is working on adjusting his meds and dec his pain. He recommended PT and gabapentin. He reports not much of a difference with the med change. Pt cont to have difficulty with standing and walking extended. Pt reports he can stand or walk probably about 5-10 min before he has to sits down but it is painful . Prior Treatments and Tests PT Treatment Goals Patient/Caregiver Goals 15 min of standing or walking without UE support PT-OP-C Subjective Start: 04/05/19 18:41 Freq: Status: Active Protocol: Document 05/19/19 08:18 [facility] (Rec: 05/19/19 09:03 [facility] [id number]) OP-PT Subjective Patient Comments Patient Comments Pt reports he can stand 5-10 min at a time. PT-OP-E Functional Tests Start: 04/05/19 18:41 Freq: Status: Active Protocol: Document 04/06/19 09:52 [facility] (Rec: 04/06/19 11:01 [facility] [id number]) Functional Tests 6 Minute Walk Test Distance 638 Device Used cane prn Functional Gait Assessment Score 13 Functional Gait Assessment Impairment 40 to <60% Impaired (Score 13- Rating 18) PT-OP-F Manual Assessment Start: 04/05/19 18:41 Freq: Status: Active Protocol: Document 04/06/19 09:52 [facility] (Rec: 04/06/19 11:01 [facility] [id number]) Manual Assessments Soft Tissue Assessment Soft Tissue Mobility Assessment significant scar restriction & soft tissue tightness in QL & ES PT-OP-G Mobility & Gait Start: 04/05/19 18:41 Freq: Status: Active Protocol: Document 04/06/19 09:52 [facility] (Rec: 04/06/19 11:01 [facility] [id number]) OP Gait Assessment Comments Gait Comments Pt amb with significant fwd lean at hips and lat leaning w /inc with inc time walking PT-OP-J Posture/Palpation/Skin Start: 04/05/19 18:41 Freq: Status: Active Protocol: Document 05/19/19 08:18 [facility] (Rec: 05/19/19 09:03 [facility] [id number]) Posture Evaluation Kamla Postural Classification System Lumbar Protective Mechanism Left AP 2 Lumbar Protective Mechanism Right AP 0 Lumbar Protective Mechanism Left PA 0 Lumbar Protective Mechanism Right PA 2 PT-OP-M Strength Start: 04/05/19 18:41 Freq: Status: Active Protocol: Document 05/19/19 08:18 [facility] (Rec: 05/19/19 09:03 [facility] [id number]) Hip Strength Hip Manual Muscle Testing Right Flexion (L2) 5 Normal Extension (S1) 4+ Good+ Abduction 5 Normal External Rotation 5 Normal Internal Rotation 5 Normal Left Flexion (L2) 5 Normal Extension (S1) 4+ Good+ Abduction 5 Normal External Rotation 5 Normal Internal Rotation 5 Normal PT-OP-T Assessment and Plan Start: 04/05/19 18:41 Freq: Status: Active Protocol: Document 05/19/19 08:18 [facility] (Rec: 05/19/19 09:03 [facility] [id number]) Physical Therapy Assessment Goals standing Operator Cavity Pump Goal (LTG) Pt will be able to stand and/ or amb for 15 min at a time without requiring seated rest break. 05/19-5-10 min LTG Duration 06/06/19 balance Short Term Goal (STG) Pt will improve FGA to 17/30 to dec fall risk STG Duration achieved Group Home Goal (LTG) Pt will improve FGA to 23/30 to be a low fall risk and show improved core stability and standing stability in his ability to balance and stabilize better. LTG Duration achieved strength Short Term Goal (STG) Pt will be indep with HEP. STG Duration achieved Operator Cavity Pump Goal (LTG) Pt will improve LE strength to 5/5 B with no trunk leaning and 3/5 LPM in order to show improved core stability. LTG Duration improved Assessment Summary Assessment Pt required min cueing throughout exercises. He has done well with progression of core stability with balance tasks and is at less risk for falls. Improving overall strength, but back pain cont to persist. At this time pt is dc d/t plateau with progression of decreasing back pain and is to cont HEP. Physical Therapy Plan Discharge Physical Therapy Discharge Reasons Plateau in Progress
== END 2019-06-18 09:53 ==
LOC: PHYS 08:15
PROVIDERS: PCP Student in an Organized Health Care Education/Training Program; Visit Provider Anesthesiology
DX: M96.1 Postlaminectomy syndrome, not elsewhere classified (principal)
CPT/HCPCS: 97010; 97110; 97112; 97140; 97161

== ENCOUNTER 2019-08-03 10:32 | Observation (INO) | payer MEDICARE, SELFPAY ==
[2018-11-18 14:26] VITALS: BMI 30.6
[2019-08-03] VITALS (16 sets, daily range): BP systolic 121–167; BP diastolic 70–97; PULSE 95–115; RESP 14–30; TEMP 36.1–36.8; O2SAT 26–93; BMI 31.8
--- NOTE | 2019-08-03 10:49 | DI.RAD.S_ITS ---
PROCEDURE: XR CHEST 2V INDICATIONS: shortness of breath TECHNIQUE: 2 views of the chest were acquired. COMPARISON: [facility], CR, XR CHEST 2V, 11/18/2018, 8:19. FINDINGS: Surgical changes and devices: None. Lungs and pleura: Lungs are clear. No pleural effusions or pneumothorax. Mediastinum: Mediastinal contours are normal. Heart size is normal. Bones and chest wall: No suspicious bony abnormalities. Soft tissues appear unremarkable. IMPRESSION: No acute process. Dictated by: Kaylee العلي M.D. on 08/03/2019 at 11:08 Approved by: Kaylee العلي M.D. on 08/03/2019 at 11:09
[2019-08-03] MEDS: ALBUTEROL 2.5 MG/3 ML NEB (ADULT) INH (10:59)
[2019-08-03 11:09] LABS: Add Manual Diff / Slide Review NO; Basophils Absolute Auto 100 /uL (0-100); Eosinophils Absolute Auto 200 /uL (0-450); Eosinophils Percent Auto 2.9 % (2-4); Hematocrit 43.1 % (41-53); Hemoglobin 14.5 g/dL (13.5-17.5); Lymphocytes Absolute Auto 1200 /uL (1100-4500); Lymphocytes Percent Auto 15.7 % (25-40); Mean Corpuscular HGB Conc 33.8 % (30-36); Mean Corpuscular Hemoglobin 30.1 PG (26-34); Mean Corpuscular Volume 89.1 fL (80-100); Monocytes Absolute Auto 800 /uL (0-900); Neutrophils Absolute Auto 5500 /uL (1500-7000); Neutrophils Percent Auto 70.4 % (50-75); Platelet Count 161 X10^3/uL (150-400); Red Blood Cell Count 4.83 X10^6/uL (4.5-5.9); Red Cell Distribution Width 14.5 % (11.6-14.8); White Blood Cell Count 7.9 X10^3/uL (4.5-11.0)
[2019-08-03 11:19] LABS: Alanine Aminotransferase 20 IU/L (<50); Albumin 4.6 g/dL (3.5-5.0); Albumin Globulin Ratio 1.4 (1.0-2.8); Alkaline Phosphatase 122 U/L (38-126); Aspartate Aminotransferase 36 IU/L (17-59); BUN Creatinine Ratio 31.4 (6-22); Bilirubin Total 0.4 mg/dL (0.2-1.3); Blood Urea Nitrogen 22 mg/dL (9-20); Calcium 10.1 mg/dL (8.4-10.2); Carbon Dioxide 32 mmol/L (22-32); Chloride 100 mmol/L (98-107); Estimated Glomerular Filt Rate > 60.0 mL/min (>60); Globulin 3.3 g/dL (1.7-4.1); Glucose 107 mg/dL (80-110); HEMOLYSIS < 15 (0-50); Potassium 4.3 mmol/L (3.4-5.1); Sodium 142 mmol/L (137-145); Total Protein 7.9 g/dL (6.3-8.2)
[2019-08-03 11:30] LABS: Troponin I 0.012 ng/mL (0.01-0.034)
[2019-08-03 11:43] LABS: Lactate (Lactic Acid) 0.9 mmol/L (0.7-2.1)
--- NOTE | 2019-08-03 12:17 | PC.NURSE ---
Patient's voice is hoarse and he reports his throat is sore. History of trachea infection with hospital stay and states this feels similar.
--- NOTE | 2019-08-03 12:23 | ED_ITS ---
HPI - SOB/Dyspnea <Wero EMY Montero - Last Filed: 08/03/19 16:14> General Chief Complaint: Shortness of Breath/Dyspnea Stated Complaint: TROUBLE BREATHING Time Seen by Provider: 08/03/19 10:55 Source: patient Mode of arrival: Ambulatory Limitations: no limitations History of Present Illness HPI Narrative: This is a 64-year-old male, recently quit smoking a week ago, non oxygen dependent COPD presents to ED with troubled breathing for 4-5 days. Patient reports increasing productive cough with green and castano color and hoarse voice. He denies fever, chills, nausea or vomiting. Patient denies history of intubation but was hospitalized for 3 days with infection in trachea. About a week ago he had pleuritic chest pain with cough this has resolved. Patient had received flu immunization for this season. Patient denies ill contacts or recent foreign travel. Patient uses several inhalers including albuterol, budesonide, Atrovent and nebulizer treatments. Reports his usual O2 sat is around 95% in room air. Related Data Home Medications Medication Instructions Recorded Confirmed bupropion HCl 150 mg PO TID 08/03/19 08/03/19 docusate sodium 100 mg PO BID 08/03/19 08/03/19 gabapentin 600 mg PO TID 08/03/19 08/03/19 ibuprofen 600 mg PO QID PRN 08/03/19 08/03/19 lisinopril 20 mg PO DAILY 08/03/19 08/03/19 pravastatin 10 mg PO BEDTIME 08/03/19 08/03/19 Previous Rx's Medication Instructions Recorded albuterol sulfate 90 mcg/actuation 1 puff INHALATION Q4HP PRN #1 each 11/24/18 aerosol inhaler cyclobenzaprine 10 mg tablet 10 mg PO TID PRN #90 tab 01/20/19 albuterol sulfate 1.25 mg INHALATION Q4-6H PRN #3 ml 02/16/19 budesonide 0.5 mg/2 mL suspension 2 ml INHALATION BID #2 ml 02/16/19 for nebulization ipratropium bromide 0.02 % 2.5 ml INHALATION Q4H PRN #2.5 ml 02/16/19 solution for inhalation oxycodone-acetaminophen 10 mg-325 1 tab PO Q6H PRN #120 tab 06/10/19 mg tablet Allergies Allergy/AdvReac Type Severity Reaction Status Date / Time No Known Drug Allergies Allergy Verified 08/03/19 10:46 Review of Systems <EMY Gu - Last Filed: 08/03/19 16:14> Review of Systems Narrative: General: Denies fever, chills, fatigue, malaise, sweats. HEENT: Denies sinus pain, ear pain, sore throat, difficulty swallowing, dizziness. Respiratory: See HPI Cardiovascular: Denies chest pain, palpitations, orthopnea, edema. Gastrointestinal: Denies nausea, vomiting, abdominal pain, diarrhea, constipation, melena. : Denies dysuria, frequency, incontinence, hematuria, urinary retention. Musculoskeletal: Denies weakness, joint pain or bony pain. Skin: Denies rash, skin lesions, or other. Neurologic: Denies weakness, headache, numbness, change in speech, confusion, seizures, incoordination. Psychiatric: No concerning psychosocial issues. 12-point review of systems is negative except for those stated above. Patient History <EMY Gu - Last Filed: 08/03/19 16:14> Medical History Chronic back pain (Chronic 1979) COPD (chronic obstructive pulmonary disease) (Chronic Unknown) Generalized headaches (Chronic 1999) Hyperlipidemia (Acute) Hypertension (Chronic Unknown) Primary osteoarthritis of right hip (Chronic 06/17/17) Uncomplicated opioid dependence (Chronic) Surgical History History of lumbar surgery (Resolved ~2015) History of right hip replacement (Acute) History of total right hip arthroplasty (Resolved) Hx of inguinal hernia repair (Resolved 1999) Family History Mother No problems noted. Father No problems noted. Father Natural with probable cause suspected Social History details: female partner household members: friend(s) Smoking Status: Former smoker alcohol intake: current substance use type: does not use Smoking Status: Former smoker alcohol intake frequency: holidays/special occasions only Substance Use Type: does not use Exam <Wero EMY Montero - Last Filed: 08/03/19 16:14> Narrative Exam Narrative: GEN: Alert, oriented x 3, well appearing and nourished, and in no acute distress. Head: Normal cephalic, atraumatic. No scalp or temporal tenderness, palpable mass or rash. EYES: Pupils are equal, round, and reactive to light and accommodation. Extraocular muscles are intact bilaterally. There is no subconjunctival hemorrhage, exudate and sclera non-icteric. ENT: Bilateral auditory canals and tympanic membranes clear. Hearing grossly intact. Nose without bleeding, purulent discharge or deviation. Facial sinuses nontender to palpate. Mucous membrane moist, small white patch on tongue. Thr oat without erythema, tonsillar hypertrophy or exudate. Uvula in midline, airway patent. Neck: Trachea in midline. No JVD, non-tender without lymphadenopathy. No masses or thyroid megaly. Supple, non-tender and no meningeal signs. CARDIAC: Normal regular rate and rhythm without murmurs, gallops, or rubs. No chest wall tenderness. No peripheral edema, cyanosis or pallor. Capillary refill is less than 2 seconds. RESPIRATORY: Lungs are wheezing to auscultate on the left anterior lobe and clear on right lobes and decreased overally. No cough, rales, or rhonchi. No stridor, respiratory distress, increase work of breathing, or accessary muscle used. ABD: Abdomen obese, nontender. No guarding or rebound tenderness to palpate. Bowel sounds are normal in all 4 quadrants. There is no palpable masses or organomegaly. EXT: Full painless ROM of all extremities with no loss of sensation, strength, effusion or edema. SKIN: Warm, dry, normal color for patient. No erythema, lesions or rash over visible areas. BACK: Nontender without deformity or crepitance. No flank tenderness. NEUROLOGICAL: Alert and oriented to place, time and person. Sensation and motor function intact bilaterally. No facial droops, dysphasia. PSYCHIATRIC: Good judgement and reason, without hallucinations, abnormal affect or abnormal behaviors during the examination. Initial Vital Signs Initial Vital Signs: Vital Signs Temperature 98.3 F 08/03/19 10:46 Pulse Rate 111 H 08/03/19 10:46 Respiratory Rate 29 H 08/03/19 10:46 Blood Pressure 142/86 H 08/03/19 10:46 Pulse Oximetry 93 08/03/19 10:46 <Conrado Resendiz DO - Last Filed: 08/03/19 17:36> Initial Vital Signs Initial Vital Signs: Vital Signs Temperature 98.3 F 08/03/19 10:46 Pulse Rate 111 H 08/03/19 10:46 Respiratory Rate 29 H 08/03/19 10:46 Blood Pressure 142/86 H 08/03/19 10:46 Pulse Oximetry 93 08/03/19 10:46 Scores <EMY Gu - Last Filed: 08/03/19 16:14> CURB-65 Confusion: No BUN >19mg/dL (>7mmol/L): Yes Respiratory rate greater or equal to 30: No SBP <90mmHg or DBP less or equal to 60mmHg: No Age 65 or Older: No CURB-65 Total: 1 Score 0-1 Outpatient care, Score 2 Inpt vs. Obs, Score 3 or over Inpt admit with ICU for score of 4-5 GCS F[place] coma scale eye opening: Spontaneous [place] coma scale verbal response: Orientated [place] coma scale motor response: Obey commands [place] coma scale total score: 15 Course <EMY Gu - Last Filed: 08/03/19 16:14> Course Course Narrative: The patient drops o2 sat during ambulation to low 80s with tachypnea. During rest with O2 support on 2 L, patient's O2 sat improves to 93%. Patient has mild wheezing on left lobes and generally decreased lung sounds after 2 neb treatments. Patient does not have oxygen at home at this time. Decision to Admit Date: 08/03/19 Decision to Admit time: 14:21 Orders Ordered: ED Orders 08/03/19 10:49 XR chest 2V Stat EKG-12 Lead Stat Measure peak expiratory flow ONCE RT Consult Eval and Treat Now 08/03/19 10:55 Complete Blood Count AUTO DIFF Stat Comprehensive Metabolic Panel Stat Troponin I Stat 08/03/19 11:18 Lactate (Lactic Acid) Stat 08/03/19 14:54 Respiratory Panel (Film Array) Stat Discontinued Medications Albuterol (Ventolin) 2.5 mg INH NOW ONE Stop: 08/03/19 10:59 Last Admin: 08/03/19 10:59 Dose: 2.5 mg Documented by: DEREK Albuterol/Ipratropium (Duoneb) 3 ml INH NOW ONE Stop: 08/03/19 13:32 Last Admin: 08/03/19 13:52 Dose: 3 ml Documented by: DAWIT Sodium Chloride (Normal Saline 0.9%) 500 mls @ 1,000 mls/hr IV BOLUS ONE Stop: 08/03/19 11:50 Last Infusion: 08/03/19 14:02 Dose: 0 mls/hr Documented by: Admin: 08/03/19 12:31 Dose: 1,000 mls/hr Documented by: NELSY Methylprednisolone (Solu-Medrol 125 Mg Vial) 125 mg IV NOW ONE Stop: 08/03/19 12:19 Last Admin: 08/03/19 12:31 Dose: 125 mg Documented by: NELSY Vital Signs Vital signs: Vital Signs - 8 hr 08/03/19 10:46 08/03/19 10:59 08/03/19 11:25 Temperature 98.3 F Pulse Rate 111 H 107 H Respiratory Rate 29 H 20 18 Blood Pressure 142/86 H Blood Pressure [Right Arm] Pulse Oximetry 93 93 87 L 08/03/19 11:30 08/03/19 12:00 08/03/19 12:30 Temperature Pulse Rate 106 H 102 H 95 H Respiratory Rate 22 25 H 25 H Blood Pressure Blood Pressure [Right Arm] 142/77 H 121/70 131/75 Pulse Oximetry 92 92 92 08/03/19 13:00 08/03/19 13:30 08/03/19 13:52 Temperature Pulse Rate 101 H 99 H 96 H Respiratory Rate 26 H 28 H 20 Blood Pressure Blood Pressure [Right Arm] 134/75 141/74 H Pulse Oximetry 91 26 L 90 L 08/03/19 14:01 08/03/19 14:05 08/03/19 15:00 Temperature Pulse Rate 108 H 99 H 97 H Respiratory Rate 24 22 22 Blood Pressure Blood Pressure [Right Arm] 159/87 H 139/81 Pulse Oximetry 85 L 92 92 <Conrado Resendiz DO - Last Filed: 08/03/19 17:36> Orders Ordered: ED Orders 08/03/19 10:49 XR chest 2V Stat EKG-12 Lead Stat Measure peak expiratory flow ONCE RT Consult Eval and Treat Now 08/03/19 10:55 Complete Blood Count AUTO DIFF Stat Comprehensive Metabolic Panel Stat Troponin I Stat 08/03/19 11:18 Lactate (Lactic Acid) Stat 08/03/19 14:54 Respiratory Panel (Film Array) Stat Discontinued Medications Albuterol (Ventolin) 2.5 mg INH NOW ONE Stop: 08/03/19 10:59 Last Admin: 08/03/19 10:59 Dose: 2.5 mg Documented by: DEREK Albuterol/Ipratropium (Duoneb) 3 ml INH NOW ONE Stop: 08/03/19 13:32 Last Admin: 08/03/19 13:52 Dose: 3 ml Documented by: DAWIT Sodium Chloride (Normal Saline 0.9%) 500 mls @ 1,000 mls/hr IV BOLUS ONE Stop: 08/03/19 11:50 Last Infusion: 08/03/19 14:02 Dose: 0 mls/hr Documented by: Admin: 08/03/19 12:31 Dose: 1,000 mls/hr Documented by: NELSY Methylprednisolone (Solu-Medrol 125 Mg Vial) 125 mg IV NOW ONE Stop: 08/03/19 12:19 Last Admin: 08/03/19 12:31 Dose: 125 mg Documented by: NELSY Vital Signs Vital signs: Vital Signs - 8 hr 08/03/19 10:46 08/03/19 10:59 08/03/19 11:25 Temperature 98.3 F Pulse Rate 111 H 107 H Respiratory Rate 29 H 20 18 Blood Pressure 142/86 H Blood Pressure [Right Arm] Pulse Oximetry 93 93 87 L 08/03/19 11:30 08/03/19 12:00 08/03/19 12:30 Temperature Pulse Rate 106 H 102 H 95 H Respiratory Rate 22 25 H 25 H Blood Pressure Blood Pressure [Right Arm] 142/77 H 121/70 131/75 Pulse Oximetry 92 92 92 08/03/19 13:00 08/03/19 13:30 08/03/19 13:52 Temperature Pulse Rate 101 H 99 H 96 H Respiratory Rate 26 H 28 H 20 Blood Pressure Blood Pressure [Right Arm] 134/75 141/74 H Pulse Oximetry 91 26 L 90 L 08/03/19 14:01 08/03/19 14:05 08/03/19 15:00 Temperature Pulse Rate 108 H 99 H 97 H Respiratory Rate 24 22 22 Blood Pressure Blood Pressure [Right Arm] 159/87 H 139/81 Pulse Oximetry 85 L 92 92 MDM - SOB/Dyspnea <TATE GuP - Last Filed: 08/03/19 16:14> Differential Diagnosis Differential diagnosis: Likely acute exacerbation of chronic obstructive airways disease, community acquired pneumonia and pulmonary embolism Medical Records Attestation: I reviewed the patient's medical records. Lab Data Attestation: I reviewed the patient's lab results. Result diagrams: 08/03/19 10:55 08/03/19 10:55 Labs: Lab Results 08/03/19 08/03/19 08/03/19 Range/Units 10:55 10:55 10:55 WBC 7.9 (4.5-11.0) X10^3/uL RBC 4.83 (4.5-5.9) X10^6/uL Hgb 14.5 (13.5-17.5) g/dL Hct 43.1 (41-53) % MCV 89.1 (80-100) fL MCH 30.1 (26-34) PG MCHC 33.8 (30-36) % RDW 14.5 (11.6-14.8) % Plt Count 161 (150-400) X10^3/uL Neut % (Auto) 70.4 (50-75) % Lymph % (Auto) 15.7 L (25-40) % Ponce % (Auto) 10.0 (3-14) % Eos % (Auto) 2.9 (2-4) % Baso % (Auto) 1.0 (0-2) % Neut # (Auto) 5500 (5847-7631) /uL Lymph # (Auto) 1200 (3980-0182) /uL Ponce # (Auto) 800 (0-900) /uL Eos # (Auto) 200 (0-450) /uL Baso # (Auto) 100 (0-100) /uL Sodium 142 (137-145) mmol/L Potassium 4.3 (3.4-5.1) mmol/L Chloride 100 (98-107) mmol/L Carbon Dioxide 32 (22-32) mmol/L BUN 22 H (9-20) mg/dL Creatinine 0.70 (0.66-1.25) mg/dL Estimated GFR > 60.0 (>60) mL/min BUN/Creatinine Ratio 31.4 H (6-22) Glucose 107 (80-110) mg/dL Lactate (0.7-2.1) mmol/L Calcium 10.1 (8.4-10.2) mg/dL Total Bilirubin 0.4 (0.2-1.3) mg/dL AST 36 (17-59) IU/L ALT 20 (<50) IU/L Alkaline Phosphatase 122 (38-126) U/L Troponin I 0.012 (0.01-0.034) ng/mL Total Protein 7.9 (6.3-8.2) g/dL Albumin 4.6 (3.5-5.0) g/dL Globulin 3.3 (1.7-4.1) g/dL Albumin/Globulin Ratio 1.4 (1.0-2.8) Chlamy pneumoniae PCR (Not Detect) Adenovirus (PCR) (Not Detect) B.parapertussis DNA PCR (Not Detect) Coronavirus OC43 (PCR) (Not Detect) Coronavirus HKU1 (PCR) (Not Detect) Coronavirus 229E (PCR) (Not Detect) Coronavirus NL63 (PCR) (Not Detect) Human Metapneumovir PCR (Not Detect) Influenza Type A (PCR) (Not Detect) Influenza Type B (PCR) (Not Detect) M. pneumoniae (PCR) (Not Detect) Parainfluenza 1 (PCR) (Not Detect) Parainfluenza 2 (PCR) (Not Detect) Parainfluenza 3 (PCR) (Not Detect) Parainfluenza 4 (PCR) (Not Detect) RSV (PCR) (Not Detect) Entero/Rhino (PCR) (Not Detect) 08/03/19 08/03/19 Range/Units 11:18 14:54 WBC (4.5-11.0) X10^3/uL RBC (4.5-5.9) X10^6/uL Hgb (13.5-17.5) g/dL Hct (41-53) % MCV (80-100) fL MCH (26-34) PG MCHC (30-36) % RDW (11.6-14.8) % Plt Count (150-400) X10^3/uL Neut % (Auto) (50-75) % Lymph % (Auto) (25-40) % Ponce % (Auto) (3-14) % Eos % (Auto) (2-4) % Baso % (Auto) (0-2) % Neut # (Auto) (1634-6878) /uL Lymph # (Auto) (7503-1790) /uL Ponce # (Auto) (0-900) /uL Eos # (Auto) (0-450) /uL Baso # (Auto) (0-100) /uL Sodium (137-145) mmol/L Potassium (3.4-5.1) mmol/L Chloride (98-107) mmol/L Carbon Dioxide (22-32) mmol/L BUN (9-20) mg/dL Creatinine (0.66-1.25) mg/dL Estimated GFR (>60) mL/min BUN/Creatinine Ratio (6-22) Glucose (80-110) mg/dL Lactate 0.9 (0.7-2.1) mmol/L Calcium (8.4-10.2) mg/dL Total Bilirubin (0.2-1.3) mg/dL AST (17-59) IU/L ALT (<50) IU/L Alkaline Phosphatase (38-126) U/L Troponin I (0.01-0.034) ng/mL Total Protein (6.3-8.2) g/dL Albumin (3.5-5.0) g/dL Globulin (1.7-4.1) g/dL Albumin/Globulin Ratio (1.0-2.8) Chlamy pneumoniae PCR Not detected (Not Detect) Adenovirus (PCR) Not detected (Not Detect) B.parapertussis DNA PCR Not detected (Not Detect) Coronavirus OC43 (PCR) Not detected (Not Detect) Coronavirus HKU1 (PCR) Not detected (Not Detect) Coronavirus 229E (PCR) Not detected (Not Detect) Coronavirus NL63 (PCR) Not detected (Not Detect) Human Metapneumovir PCR Not detected (Not Detect) Influenza Type A (PCR) Not detected (Not Detect) Influenza Type B (PCR) Not detected (Not Detect) M. pneumoniae (PCR) Not detected (Not Detect) Parainfluenza 1 (PCR) Not detected (Not Detect) Parainfluenza 2 (PCR) Not detected (Not Detect) Parainfluenza 3 (PCR) Not detected (Not Detect) Parainfluenza 4 (PCR) Not detected (Not Detect) RSV (PCR) Not detected (Not Detect) Entero/Rhino (PCR) Not detected (Not Detect) Imaging Data Chest x-ray: Radiologist's Impression: [address] [address] XRay Report Signed Patient: Harvey Roberts SMR#: [id number] : 7Acct:[id number] Age/Sex: 64 / MDate of Service: 08/03/19 Loc: ED Accession Number: [id number] Procedure: XR chest 2V Ordering Provider: Conrado Resendiz D.O. PROCEDURE: XR CHEST 2V INDICATIONS: shortness of breath TECHNIQUE: 2 views of the chest were acquired. COMPARISON: [facility], , XR CHEST 2V, 11/18/2018, 8:19. FINDINGS: Surgical changes and devices: None. Lungs and pleura: Lungs are clear. No pleural effusions or pneumothorax. Mediastinum: Mediastinal contours are normal. Heart size is normal. Bones and chest wall: No suspicious bony abnormalities. Soft tissues appear unremarkable. IMPRESSION: No acute process. Dictated by: Kaylee العلي M.D. on 08/03/2019 at 11:08 Approved by: Kaylee العلي M.D. on 08/03/2019 at 11:09 ECG Data Attestation: I personally reviewed and interpreted this ECG as follows: Prior ECG tracings: available for review Interpretation: ST rate at 108. Normal [place]. NO ST elevation or depression. No significant changes in EKG from previous EKGs. MDM Narrative Medical decision making narrative: This is a 64-year-old gentleman who is non oxygen dependent COPD presented to ED with 4-5 day duration of increased short of breath and productive cough. Patient denies fever, chills, nausea or vomiting. A afebrile while in ED. patient had sinus tach rate at 1:11 a.m. with tachypnea of 28 upon arrival to ED with O2 sat of 93% in room air. Patient states his usual room air O2 sat runs around 95%. Lung sounds are decreased throughout with faint wheezing on left lobes. No leukocytosis today. Negative cardiac enzymes today. Chest x-ray does not appreciate acute findings today. Patient provided with couple of neb treatment with mild improvement. Patient desats to low 80% with short distance in ambulation while in ED with tachypnea of 22-24/min. At rest patient sets 88-89% in room air. Nasal cannula O2 provided 1-2 L which improves his O2 sat to 90-93%. No antibiotic medication coverage done while in ED but patient was provided with Solu-Medrol 125 mg IV and 500 mL of normal saline infusion. Dr. Hammond has contacted for consultation and admission due to patient's hypoxic state likely due to COPD exacerbation and she kindly accepted his care. Respiratory panel has been added as requested by Dr. Hammond which is negative and the patient agrees with plan for admission to hospital. <Conrado Resendiz DO - Last Filed: 08/03/19 17:36> Lab Data Labs: Lab Results 08/03/19 08/03/19 08/03/19 Range/Units 10:55 10:55 10:55 WBC 7.9 (4.5-11.0) X10^3/uL RBC 4.83 (4.5-5.9) X10^6/uL Hgb 14.5 (13.5-17.5) g/dL Hct 43.1 (41-53) % MCV 89.1 (80-100) fL MCH 30.1 (26-34) PG MCHC 33.8 (30-36) % RDW 14.5 (11.6-14.8) % Plt Count 161 (150-400) X10^3/uL Neut % (Auto) 70.4 (50-75) % Lymph % (Auto) 15.7 L (25-40) % Ponce % (Auto) 10.0 (3-14) % Eos % (Auto) 2.9 (2-4) % Baso % (Auto) 1.0 (0-2) % Neut # (Auto) 5500 (9560-9882) /uL Lymph # (Auto) 1200 (3993-0468) /uL Ponce # (Auto) 800 (0-900) /uL Eos # (Auto) 200 (0-450) /uL Baso # (Auto) 100 (0-100) /uL Sodium 142 (137-145) mmol/L Potassium 4.3 (3.4-5.1) mmol/L Chloride 100 (98-107) mmol/L Carbon Dioxide 32 (22-32) mmol/L BUN 22 H (9-20) mg/dL Creatinine 0.70 (0.66-1.25) mg/dL Estimated GFR > 60.0 (>60) mL/min BUN/Creatinine Ratio 31.4 H (6-22) Glucose 107 (80-110) mg/dL Lactate (0.7-2.1) mmol/L Calcium 10.1 (8.4-10.2) mg/dL Total Bilirubin 0.4 (0.2-1.3) mg/dL AST 36 (17-59) IU/L ALT 20 (<50) IU/L Alkaline Phosphatase 122 (38-126) U/L Troponin I 0.012 (0.01-0.034) ng/mL Total Protein 7.9 (6.3-8.2) g/dL Albumin 4.6 (3.5-5.0) g/dL Globulin 3.3 (1.7-4.1) g/dL Albumin/Globulin Ratio 1.4 (1.0-2.8) Chlamy pneumoniae PCR (Not Detect) Adenovirus (PCR) (Not Detect) B.parapertussis DNA PCR (Not Detect) Coronavirus OC43 (PCR) (Not Detect) Coronavirus HKU1 (PCR) (Not Detect) Coronavirus 229E (PCR) (Not Detect) Coronavirus NL63 (PCR) (Not Detect) Human Metapneumovir PCR (Not Detect) Influenza Type A (PCR) (Not Detect) Influenza Type B (PCR) (Not Detect) M. pneumoniae (PCR) (Not Detect) Parainfluenza 1 (PCR) (Not Detect) Parainfluenza 2 (PCR) (Not Detect) Parainfluenza 3 (PCR) (Not Detect) Parainfluenza 4 (PCR) (Not Detect) RSV (PCR) (Not Detect) Entero/Rhino (PCR) (Not Detect) 08/03/19 08/03/19 Range/Units 11:18 14:54 WBC (4.5-11.0) X10^3/uL RBC (4.5-5.9) X10^6/uL Hgb (13.5-17.5) g/dL Hct (41-53) % MCV (80-100) fL MCH (26-34) PG MCHC (30-36) % RDW (11.6-14.8) % Plt Count (150-400) X10^3/uL Neut % (Auto) (50-75) % Lymph % (Auto) (25-40) % Ponce % (Auto) (3-14) % Eos % (Auto) (2-4) % Baso % (Auto) (0-2) % Neut # (Auto) (7717-7476) /uL Lymph # (Auto) (1624-1527) /uL Ponce # (Auto) (0-900) /uL Eos # (Auto) (0-450) /uL Baso # (Auto) (0-100) /uL Sodium (137-145) mmol/L Potassium (3.4-5.1) mmol/L Chloride (98-107) mmol/L Carbon Dioxide (22-32) mmol/L BUN (9-20) mg/dL Creatinine (0.66-1.25) mg/dL Estimated GFR (>60) mL/min BUN/Creatinine Ratio (6-22) Glucose (80-110) mg/dL Lactate 0.9 (0.7-2.1) mmol/L Calcium (8.4-10.2) mg/dL Total Bilirubin (0.2-1.3) mg/dL AST (17-59) IU/L ALT (<50) IU/L Alkaline Phosphatase (38-126) U/L Troponin I (0.01-0.034) ng/mL Total Protein (6.3-8.2) g/dL Albumin (3.5-5.0) g/dL Globulin (1.7-4.1) g/dL Albumin/Globulin Ratio (1.0-2.8) Chlamy pneumoniae PCR Not detected (Not Detect) Adenovirus (PCR) Not detected (Not Detect) B.parapertussis DNA PCR Not detected (Not Detect) Coronavirus OC43 (PCR) Not detected (Not Detect) Coronavirus HKU1 (PCR) Not detected (Not Detect) Coronavirus 229E (PCR) Not detected (Not Detect) Coronavirus NL63 (PCR) Not detected (Not Detect) Human Metapneumovir PCR Not detected (Not Detect) Influenza Type A (PCR) Not detected (Not Detect) Influenza Type B (PCR) Not detected (Not Detect) M. pneumoniae (PCR) Not detected (Not Detect) Parainfluenza 1 (PCR) Not detected (Not Detect) Parainfluenza 2 (PCR) Not detected (Not Detect) Parainfluenza 3 (PCR) Not detected (Not Detect) Parainfluenza 4 (PCR) Not detected (Not Detect) RSV (PCR) Not detected (Not Detect) Entero/Rhino (PCR) Not detected (Not Detect) Discharge Plan Departure Patient Disposition: Admitted as Observation Clinical Impression: COPD exacerbation, COPD with hypoxia Discharge Date/Time: 08/03/19 16:09 Admit Date/Time: 08/03/19 15:12 Admit Provider: Carolin Hammond <Conrado Resendiz, DO - Last Filed: 08/03/19 17:36> Sign Out Provider Sign Out Attestation: Dr Resendiz Co-Sign Statement: I was available for consultation during this patient's emergency department visit. This chart is signed by myself for administrative purposes only. I did not have direct contact with this patient during this visit. They were seen independently by the APC.
[2019-08-03] MEDS: SODIUM CHLORIDE 0.9% 500 ML 1000 ML IV (12:31)
[2019-08-03] MEDS: methylPREDNISolone 125 MG/2 ML VIAL IV (12:31)
[2019-08-03] MEDS: ALBUTEROL/IPRATROPIUM 3 ML AMPUL INH ×2 (13:52→20:08)
[2019-08-03 16:10] LABS: Adenovirus Not Detected (Not Detect); Bordetella pertussis Not Detected (Not Detect); Chlamydophila pneumoniae Not Detected (Not Detect); Coronavirus 229E Not Detected (Not Detect); Coronavirus HKU1 Not Detected (Not Detect); Coronavirus NL 63 Not Detected (Not Detect); Coronavirus OC43 Not Detected (Not Detect); Human Metapneumovirus Not Detected (Not Detect); Human Rhinovirus/Enterovirus Not Detected (Not Detect); Influenza A Not Detected (Not Detect); Influenza B Not Detected (Not Detect); Mycoplasma pneumoniae Not Detected (Not Detect); Parainfluenza Virus 1 Not Detected (Not Detect); Parainfluenza Virus 2 Not Detected (Not Detect); Parainfluenza Virus 3 Not Detected (Not Detect); Parainfluenza Virus 4 Not Detected (Not Detect); Respiratory Syncytial Virus Not Detected (Not Detect)
--- NOTE | 2019-08-03 17:49 | PM.HP.1 ---
History of Present Illness History of Present Illness Date Patient Seen: 08/03/19 Chief complaint: TROUBLE BREATHING Narrative: The patient is a 64-year-old male with a history of COPD, chronic back pain, hyperlipidemia, hypertension and intermittent atrial fibrillation. The patient presents with a week-long history of increasing shortness of breath, productive cough, shortness of breath with activity. He has been recently evaluated for spinal cord stimulator. He was in the clinic today and was found to be hypoxic. His oxygen level improved and he presented to [facility] emergency room for further evaluation. The patient underwent chest x-ray which was negative for infiltrate. He had a respiratory panel which was negative for viruses. The patient has had a flu shot. He does not recall a pneumonia shot. He was found to be markedly hypoxic with O2 saturation in the low 80s on room air. He was placed on oxygen and admitted to the hospital for further evaluation. The patient received several nebulizer treatments. Despite that he remained hypoxic. Patient was hospitalized here in November of this year. He was treated for COPD exacerbation. And follow-up he had a sleep study done and it was recommended that he be placed on CPAP at home. He states he lost his insurance and was unable to get the CPAP machine. In addition the patient was discharged home on oxygen but that was subsequently removed as well. Patient does describe cough with soni in intermittently green sputum. He has had no hemoptysis. He denies any pedal edema. He has had no significant change in his weight. The patient denies any chest pain. He has had no nausea vomiting or diarrhea. He denies any dysuria hematuria or pyuria. He has chronic back pain which is unchanged. Patient is admitted to the hospital this time for acute respiratory failure. Patient History Medical History Chronic back pain (Chronic 1979) COPD (chronic obstructive pulmonary disease) (Chronic Unknown) Generalized headaches (Chronic 1999) Hyperlipidemia (Acute) Hypertension (Chronic Unknown) Primary osteoarthritis of right hip (Chronic 06/17/17) Uncomplicated opioid dependence (Chronic) Surgical History History of lumbar surgery (Resolved ~2015) History of right hip replacement (Acute) History of total right hip arthroplasty (Resolved) Hx of inguinal hernia repair (Resolved 1999) Family & Social History Family History Mother No problems noted. Father No problems noted. Father Natural with probable cause suspected Social History: household members friend(s) Prior Living Arrangements House Safety & Behavioral: Feels Safe in Current Yes Environment Been Physically Hurt or No Threatened By a Person Suicidal Ideation Description None Suicide Plan Description No Plan Tobacco & Substance use: Smoking Status Former smoker alcohol intake current alcohol intake frequency holiday/special occasion Substance Use Type does not use Meds Home Medications and Allergies Home Medications Medication Instructions Recorded Confirmed Type albuterol sulfate 90 mcg/actuation 1 puff INHALATION Q4HP PRN #1 each 11/24/18 08/03/19 Rx aerosol inhaler cyclobenzaprine 10 mg tablet 10 mg PO TID PRN #90 tab 01/20/19 08/03/19 Rx albuterol sulfate 1.25 mg INHALATION Q4-6H PRN #3 ml 02/16/19 08/03/19 Rx budesonide 0.5 mg/2 mL suspension 2 ml INHALATION BID #2 ml 02/16/19 08/03/19 Rx for nebulization ipratropium bromide 0.02 % 2.5 ml INHALATION Q4H PRN #2.5 ml 02/16/19 08/03/19 Rx solution for inhalation oxycodone-acetaminophen 10 mg-325 1 tab PO Q6H PRN #120 tab 06/10/19 08/03/19 Rx mg tablet bupropion HCl 150 mg PO TID 08/03/19 08/03/19 History docusate sodium 100 mg PO BID 08/03/19 08/03/19 History gabapentin 600 mg PO TID 08/03/19 08/03/19 History ibuprofen 600 mg PO QID PRN 08/03/19 08/03/19 History lisinopril 20 mg PO DAILY 08/03/19 08/03/19 History pravastatin 10 mg PO BEDTIME 08/03/19 08/03/19 History Allergies Allergy/AdvReac Type Severity Reaction Status Date / Time No Known Drug Allergies Allergy Verified 08/03/19 10:46 Review of Systems Review of Systems ROS: Yes All systems reviewed with the patient and are negative except as otherwise documented Exam Vital Signs (past 8 hours): - 08/03/19 10:46 08/03/19 10:59 08/03/19 11:25 Temperature 98.3 F Pulse Rate 111 H 107 H Respiratory Rate 29 H 20 18 Blood Pressure 142/86 H Blood Pressure [Right Arm] Pulse Oximetry 93 93 87 L 08/03/19 11:30 08/03/19 12:00 08/03/19 12:30 Temperature Pulse Rate 106 H 102 H 95 H Respiratory Rate 22 25 H 25 H Blood Pressure Blood Pressure [Right Arm] 142/77 H 121/70 131/75 Pulse Oximetry 92 92 92 08/03/19 13:00 08/03/19 13:30 08/03/19 13:52 Temperature Pulse Rate 101 H 99 H 96 H Respiratory Rate 26 H 28 H 20 Blood Pressure Blood Pressure [Right Arm] 134/75 141/74 H Pulse Oximetry 91 26 L 90 L 08/03/19 14:01 08/03/19 14:05 08/03/19 15:00 Temperature Pulse Rate 108 H 99 H 97 H Respiratory Rate 24 22 22 Blood Pressure Blood Pressure [Right Arm] 159/87 H 139/81 Pulse Oximetry 85 L 92 92 08/03/19 16:10 Temperature 97.0 F L Pulse Rate 106 H Respiratory Rate 20 Blood Pressure 151/94 H Blood Pressure [Right Arm] Pulse Oximetry 91 Oxygen Delivery Method Nasal Cannula Oxygen Flow Rate 1 Narrative Exam Narrative: Ill-appearing male with some evidence of trypoding and short of breath HEENT: Normocephalic atraumatic, extraocular muscles are intact, oropharynx reveals moist mucous membranes neck is supple without adenopathy, no thyromegaly Lungs reveal decreased breath sounds, there is prolonged end-expiratory breath sounds Cardiac exam: Regular rate and rhythm normal S1-S2, tachycardic Abdomen: Soft nontender nondistended there is no appreciable hepatosplenomegaly Lower extremity reveals no edema Neuro exam: Nonfocal exam Skin exam no lesion Psychiatric exam no confused Objective Labs Result Diagrams: 08/03/19 10:55 08/03/19 10:55 Labs: Laboratory Results - last 24 hr 08/03/19 08/03/19 08/03/19 10:55 10:55 10:55 WBC 7.9 RBC 4.83 Hgb 14.5 Hct 43.1 MCV 89.1 MCH 30.1 MCHC 33.8 RDW 14.5 Plt Count 161 Neut % (Auto) 70.4 Lymph % (Auto) 15.7 L [place] % (Auto) 10.0 Eos % (Auto) 2.9 Baso % (Auto) 1.0 Neut # (Auto) 5500 Lymph # (Auto) 1200 [place] # (Auto) 800 Eos # (Auto) 200 Baso # (Auto) 100 Sodium 142 Potassium 4.3 Chloride 100 Carbon Dioxide 32 BUN 22 H Creatinine 0.70 Estimated GFR > 60.0 BUN/Creatinine Ratio 31.4 H Glucose 107 Lactate Calcium 10.1 Total Bilirubin 0.4 AST 36 ALT 20 Alkaline Phosphatase 122 Troponin I 0.012 Total Protein 7.9 Albumin 4.6 Globulin 3.3 Albumin/Globulin Ratio 1.4 Chlamy pneumoniae PCR Adenovirus (PCR) B.parapertussis DNA PCR Coronavirus OC43 (PCR) Coronavirus HKU1 (PCR) Coronavirus 229E (PCR) Coronavirus NL63 (PCR) Human Metapneumovir PCR Influenza Type A (PCR) Influenza Type B (PCR) M. pneumoniae (PCR) Parainfluenza 1 (PCR) Parainfluenza 2 (PCR) Parainfluenza 3 (PCR) Parainfluenza 4 (PCR) RSV (PCR) Entero/Rhino (PCR) 08/03/19 08/03/19 11:18 14:54 WBC RBC Hgb Hct MCV MCH MCHC RDW Plt Count Neut % (Auto) Lymph % (Auto) [place] % (Auto) Eos % (Auto) Baso % (Auto) Neut # (Auto) Lymph # (Auto) [place] # (Auto) Eos # (Auto) Baso # (Auto) Sodium Potassium Chloride Carbon Dioxide BUN Creatinine Estimated GFR BUN/Creatinine Ratio Glucose Lactate 0.9 Calcium Total Bilirubin AST ALT Alkaline Phosphatase Troponin I Total Protein Albumin Globulin Albumin/Globulin Ratio Chlamy pneumoniae PCR Not detected Adenovirus (PCR) Not detected B.parapertussis DNA PCR Not detected Coronavirus OC43 (PCR) Not detected Coronavirus HKU1 (PCR) Not detected Coronavirus 229E (PCR) Not detected Coronavirus NL63 (PCR) Not detected Human Metapneumovir PCR Not detected Influenza Type A (PCR) Not detected Influenza Type B (PCR) Not detected M. pneumoniae (PCR) Not detected Parainfluenza 1 (PCR) Not detected Parainfluenza 2 (PCR) Not detected Parainfluenza 3 (PCR) Not detected Parainfluenza 4 (PCR) Not detected RSV (PCR) Not detected Entero/Rhino (PCR) Not detected Assessment & Plan Assessment & Plan narrative: Impression 1. 64-year-old male admitted to the hospital with acute hypoxemic respiratory failure. -patient with known history of COPD -patient quit smoking 2 weeks ago -the patient does not want nicotine patch at this time -will obtain sputum culture, chest x-ray is negative, suspect underlying bronchitis, -patient will continue on nebulizers, steroids, and antibiotics. -patient to continue on oxygen, he may require home oxygen again, will ask respiratory therapy to evaluate him for possible trilogy. 2. Acute bronchitis -start doxycycline -no evidence of pneumonia on chest -viral panel negative -Pneumovax at discharge 3. Hypertension -continue ascending 4. Hyperlipidemia -continue statin 5. Nicotine dependence -continue Wellbutrin -patient denies nicotine patch 6. Chronic back -continue home pain regimen 7. Atrial tachycardia -suspect secondary to underlying respiratory issues -will repeat EKG 8. DVT prophylaxis - Start level Patient is a full code will note that his record accordingly Quality VTE Deep Vein Thrombosis/Pulmonary Embolism Present on Admission: No
--- NOTE | 2019-08-03 18:24 | PC.NURSE ---
Addendum entered by Katharina Giraldo R.N. 08/03/19 21:16: Pt med at 1910 for discomfort, w/good relief. IVF LR @ 100cc/hr infusing via pump w/o incidence. Tele NSR/ST per ICU staff. Lungs remains unchanged. Call light w/in reach, pt calls appropriately for needs. Continue w/plan of care. Original Note: Pt arrived from ER @ 1630 alert/awake. Denies discomfort, SOB w/excertion Lungs w/ crackles & wheezes throughout. SpO2 92% on 1L Tele shows ST per ICU staff. Call light w/in reach, pt calls for assist appropriately.
[2019-08-03] MEDS: LACTATED RINGERS 1,000 ML 100 ML IV (18:37)
[2019-08-03] MEDS: BUDESONIDE 0.5 MG/2 ML NEB INH (20:09)
[2019-08-03] MEDS: DOXYCYCLINE HYCLATE 100 MG TABLET PO (20:41)
[2019-08-03] MEDS: DOCUSATE 100 MG CAPSULE PO (20:43)
[2019-08-04] VITALS (7 sets, daily range): BP systolic 156–160; BP diastolic 87–93; PULSE 107–119; RESP 17–18; TEMP 36.1–36.6; O2SAT 91–96
[2019-08-04] MEDS: methylPREDNISolone 125 MG/2 ML VIAL 60 MG IV ×2 (00:06→04:57)
[2019-08-04] MEDS: HYDROCODONE/ACET 5/325 TABLET 1 TAB PO (01:27)
[2019-08-04] MEDS: ALBUTEROL 2.5 MG/3 ML NEB (ADULT) INH (02:14)
[2019-08-04] MEDS: IBUPROFEN 600 MG TABLET PO ×2 (02:28→11:34)
[2019-08-04] MEDS: LACTATED RINGERS 1,000 ML 100 ML IV (04:56)
[2019-08-04] MEDS: AZITHROMYCIN 500 MG in DEXTROSE 5% IN WATER 250 ML IV (05:10)
[2019-08-04] MEDS: OXYCODONE/ACETAMINOPHEN 5/325 TABLET 2 TAB PO (08:31)
[2019-08-04] MEDS: BUDESONIDE 0.5 MG/2 ML NEB INH (10:22)
[2019-08-04] MEDS: ALBUTEROL/IPRATROPIUM 3 ML AMPUL INH (10:22)
[2019-08-04] MEDS: DOCUSATE 100 MG CAPSULE PO (11:34)
[2019-08-04] MEDS: predniSONE 20 MG TABLET 40 MG PO (11:35)
[2019-08-04] MEDS: CYCLOBENZAPRINE 10 MG TABLET PO (11:35)
[2019-08-04] MEDS: lisinopriL 20 MG TABLET PO (11:35)
[2019-08-04] MEDS: DOXYCYCLINE HYCLATE 100 MG TABLET PO (11:38)
--- NOTE | 2019-08-04 14:40 | CM.IDA ---
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 No Advance Directives on File No History Provided By Patient,Medical Record Prior Living Arrangements House Household Members friend(s) Type of transporation used prior to Drives own vehicle admit Independent with ADL's Yes Is patient alert and oriented? Yes Needs Assistance With Home Chores / Shopping Comment Tires easily d/t COPD and back pain, low activity tolerance Barriers to Discharge No Comment Pt presents w/ COPD exacerbation, obs status and DC order placed today by Dr Brock PCP: Dr Miguel Angel Park Payer: [facility] /Medicaid Reviewed chart and spoke w/ pt this morning, introduced role . Pt lives w/his friend/ partner Katharina. 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 Pt hopeful he will get a spine stimulator soon so that he gets relief from his chronic pain in his spine (h/o spinal surgery w/o relief) Pt confident about his return home when medically cleared, he will have a friend take him home. No barriers to safe return home identified today. LUCI Gutierrez Discharge Plan Home Transportation Arrangement Friends Referrals Initiated None needed Review Status In Process
--- NOTE | 2019-08-04 15:28 | PC.NURSE ---
Discharge Pt does have chronic back pain. controlled with percocet and ibuprofen. PIV and tele removed prior to d/c. D/c instructions provided to pt. Aware to f/u with PCP and to contact them with any additional questions or concerns. 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 Left in w/c with [employer] REPAIR[employer] escort to car with friend.
--- NOTE | 2019-08-06 22:49 | PM.DS.1 ---
History of Present Illness History of Present Illness Date Patient Seen: 08/04/19 Time Patient Seen: 11:00 Chief complaint: TROUBLE BREATHING Narrative: Per Dr. Hammond, The patient is a 64-year-old male with a history of COPD, chronic back pain, hyperlipidemia, hypertension and intermittent atrial fibrillation. The patient presents with a week-long history of increasing shortness of breath, productive cough, shortness of breath with activity. He has been recently evaluated for spinal cord stimulator. He was in the clinic today and was found to be hypoxic. His oxygen level improved and he presented to [facility] emergency room for further evaluation. The patient underwent chest x-ray which was negative for infiltrate. He had a respiratory panel which was negative for viruses. The patient has had a flu shot. He does not recall a pneumonia shot. He was found to be markedly hypoxic with O2 saturation in the low 80s on room air. He was placed on oxygen and admitted to the hospital for further evaluation. The patient received several nebulizer treatments. Despite that he remained hypoxic. Patient was hospitalized here in November of this year. He was treated for COPD exacerbation. And follow-up he had a sleep study done and it was recommended that he be placed on CPAP at home. He states he lost his insurance and was unable to get the CPAP machine. In addition the patient was discharged home on oxygen but that was subsequently removed as well. Patient does describe cough with soni in intermittently green sputum. He has had no hemoptysis. He denies any pedal edema. He has had no significant change in his weight. The patient denies any chest pain. He has had no nausea vomiting or diarrhea. He denies any dysuria hematuria or pyuria. He has chronic back pain which is unchanged. Patient is admitted to the hospital this time for acute respiratory failure. Discharge Providers Provider Date of admission: 08/03/19 15:12 Discharge Date: 08/04/19 Primary care physician: Miguel Angel Park MD Discharge provider: Mamadou Brock DO Summary Hospital Course Discharge Diagnosis: 1. acute hypoxemic respiratory failure secondary to COPD exacerbation, resolved. 2. Acute bronchitis 3. Hypertension 4. Hyperlipidemia 5. Nicotine dependence 6. Chronic back 7. Atrial tachycardia Hospital Course: 1. 64-year-old male admitted to the hospital with acute hypoxemic respiratory failure and COPD exacerbation. -patient with known history of COPD, quit smoking 2 weeks ago. He improved on nebulizers and steroids. He was discharged home without the need for home O2. Respiratory panel was negative and no evidence of PNA on XR chest. 2. Acute bronchitis -started on course of doxycycline, can continue as an outpatient. 3. Hypertension, essential -no changes were made to the patient's home regimen. 4. Hyperlipidemia -continue statin 5. Nicotine dependence -continue Wellbutrin -patient declined nicotine patch 6. Chronic back -continue home pain regimen 7. Atrial tachycardia -suspect secondary to underlying respiratory issues, resolved prior to discharge. No further evaluation warranted. Time Spent with Patient Time spent: Greater than 30 minutes Exam Vital Signs (past 8 hours): Oxygen Delivery Method Room Air Oxygen Flow Rate 1 Narrative Exam Narrative: Gen: chronically ill appearing male in NAD. does speak in short sentences. HEENT: Normocephalic atraumatic, extraocular muscles are intact, oropharynx reveals moist mucous membranes neck is supple without adenopathy, no thyromegaly Lungs reveal decreased breath sounds, there is prolonged end-expiratory mild wheezes improved throughout the day. Cardiac exam: Regular rate and rhythm normal S1-S2, tachycardic Abdomen: Soft nontender nondistended there is no appreciable hepatosplenomegaly Lower extremity reveals no edema Neuro exam: Nonfocal exam Skin exam no lesion Psychiatric exam no confused Objective Labs Result Diagrams: 08/03/19 10:55 08/03/19 10:55 Discharge Plan Discharge Plan Patient Disposition: Home Discharge comment: You were admitted to the hospital with a COPD exacerbation and bronchitis. You are being discharged on an antibiotic and steroids. Please complete both of these medications at home. Please follow up with Dr. Park within the next two weeks if possible to check on your symptoms. Discharge orders & Medications Prescriptions: New prednisone 20 mg Tablet 40 mg PO DAILY 3 Days Qty: 3 RF: 0 doxycycline hyclate 100 mg Tablet 100 mg PO BID 5 Days Qty: 10 RF: 0 Continued albuterol sulfate [Ventolin HFA] 90 mcg/actuation HFA aerosol inhaler 1 puff INHALATION Q4HP PRN (Reason: shortness of breath or wheezing) Qty: 1 RF: 11 cyclobenzaprine 10 mg tablet 10 mg PO TID PRN (Reason: muscle spasm) Qty: 90 RF: 5 albuterol sulfate 2.5 mg /3 mL (0.083 %) solution for nebulization 1.25 mg INHALATION Q4-6H PRN (Reason: shortness of breath or wheezing) Qty: 3 RF: 11 budesonide 0.5 mg/2 mL suspension for nebulization 2 ml INHALATION BID Qty: 2 RF: 11 ipratropium bromide 0.02 % solution 2.5 ml INHALATION Q4H PRN (Reason: shortness of breath or wheezing) Qty: 2.5 RF: 11 oxycodone-acetaminophen 10-325 mg tablet 1 tab PO Q6H PRN (Reason: pain) Qty: 120 RF: 0 bupropion HCl 150 mg tablet sustained-release 12 hr 150 mg PO TID RF: 0 gabapentin 600 mg tablet 600 mg PO TID RF: 0 lisinopril 20 mg tablet 20 mg PO DAILY RF: 0 pravastatin 10 mg tablet 10 mg PO BEDTIME RF: 0 docusate sodium 100 mg capsule 100 mg PO BID RF: 0 ibuprofen 600 mg tablet 600 mg PO QID PRN (Reason: pain) RF: 0 Follow up/Referrals: Miguel Angel Pakr MD [Primary Care Provider] - Discharge Health Status Health Concerns: COPD exacerbation Diet/Activity/Treatments Diet: Diet as Tolerated Activity: As tolerated Visit Report/Discharge Packet Instructions: DI for Chronic Obstructive Pulmonary Disease, DI for Pneumonia -- Adult Discharge Data Primary Care Provider: Miguel Angel Park Attending Provider: Carolin Hammond Admit Date/Time: 08/03/19 15:12 Discharges patient from system. Discharge Date/Time: 08/04/19 14:58 Quality VTE Deep Vein Thrombosis/Pulmonary Embolism Present on Admission: No
== END 2019-08-04 14:58 | disposition home or self-care (01) ==
LOC: ED 15:09 → AC 15:13
PROVIDERS: Admitting Provider Internal Medicine; Emergency Provider Nurse Practitioner Family; PCP Student in an Organized Health Care Education/Training Program; Referring Provider Emergency Medicine; Visit Provider Internal Medicine
DX: J96.01 Acute respiratory failure with hypoxia (principal); J44.9 Chronic obstructive pulmonary disease, unspecified; I47.1 Supraventricular tachycardia; E78.5 Hyperlipidemia, unspecified; I10 Essential (primary) hypertension; J20.9 Acute bronchitis, unspecified; Z87.891 Personal history of nicotine dependence
CPT/HCPCS: 36415; 71046; 80053; 83605; 84484; 85025; 87070; 87205; 87633; 93005; 94640; 94760; 96361; 96365; 96366; 96375; 96376; 99285; G0378; J2930; J7613

== ENCOUNTER → 2019-10-30 08:22 | Outpatient (CLI) | payer MEDICARE, SELFPAY ==
[2019-08-03 16:20] VITALS: BMI 31.8
[2019-10-30 08:56] LABS: Add Manual Diff / Slide Review NO; Basophils Absolute Auto 100 /uL (0-100); Eosinophils Absolute Auto 300 /uL (0-450); Eosinophils Percent Auto 4.8 % (2-4); Hematocrit 41.9 % (41-53); Hemoglobin 14.3 g/dL (13.5-17.5); Lymphocytes Absolute Auto 1600 /uL (1100-4500); Lymphocytes Percent Auto 26.7 % (25-40); Mean Corpuscular HGB Conc 34.1 % (30-36); Mean Corpuscular Hemoglobin 30.8 PG (26-34); Mean Corpuscular Volume 90.2 fL (80-100); Monocytes Absolute Auto 600 /uL (0-900); Monocytes Percent Auto 10.4 % (3-14); Neutrophils Absolute Auto 3400 /uL (1500-7000); Neutrophils Percent Auto 57.1 % (50-75); Platelet Count 159 X10^3/uL (150-400); Red Blood Cell Count 4.65 X10^6/uL (4.5-5.9)
[2019-10-30 09:03] LABS: Hemoglobin A1C% w Est Avg Glu 5.6 % (4.0-6.0)
[2019-10-30 09:08] LABS: BUN Creatinine Ratio 25.2 (6-22); Blood Urea Nitrogen 26 mg/dL (9-20); Calcium 10.1 mg/dL (8.4-10.2); Carbon Dioxide 31 mmol/L (22-32); Chloride 101 mmol/L (98-107); Estimated Glomerular Filt Rate > 60.0 mL/min (>60); Glucose 125 mg/dL (80-110); HEMOLYSIS 19 (0-50); Potassium 4.5 mmol/L (3.4-5.1); Sodium 141 mmol/L (137-145)
== END ==
PROVIDERS: PCP Student in an Organized Health Care Education/Training Program; Referring Provider Student in an Organized Health Care Education/Training Program; Visit Provider Student in an Organized Health Care Education/Training Program
DX: Z01.810 Encounter for preprocedural cardiovascular examination (principal); E66.9 Obesity, unspecified; I10 Essential (primary) hypertension
CPT/HCPCS: 36415; 80048; 83036; 85025

== ENCOUNTER → 2019-11-07 09:30 | Outpatient (CLI) | payer MEDICARE, SELFPAY ==
[2019-08-03 16:20] VITALS: BMI 31.8
[2019-11-08 06:14] LABS: COVID19 Sendout Not Detected (Not Detect)
== END ==
PROVIDERS: PCP Student in an Organized Health Care Education/Training Program; Visit Provider Registered Nurse
DX: Z01.818 Encounter for other preprocedural examination (principal)
CPT/HCPCS: 87635

== ENCOUNTER → 2019-12-28 15:50 | Outpatient (CLI) | payer MEDICARE, SELFPAY ==
[2019-08-03 16:20] VITALS: BMI 31.8
--- NOTE | 2019-12-28 15:53 | DI.CT.S_ITS ---
PROCEDURE: CT ANGIO CHEST PE PROTOCOL INDICATIONS: Tachycardia w/ SOB. Need f/u of previous lung nodules as wel TECHNIQUE: After the administration of intravenous contrast, 2 mm thick sections acquired from the pulmonary apices to the posterior costophrenic angles. 3-dimensional maximum intensity projection (MIP) coronal and sagittal reformats were then acquired through the thorax. For radiation dose reduction, the following was used: automated exposure control, adjustment of mA and/or kV according to patient size. COMPARISON: [facility], CT, CT ANGIO CHEST PE PROTOCOL, 11/18/2018, 11:41. FINDINGS: Image quality: Diagnostic. Pulmonary arteries: Pulmonary arteries are normal in size, and demonstrate no intraluminal filling defects to suggest central pulmonary embolism. Lungs and pleura: Centrilobular emphysematous changes are identified throughout the lungs, which is best appreciated within the lung apices. There is no focal pulmonary consolidation, effusion, or pneumothorax. An area of groundglass attenuation is incidentally noted lung the posterior aspect of the right lower lobe near the level of the diaphragm, which is new since the prior study and probably represents a focus of atelectasis. No lung mass or definite pulmonary nodule is appreciated. Mediastinum: Heart size is normal, without pericardial effusion. There appears to be coronary artery atherosclerosis. No mediastinal or hilar adenopathy. Thoracic aorta is normal in caliber and enhancement. There may be mild wall thickening involving the distal esophagus. No significant hiatal hernia is evident. Bones and chest wall: No suspicious bony lesions. Ribs and thoracic spine appear intact throughout. Thyroid gland is not enlarged or adequately evaluated. No axillary or supraclavicular adenopathy. There is an ovoid subcutaneous lesion identified just above and medial to the level of the right nipple that measures 1.2 x 1.6 cm, which is unchanged when remeasured in a similar fashion. This likely represents a sebaceous cyst and is of doubtful clinical significance. A spinal stimulator apparatus is identified with the tip positioned along the dorsal aspect of the central canal at the T7-T8 level. Abdomen: Visualized upper abdominal solid organs appear normal in the early arterial phase of enhancement. The spleen is measuring within the upper limits of normal for size IMPRESSION: 1. No evidence of pulmonary emboli. 2. Small focus of groundglass attenuation adjacent to the pleura of the right lower lobe probably represents atelectasis. An early focus of pneumonia is difficult to exclude and clinical correlation is recommended. 3. Essential at that emphysematous changes of the lungs. 4. Mild wall prominence of the distal esophagus may represent esophagitis and clinical correlation is recommended. Dictated by: Leon Zambrano M.D. on 12/28/2019 at 15:25 Approved by: Leon Zambrano M.D. on 12/28/2019 at 15:36
[2019-12-28 16:27] LABS: BUN Creatinine Ratio 31.8 (6-22); Blood Urea Nitrogen 28 mg/dL (9-20); Estimated Glomerular Filt Rate > 60.0 mL/min (>60)
== END ==
PROVIDERS: PCP Student in an Organized Health Care Education/Training Program; Referring Provider Student in an Organized Health Care Education/Training Program; Visit Provider Student in an Organized Health Care Education/Training Program
DX: R00.0 Tachycardia, unspecified (principal); R91.8 Other nonspecific abnormal finding of lung field; R06.02 Shortness of breath; J44.9 Chronic obstructive pulmonary disease, unspecified; R09.02 Hypoxemia; N14.1 Nephropathy induced by other drugs, medicaments and biological substances; T50.8X5A Adverse effect of diagnostic agents, initial encounter
CPT/HCPCS: 36415; 71275; 82565; 84520; Q9967

== ENCOUNTER → 2020-01-24 13:50 | Outpatient (CLI) | payer MEDICARE, SELFPAY ==
[2019-08-03 16:20] VITALS: BMI 31.8
[2020-01-25 19:58] LABS: COVID19 Sendout Not Detected (Not Detect)
== END ==
PROVIDERS: PCP Student in an Organized Health Care Education/Training Program; Visit Provider Physician Assistant
DX: Z11.9 Encounter for screening for infectious and parasitic diseases, unspecified (principal)
CPT/HCPCS: 87635

== ENCOUNTER → 2020-01-27 06:44 | Outpatient (CLI) | payer MEDICARE, SELFPAY ==
[2019-08-03 16:20] VITALS: BMI 31.8
--- NOTE | 2020-02-23 10:36 | PM.PFT.1 ---
Pulmonary Function Test Referral & Results Date Patient Seen: 02/17/20 Requesting provider: Miguel Angel Park Indication: COPD Results: The spirometry demonstrates an FVC of 2.67 L which is 43% of predicted. The FEV1 was measured at 0.77 L which is 16% of predicted. The FEV1/FVC ratio was 29 which is 38% of predicted. Following the administration of bronchodilator there was a 40% improvement in FEV1 and a 126% improvement in FEF 25-75%. Lung volumes show an SVC of 2.58 L which is 43% of predicted. The diffusing capacity was measured at 15.38 which is 35% of predicted. No hemoglobin value was provided, so no correction for potential anemia could be made, if appropriate. The maximum voluntary ventilation was reduced severely Interpretation: This study demonstrates severe obstructive lung disease with FEV1 of less than 1 L. There is evidence of significant benefit following bronchodilator based on improvement in FEV1 and FEF 25-75% There is also moderately severe restrictive lung disease based on reduction SVC There is also severe reduction in diffusing capacity to the point where patient may well be hypoxic at times on room air
== END ==
PROVIDERS: PCP Student in an Organized Health Care Education/Training Program; Referring Provider Student in an Organized Health Care Education/Training Program; Visit Provider Student in an Organized Health Care Education/Training Program
DX: J44.9 Chronic obstructive pulmonary disease, unspecified (principal)

== ENCOUNTER 2020-01-27 14:48 | Inpatient (IN) | payer MEDICARE, SELFPAY ==
[2019-08-03 16:20] VITALS: BMI 31.8
[2020-01-27] VITALS (31 sets, daily range): BP systolic 104–163; BP diastolic 78–104; PULSE 86–151; RESP 12–35; TEMP 36–36.9; O2SAT 88–99; BMI 31.8
--- NOTE | 2020-01-27 15:13 | DI.RAD.S_ITS ---
PROCEDURE: XR CHEST 1V INDICATIONS: flu-like symptoms TECHNIQUE: One view of the chest was acquired. COMPARISON: [facility], CT, CT ANGIO CHEST PE PROTOCOL, 12/28/2019, 16:03. [facility], CT, CT ANGIO CHEST PE PROTOCOL, 11/18/2018, 11:41. [facility], CR, XR CHEST 2V, 11/18/2018, 8:19. [facility], CR, XR CHEST 2V, 08/03/2019, 10:56. FINDINGS: Surgical changes and devices: Thoracic spine neural stimulator.. Lungs and pleura: Interstitial prominence noted in the lungs bilaterally. No pleural effusions or pneumothorax. Mediastinum: Mediastinal contours appear normal. Heart size is normal. Bones and chest wall: No suspicious bony lesions. Overlying soft tissues appear unremarkable. IMPRESSION: Bilateral lung interstitial prominence concerning for pulmonary edema or atypical pneumonia. Dictated by: Emeli Hewitt MD, PhD on 01/27/2020 at 15:37 Approved by: Emeli Hewitt MD, PhD on 01/27/2020 at 15:39
--- NOTE | 2020-01-27 15:18 | ED.SOB ---
HPI - SOB/Dyspnea General Chief Complaint: Shortness of Breath/Dyspnea Stated Complaint: trouble breathing Time Seen by Provider: 01/27/20 14:57 Source: patient Mode of arrival: Wheelchair Limitations: no limitations History of Present Illness HPI Narrative: Patient is a 64-year-old male with history of COPD on home oxygen presenting with increasing shortness of breath. Its is been ongoing for couple weeks in fact he saw his PCP for increased lower extremity edema and shortness of breath on 01/10/2020 he says it has progressively gotten worse. He is also noted be in atrial flutter on the monitor which is new for him. He also says that he has had orthopnea ongoing for the past couple of months previously was able to lie flat but now needs to sleep in a recliner. He denies any fever but does have some productive cough. MD Complaint: shortness of breath Related Data Home Medications Medication Instructions Recorded Confirmed docusate sodium 100 mg PO BID 08/03/19 01/27/20 lisinopril 20 mg PO DAILY 08/03/19 01/27/20 pravastatin 10 mg PO BEDTIME 08/03/19 01/27/20 Previous Rx's Medication Instructions Recorded bupropion HCl 150 mg tablet,12 hr 150 mg PO TID #270 each 09/21/19 sustained-release albuterol sulfate 90 mcg/actuation See Rx Instructions .ROUTE 11/29/19 aerosol inhaler .COMPLEX #18 gram permethrin 5 % topical cream 1 applictn TOP ONCE #60 gram 12/07/19 albuterol sulfate 1.25 mg INHALATION Q4-6H PRN #3 ml 12/22/19 budesonide 0.5 mg/2 mL suspension 2 ml INHALATION BID #2 ml 12/22/19 for nebulization ibuprofen 600 mg tablet 600 mg PO QID PRN #360 tab 12/22/19 ipratropium bromide 0.02 % 2.5 ml INHALATION Q4H PRN #2.5 ml 12/22/19 solution for inhalation oxycodone-acetaminophen 10 mg-325 1 tab PO Q6H PRN #120 tab 01/18/20 mg tablet gabapentin 600 mg tablet 600 mg PO TID #270 tab 01/27/20 Allergies Allergy/AdvReac Type Severity Reaction Status Date / Time No Known Drug Allergies Allergy Verified 01/24/20 17:13 Review of Systems Review of Systems ROS Unobtainable: All systems reviewed & are unremarkable except as noted in HPI and below Eyes Eyes: Denies change in vision, Denies eye discharge, Denies irritation and Denies loss of vision ENT Ears, Nose, Mouth, and Throat: Denies change in voice, Denies neck pain and Denies sore throat Cardiovascular Cardiovascular: Denies chest pain, Reports rapid heart rate, Reports leg edema and Reports dyspnea on exertion Respiratory Respiratory: Reports cough, Denies pain on inspiration, Denies pain with cough and Reports dyspnea on exertion Gastrointestinal Gastrointestinal: Denies abdominal pain, Denies change in bowel habits, Denies diarrhea, Denies nausea and Denies vomiting Musculoskeletal Musculoskeletal: Denies myalgias and Denies neck pain Integumentary/Breasts Skin/Breast: Denies pruritus, Denies erythema, Denies rash and Denies wounds Neurologic Neurologic: Denies abnormal movements and Denies loss of vision Patient History Medical History Chronic back pain (Chronic 1979) Generalized headaches (Chronic 1999) Hyperlipidemia (Acute) Hypertension (Chronic Unknown) Primary osteoarthritis of right hip (Chronic 06/17/17) Tobacco abuse (Resolved) Uncomplicated opioid dependence (Chronic) Surgical History History of lumbar surgery (Resolved ~2015) History of right hip replacement (Acute) History of total right hip arthroplasty (Resolved) Hx of inguinal hernia repair (Resolved 1999) Family History Mother No problems noted. Father No problems noted. Father Natural with probable cause suspected Social History details: female partner household members: friend(s) Smoking Status: Former smoker alcohol intake: current substance use type: does not use Smoking Status: Former smoker alcohol intake frequency: holidays/special occasions only Substance Use Type: does not use Exam Initial Vital Signs Initial Vital Signs: Vital Signs Pulse Rate 149 H 01/27/20 14:57 Respiratory Rate 29 H 01/27/20 14:57 Pulse Oximetry 97 01/27/20 14:57 GENERAL: Alert male appears in [id number] respiratory distress and in no acute distress. HEENT: Head atraumatic,EOMI, pupils reactive, face symmetric, moist mucous membranes CARDIOVASCULAR: Tachycardic regular no murmur RESPIRATORY: Decreased breath sounds bilaterally able to speak in full sentences ABDOMEN: Soft, nontender. Normoactive bowel sounds all 4 quadrants. No guarding or rebound. EXTREMITIES: Normal range of motion, no clubbing. +2 pitting edema bilaterally Neurovascularly intact NEUROLOGICAL: Alert and oriented x4.Normal gait and speech. SKIN: Warm, dry, no laceration, no petechiae, no rashes or lesions. Course Orders Ordered: Acetaminophen (Tylenol) 650 mg PO Q6HR PRN PRN Reason: Fever/Mild Pain (1-3) Albuterol (Ventolin) 2.5 mg INH [id number] PRN PRN Reason: shortness of breath Last Admin: 01/27/20 19:20 Dose: 2.5 mg Documented by: JIMMY Albuterol/Ipratropium (Duoneb) 3 ml INH RTBID [facility] Last Admin: 01/27/20 19:21 Dose: Not Given Documented by: JIMMY Aspirin (Aspirin Ec) 81 mg PO DAILY [facility] Budesonide (Pulmicort) 0.5 mg INH RTBID [facility] Last Admin: 01/27/20 19:20 Dose: 0.5 mg Documented by: JIMMY Bupropion HCl (Wellbutrin Sr) 150 mg PO TID [facility] Last Admin: 01/27/20 21:06 Dose: 150 mg Documented by: AYSE Docusate Sodium (Colace) 100 mg PO BID [facility] Last Admin: 01/27/20 20:57 Dose: Not Given Documented by: AYSE Enoxaparin Sodium (Lovenox) 40 mg SUBCUT DAILY [facility] Furosemide (Lasix) 40 mg IV Q12HR [facility] Gabapentin (Neurontin) 600 mg PO TID [facility] Last Admin: 01/27/20 21:06 Dose: 600 mg Documented by: AYSE DILTIAZEM (Diltiazem 125 Mg/125 [id number]) 125 mg in 125 mls @ 5 mls/hr IV TITRATE JAKE; Protocol Last Titration: 01/28/20 03:21 Dose: 10 mg/hr, 10 mls/hr Documented by: Admin: 01/28/20 03:14 Dose: 15 mg/hr, 15 mls/hr Documented by: Titration: 01/28/20 03:14 Dose: 15 mg/hr, 15 mls/hr Documented by: Titration: 01/27/20 20:15 Dose: 15 mg/hr, 15 mls/hr Documented by: Titration: 01/27/20 19:10 Dose: 10 mg/hr, 10 mls/hr Documented by: Admin: 01/27/20 18:08 Dose: 5 mg/hr, 5 mls/hr Documented by: AYSE Magnesium Sulfate (Magnesium Sulfate) 2 gm in 50 mls @ 25 mls/hr IV NOW ONE Stop: 01/28/20 07:29 Last Admin: 01/28/20 05:45 Dose: 25 mls/hr Documented by: MARIANNE Cosigned by: CHARLIE Lisinopril (Zestril) 20 mg PO DAILY [facility] Naloxone HCl (Narcan) 0.2 mg IV Q2MIN PRN PRN Reason: Opiate Reversal Ondansetron HCl (Zofran) 4 mg IV Q8HR PRN PRN Reason: Nausea And Vomiting Oxycodone/Acetaminophen (Percocet 5/325) 2 tab PO Q6HR PRN PRN Reason: Pain, Severe (7-10) Last Admin: 01/27/20 21:06 Dose: 2 tab Documented by: AYSE Pravastatin Sodium (Pravachol) 10 mg PO BEDTIME [facility] Last Admin: 01/27/20 21:05 Dose: 10 mg Documented by: AYSE Discontinued Medications Albuterol (Ventolin Hfa Prepack) 1 box MISC SEEINSTR ONE Stop: 01/27/20 15:06 Last Admin: 01/27/20 15:21 Dose: 1 box Documented by: ARIS Digoxin (Lanoxin) 500 mcg IV NOW ONE Stop: 01/27/20 16:18 Last Admin: 01/27/20 16:27 Dose: 500 mcg Documented by: MARK Diltiazem HCl (Cardizem) 10 mg IV NOW ONE Stop: 01/27/20 15:15 Last Admin: 01/27/20 15:30 Dose: Not Given Documented by: MARK Diltiazem HCl (Cardizem) 10 mg IV NOW ONE Stop: 01/27/20 15:55 Last Admin: 01/27/20 16:02 Dose: 10 mg Documented by: MARK Furosemide (Lasix) 40 mg IV NOW ONE Stop: 01/27/20 15:20 Last Admin: 01/27/20 15:34 Dose: 40 mg Documented by: MARK Metoprolol Tartrate (Lopressor) 5 mg IV NOW ONE Stop: 01/27/20 15:30 Last Admin: 01/27/20 15:34 Dose: 5 mg Documented by: MARK Non-Formulary Medication (Oxycodone-Acetaminophen) 1 tab PO Q6H PRN PRN Reason: pain Potassium Chloride (Klor-Con M20) 40 meq PO NOW ONE Stop: 01/28/20 05:33 Last Admin: 01/28/20 05:45 Dose: 40 meq Documented by: MARIANNE Vital Signs Vital signs: Vital Signs - 8 hr 01/27/20 14:57 01/27/20 14:58 01/27/20 15:00 Temperature Pulse Rate 149 H 149 H 149 H Respiratory Rate 29 H 25 H 26 H Blood Pressure 141/94 H 161/104 H Pulse Oximetry 97 99 98 01/27/20 15:02 01/27/20 15:20 01/27/20 15:30 Temperature 96.8 F L Pulse Rate 148 H 150 H 149 H Respiratory Rate 22 22 29 H Blood Pressure 141/94 H Pulse Oximetry 98 95 93 01/27/20 15:31 01/27/20 15:45 01/27/20 15:48 Temperature Pulse Rate 151 H 151 H 148 H Respiratory Rate 33 H 19 26 H Blood Pressure 152/101 H 151/93 H 134/95 H Pulse Oximetry 93 94 94 01/27/20 15:50 01/27/20 15:56 01/27/20 16:00 Temperature Pulse Rate 144 H 143 H 145 H Respiratory Rate 23 21 20 Blood Pressure 140/99 H 135/84 Pulse Oximetry 94 95 95 01/27/20 16:02 01/27/20 16:06 01/27/20 16:11 Temperature Pulse Rate 145 H 142 H 143 H Respiratory Rate 35 H 19 Blood Pressure 145/79 H 145/79 H 137/80 Pulse Oximetry 92 93 01/27/20 16:15 01/27/20 16:20 01/27/20 16:25 Temperature Pulse Rate 142 H 141 H 137 H Respiratory Rate 18 24 21 Blood Pressure 143/80 H 140/83 143/81 H Pulse Oximetry 93 88 L 93 01/27/20 16:27 01/27/20 16:30 01/27/20 16:33 Temperature Pulse Rate 143 H 139 H 141 H Respiratory Rate 23 19 Blood Pressure 143/81 H 118/78 132/87 Pulse Oximetry 94 93 01/27/20 16:35 01/27/20 16:41 Temperature Pulse Rate 144 H 140 H Respiratory Rate 27 H 18 Blood Pressure 142/95 H 163/94 H Pulse Oximetry 93 MDM - SOB/Dyspnea Lab Data Attestation: I reviewed the patient's lab results. Result diagrams: 01/28/20 04:40 01/28/20 04:40 Labs: Lab Results 01/27/20 01/27/20 01/27/20 Range/Units 01:12 15:16 15:16 WBC (4.5-11.0) X10^3/uL RBC (4.5-5.9) X10^6/uL Hgb (13.5-17.5) g/dL Hct (41-53) % MCV (80-100) fL MCH (26-34) PG MCHC (30-36) % RDW (11.6-14.8) % Plt Count (150-400) X10^3/uL Neut % (Auto) (50-75) % Lymph % (Auto) (25-40) % [place] % (Auto) (3-14) % Eos % (Auto) (2-4) % Baso % (Auto) (0-2) % Neut # (Auto) (2455-9370) /uL Lymph # (Auto) (1096-8484) /uL [place] # (Auto) (0-900) /uL Eos # (Auto) (0-450) /uL Baso # (Auto) (0-100) /uL PT (10.1-12.7) SECONDS INR (0.9-1.3) APTT (26.4-36.2) SECONDS D-Dimer 255 H (<230) ng/mL ABG pH 7.34 L (7.35-7.45) ABG pCO2 90.9 H* (35-45) mmHg ABG pO2 100 (80-100) mmHg ABG HCO3 49 H (22-26) mmol/L ABG Total CO2 50 H (21-31) mmol/L ABG O2 Saturation 97 (95-100) % ABG Base Excess 23.0 H (-2-2) mmol/L FiO2 40 Sodium (137-145) mmol/L Potassium (3.4-5.1) mmol/L Chloride (98-107) mmol/L Carbon Dioxide (22-32) mmol/L BUN (9-20) mg/dL Creatinine (0.66-1.25) mg/dL Estimated GFR (>60) mL/min BUN/Creatinine Ratio (6-22) Glucose (80-110) mg/dL Lactate (0.7-2.1) mmol/L Calcium (8.4-10.2) mg/dL Ferritin (18-464) ng/mL Total Bilirubin (0.2-1.3) mg/dL AST (17-59) IU/L ALT (<50) IU/L Alkaline Phosphatase (38-126) U/L Lactate Dehydrogenase (313-618) U/L Total Creatine Kinase (55-170) U/L CK-MB (CK-2) (<2.37) ng/mL CK-MB (CK-2) Rel Index (1.5-5.0) % Troponin I (0.01-0.034) ng/mL C-Reactive Protein (<1.0) mg/dL NT-Pro-B Natriuret Pep (<125) pg/mL Total Protein (6.3-8.2) g/dL Albumin (3.5-5.0) g/dL Globulin (1.7-4.1) g/dL Albumin/Globulin Ratio (1.0-2.8) Procalcitonin 0.05 (<0.5) ng/mL COVID-19 PCR (Negative) 01/27/20 01/27/20 01/27/20 Range/Units 15:16 15:16 15:16 WBC 10.1 (4.5-11.0) X10^3/uL RBC 4.47 L (4.5-5.9) X10^6/uL Hgb 13.2 L (13.5-17.5) g/dL Hct 40.5 L (41-53) % MCV 90.6 (80-100) fL MCH 29.5 (26-34) PG MCHC 32.5 (30-36) % RDW 14.0 (11.6-14.8) % Plt Count 160 (150-400) X10^3/uL Neut % (Auto) 79.5 H (50-75) % Lymph % (Auto) 10.0 L (25-40) % [place] % (Auto) 9.5 (3-14) % Eos % (Auto) 0.4 L (2-4) % Baso % (Auto) 0.6 (0-2) % Neut # (Auto) 8000 H (0765-0876) /uL Lymph # (Auto) 1000 L (9154-9533) /uL [place] # (Auto) 1000 H (0-900) /uL Eos # (Auto) 0 (0-450) /uL Baso # (Auto) 100 (0-100) /uL PT (10.1-12.7) SECONDS INR (0.9-1.3) APTT (26.4-36.2) SECONDS D-Dimer (<230) ng/mL ABG pH (7.35-7.45) ABG pCO2 (35-45) mmHg ABG pO2 (80-100) mmHg ABG HCO3 (22-26) mmol/L ABG Total CO2 (21-31) mmol/L ABG O2 Saturation (95-100) % ABG Base Excess (-2-2) mmol/L FiO2 Sodium 141 (137-145) mmol/L Potassium 4.4 (3.4-5.1) mmol/L Chloride 93 L (98-107) mmol/L Carbon Dioxide 41 H* (22-32) mmol/L BUN 22 H (9-20) mg/dL Creatinine 0.55 L (0.66-1.25) mg/dL Estimated GFR > 60.0 (>60) mL/min BUN/Creatinine Ratio 40.0 H (6-22) Glucose 127 H (80-110) mg/dL Lactate 0.7 (0.7-2.1) mmol/L Calcium 9.9 (8.4-10.2) mg/dL Ferritin 38 (18-464) ng/mL Total Bilirubin 0.7 (0.2-1.3) mg/dL AST 44 (17-59) IU/L ALT 30 (<50) IU/L Alkaline Phosphatase 104 (38-126) U/L Lactate Dehydrogenase 555 (313-618) U/L Total Creatine Kinase 109 (55-170) U/L CK-MB (CK-2) 2.60 H (<2.37) ng/mL CK-MB (CK-2) Rel Index 2.4 (1.5-5.0) % Troponin I 0.030 (0.01-0.034) ng/mL C-Reactive Protein 1.7 H (<1.0) mg/dL NT-Pro-B Natriuret Pep 2390 H (<125) pg/mL Total Protein 7.2 (6.3-8.2) g/dL Albumin 4.3 (3.5-5.0) g/dL Globulin 2.9 (1.7-4.1) g/dL Albumin/Globulin Ratio 1.5 (1.0-2.8) Procalcitonin (<0.5) ng/mL COVID-19 PCR (Negative) 01/27/20 01/27/20 01/27/20 Range/Units 15:16 15:16 15:19 WBC (4.5-11.0) X10^3/uL RBC (4.5-5.9) X10^6/uL Hgb (13.5-17.5) g/dL Hct (41-53) % MCV (80-100) fL MCH (26-34) PG MCHC (30-36) % RDW (11.6-14.8) % Plt Count (150-400) X10^3/uL Neut % (Auto) (50-75) % Lymph % (Auto) (25-40) % [place] % (Auto) (3-14) % Eos % (Auto) (2-4) % Baso % (Auto) (0-2) % Neut # (Auto) (8600-6760) /uL Lymph # (Auto) (4687-6554) /uL [place] # (Auto) (0-900) /uL Eos # (Auto) (0-450) /uL Baso # (Auto) (0-100) /uL PT 14.0 H (10.1-12.7) SECONDS INR 1.2 (0.9-1.3) APTT 29 (26.4-36.2) SECONDS D-Dimer (<230) ng/mL ABG pH 7.32 L (7.35-7.45) ABG pCO2 87.7 H* (35-45) mmHg ABG pO2 102 H (80-100) mmHg ABG HCO3 45 H (22-26) mmol/L ABG Total CO2 48 H (21-31) mmol/L ABG O2 Saturation 97 (95-100) % ABG Base Excess 19.0 H (-2-2) mmol/L FiO2 30 Sodium (137-145) mmol/L Potassium (3.4-5.1) mmol/L Chloride (98-107) mmol/L Carbon Dioxide (22-32) mmol/L BUN (9-20) mg/dL Creatinine (0.66-1.25) mg/dL Estimated GFR (>60) mL/min BUN/Creatinine Ratio (6-22) Glucose (80-110) mg/dL Lactate (0.7-2.1) mmol/L Calcium (8.4-10.2) mg/dL Ferritin (18-464) ng/mL Total Bilirubin (0.2-1.3) mg/dL AST (17-59) IU/L ALT (<50) IU/L Alkaline Phosphatase (38-126) U/L Lactate Dehydrogenase (313-618) U/L Total Creatine Kinase (55-170) U/L CK-MB (CK-2) (<2.37) ng/mL CK-MB (CK-2) Rel Index (1.5-5.0) % Troponin I (0.01-0.034) ng/mL C-Reactive Protein (<1.0) mg/dL NT-Pro-B Natriuret Pep (<125) pg/mL Total Protein (6.3-8.2) g/dL Albumin (3.5-5.0) g/dL Globulin (1.7-4.1) g/dL Albumin/Globulin Ratio (1.0-2.8) Procalcitonin (<0.5) ng/mL COVID-19 PCR Negative (Negative) Imaging Data Chest x-ray: Radiologist's Impression: PROCEDURE: XR CHEST 1V INDICATIONS: flu-like symptoms TECHNIQUE: One view of the chest was acquired. COMPARISON: [facility], CT, CT ANGIO CHEST PE PROTOCOL, 12/28/2019, 16:03. [facility], CT, CT ANGIO CHEST PE PROTOCOL, 11/18/2018, 11:41. [facility], CR, XR CHEST 2V, 11/18/2018, 8:19. [facility], CR, XR CHEST 2V, 08/03/2019, 10:56. FINDINGS: Surgical changes and devices: Thoracic spine neural stimulator.. Lungs and pleura: Interstitial prominence noted in the lungs bilaterally. No pleural effusions or pneumothorax. Mediastinum: Mediastinal contours appear normal. Heart size is normal. Bones and chest wall: No suspicious bony lesions. Overlying soft tissues appear unremarkable. IMPRESSION: Bilateral lung interstitial prominence concerning for pulmonary edema or atypical pneumonia. Dictated by: Emeli Hewitt MD, PhD on 01/27/2020 at 15:37 ECG Data Attestation: I personally reviewed and interpreted this ECG as follows: Prior ECG tracings: available for review Interpretation: Atrial flutter rate [address] changes previous EKGs do not show atrial flutter MDM Narrative Medical decision making narrative: The patient is wheezing and tight with history of COPD but not requiring any increased oxygen. He is speaking in full sentences but does appear to be in mild respiratory distress. He has orthopnea and lower extremity edema with new onset atrial flutter. He is given 1 dose of metoprolol which she does not respond to he is given 10 mg of Cardizem which temporarily slowed his heart rate but quickly rises again. Does not decrease his blood pressure. However with likelihood of new onset CHF which refer not calcium channel cathie so he is given digoxin. Dr. Brock is in the ED to see and evaluate patient, at this time he does request Cardizem drip will admit to the ICU and start BiPAP in the ICU. Covid is negative Discharge Plan Departure Patient Disposition: Admitted As Inpatient Clinical Impression: Atrial flutter with rapid ventricular response CHF (congestive heart failure) Qualifiers: Heart failure type: unspecified Heart failure chronicity: unspecified Qualified Code(s): I50.9 - Heart failure, unspecified Discharge Date/Time: 01/27/20 17:19 Admit Date/Time: 01/27/20 16:42 Admit Provider: Mamadou Brock
[2020-01-27] MEDS: ALBUTEROL HFA PREPACK 1 BOX MISC (15:21)
[2020-01-27 15:29] LABS: Add Manual Diff / Slide Review NO; Basophils Absolute Auto 100 /uL (0-100); Basophils Percent Auto 0.6 % (0-2); Eosinophils Absolute Auto 0 /uL (0-450); Eosinophils Percent Auto 0.4 % (2-4); Hematocrit 40.5 % (41-53); Hemoglobin 13.2 g/dL (13.5-17.5); Lymphocytes Absolute Auto 1000 /uL (1100-4500); Mean Corpuscular HGB Conc 32.5 % (30-36); Mean Corpuscular Hemoglobin 29.5 PG (26-34); Mean Corpuscular Volume 90.6 fL (80-100); Monocytes Absolute Auto 1000 /uL (0-900); Monocytes Percent Auto 9.5 % (3-14); Neutrophils Absolute Auto 8000 /uL (1500-7000); Neutrophils Percent Auto 79.5 % (50-75); Platelet Count 160 X10^3/uL (150-400); Red Blood Cell Count 4.47 X10^6/uL (4.5-5.9); White Blood Cell Count 10.1 X10^3/uL (4.5-11.0)
[2020-01-27] MEDS: METOPROLOL TARTRATE 5 MG/5 ML INJ IV (15:34)
[2020-01-27] MEDS: FUROSEMIDE 40 MG/4 ML VIAL IV (15:34)
[2020-01-27 15:38] LABS: D Dimer 255 ng/mL (<230)
[2020-01-27 15:40] LABS: Lactate (Lactic Acid) 0.7 mmol/L (0.7-2.1)
[2020-01-27 15:42] LABS: Alanine Aminotransferase 30 IU/L (<50); Albumin 4.3 g/dL (3.5-5.0); Albumin Globulin Ratio 1.5 (1.0-2.8); Alkaline Phosphatase 104 U/L (38-126); Aspartate Aminotransferase 44 IU/L (17-59); Bilirubin Total 0.7 mg/dL (0.2-1.3); Blood Urea Nitrogen 22 mg/dL (9-20); C-Reactive Protein Quant 1.7 mg/dL (<1.0); Calcium 9.9 mg/dL (8.4-10.2); Chloride 93 mmol/L (98-107); Creatine Kinase 109 U/L (55-170); Estimated Glomerular Filt Rate > 60.0 mL/min (>60); Globulin 2.9 g/dL (1.7-4.1); Glucose 127 mg/dL (80-110); HEMOLYSIS < 15 (0-50); Lactate Dehydrogenase 555 U/L (313-618); Potassium 4.4 mmol/L (3.4-5.1); Sodium 141 mmol/L (137-145); Total Protein 7.2 g/dL (6.3-8.2)
[2020-01-27 15:48] LABS: Carbon Dioxide 41 mmol/L (22-32)
[2020-01-27 15:50] LABS: PCO2 ABG 87.7 mmHg (35-45); pH ABG 7.32 (7.35-7.45)
[2020-01-27 15:51] LABS: HCO3 ABG 45 mmol/L (22-26); NT-proBNP (BNP-Adult 18+) 2390 pg/mL (<125); Oxygen Saturation ABG 97 % (95-100); PO2 ABG 102 mmHg (80-100); TCO2 ABG 48 mmol/L (21-31)
[2020-01-27 15:53] LABS: Fractionated Inspired Oxygen 30; INR 1.2 (0.9-1.3)
[2020-01-27 15:54] LABS: Procalcitonin 0.05 ng/mL (<0.5)
[2020-01-27 15:56] LABS: CKMB % Relative Index 2.4 % (1.5-5.0); PTT Partial Thromboplastin Tim 29 SECONDS (26.4-36.2)
[2020-01-27] MEDS: dilTIAZem 5 MG/ML SDV 10 MG IV (16:02)
[2020-01-27 16:14] LABS: Ferritin 38 ng/mL (18-464)
[2020-01-27] MEDS: DIGOXIN 500 MCG/2 ML AMPUL IV (16:27)
[2020-01-27 16:37] LABS: COVID19 -Nasal RAPID Negative (Negative)
--- NOTE | 2020-01-27 17:07 | PM.HP.1 ---
History of Present Illness History of Present Illness Date Patient Seen: 01/27/20 Time Patient Seen: 17:07 Chief complaint: trouble breathing Narrative: Harvey Roberts is a 64 year old male with past medical history of COPD, recently placed on home oxygen, chronic low back pain with opioid dependence, history spinal stimulator evaluation, hypertension, obesity who presented with worsening shortness of breath over the past month. Patient was scheduled for a pulmonary function test today, but took his albuterol this morning and the test was rescheduled for next week. He felt like he could not last another week so decided to come the emergency room for further evaluation. He has been seeing his primary care provider with worsening lower extremity edema and shortness of breath. His lower extremity edema started about 2 weeks ago. Patient endorses shortness of breath at rest for the past month, but is able to do most of his activities including shopping. He cannot lay flat at night and has been sleeping in his recliner for a while. He denies any palpitations, chest pain, dizziness, nausea, vomiting, left arm or shoulder discomfort. He does endorse diaphoresis when walking a short distance. In the emergency room, patient was hypertensive, mild increase in his home oxygen use at 3 L, and tachycardic into the 140s at times. EKG showed atrial flutter with variable conduction and a rate of 140. Chest x-ray showed bilateral hazy opacities consistent with pulmonary edema. Initial labs showed a carbon dioxide level of 41, creatinine of 0.55, lactate of 0.7. Troponin was 0.03. ProBNP was elevated at 2390. Procalcitonin is negative. COVID-19 PCR was also negative. CBC was unremarkable. D-dimer was negative for age at 255. ABG showed a respiratory acidosis with pH of 7.32, and a pCO2 of 87.7. PO2 was 102 with an FiO2 30 on 3 L of nasal cannula at the time. Patient was given IV diltiazem x2 doses, with mild slowing of his rate, metoprolol 5 mg, and was given a digoxin load as well. He was started on a BiPAP therapy after COVID-19 testing was negative and will be admitted to the ICU for further management. Patient History Medical History (Updated 01/27/20 @ 16:44 by Justine Jhaveri DO) Chronic back pain (Chronic 1979) Generalized headaches (Chronic 1999) Hyperlipidemia (Acute) Hypertension (Chronic Unknown) Primary osteoarthritis of right hip (Chronic 06/17/17) Tobacco abuse (Resolved) Uncomplicated opioid dependence (Chronic) Surgical History (Updated 11/12/19 @ 12:17 by Nadya Ibarra MA) History of lumbar surgery (Resolved ~2015) History of right hip replacement (Acute) History of total right hip arthroplasty (Resolved) Hx of inguinal hernia repair (Resolved 1999) Family & Social History Family History Mother No problems noted. Father No problems noted. Father Natural with probable cause suspected Social History: household members friend(s) Safety & Behavioral: Feels Safe in Current Yes Environment Been Physically Hurt or No Threatened By a Person Tobacco & Substance use: Smoking Status Former smoker alcohol intake current alcohol intake frequency holiday/special occasion Substance Use Type does not use Meds Home Medications and Allergies Home Medications Medication Instructions Recorded Confirmed Type docusate sodium 100 mg PO BID 08/03/19 01/19/20 History lisinopril 20 mg PO DAILY 08/03/19 01/19/20 History pravastatin 10 mg PO BEDTIME 08/03/19 01/19/20 History bupropion HCl 150 mg tablet,12 hr 150 mg PO TID #270 each 09/21/19 01/19/20 Rx sustained-release albuterol sulfate 90 mcg/actuation See Rx Instructions .ROUTE 11/29/19 01/27/20 Rx aerosol inhaler .COMPLEX #18 gram permethrin 5 % topical cream 1 applictn TOP ONCE #60 gram 12/07/19 01/19/20 Rx albuterol sulfate 1.25 mg INHALATION Q4-6H PRN #3 ml 12/22/19 01/27/20 Rx budesonide 0.5 mg/2 mL suspension 2 ml INHALATION BID #2 ml 12/22/19 01/27/20 Rx for nebulization ibuprofen 600 mg tablet 600 mg PO QID PRN #360 tab 12/22/19 01/19/20 Rx ipratropium bromide 0.02 % 2.5 ml INHALATION Q4H PRN #2.5 ml 12/22/19 01/19/20 Rx solution for inhalation oxycodone-acetaminophen 10 mg-325 1 tab PO Q6H PRN #120 tab 01/18/20 01/19/20 Rx mg tablet gabapentin 600 mg tablet 600 mg PO TID #270 tab 01/27/20 Rx Allergies Allergy/AdvReac Type Severity Reaction Status Date / Time No Known Drug Allergies Allergy Verified 01/24/20 17:13 Review of Systems Review of Systems Narrative: All other systems reviewed with the patient and are negative unless otherwise stated. Exam Vital Signs (past 8 hours): - 01/27/20 14:57 01/27/20 14:58 01/27/20 15:00 Temperature Pulse Rate 149 H 149 H 149 H Respiratory Rate 29 H 25 H 26 H Blood Pressure 141/94 H 161/104 H Pulse Oximetry 97 99 98 01/27/20 15:02 01/27/20 15:20 01/27/20 15:30 Temperature 96.8 F L Pulse Rate 148 H 150 H 149 H Respiratory Rate 22 22 29 H Blood Pressure 141/94 H Pulse Oximetry 98 95 93 01/27/20 15:31 01/27/20 15:45 01/27/20 15:48 Temperature Pulse Rate 151 H 151 H 148 H Respiratory Rate 33 H 19 26 H Blood Pressure 152/101 H 151/93 H 134/95 H Pulse Oximetry 93 94 94 01/27/20 15:50 01/27/20 15:56 01/27/20 16:00 Temperature Pulse Rate 144 H 143 H 145 H Respiratory Rate 23 21 20 Blood Pressure 140/99 H 135/84 Pulse Oximetry 94 95 95 01/27/20 16:02 01/27/20 16:06 01/27/20 16:11 Temperature Pulse Rate 145 H 142 H 143 H Respiratory Rate 35 H 19 Blood Pressure 145/79 H 145/79 H 137/80 Pulse Oximetry 92 93 01/27/20 16:27 Temperature Pulse Rate 143 H Respiratory Rate Blood Pressure 143/81 H Pulse Oximetry Oxygen Delivery Method Nasal Cannula Oxygen Flow Rate 3 Narrative Exam Narrative: GENERAL APPEARANCE: Well developed, well nourished, in mild distress and speaking in short sentences in emergency room stretcher. SKIN: Inspection of the skin reveals no rashes, ulcerations or petechiae. HEENT: Normocephalic atraumatic, extraocular muscles are intact, oropharynx is clear and mucous membranes are moist, neck is supple without adenopathy NECK: Supple and symmetric. There was no thyroid enlargement, and no tenderness, or masses were felt. + JVD. CHEST: Normal AP diameter and normal contour without any kyphoscoliosis. LUNGS: Auscultation of the lungs revealed mild bibasilar crackles, no wheezing but poor air movement. CARDIOVASCULAR: Tachycardic with irregular rhythm, no murmurs, gallops, rubs. Peripheral pulses were 2+ and symmetric. ABDOMEN: Soft and nontender with normal bowel sounds. No ascites was noted. MUSCULOSKELETAL: There was no tenderness or effusions noted. Muscle strength and tone were normal. EXTREMITIES: No cyanosis, clubbing. There is bilateral 2 to 3+ pretibial edema. NEUROLOGIC: Alert and oriented x 3. Normal affect. Strength is +5/5 in the Upper Extremities and Lower Extremities Bilaterally. Objective Labs Result Diagrams: 01/27/20 15:16 01/27/20 15:16 Labs: Laboratory Results - last 24 hr 01/27/20 01/27/20 01/27/20 15:16 15:16 15:16 WBC 10.1 RBC 4.47 L Hgb 13.2 L Hct 40.5 L MCV 90.6 MCH 29.5 MCHC 32.5 RDW 14.0 Plt Count 160 Neut % (Auto) 79.5 H Lymph % (Auto) 10.0 L [place] % (Auto) 9.5 Eos % (Auto) 0.4 L Baso % (Auto) 0.6 Neut # (Auto) 8000 H Lymph # (Auto) 1000 L [place] # (Auto) 1000 H Eos # (Auto) 0 Baso # (Auto) 100 PT INR APTT D-Dimer 255 H ABG pH ABG pCO2 ABG pO2 ABG HCO3 ABG Total CO2 ABG O2 Saturation ABG Base Excess FiO2 Sodium Potassium Chloride Carbon Dioxide BUN Creatinine Estimated GFR BUN/Creatinine Ratio Glucose Lactate Calcium Ferritin Total Bilirubin AST ALT Alkaline Phosphatase Lactate Dehydrogenase Total Creatine Kinase CK-MB (CK-2) CK-MB (CK-2) Rel Index Troponin I C-Reactive Protein NT-Pro-B Natriuret Pep Total Protein Albumin Globulin Albumin/Globulin Ratio Procalcitonin 0.05 COVID-19 PCR 01/27/20 01/27/20 01/27/20 15:16 15:16 15:16 WBC RBC Hgb Hct MCV MCH MCHC RDW Plt Count Neut % (Auto) Lymph % (Auto) [place] % (Auto) Eos % (Auto) Baso % (Auto) Neut # (Auto) Lymph # (Auto) [place] # (Auto) Eos # (Auto) Baso # (Auto) PT INR APTT D-Dimer ABG pH 7.32 L ABG pCO2 87.7 H* ABG pO2 102 H ABG HCO3 45 H ABG Total CO2 48 H ABG O2 Saturation 97 ABG Base Excess 19.0 H FiO2 30 Sodium 141 Potassium 4.4 Chloride 93 L Carbon Dioxide 41 H* BUN 22 H Creatinine 0.55 L Estimated GFR > 60.0 BUN/Creatinine Ratio 40.0 H Glucose 127 H Lactate 0.7 Calcium 9.9 Ferritin 38 Total Bilirubin 0.7 AST 44 ALT 30 Alkaline Phosphatase 104 Lactate Dehydrogenase 555 Total Creatine Kinase 109 CK-MB (CK-2) 2.60 H CK-MB (CK-2) Rel Index 2.4 Troponin I 0.030 C-Reactive Protein 1.7 H NT-Pro-B Natriuret Pep 2390 H Total Protein 7.2 Albumin 4.3 Globulin 2.9 Albumin/Globulin Ratio 1.5 Procalcitonin COVID-19 PCR 01/27/20 01/27/20 15:16 15:19 WBC RBC Hgb Hct MCV MCH MCHC RDW Plt Count Neut % (Auto) Lymph % (Auto) [place] % (Auto) Eos % (Auto) Baso % (Auto) Neut # (Auto) Lymph # (Auto) [place] # (Auto) Eos # (Auto) Baso # (Auto) PT 14.0 H INR 1.2 APTT 29 D-Dimer ABG pH ABG pCO2 ABG pO2 ABG HCO3 ABG Total CO2 ABG O2 Saturation ABG Base Excess FiO2 Sodium Potassium Chloride Carbon Dioxide BUN Creatinine Estimated GFR BUN/Creatinine Ratio Glucose Lactate Calcium Ferritin Total Bilirubin AST ALT Alkaline Phosphatase Lactate Dehydrogenase Total Creatine Kinase CK-MB (CK-2) CK-MB (CK-2) Rel Index Troponin I C-Reactive Protein NT-Pro-B Natriuret Pep Total Protein Albumin Globulin Albumin/Globulin Ratio Procalcitonin COVID-19 PCR Negative Assessment & Plan Assessment & Plan narrative: 64-year-old male admitted to the hospital with acute likely on chronic hypoxemic and hypercarbic respiratory failure likely due to new congestive heart failure. 1. Acute on chronic hypoxemic and hypercarbic respiratory failure, present on admission -patient's ABG with a pCO2 of 87.7. He has been admitted multiple times for COPD exacerbations, but we do not have a prior pCO2 for comparison. There is definitely a chronic component with an elevated carbon dioxide at 41. -patient with a mildly increased requirement for supplemental oxygen compared to baseline, he was last admitted in July and did not require supplemental oxygen at that time. -patient with an elevated proBNP of 2390. He was given 40 mg of IV Lasix in the emergency room. Will continue 40 mg of IV Lasix twice daily. -chest x-ray shows patchy infiltrates bilaterally consistent with volume overload. Highly suspect new heart failure given clinical picture. -Do not suspect COPD exacerbation at this time, will hold on steroids -RT eval and treat -COVID 19 testing negative, no other evidence of infectious process at this time. -will start on bipap therapy to reduce PCO2 level in setting of likely heart failure. Repeat ABG in a few hours after BiPAP 2. Atrial flutter with rapid ventricular response, present on admission -possibly in the setting of volume overload as noted above. Patient will be started on diltiazem infusion for now, given volume overload beta-cathie is not the best initial therapy. He was given digoxin load in the emergency room. -will continue diuresis and continue on diltiazem infusion, with titration as needed. -TTE ordered, favor continuing on diltiazem until echocardiogram is performed as his EF is not known. -will start ASA 81 mg as CHADS-VASC currently only 1, pending TTE. 3. COPD, chronic, with supplemental oxygen - suspect worsened oxygen requirement may be in the setting of heart failure, this does not appear to be a COPD exacerbation. - continue diuresis as noted above. - RT eval and treat - Start Pulmicort Inh BID, Duonebs, and prn albuterol. 4. Hypertension, essential -patient on home lisinopril, can continue. 5. Hyperlipidemia -continue statin 6. Nicotine dependence -continue Wellbutrin -patient declined nicotine patch 7. Chronic back pain -continue home pain regimen Code: Full, surrogate decision maker is the patient's girlfriend or brother. Dispo: Admitted to the ICU for BiPAP therapy and diltiazem infusion. He will be admitted under inpatient status as his stay is likely to exceed two midnights. DVT: Lovenox daily COVID 19 status: negative 8.6 Scores CHADS-VASc Congestive heart failure: no Hypertension: yes Age 75 years or older: no Diabetes mellitus: no Stroke, TIA, or TE: no Vascular disease: no Age 65 to 74 years: no Sex category (female): Male CHADS-VASc Score: 1
[2020-01-27] MEDS: DILTIAZEM 125 MG/125 ML PIGGYBACK IV (18:08)
--- NOTE | 2020-01-27 18:17 | RT ---
BIPAP STARTED: Pt was started on Bipap upon admission to ICU. Pt required gentle coaxing to try Bipap, but after a trial of pressures, he likes /. Pt seems to go to sleep immediately also. Heart rate down to 110s-120s. RR 20ish. Note: pt stated he had a sleep study recently here in [place], and did indeed need NPPV, but pt felt his 20% copayment for the device was too much, so he never got the device. Pt is pleasant. Nurse Meg aware. Informed Dr. Brock informed also. ABG pending.
[2020-01-27] MEDS: ALBUTEROL 2.5 MG/3 ML NEB (ADULT) INH (19:20)
[2020-01-27] MEDS: BUDESONIDE 0.5 MG/2 ML NEB INH (19:20)
--- NOTE | 2020-01-27 19:22 | PC.NURSE ---
Addendum entered by Meg Marie R.N. 01/27/20 20:22: 2015 Titrated dilt gtt to 15ml/hr for continued HR of 110-120, will continue to monitor. Addendum entered by Meg Marie R.N. 01/27/20 20:16: 1910 Titrated Dilt gtt to 10ml/hr for HR 130, BIPAP settings updated to 14/7 30%, pt continues to be extremely agitated while on bipap, explained to pt the importance of the bipap. Pt states that he will try to wear for a while, I promised him a short break at 2100 with the [employer]. Will continue to monitor. Original Note: Evening shift note: Pt arrived to room at 1715, A/Ox3, currently in AFib RVR HR 135, working hard to breath on 3L NC. Able to ambulate to bed, connected to monitor. Admission assessment and documentation completed, new orders for Bipap, RT at bedside. Settings at 12/5 30% pt saturation is 95%. Diltiazem gtt started at 5ml/hr, will titrate per protocol. Oriented to room, call light system, bed low and locked, call light within reach, will continue to monitor.
[2020-01-27] MEDS: PRAVASTATIN 20 MG TABLET 10 MG PO (21:05)
[2020-01-27] MEDS: GABAPENTIN 600 MG TABLET PO (21:06)
[2020-01-27] MEDS: OXYCODONE/ACETAMINOPHEN 5/325 TABLET 2 TAB PO (21:06)
[2020-01-27] MEDS: buPROPion SR 150 MG TAB PO (21:06)
[2020-01-28] VITALS (23 sets, daily range): BP systolic 100–151; BP diastolic 54–82; PULSE 72–122; RESP 22–33; TEMP 31.2–36.4; O2SAT 90–98
[2020-01-28 01:24] LABS: Fractionated Inspired Oxygen 40; HCO3 ABG 49 mmol/L (22-26); Oxygen Saturation ABG 97 % (95-100); PO2 ABG 100 mmHg (80-100); pH ABG 7.34 (7.35-7.45)
[2020-01-28 01:25] LABS: PCO2 ABG 90.9 mmHg (35-45)
[2020-01-28] MEDS: DILTIAZEM 125 MG/125 ML PIGGYBACK 15 MG IV (03:14)
[2020-01-28 05:11] LABS: Add Manual Diff / Slide Review NO; Basophils Absolute Auto 0 /uL (0-100); Basophils Percent Auto 0.5 % (0-2); Eosinophils Absolute Auto 100 /uL (0-450); Eosinophils Percent Auto 1.5 % (2-4); Hematocrit 37.9 % (41-53); Hemoglobin 12.2 g/dL (13.5-17.5); Lymphocytes Absolute Auto 1100 /uL (1100-4500); Lymphocytes Percent Auto 11.6 % (25-40); Mean Corpuscular HGB Conc 32.2 % (30-36); Mean Corpuscular Volume 90.1 fL (80-100); Monocytes Absolute Auto 1100 /uL (0-900); Monocytes Percent Auto 11.1 % (3-14); Neutrophils Absolute Auto 7200 /uL (1500-7000); Neutrophils Percent Auto 75.3 % (50-75); Platelet Count 144 X10^3/uL (150-400); Red Blood Cell Count 4.21 X10^6/uL (4.5-5.9); Red Cell Distribution Width 14.1 % (11.6-14.8); White Blood Cell Count 9.5 X10^3/uL (4.5-11.0)
[2020-01-28 05:20] LABS: Alanine Aminotransferase 27 IU/L (<50); Albumin 3.7 g/dL (3.5-5.0); Albumin Globulin Ratio 1.5 (1.0-2.8); Alkaline Phosphatase 92 U/L (38-126); Aspartate Aminotransferase 41 IU/L (17-59); BUN Creatinine Ratio 32.8 (6-22); Bilirubin Total 1.1 mg/dL (0.2-1.3); Bilirubin Unconjugated 0.9 mg/dL (0.0-1.1); Blood Urea Nitrogen 22 mg/dL (9-20); Calcium 9.7 mg/dL (8.4-10.2); Chloride 89 mmol/L (98-107); Estimated Glomerular Filt Rate > 60.0 mL/min (>60); Globulin 2.5 g/dL (1.7-4.1); Glucose 107 mg/dL (80-110); HEMOLYSIS < 15 (0-50); Magnesium 1.6 mg/dL (1.6-2.3); Potassium 3.8 mmol/L (3.4-5.1); Sodium 142 mmol/L (137-145); Total Protein 6.2 g/dL (6.3-8.2)
[2020-01-28 05:29] LABS: Carbon Dioxide 48 mmol/L (22-32)
[2020-01-28 05:31] LABS: Troponin I 0.035 ng/mL (0.01-0.034)
[2020-01-28 05:35] LABS: Hemoglobin A1C% w Est Avg Glu 5.6 % (4.0-6.0)
--- NOTE | 2020-01-28 05:38 | PC.NURSE ---
02 increased to 30% Fi02 at 0130 and decreased to 25% now to keep sats bet. 88-92%.
[2020-01-28] MEDS: MAGNESIUM SULFATE 2 GM/50 ML PIGGYBACK IV (05:45)
[2020-01-28] MEDS: POTASSIUM CHLORIDE 20 MEQ TAB 40 MEQ PO (05:45)
[2020-01-28 06:08] LABS: TSH w/ Reflex to FT4 1.88 uIU/mL (0.47-4.68)
[2020-01-28] MEDS: FUROSEMIDE 40 MG/4 ML VIAL IV ×2 (07:45→16:12)
[2020-01-28] MEDS: ALBUTEROL 2.5 MG/3 ML NEB (ADULT) INH (08:41)
[2020-01-28] MEDS: BUDESONIDE 0.5 MG/2 ML NEB INH ×2 (08:41→18:29)
[2020-01-28] MEDS: OXYCODONE/ACETAMINOPHEN 5/325 TABLET 2 TAB PO ×3 (08:43→23:51)
[2020-01-28] MEDS: buPROPion SR 150 MG TAB PO ×3 (08:43→20:53)
[2020-01-28] MEDS: ENOXAPARIN 40 MG/0.4 ML SYRINGE SUBCUT (08:43)
[2020-01-28] MEDS: lisinopriL 20 MG TABLET PO (08:44)
[2020-01-28] MEDS: DOCUSATE 100 MG CAPSULE PO ×2 (08:44→20:52)
[2020-01-28] MEDS: ASPIRIN EC 81 MG TABLET PO (08:44)
[2020-01-28] MEDS: GABAPENTIN 600 MG TABLET PO ×3 (08:44→20:52)
[2020-01-28 08:46] LABS: pH ABG 7.43 (7.35-7.45)
[2020-01-28 08:48] LABS: HCO3 ABG 49 mmol/L (22-26); Oxygen Saturation ABG 89 % (95-100); PCO2 ABG 72.9 mmHg (35-45); PO2 ABG 59 mmHg (80-100); TCO2 ABG > 50 mmol/L (21-31)
[2020-01-28 08:49] LABS: Fractionated Inspired Oxygen 0.25
[2020-01-28] MEDS: dilTIAZem 30 MG TABLET PO (10:30)
--- NOTE | 2020-01-28 11:12 | CM.DANOTE ---
Discharge Planning/Care Management DCP: assessment: case received, EMR reviewed and met with pt during Team Bedside Rounds. Introduced self and role. Pt is a 64 year old male who admitted yesterday evening to care of hospitalist team. Payer: Medicare PCP: Dr. Miguel Angel [place] Pt confirms he is on home oxygen: see template below for details. Plan to discuss his living situation with him in more detail: a check in again now shows that pt is currently on BIPAP. Will followup later today or tomorrow. COVID-19 test: - CM Discharge Assessment Start: 01/28/20 11:08 Freq: Status: Active Protocol: Document 01/28/20 11:08 ITV (Rec: 01/28/20 11:11 ITV [id number]) Discharge Planning Assessment Advance Directives? No Advance Directives on File No History Provided By Patient,Medical Record Has Patient been admitted in last 30 No days? Prior Living Arrangements House Is patient alert and oriented? Yes Community Services used prior to Oxygen Therapy admission: Comment vendor: [employer] uses [facility]/ DME Already Rented / Owned Oxygen Review Status In Process
[2020-01-28 14:04] LABS: Troponin I 0.028 ng/mL (0.01-0.034)
--- NOTE | 2020-01-28 14:08 | DI.CT.S_ITS ---
PROCEDURE: CT ANGIO CHEST PE PROTOCOL INDICATIONS: RULE OUT PE- NEW AFIB AND SOB TECHNIQUE: After the administration of intravenous contrast, 2 mm thick sections acquired from the pulmonary apices to the posterior costophrenic angles. 3-dimensional maximum intensity projection (MIP) coronal and sagittal reformats were then acquired through the thorax. For radiation dose reduction, the following was used: automated exposure control, adjustment of mA and/or kV according to patient size. COMPARISON: [facility], CT, CT ANGIO CHEST PE PROTOCOL, 11/18/2018, 11:41. [facility], CR, XR CHEST 1V, 01/27/2020, 15:17. [facility], CT, CT ANGIO CHEST PE PROTOCOL, 12/28/2019, 16:03. FINDINGS: Image quality: Excellent. Pulmonary arteries: Pulmonary arteries are normal in size, and demonstrate no intraluminal filling defects to suggest central pulmonary embolism. Lungs and pleura: A 9 mm irregular spiculated nodule is seen in the right upper lobe (series 5, image 138), new since the last time. Moderate emphysema. There are small bilateral pleural effusions and bibasilar atelectasis. No pneumothorax. Central and peripheral airways are patent. Mediastinum: Heart size is normal. Mild pericardial thickening or small effusion. There are enlarged mediastinal or hilar lymph nodes, new since 12/28/2019. For example, a cluster of right paratracheal lymph nodes measure up to 1.8 cm there is a 1.7 cm right hilar lymph node. Thoracic aorta is normal in caliber and enhancement. Esophagus is normal in caliber, without hiatal hernia. Bones and chest wall: No suspicious bony lesions. Ribs and thoracic spine appear intact throughout. Thyroid gland is normal. No axillary or supraclavicular adenopathy. There is a 1.7 cm cutaneous nodule with fluid attenuation in the right anterior chest wall, unchanged, most likely a sebaceous cyst. Abdomen: Visualized upper abdominal solid organs appear normal in the early arterial phase of enhancement. IMPRESSION: 1. No pulmonary embolism. 2. Small bilateral pleural effusions and bibasilar atelectasis. 3. A 9 mm nodule in the right upper lobe. Recommend follow-up CT in 3 months. 4. Moderate emphysema. 5. Mediastinal and right hilar lymphadenopathy, most likely reactive. 6. Mild pericardial thickening or small pericardial effusion. 7. A 1.7 cm sebaceous cyst in the right anterior chest wall. Dictated by: Natalee Le M.D. on 01/28/2020 at 14:59 Approved by: Natalee Le M.D. on 01/28/2020 at 15:15
--- NOTE | 2020-01-28 14:54 | PC.NURSE ---
pt on bipap except for meals at this time and he has tolerated well otherwise 3l nc - echo completed and cta complete, percocet for pain- iv lasix for brisk diuresis
[2020-01-28] MEDS: SODIUM CHLORIDE 0.9% FLUSH 10 ML IV (16:14)
[2020-01-28] MEDS: METOPROLOL IR 25 MG TABLET PO ×2 (17:06→17:44)
--- NOTE | 2020-01-28 17:34 | DI.ECHO.S_ITS ---
[facility]---------+ [facility] +---------+ : : [address] : : : : [id number] : : : : Phone: [phone] Echocardiogram Report + + :Name: FAREED BLANCO Study Date: 01/28/2020 Height: 78 in : :[facility] Weight: 275 lb : : Gender: Male BSA: 2.6 m2 : :: 1955 Age: 64 yrs BP: 116/74 mmHg: :Reason For Study: MANSI BELL EDEMA : : Performed By: Beverly Zapata : :Referring: ROD ANAYA : + + Interpretation Summary The left ventricle is normal in size. Left ventricular ejection fraction is estimated to be 30 +/- 5%. There is moderate to severe global hypokinesis of the left ventricle. The right ventricle is mildly dilated. Right ventricular systolic function is mildly reduced. There is mild tricuspid regurgitation. The right ventricular systolic pressure is estimated to be at least 40 mmHg based on an estimated right atrial pressure of 8 mm Hg. Procedure: A two-dimensional transthoracic echocardiogram with color flow and Doppler was performed. The study quality was technically adequate. There is no prior echocardiogram noted for this patient. The patient was in atrial flutter with heart rates between 75-106 bpm during the exam. Left Ventricle: The left ventricle is normal in size. There is normal left ventricular wall thickness. A false chord is noted (normal variant). There is no thrombus. Left ventricular ejection fraction is estimated to be 30 +/- 5%. There is moderate to severe global hypokinesis of the left ventricle. Diastolic function could not be accurately assessed due to atrial fibrillation. Right Ventricle: The right ventricle is mildly dilated. Right ventricular systolic function is mildly reduced. Atria: The left atrium is moderately dilated. The right atrium is moderately dilated. There is no Doppler evidence for an interatrial shunt. Mitral Valve: The mitral valve leaflets appear borderline thickened, but open well. The mitral valve leaflets are slightly calcified. There is mild mitral regurgitation. Aortic Valve: The aortic valve is not well visualized. There is no aortic valve stenosis. No aortic regurgitation is present. Tricuspid Valve: The tricuspid valve is not well visualized, but is grossly normal. There is mild tricuspid regurgitation. The right ventricular systolic pressure is estimated to be at least 40 mmHg based on an estimated right atrial pressure of 8 mm Hg. Pulmonic Valve: The pulmonic valve is not well visualized. There is trace pulmonic regurgitation. Great Vessels: The aortic root is normal size. The dimensions of the ascending aorta are normal. The aortic arch could not be visualized. The IVC is dilated (diameter is greater than 2.1 cm) yet it collapses greater than 50% with a sniff. This suggests a right atrial pressure of 8 mm Hg. Pericardium/ Pleura There is no pericardial effusion. MMode/2D Measurements & Calculations LVIDd: 4.9 cm LVOT diam: 2.3 cm LVIDs: 3.8 cm Ao root diam: 3.2 cm FS: 23.0 % asc Aorta Diam: 3.4 cm EPSS: 1.0 cm IVSd: 1.2 cm LVPWd: 0.85 cm LV cisneros. diameter/BSA (cm/m^2): 1.9 LV sys. diameter/BSA (cm/m^2): 1.5 LA A2 area: 25.5 cm2 RA long axis: 6.2 cm LA A4 area: 26.6 cm2 RA area: 27.9 cm2 LA length (vol): 6.0 cm RA vol: 107.0 ml LA vol: 96.3 ml RA : 41.4 ml/m2 LA vol index: 37.3 ml/m2 IVC diam: 2.8 cm RVD1 (basal): 4.1 cm RVD2 (mid): 2.9 cm TAPSE: 1.5 cm Doppler Measurements & Calculations Ao V2 max: 148.6 cm/sec LVOT Max Kimani: 103.8 cm/sec Ao V2 mean: 101.9 cm/sec LV V1 max P.3 mmHg Ao max P.8 mmHg LV V1 VTI: 16.4 cm Ao mean P.8 mmHg KRISTI(I,D): 2.7 cm2 Ao V2 VTI: 26.6 cm KRISTI(V,D): 3.0 cm2 sev ratio: 0.62 KRISTI indexed to BSA (cm^2/m^2): 1.0 Med Peak E' Kimani: 7.0 cm/sec TR max kimani: 280.3 cm/sec Lat Peak E' Kimani: 10.1 cm/sec TR max P.5 mmHg PA V2 max: 114.8 cm/sec PA V2 mean: 66.2 cm/sec PA mean P.1 mmHg PA Accel Time: 0.07 sec MR VTI: 120.4 cm SV([facility]): 70.7 ml Reading Physician:02:36 PM
[2020-01-28] MEDS: ALBUTEROL/IPRATROPIUM 3 ML AMPUL INH (18:29)
[2020-01-28] MEDS: PRAVASTATIN 20 MG TABLET 10 MG PO (20:52)
--- NOTE | 2020-01-28 22:05 | PM.PN.1 ---
Subjective Subjective Date Patient Seen: 01/28/20 Interval history: Harvey Roberts is a 64-year-old male with a past medical history significant for hypertension, hyperlipidemia, COPD recently placed on home oxygen, and chronic low back pain status post spinal cord stimulator with opiate dependence, who presented to the ED with progressive worsening shortness of breath over the past month. The patient is resting in bed comfortably. He has no new complaints. He reports fatigue. He endorses progressive shortness of breath with exertion over several months which he now feels is slightly improved. The patient does exhibit conversational dyspnea and is able to speak in 4-5 word sentences. Plan to perform CTA chest to rule out pulmonary embolism in setting of new onset atrial flutter. Discussed his lung disease and hypoxemia and hypercarbia and the need for a home BiPAP. He is tolerating the BiPAP approximately 50-75% over 24 hours and plan to continue to BiPAP at all times unless eating for now and will titrate down to only with sleep over the next 1-2 days. His ABG shows mild improvement in CO2 retention. His current BiPAP settings are 14/7 with plans to increase to 16/8 and FiO2 0.25. He has no other complaints and denies headache, shortness of breath at rest, chest pain, abdominal pain, nausea, vomiting, fever, chills, dysuria, diarrhea or constipation. He is voiding via Mccord catheter without difficulty. His abdomen is quiet firm and he has not had a BM since admission and a bowel regimen has been implemented. He is up ambulating minimally with assistance. Exam Vital Signs (past 8 hours): - 01/28/20 14:39 01/28/20 15:36 01/28/20 18:32 Temperature 97.5 F L Pulse Rate 81 80 Respiratory Rate 22 25 H Blood Pressure 122/63 132/64 119/68 Pulse Oximetry 01/28/20 20:00 01/28/20 20:19 Temperature 97.0 F L Pulse Rate 72 72 Respiratory Rate 23 24 Blood Pressure 118/73 Pulse Oximetry 95 Fraction of Inspired Oxygen 0.25 Oxygen Delivery Method Nasal Cannula Oxygen Flow Rate 3 Narrative Exam Narrative: General: Older male sitting in bed and in no acute distress, appears older than stated age and chronically ill, well-developed, well-nourished, appropriately interactive. HEENT: Normocephalic, atraumatic. External ears without defect. Pupils equal, round, and reactive to light. Anicteric sclerae, moist conjunctivae, and no lid lag. Oropharynx free of erythema and cobble stoning with moist mucosa. Neck: Supple with full range of motion. Mild jugular venous distension. No lymphadenopathy or thyromegaly. Cardiovascular: Heart sounds distant but appear irregularly irregular without murmurs, rubs, or gallops appreciated Pulmonary: Diminished throughout with poor air movement but clear to auscultation bilaterally without crackles, wheezes, or rhonchi. Mild use of accessory muscles with conversational dyspnea. Abdomen: Firm, obese, bowel sounds present, nontender, mild to moderate distension. No hepatosplenomegaly or masses appreciated. Extremities: No clubbing or cyanosis. Moderate pitting edema to pretibial area bilaterally. Skin: Normal temperature, turgor, and texture; no rash, ulcers, or subcutaneous nodules appreciated. Neurological: Cranial nerves grossly intact. Psychiatric: Normal mood and affect. Alert and oriented to person, place, and time. Objective Labs Result Diagrams: 01/30/20 04:47 01/30/20 04:47 Labs: Laboratory Results - last 24 hr 01/27/20 01/28/20 01/28/20 01:12 04:40 04:40 WBC 9.5 RBC 4.21 L Hgb 12.2 L Hct 37.9 L MCV 90.1 MCH 29.0 MCHC 32.2 RDW 14.1 Plt Count 144 L Neut % (Auto) 75.3 H Lymph % (Auto) 11.6 L [place] % (Auto) 11.1 Eos % (Auto) 1.5 L Baso % (Auto) 0.5 Neut # (Auto) 7200 H Lymph # (Auto) 1100 [place] # (Auto) 1100 H Eos # (Auto) 100 Baso # (Auto) 0 ABG pH 7.34 L ABG pCO2 90.9 H* ABG pO2 100 ABG HCO3 49 H ABG Total CO2 50 H ABG O2 Saturation 97 ABG Base Excess 23.0 H FiO2 40 Sodium 142 Potassium 3.8 Chloride 89 L Carbon Dioxide 48 H* BUN 22 H Creatinine 0.67 Estimated GFR > 60.0 BUN/Creatinine Ratio 32.8 H Glucose 107 Hemoglobin A1c Calcium 9.7 Magnesium 1.6 Total Bilirubin 1.1 Conjugated Bilirubin 0.0 Unconjugated Bilirubin 0.9 AST 41 ALT 27 Alkaline Phosphatase 92 Troponin I Total Protein 6.2 L Albumin 3.7 Globulin 2.5 Albumin/Globulin Ratio 1.5 TSH 01/28/20 01/28/20 01/28/20 04:40 04:40 04:40 WBC RBC Hgb Hct MCV MCH MCHC RDW Plt Count Neut % (Auto) Lymph % (Auto) [place] % (Auto) Eos % (Auto) Baso % (Auto) Neut # (Auto) Lymph # (Auto) [place] # (Auto) Eos # (Auto) Baso # (Auto) ABG pH ABG pCO2 ABG pO2 ABG HCO3 ABG Total CO2 ABG O2 Saturation ABG Base Excess FiO2 Sodium Potassium Chloride Carbon Dioxide BUN Creatinine Estimated GFR BUN/Creatinine Ratio Glucose Hemoglobin A1c 5.6 Calcium Magnesium Total Bilirubin Conjugated Bilirubin Unconjugated Bilirubin AST ALT Alkaline Phosphatase Troponin I 0.035 H Total Protein Albumin Globulin Albumin/Globulin Ratio TSH 1.88 01/28/20 01/28/20 08:22 13:30 WBC RBC Hgb Hct MCV MCH MCHC RDW Plt Count Neut % (Auto) Lymph % (Auto) [place] % (Auto) Eos % (Auto) Baso % (Auto) Neut # (Auto) Lymph # (Auto) [place] # (Auto) Eos # (Auto) Baso # (Auto) ABG pH 7.43 ABG pCO2 72.9 H* ABG pO2 59 L ABG HCO3 49 H ABG Total CO2 > 50 H ABG O2 Saturation 89 L ABG Base Excess 24.0 H FiO2 0.25 Sodium Potassium Chloride Carbon Dioxide BUN Creatinine Estimated GFR BUN/Creatinine Ratio Glucose Hemoglobin A1c Calcium Magnesium Total Bilirubin Conjugated Bilirubin Unconjugated Bilirubin AST ALT Alkaline Phosphatase Troponin I 0.028 Total Protein Albumin Globulin Albumin/Globulin Ratio TSH Assessment & Plan Assessment & Plan narrative: Harvey Roberts is a 64-year-old male with a past medical history significant for hypertension, hyperlipidemia, COPD recently placed on home oxygen, and chronic low back pain status post spinal cord stimulator with opiate dependence, who presented to the ED with progressive worsening shortness of breath over the past month. 1. Acute on likely chronic hypoxemic and hypercarbic respiratory failure, present on admission. Improving. -Acute portion secondary to probable new onset CHF and probable progressive lung disease. -Initial ABG demonstrated hypoxemic and hypercarbic respiratory failure with: pH 7.34, pCO2 90.9, PO2 100, HC03 49, with SpO2 97% on FiO2 0.40. -The patient has been admitted multiple times for COPD exacerbations but do not have prior blood gas for comparison. -Chest x-ray demonstrated bilateral interstitial prominence indicative of pulmonary edema and highly suspicious for new onset CHF given clinical picture. Do not suspect COPD exacerbation at this time and will hold off on glucocorticoids. COVID 19 negative and patient has no other evidence of infectious process at this time. -Continue respiratory therapy evaluation and treatment. Continue BiPAP as long as tolerated with breaks for meals only. Continue daily ABG to adjust BiPAP settings. Continue supplemental oxygen to maintain oxygen saturation 88-92%. Patient is currently on 3 L supplemental oxygen. Do not want to over oxygenate patient as this will drive hypercarbia. The patient's oxygenation has improved with diuresis as above. Continue DuoNebs twice daily, albuterol nebs every 4 hours while awake as needed for shortness of breath or wheezing, and budesonide nebulized twice daily. -Patient requires nocturnal and daytime ventilation. Home BiPAP insufficient due to severity of his COPD which is primary cause of patient's chronic hypoxemic and hypercarbic respiratory failure. Plan to acquire noninvasive ventilator per patient's home oxygen company. 2. Probable new congestive heart failure, present on admission. Active. -Chest x-ray demonstrated bilateral interstitial prominence indicative of pulmonary edema. -ProBNP elevated at 2390. -Ordered echocardiogram, pending. -Received furosemide 40 mg IV x1 in ED. Continue furosemide 40 mg IV twice daily for today. Continue to monitor volume status and adjust diuresis as necessary daily. -Continue to monitor strict I&Os and daily weights. Net -4 L. -Continue monitor electrolytes and replete while diuresing. Goal K > 4.0 and Mg > 2.0. 3. Newly diagnosed atrial flutter with rapid ventricular rate, present on admission. RVR resolved. -CHADS2 Vasc score is a 1 based on hypertension with echocardiogram pending, therefore, score and recommendation for anticoagulation may change. Continue aspirin 81 mg daily for now. -Continued diltiazem gtt and titrated off to diltiazem 30 mg every 6 hours for now pending echocardiogram. Patient may need to be placed on beta-cathie or other antiarrhythmic pending echocardiogram as calcium channel blockers are contraindicated with reduced EF. -Ordered CTA chest to rule out pulmonary embolism with progressive worsening shortness of breath in setting of new onset atrial fibrillation and elevated D-dimer of 255, pending. -Continue monitor electrolytes and replete while diuresing as above. Goal K > 4.0 and Mg > 2.0. 4. Oxygen-dependent COPD, chronic, present on admission. Stable. -Does not represent COPD exacerbation. -Continue respiratory therapy evaluation and treatment. Continue supplemental oxygen to maintain oxygen saturation 88-92%. Patient is currently on 3 L supplemental oxygen. Do not want to over oxygenate patient as this will drive hypercarbia as above. The patient's oxygenation has improved with diuresis as above. Continue DuoNebs twice daily, albuterol nebs every 4 hours while awake as needed for shortness of breath or wheezing, and budesonide nebulized twice daily. 5. Hypertension, chronic, present on admission. Stable. -Continue lisinopril 20 mg daily. 6. Hyperlipidemia, chronic, present on admission. Stable. -Continue pravastatin 10 mg daily at bedtime. 7. Chronic back pain with opiate dependence, present on admission. Stable. -Status post spinal cord stimulator for which the patient reports has improved his overall back pain. -Continue home oxycodone 10-325 mg every 6 hours as needed for back pain and gabapentin 600 mg 3 times daily. Continue bowel regimen with Colace 100 mg twice daily and MiraLax 17 g daily to avoid opiate induced constipation. Ordered daily bisacodyl suppository as needed for persistent constipation. 8. Nicotine dependence in remission, chronic, present on admission. Stable. -Patient reports he quit smoking 6 months ago and recommended he continue to abstain from smoking indefinitely. -Continue home bupropion 150 mg 3 times daily. Patient declined Nicoderm patch. Code status: Full code, surrogate decision maker is the patient's girlfriend or brother. VTE prophylaxis: Enoxaparin Disposition: Patient remains hospitalized for further IV diuresis and will likely discharge home the next 1-2 days and will need to arrange for home an NIPPV.
[2020-01-28] MEDS: METOPROLOL IR 25 MG TABLET 50 MG PO (23:51)
[2020-01-29] VITALS (16 sets, daily range): BP systolic 110–137; BP diastolic 61–85; PULSE 70–130; RESP 11–26; TEMP 0–36.5; O2SAT 91–97
[2020-01-29 05:17] LABS: Add Manual Diff / Slide Review NO; Basophils Absolute Auto 100 /uL (0-100); Basophils Percent Auto 0.8 % (0-2); Eosinophils Absolute Auto 200 /uL (0-450); Eosinophils Percent Auto 2.2 % (2-4); Hematocrit 38.6 % (41-53); Hemoglobin 12.6 g/dL (13.5-17.5); Lymphocytes Absolute Auto 1600 /uL (1100-4500); Lymphocytes Percent Auto 19.5 % (25-40); Mean Corpuscular HGB Conc 32.6 % (30-36); Mean Corpuscular Hemoglobin 29.2 PG (26-34); Mean Corpuscular Volume 89.5 fL (80-100); Monocytes Absolute Auto 1000 /uL (0-900); Monocytes Percent Auto 12.6 % (3-14); Neutrophils Absolute Auto 5200 /uL (1500-7000); Neutrophils Percent Auto 64.9 % (50-75); Platelet Count 150 X10^3/uL (150-400); Red Blood Cell Count 4.31 X10^6/uL (4.5-5.9); Red Cell Distribution Width 14.1 % (11.6-14.8)
[2020-01-29 05:22] LABS: Alanine Aminotransferase 23 IU/L (<50); Albumin 3.6 g/dL (3.5-5.0); Albumin Globulin Ratio 1.4 (1.0-2.8); Alkaline Phosphatase 91 U/L (38-126); Aspartate Aminotransferase 35 IU/L (17-59); BUN Creatinine Ratio 33.7 (6-22); Bilirubin Total 1.1 mg/dL (0.2-1.3); Bilirubin Unconjugated 1.1 mg/dL (0.0-1.1); Blood Urea Nitrogen 28 mg/dL (9-20); Calcium 9.3 mg/dL (8.4-10.2); Chloride 87 mmol/L (98-107); Estimated Glomerular Filt Rate > 60.0 mL/min (>60); Globulin 2.6 g/dL (1.7-4.1); Glucose 109 mg/dL (80-110); HEMOLYSIS < 15 (0-50); Magnesium 1.7 mg/dL (1.6-2.3); Sodium 138 mmol/L (137-145); Total Protein 6.2 g/dL (6.3-8.2)
[2020-01-29] MEDS: ALBUTEROL/IPRATROPIUM 3 ML AMPUL INH ×2 (05:24→18:59)
[2020-01-29] MEDS: BUDESONIDE 0.5 MG/2 ML NEB INH ×2 (05:24→18:59)
[2020-01-29 05:39] LABS: Carbon Dioxide 47 mmol/L (22-32)
[2020-01-29 05:48] LABS: HCO3 ABG 47 mmol/L (22-26); PO2 ABG 70 mmHg (80-100); pH ABG 7.41 (7.35-7.45)
[2020-01-29 05:49] LABS: Fractionated Inspired Oxygen 35; Oxygen Saturation ABG 93 % (95-100); TCO2 ABG 49 mmol/L (21-31)
[2020-01-29] MEDS: METOPROLOL IR 25 MG TABLET 50 MG PO ×3 (06:22→17:47)
[2020-01-29] MEDS: FUROSEMIDE 40 MG TABLET PO ×2 (08:19→16:53)
[2020-01-29] MEDS: DOCUSATE 100 MG CAPSULE PO ×2 (08:20→20:56)
[2020-01-29] MEDS: ENOXAPARIN 40 MG/0.4 ML SYRINGE SUBCUT (08:20)
[2020-01-29] MEDS: buPROPion SR 150 MG TAB PO ×3 (08:20→20:56)
[2020-01-29] MEDS: GABAPENTIN 600 MG TABLET PO ×3 (08:20→20:56)
[2020-01-29] MEDS: ASPIRIN EC 81 MG TABLET PO (08:20)
[2020-01-29] MEDS: lisinopriL 20 MG TABLET PO (08:20)
[2020-01-29] MEDS: polyethylene glycoL 3350 17 GM POWD.PACK PO (08:21)
--- NOTE | 2020-01-29 08:48 | PC.NURSE ---
Dayshift Note: Pt checked on and given morning medications. Pt alert and oriented. Reports back pain tolerable at 5/10. Discussed relationship between oxygen and carbon dioxide in COPD. Pt tolerating meals. IV flushed and functioning. Pt on 3 L NC, discussed weaning O2 if pt's SPO2 remains elevated at rest. Call light in reach. Will continue to monitor, notify MD with changes.
--- NOTE | 2020-01-29 09:18 | PT.IIE ---
Current Diagnoses Acute and chronic respiratory failure with hypercapnia (01/27/20) Surgical History (Last Reviewed 01/27/20 @ 17:50 by Justine Jhaveri DO) History of lumbar surgery (Resolved ~2015) History of right hip replacement (Acute) History of total right hip arthroplasty (Resolved) Hx of inguinal hernia repair (Resolved 1999) Medical History (Last Reviewed 01/27/20 @ 17:50 by Justine Jhaveri DO) Chronic back pain (Chronic 1979) Generalized headaches (Chronic 1999) Hyperlipidemia (Acute) Hypertension (Chronic Unknown) Primary osteoarthritis of right hip (Chronic 06/17/17) Tobacco abuse (Resolved) Uncomplicated opioid dependence (Chronic) Physical Therapy Inpatient Evaluation/Re-Eval M1 PT/OT-IP Prior Functional Status Start: 01/29/20 12:42 Freq: NEEDED Status: Active Protocol: Document 01/29/20 12:42 CGR (Rec: 01/29/20 12:55 CGR [id number]) Medical Review Prior Functional Status Medical History Reviewed Yes Communication Pt is an effective verbal communicator. Mobility and Gait Pt was MDO I for all mobility with a SPC. Activities of Daily Living and IADL's Pt was MOD I to IND for all ADLs and I ADLs. Social History Household Members significant other,family Living Arrangements House Number of Floors (Floors) One Floor Number of Stairs To Enter/Railing? 2 steps without rail but states that there are shelves to hold onto. Home Environment Standard Height Toilet,Walk in Shower Home Equipment Straight Cane,Shower Seat without Backrest Employment Status Retired Additional Social History Comment Pt lives with his girlfriend and his brother. 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 M1 PT/OT-IP Prior Functional Status Start: 01/29/20 13:02 Freq: NEEDED Status: Active Protocol: Document 01/29/20 09:18 AB (Rec: 01/29/20 13:17 AB [id number]) Medical Review Prior Functional Status Communication able to make needs known Mobility and Gait stated that he is independent with all mobilities and ambulation without AD indoors but uses a SPC for outdoor mobility. stated that he has R [facility] last october and had outpt PT. stated that ambulation ability has been declining and for the passed few weeks, was only able to ambulate for ~ 20 ft without rest. Social History Household Members significant other,family Living Arrangements House Number of Floors (Floors) One Floor Number of Stairs To Enter/Railing? 2 steps without rail to enter Home Environment Standard Height Toilet,Walk in Shower Home Equipment Straight Cane,Shower Seat without Backrest Employment Status Retired Additional Social History Comment Pt lives with his girlfriend and his brother. 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 M2 PT-IP Current Condition Start: 01/29/20 13:02 Freq: NEEDED Status: Active Protocol: Document 01/29/20 09:18 AB (Rec: 01/29/20 13:17 AB [id number]) Physical Therapy Current Condition Current Condition Evaluation Date 01/29/20 Treatment Diagnosis A-fib; CHF; difficulty in walking Onset Date 01/27/20 Precautions Other Precautions O2 sat M3 PT-IP Subjective Start: 01/29/20 13:02 Freq: NEEDED Status: Active Protocol: Document 01/29/20 09:18 AB (Rec: 01/29/20 13:17 AB [email or web address]) Subjective Physical Therapy Visit Type Type Initial Evaluation Visit Start Time 09:18 Visit Stop Time 09:52 Total Visit Minutes 34 Number of SPRINKLER FITTER APPRENTICE Visits 0 Physical Therapy Visit Comments Patient Comments pt is agreeable to do PT M4 PT-IP Mobility and Gait Start: 01/29/20 13:02 Freq: NEEDED Status: Active Protocol: Document 01/29/20 09:18 AB (Rec: 01/29/20 13:17 AB [email or web address]) PT-Bed Mobility Assessment Supine to Sit Supine to Sit Standby Assistance,Head of Bed Elevated Sit to Supine Sit to Supine Standby Assistance,Head of Bed Elevated PT-Transfer Assessment Sit to and From Stand Sit to and from Stand Standby Assistance,Use of Upper Extremities Equipment Transfer Assistive Device None,Gait Belt Orthotic/Prosthetic Devices or Brace: No Transfers Transfer Destination Toilet Transfer Technique ambulated without AD Transfer Ability Level of Assist Standby Assistance,Contact Guard Assistance,Use of Upper Extremities Comments Mobility Comments pt completed supine to sit with HOB elevated SBA. requested to use the toilet. completed sit to stand SBA. refused to use FWW. ambulated towards the toilet SBA to CGA . presents with antalgic gait with increase trunk forward lean and lateral trunk lean to the R. pt completed toileting SBA. completed sit to stand from the toilet SBA and ambulated towards the sink without AD SBA. pt was able to maintain standing SBA while completed handwashing. pt ambulated back to his bed SBA without AD. pt requested to go back to bed and completed supine to sit SBA. stated that he is tired. O2 sat decreased to 84% with activity and pt on 2L/min O2. cued for deep breathing during activity. O2 sat at end of tx session: 92% Gait Assessment Gait Gait Assistance Required: Standby Assistance,1 Person Assist Distance (Feet) 12 Able to Maintain Weight Bearing Status Yes During Gait Assistive Devices Assistive Device None,Gait Belt Orthotic/Prosthetic Devices or Brace: No Gait Deviations General Gait Pattern Antalgic,Flexed Trunk,Lateral Trunk Lean Factors Limiting Gait Function Factors Limiting Gait Function Decreased Activity Tolerance, Decreased Strength,Poor Balance,Respiratory Distress Comments Gait Comments pls refer to mobility section for details PT-Balance Assessment Sitting Balance and Reactions Static Sitting Balance Ability Normal Dynamic Sitting Balance Ability Normal Standing Balance and Reactions Static Standing Balance Ability Good Dynamic Standing Balance Ability Fair Device Used without AD M5 PT-IP Objective Assessments Start: 01/29/20 13:02 Freq: NEEDED Status: Active Protocol: Document 01/29/20 09:18 AB (Rec: 01/29/20 13:17 AB [email or web address]) Orientation Orientation/Cognition Level of Alertness Alert Orientation Name,Place,Situation Language Function Ability No Deficits Noted Safety Awareness Decreased Safety Awareness Memory Description No Deficits Noted Gross Range of Motion Lower Extremity ROM Assessment Within Functional Limits Strength Lower Extremity Strength Assessment Right Impaired Hip 3+/5 Knee 4-/5 Coordination Assessment Gross Coordination Gross Coordination WNL Sensation Assessment Sensation Gross Sensation WNL Muscle Tone Muscle Tone WNL Yes M6 PT-IP Treatment Start: 01/29/20 13:02 Freq: NEEDED Status: Active Protocol: Document 01/29/20 09:18 AB (Rec: 01/29/20 13:17 AB [id number]) Physical Therapy Treatment Education Education Provided Safety M7 PT-IP Assessment and Plan Start: 01/29/20 13:02 Freq: NEEDED Status: Active Protocol: Document 01/29/20 09:18 AB (Rec: 01/29/20 13:17 AB [email or web address]) PT Summary Assessment and Plan Potential Rehabilitation Potential Good Status of Condition at Evaluation Evolving Summary Impairments Pain,ROM,Strength,Balance,Bed Mobility,Transfers,Gait, Activity Tolerance Assessment Summary pt requiring SBA with mobility but unable to tolerate much activity with decrease O2 sat to ~ 84%. pt only was able to ambulate to the toilet ~ 12 ft and back and unable to ambulate more afterwards. pt plans to go home and will have family to assit him at home. will have to complete stair climbing prior to d/c. will continue to assess progress. Goals Bed Mobility Goal Independent Transfer Goal Independent Gait Goal Independent Gait Distance 100 Other Goals up/down 2 steps without rails SBA Days to Meet Goals 5 Frequency of Treatment Frequency Of Treatment Once a Day Treatment Plan Physical Therapy Treatment Plan Bed Mobility Training,Transfer Training,Gait Training, Therapeutic Exercise,Balance Retraining,Discharge Planning, Hot or Cold Pack,Neuromuscular Re-ed,Coordination Retraining Recommendations To Nursing Amount of Assist Needed 1 Person Assist Discharge Recommendations PT Discharge Recommendations Home with Assistance, Outpatient PT Other Discharge Recommendations pt will benefit from outpt cardiopulmonary rehab Transportation Needs at Discharge Private Vehicle
--- NOTE | 2020-01-29 10:43 | CM.DPC ---
DCP: continued. met with pt in followup as planned after getting report on POC from Dr. Contreras. Pt clarifies his current living situation. He is back living at his home in [place]. His girlfriend Katharina Arciniega lives with him as well as his brother Ramos. Both to provide needed support and prn assist. Pt has Medicare A, B and a D plan. Pt confirms that he does not have a Medicare supplement and pays out of pocket for anything not covered by his Medicare. He just started on home o2 6 weeks ago but admits to not using it routinely until very recently. Dr. Contreras has ordered PT/OT to see pt today and would like HH services. Discussed same with pt and he is agreeable to this. Will request RN/PT/OT. HH agency choice list: discussed: decision: [facility]: they cover the [place] area and [facility] confirms they should be able to open pt to service on Tuesday 01/30. Pt will be homebound as he recovers. Will fax in the referral packet along with Face/Face document and HH orders so that pt will be on their schedule. Will followup tomorrow to complete any needed d/c details if pt is ok'd for d/c. Pt says his brother Ramos will pick him up at d/c.
--- NOTE | 2020-01-29 11:21 | OT.IP.EVAL ---
Current Diagnoses Acute and chronic respiratory failure with hypercapnia (01/27/20) Past Medical History (Last Reviewed 01/27/20 @ 17:50 by Justine Jhaveri DO) Chronic back pain (Chronic 1979) Generalized headaches (Chronic 1999) Hyperlipidemia (Acute) Hypertension (Chronic Unknown) Primary osteoarthritis of right hip (Chronic 06/17/17) Tobacco abuse (Resolved) Uncomplicated opioid dependence (Chronic) Surgical History (Last Reviewed 01/27/20 @ 17:50 by Justine Jhaveri DO) History of lumbar surgery (Resolved ~2015) History of right hip replacement (Acute) History of total right hip arthroplasty (Resolved) Hx of inguinal hernia repair (Resolved 1999) Occupational Therapy Inpatient Evaluation/Re-Eval M1 PT/OT-IP Prior Functional Status Start: 01/29/20 12:42 Freq: NEEDED Status: Active Protocol: Document 01/29/20 12:42 CGR (Rec: 01/29/20 12:55 CGR [email or web address]) Medical Review Prior Functional Status Medical History Reviewed Yes Communication Pt is an effective verbal communicator. Mobility and Gait Pt was MDO I for all mobility with a SPC. Activities of Daily Living and IADL's Pt was MOD I to IND for all ADLs and I ADLs. Social History Household Members significant other,family Living Arrangements House Number of Floors (Floors) One Floor Number of Stairs To Enter/Railing? 2 steps without rail but states that there are shelves to hold onto. Home Environment Standard Height Toilet,Walk in Shower Home Equipment Straight Cane,Shower Seat without Backrest Employment Status Retired Additional Social History Comment Pt lives with his girlfriend and his brother. 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 M2 OT-IP Current Condition Start: 01/29/20 12:42 Freq: Status: Active Protocol: Document 01/29/20 12:42 CGR (Rec: 01/29/20 12:55 CGR [email or web address]) Occupational Therapy Current Condition Current Condition Evaluation Date 01/29/20 Treatment Diagnosis hypoxia, COPD exacerbation, Afib Diagnosis Onset Date 01/27/20 M3 OT- IP Subjective and Pain Start: 01/29/20 12:42 Freq: Status: Active Protocol: Document 01/29/20 12:42 CGR (Rec: 01/29/20 12:55 CGR [email or web address]) OT- Subjective Occupational Therapy Visit Type Type Initial Evaluation Visit Start Time 10:40 Visit Stop Time 11:21 Total Visit Minutes 41 OT Pain Assessment Pain When Pain Assessed At Rest Pain Present Pain Present Pain Reported Location Back Scale Used did not rate but states pain Management Techniques Modification of Treatment,Re- positioning,Timing of Activity with Medications M4 OT- IP ADL's Start: 01/29/20 12:42 Freq: Status: Active Protocol: Document 01/29/20 12:42 CGR (Rec: 01/29/20 12:55 CGR [email or web address]) OT [id number] Comments OT Self-Feeding Comments not meal time OT ADL-Grooming General Evaluation Grooming Ability Standby Assistance Comments OT Grooming Comments standing at sink for wahsing hands OT ADL-Oral Care Comments Oral Care Comments not performed OT ADL-Dressing General Eval Lower Body Dressing Ability Independent Areas Needing Assistance Socks Comments OT Dressing Comments with extra time and some difficulty. OT ADL-Toileting General Evaluation Toileting Ability Standby Assistance Comments OT Toileting Comments Pt had BM seated on toielt. No physical assist needed OT ADL-Bathing Comments OT Bathing Comments not performed M5 OT- IP IADL's Start: 01/29/20 12:42 Freq: Status: Active Protocol: Document 01/29/20 12:42 CGR (Rec: 01/29/20 12:55 CGR [email or web address]) OT-Instrumental Activities of Daily Living Deficits IADL Deficits Identified Deficits Home Safety Awareness Awareness of Need for Assistance at Home Decreased Awareness Ability to Problem Solve Emergency Able to Problem Solve Situations Home Safety Comments Pt educated on energy conservation and provided with handout to review. Medication Management Medication Management No Deficits Identified Money Management Money Management No Deficits Identified Meal Preparation Meal Preparation Caregiver Provides Assist Stuntman Stuntman Caregiver Provides Assist Driving Driving Comments Pt states he is able to drive but doesn't if he isn't feeling well. M6 OT- IP Functional Cognition Start: 01/29/20 12:42 Freq: Status: Active Protocol: Document 01/29/20 12:42 CGR (Rec: 01/29/20 12:55 CGR [email or web address]) Cognitive Factors Limiting Selfcare Function Cognitive Ability Level of Alertness Alert Patient Orientation Name,Age,Birthday,Month,Date, Year,Day of Week,Place, Situation Attention Span Ability Capable of Focused Attention, Capable of Sustained Attention Ability to Follow Commands Able to Follow Multi-Step Commands OT- Vision and Hearing OT- Hearing Assessment OT- Hearing Assessment WFL OT- Vision Assessment Visual Acuity WFL Visual Attentiveness WFL Occular Pursuits WFL Visual Convergence WFL M7 OT- IP Mobility and Balance Start: 01/29/20 12:42 Freq: Status: Active Protocol: Document 01/29/20 12:42 CGR (Rec: 01/29/20 12:55 CGR [email or web address]) OT- Bed Mobility Assessment Rolling Type of Rolling Log Rolling,Roll to Left Level of Assistance Independent Supine to Sit Supine to Sit Assist Independent Scooting Scooting to Edge of Bed Independent OT-Transfer Assessment Sit to and From Stand Sit to and from Stand Standby Assistance Transfers Transfer Ability Standby Assistance Technique Transfer Destination Bed,Chair,Toilet Transfer Technique Stand Step Pivot Devices Transfer Assistive Devices None Comments Mobility Comments Pt mobilized without assistive device with SBA. OT- Balance Assessment Sitting Balance and Reactions Static Sitting Balance Ability Normal Dynamic Sitting Balance Ability Good M8 OT- IP Objective Assessments Start: 01/29/20 12:42 Freq: Status: Active Protocol: Document 01/29/20 12:42 CGR (Rec: 01/29/20 12:55 CGR [email or web address]) OT Gross Range of Motion Upper Extremity Range of Motion Assessment Within Functional Limits OT Strength Upper Extremity Strength Assessment Within Functional Limits Comments Strength Comments 4/5 throughout OT- Coordination Assessment Upper Extremity Finger to Nose Test Within Functional Limits Finger Tapping Test Within Functional Limits OT-Muscle Tone Assessment Muscle Tone WNL Yes OT Sensation Assessment Edema Edema Absent M9 OT- IP Assessment and Plan Start: 01/29/20 12:42 Freq: Status: Active Protocol: Document 01/29/20 12:42 CGR (Rec: 01/29/20 12:55 CGR [email or web address]) OT Summary Assessment and Plan Potential Rehabilitation Potential Excellent Analytic Complexity at Evaluation Low Summary OT Impairments Dressing,Bathing,Shower Transfers,Activity Tolerance Progress Towards Goals Progressing Toward Goals Assessment Summary Pt presents as a low complexity evaluation. Pt admitted with SOB and now performing mobility and ADLs without physical assist but with poor endurance. Pt will benefit from continued education for endurance and home safety with showering which he indicates to be difficult. Pt is likely to be safe for discharge home with family support. Goals Dressing Goal Independent Bathing Goal Independent Shower Transfer Goal Independent Days to Meet Goals 1 Frequency of Treatment Frequency Of Treatment Once a Day Treatment Plan OT Treatment Plan ADL Training,Functional Mobility,Patient/Family Education,Discharge Planning Other Treatment Recommendations and Next shower and review energy Treatment Focus conservation. Discharge Recommendations OT Discharge Recommendations Home with Assistance Home Equipment Needs grab bars for his home shower. Discussed suction cup grab bars. Transportation Needs at Discharge Private Vehicle
[2020-01-29] MEDS: OXYCODONE/ACETAMINOPHEN 5/325 TABLET 2 TAB PO ×2 (12:21→20:56)
--- NOTE | 2020-01-29 12:31 | P.PN_ITS ---
Subjective Subjective Date Patient Seen: 01/29/20 Interval history: Harvey Roberts is a 64-year-old male with a past medical history significant for hypertension, hyperlipidemia, COPD recently placed on home oxygen, and chronic low back pain status post spinal cord stimulator with opiate dependence, who presented to the ED with progressive worsening shortness of breath over the past month. The patient is resting in bed comfortably. The patient continues to have dyspnea on exertion. His conversational dyspnea has resolved. He does not appear short of breath at rest today and he continues to deny shortness of breath rest. The patient continues to tolerate the BiPAP 50-75% over the last 24 hours which he reports is due to his mask being uncomfortable and having a leak. Plan to assure that the patient is wearing the right size mask, pad the patient's nose and continue adjusting BiPAP settings. Plan to continue BiPAP as much as tolerated especially while napping or sleeping. His ABG continues to demonstrate CO2 retention in the 70s. His current BiPAP settings are 16/8 and FiO2 0.25-0.30. He has no other complaints and denies headache, chest pain, abdominal pain, nausea, vomiting, fever, chills, dysuria, diarrhea or constipation. He is voiding via Mccord catheter and eliminating without difficulty. He is up ambulating minimally with assistance. Plan for physical a nd occupational therapy evaluation and treatment today. Exam Vital Signs (past 8 hours): - 01/29/20 04:57 01/29/20 05:27 01/29/20 08:00 Temperature 97.6 F 96.0 F L Pulse Rate 73 81 Respiratory Rate 20 11 L Blood Pressure 116/73 123/85 Pulse Oximetry 94 95 93 01/29/20 08:20 01/29/20 11:45 Temperature 96.3 F L Pulse Rate 84 89 Respiratory Rate 20 Blood Pressure 123/85 118/61 Pulse Oximetry 94 Fraction of Inspired Oxygen 0.25 Oxygen Delivery Method Nasal Cannula Oxygen Flow Rate 3 Narrative Exam Narrative: General: Older male sitting in bed and in no acute distress, appears older than stated age and chronically ill, well-developed, well-nourished, appropriately interactive. HEENT: Normocephalic, atraumatic. External ears without defect. Pupils equal, round, and reactive to light. Anicteric sclerae, moist conjunctivae, and no lid lag. Oropharynx free of erythema and cobble stoning with moist mucosa. Neck: Supple with full range of motion. No jugular venous distension. No lymphadenopathy or thyromegaly. Cardiovascular: Heart sounds distant but appear irregularly irregular without murmurs, rubs, or gallops appreciated Pulmonary: Diminished throughout with improved aeration and clear to auscultation bilaterally without crackles, wheezes, or rhonchi. No longer using accessory muscles and conversational dyspnea resolved. Abdomen: Softer, obese, bowel sounds present, nontender, mild distension. No hepatosplenomegaly or masses appreciated. Extremities: No clubbing or cyanosis. Mild bipedal pitting edema. Skin: Normal temperature, turgor, and texture; no rash, ulcers, or subcutaneous nodules appreciated. Neurological: Cranial nerves grossly intact. Psychiatric: Normal mood and affect. Alert and oriented to person, place, and time. Objective Labs Result Diagrams: 01/30/20 04:47 01/30/20 04:47 Labs: Laboratory Results - last 24 hr 01/28/20 01/29/20 01/29/20 13:30 04:49 04:49 WBC 8.0 RBC 4.31 L Hgb 12.6 L Hct 38.6 L MCV 89.5 MCH 29.2 MCHC 32.6 RDW 14.1 Plt Count 150 Neut % (Auto) 64.9 Lymph % (Auto) 19.5 L Grundy % (Auto) 12.6 Eos % (Auto) 2.2 Baso % (Auto) 0.8 Neut # (Auto) 5200 Lymph # (Auto) 1600 Grundy # (Auto) 1000 H Eos # (Auto) 200 Baso # (Auto) 100 ABG pH ABG pCO2 ABG pO2 ABG HCO3 ABG Total CO2 ABG O2 Saturation ABG Base Excess FiO2 Sodium 138 Potassium 4.0 Chloride 87 L Carbon Dioxide 47 H* BUN 28 H Creatinine 0.83 Estimated GFR > 60.0 BUN/Creatinine Ratio 33.7 H Glucose 109 Calcium 9.3 Magnesium 1.7 Total Bilirubin 1.1 Conjugated Bilirubin 0.0 Unconjugated Bilirubin 1.1 AST 35 ALT 23 Alkaline Phosphatase 91 Troponin I 0.028 Total Protein 6.2 L Albumin 3.6 Globulin 2.6 Albumin/Globulin Ratio 1.4 01/29/20 05:25 WBC RBC Hgb Hct MCV MCH MCHC RDW Plt Count Neut % (Auto) Lymph % (Auto) Grundy % (Auto) Eos % (Auto) Baso % (Auto) Neut # (Auto) Lymph # (Auto) Grundy # (Auto) Eos # (Auto) Baso # (Auto) ABG pH 7.41 ABG pCO2 74.0 H* ABG pO2 70 L ABG HCO3 47 H ABG Total CO2 49 H ABG O2 Saturation 93 L ABG Base Excess 22.0 H FiO2 35 Sodium Potassium Chloride Carbon Dioxide BUN Creatinine Estimated GFR BUN/Creatinine Ratio Glucose Calcium Magnesium Total Bilirubin Conjugated Bilirubin Unconjugated Bilirubin AST ALT Alkaline Phosphatase Troponin I Total Protein Albumin Globulin Albumin/Globulin Ratio Assessment & Plan Assessment & Plan narrative: Harvey Roberts is a 64-year-old male with a past medical history significant for hypertension, hyperlipidemia, COPD recently placed on home oxygen, and chronic low back pain status post spinal cord stimulator with opiate dependence, who presented to the ED with progressive worsening shortness of breath over the past month. 1. Acute on likely chronic hypoxemic and hypercarbic respiratory failure, present on admission. Acute portion resolved. -Acute portion secondary to new onset CHF CHF, probable progressive emphysema, and possibly new spiculated mass in right upper lobe. -Initial ABG demonstrated hypoxemic and hypercarbic respiratory failure with: pH 7.34, pCO2 90.9, PO2 100, HC03 49, with SpO2 97% on FiO2 0.40. -The patient has been admitted multiple times for COPD exacerbations but do not have prior blood gas for comparison. -Chest x-ray demonstrated bilateral interstitial prominence indicative of pulmonary edema and highly suspicious for new onset CHF given clinical picture. Do not suspect COPD exacerbation at this time and will hold off on glucocorticoids. COVID 19 negative and patient has no other evidence of infectious process at this time. CTA chest demonstrated -Continue respiratory therapy evaluation and treatment. Continue BiPAP s much as tolerated especially while napping or sleeping. Continue to monitor ABG to adjust BiPAP settings. Continue supplemental oxygen to maintain oxygen sat uration 88-92%. Patient is currently on 2-3 L supplemental oxygen. Do not want to over oxygenate patient as this will drive hypercarbia as above. The patient's oxygenation has improved with diuresis as above. Continue DuoNebs twice daily, albuterol nebs every 4 hours while awake as needed for shortness of breath or wheezing, and budesonide nebulized twice daily. -Patient requires nocturnal and daytime ventilation. Home BiPAP insufficient due to severity of his COPD which is primary cause of patient's chronic hypoxemic and hypercarbic respiratory failure. Plan to acquire noninvasive ventilator per patient's home oxygen company. -Ordered physical and occupational therapy by patient and treatment, pending. 2. 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 Acute exacerbation resolving. -Chest x-ray demonstrated bilateral interstitial prominence indicative of pulmonary edema. -ProBNP elevated at 2390. -Received furosemide 40 mg IV x1 in ED. Continued furosemide 40 mg twice daily which was switched from IV to PO today as patient appears to be approaching euvolemia. Continue to monitor volume status and adjust diuresis daily if necessary. -Echocardiogram demonstrated LV normal size with reduced function and EF 30-35%, moderate to severe global hypokinesis of left ventricle, right ventricle is mild ly dilated, RV systolic function is mildly reduced, mild tricuspid regurg, RVSP is estimated to be at least 40 mmHg based on an estimated right atrial pressure of 8 mmHg. -Continue to monitor strict I&Os and daily weights. Net -5.7 L. -Continue monitor electrolytes and replete as needed. Goal K > 4.0 and Mg > 2.0. 3. Newly diagnosed atrial flutter with rapid ventricular rate, present on admission. RVR resolved. -CHADS2 Vasc score is a 2 based on hypertension and congestive heart failure. Discontinued aspirin 81 mg daily and started Eliquis 5 mg twice daily. -Discontinued diltiazem gtt and PO as contraindicated in HFrEF as above. Started metoprolol tartrate 50 mg every 6 hours and will titrate to control heart rate. -CTA ruled out pulmonary embolism and demonstrated centrilobular moderate emphysema. -Continue to monitor electrolytes and replete as needed especially while diuresing as above. Goal K > 4.0 and Mg > 2.0. 4. Oxygen-dependent COPD, chronic, present on admission. Stable. -Does not represent COPD exacerbation. -Continue respiratory therapy evaluation and treatment. Continue supplemental oxygen to maintain oxygen saturation 88-92%. Patient is currently on 2-3 L s upplemental oxygen. Do not want to over oxygenate patient as this will drive hypercarbia as above. The patient's oxygenation has improved with diuresis as above. Continue DuoNebs twice daily, albuterol nebs every 4 hours while awake as needed for shortness of breath or wheezing, and budesonide nebulized twice daily. 5. New incidental spiculated right upper lobe lung nodule evident on CT, present on admission. Presumed stable. -CTA chest demonstrated a 9 mm irregular spiculated nodule is seen in the right upper lobe (series 5, image 138), new since the last CTA 12/2019, with reactive mediastinal and right hilar lymphadenopathy. Recommend repeat CT in 3 months per PCP. 6. Hypertension, chronic, present on admission. Stable. -Continue lisinopril 20 mg daily. 7. Hyperlipidemia, chronic, present on admission. Stable. -Continue pravastatin 10 mg daily at bedtime. 8. Chronic back pain with opiate dependence, present on admission. Stable. -Status post spinal cord stimulator for which the patient reports has improved his overall back pain. -Continue home oxycodone 10-325 mg every 6 hours as needed for back pain and gabapentin 600 mg 3 times daily. Continue bowel regimen with Colace 100 mg twice daily and MiraLax 17 g daily to avoid opiate induced constipation. Ordered daily bisacodyl suppository as needed for persistent constipation. 9. Nicotine dependence in remission, chronic, present on admission. Stable. -Patient reports he quit smoking 6 months ago and recommended he continue to abstain from smoking indefinitely. -Continue home bupropion 150 mg 3 times daily. Patient declined Nicoderm patch. Code status: Full code, surrogate decision maker is the patient's girlfriend or brother. VTE prophylaxis: Eliquis Disposition: Patient likely to discharge home with home health possibly tomorrow pending arrangement for NIPPV.
[2020-01-29] MEDS: MAGNESIUM SULFATE 2 GM/50 ML PIGGYBACK IV (18:58)
[2020-01-29] MEDS: APIXABAN 5 MG TABLET PO (20:55)
[2020-01-29] MEDS: PRAVASTATIN 20 MG TABLET 10 MG PO (20:56)
--- NOTE | 2020-01-29 22:00 | PC.NURSE ---
End of shift note: Pt remains on BIPAP, off for meals. Pt education started re CHF, COPD, AFlutter, and Apixaban. Asking appropriate questions about dx and meds. Medicated for back pain x1 this shift. Monitor shows aflutter rate 80-100, rate increases with activity.
[2020-01-30] VITALS (17 sets, daily range): BP systolic 101–130; BP diastolic 57–88; PULSE 68–94; RESP 16–26; TEMP 0–36.7; O2SAT 92–98
[2020-01-30] MEDS: METOPROLOL IR 25 MG TABLET 50 MG PO ×3 (00:13→12:13)
[2020-01-30 05:20] LABS: Add Manual Diff / Slide Review NO; Basophils Absolute Auto 100 /uL (0-100); Basophils Percent Auto 0.7 % (0-2); Eosinophils Absolute Auto 200 /uL (0-450); Eosinophils Percent Auto 2.2 % (2-4); Hematocrit 38.5 % (41-53); Hemoglobin 12.6 g/dL (13.5-17.5); Lymphocytes Absolute Auto 1500 /uL (1100-4500); Lymphocytes Percent Auto 17.8 % (25-40); Mean Corpuscular HGB Conc 32.8 % (30-36); Mean Corpuscular Hemoglobin 29.2 PG (26-34); Mean Corpuscular Volume 88.8 fL (80-100); Monocytes Absolute Auto 1000 /uL (0-900); Monocytes Percent Auto 12.4 % (3-14); Neutrophils Absolute Auto 5400 /uL (1500-7000); Neutrophils Percent Auto 66.9 % (50-75); Platelet Count 151 X10^3/uL (150-400); Red Blood Cell Count 4.33 X10^6/uL (4.5-5.9); Red Cell Distribution Width 14.1 % (11.6-14.8); White Blood Cell Count 8.1 X10^3/uL (4.5-11.0)
[2020-01-30 05:36] LABS: HEMOLYSIS < 15 (0-50); Potassium 3.6 mmol/L (3.4-5.1)
[2020-01-30 05:37] LABS: BUN Creatinine Ratio 37.3 (6-22); Blood Urea Nitrogen 31 mg/dL (9-20); Calcium 9.4 mg/dL (8.4-10.2); Chloride 87 mmol/L (98-107); Estimated Glomerular Filt Rate > 60.0 mL/min (>60); Glucose 104 mg/dL (80-110); Sodium 137 mmol/L (137-145)
[2020-01-30 05:51] LABS: Carbon Dioxide 45 mmol/L (22-32)
[2020-01-30] MEDS: OXYCODONE/ACETAMINOPHEN 5/325 TABLET 2 TAB PO ×3 (06:47→19:19)
[2020-01-30] MEDS: ALBUTEROL/IPRATROPIUM 3 ML AMPUL INH ×2 (07:25→18:40)
[2020-01-30] MEDS: BUDESONIDE 0.5 MG/2 ML NEB INH ×2 (07:25→18:40)
[2020-01-30 08:42] LABS: pH ABG 7.47 (7.35-7.45)
[2020-01-30 08:43] LABS: HCO3 ABG 45 mmol/L (22-26); PCO2 ABG 62.1 mmHg (35-45); PO2 ABG 73 mmHg (80-100); TCO2 ABG 47 mmol/L (21-31)
[2020-01-30 08:44] LABS: Fractionated Inspired Oxygen 0.25; Oxygen Saturation ABG 95 % (95-100)
[2020-01-30] MEDS: FUROSEMIDE 40 MG TABLET PO (08:56)
[2020-01-30] MEDS: buPROPion SR 150 MG TAB PO ×3 (08:57→20:31)
[2020-01-30] MEDS: polyethylene glycoL 3350 17 GM POWD.PACK PO (08:57)
[2020-01-30] MEDS: DOCUSATE 100 MG CAPSULE PO ×2 (08:57→20:31)
[2020-01-30] MEDS: GABAPENTIN 600 MG TABLET PO ×3 (08:57→20:30)
[2020-01-30] MEDS: APIXABAN 5 MG TABLET PO ×2 (08:57→20:30)
[2020-01-30] MEDS: lisinopriL 20 MG TABLET PO (08:57)
--- NOTE | 2020-01-30 09:20 | PC.NURSE ---
Dayshift Note: Pt checked on and assessed. Pt initially received on 2 L NC. RT to take ABG reading, this RN requested that pt be placed back on Bipap for ~ 1 hour before taking ABG to reflect ABG on bipap. Pt with significant reduction of CO2 after 1 hour bipap. Pt tolerating diet, denies nausea. Mccord remains in place with plans to discontinue today per MD. Pt with chronic back pain, up to 12/30. Medicated with percocet prior to this shift. Will continue to monitor, notify MD with changes.
--- NOTE | 2020-01-30 11:16 | PT.IPTN ---
Current Diagnoses Acute and chronic respiratory failure with hypercapnia (01/27/20) Physical Therapy Treatment Note M2 PT-IP Current Condition Start: 01/29/20 13:02 Freq: NEEDED Status: Active Protocol: Document 01/29/20 09:18 AB (Rec: 01/29/20 13:17 AB [id number]) Physical Therapy Current Condition Current Condition Evaluation Date 01/29/20 Treatment Diagnosis A-fib; CHF; difficulty in walking Onset Date 01/27/20 Precautions Other Precautions O2 sat M3 PT-IP Subjective Start: 01/29/20 13:02 Freq: NEEDED Status: Active Protocol: Document 01/30/20 10:57 AW (Rec: 01/30/20 11:15 AW [id number]) Subjective Physical Therapy Visit Type Type Treatment Note Visit Start Time 10:22 Visit Stop Time 10:47 Total Visit Minutes 25 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 Physical Therapy Visit Comments Patient Comments pt is agreeable to do PT M4 PT-IP Mobility and Gait Start: 01/29/20 13:02 Freq: NEEDED Status: Active Protocol: Document 01/30/20 10:57 AW (Rec: 01/30/20 11:15 AW [id number]) PT-Bed Mobility Assessment Supine to Sit Supine to Sit Standby Assistance,Head of Bed Elevated Sit to Supine Sit to Supine Standby Assistance,Head of Bed Elevated PT-Transfer Assessment Sit to and From Stand Sit to and from Stand Standby Assistance Equipment Transfer Assistive Device None Transfers Transfer Destination Toilet Transfer Technique ambulated without AD Transfer Ability Level of Assist Standby Assistance,Use of Upper Extremities Comments Mobility Comments Pt was on BiPAP upon PT arrival in preparation for napping but pt agreed to do PT . Pt doffed the mask and PT placed NC with portable tank set at 2L. Pt completed supine to sit with HOB elevated SBA. Pt ambulate to the toilet where he transferred SBA with use of the grab bar. Pt then agreed to ambulate in the halls. He walked 50 feet without AD SBA, maintaining SpO2 92-94% on 2L via NC. Pt took a standing rest break before walking another 60 feet . Following another 2-minute rest break, pt ambulated 40 feet to the bed where he completed sit to supine SBA. RN assisted to don the BiPAP. Gait Assessment Gait Gait Assistance Required: Standby Assistance Distance (Feet) 60 Assistive Devices Assistive Device None,Gait Belt Orthotic/Prosthetic Devices or Brace: No Gait Deviations General Gait Pattern Antalgic,Flexed Trunk,Lateral Trunk Lean Factors Limiting Gait Function Factors Limiting Gait Function Decreased Activity Tolerance, Decreased Strength,Poor Balance,Respiratory Distress Comments Gait Comments pls refer to mobility section for details M5 PT-IP Objective Assessments Start: 01/29/20 13:02 Freq: NEEDED Status: Active Protocol: Document 01/29/20 09:18 AB (Rec: 01/29/20 13:17 AB [email or web address]) Orientation Orientation/Cognition Level of Alertness Alert Orientation Name,Place,Situation Language Function Ability No Deficits Noted Safety Awareness Decreased Safety Awareness Memory Description No Deficits Noted Gross Range of Motion Lower Extremity ROM Assessment Within Functional Limits Strength Lower Extremity Strength Assessment Right Impaired Hip 3+/5 Knee 4-/5 Coordination Assessment Gross Coordination Gross Coordination WNL Sensation Assessment Sensation Gross Sensation WNL Muscle Tone Muscle Tone WNL Yes M6 PT-IP Treatment Start: 01/29/20 13:02 Freq: NEEDED Status: Active Protocol: Document 01/30/20 10:57 AW (Rec: 01/30/20 11:15 AW [id number]) Physical Therapy Treatment Education Education Provided Safety Other Treatments Other Treatment Performed Pt educated on energy conservation. M7 PT-IP Assessment and Plan Start: 01/29/20 13:02 Freq: NEEDED Status: Active Protocol: Document 01/30/20 10:57 AW (Rec: 01/30/20 11:15 AW [id number]) PT Summary Assessment and Plan Potential Rehabilitation Potential Good Status of Condition at Evaluation Evolving Summary Impairments Pain,ROM,Strength,Balance,Bed Mobility,Transfers,Gait, Activity Tolerance Progress Towards Goals Slow Progress due to Activity Tolerance Assessment Summary Pt continues to require SBA for mobility but with increased tolerance today. Pt was able to ambulate 60 feet, 50 feet, and 40 feet with standing rest breaks, maintaining SpO2 92-94% on 2L/ min O2 via NC. Activity tolerance remains below baseline. Pt will complete stair training prior to discharge. Goals Bed Mobility Goal Independent Transfer Goal Independent Gait Goal Independent Gait Distance 100 Other Goals up/down 2 steps without rails SBA Days to Meet Goals 5 Frequency of Treatment Frequency Of Treatment Once a Day Treatment Plan Physical Therapy Treatment Plan Bed Mobility Training,Transfer Training,Gait Training, Therapeutic Exercise,Balance Retraining,Discharge Planning, Hot or Cold Pack,Neuromuscular Re-ed,Coordination Retraining Other Recommendations and Next Treatment progress gait distance as able Focus , stair training Recommendations To Nursing Amount of Assist Needed 1 Person Assist Discharge Recommendations PT Discharge Recommendations Home with Assistance, Outpatient PT Other Discharge Recommendations pt will benefit from outpt cardiopulmonary rehab Transportation Needs at Discharge Private Vehicle
--- NOTE | 2020-01-30 11:22 | CM.DPC ---
DCP: continued: Dr. Contreras reported in Team (not bedside) Rounds that she was keeping pt until Friday as the [facility] she wants pt to go home on has not yet been set up. She and RT are working on this and she reports he will not be considered appropriate for d/c until this is in place. P: at this time: remains as stated yesterday. Home with his support system plus [facility]. He is on o2 at home: as noted RT and Dr. Contreras are now looking to get pt qualified for [facility].
--- NOTE | 2020-01-30 11:27 | PM.PN.1 ---
Subjective Subjective Date Patient Seen: 01/30/20 Interval history: Harvey Roberts is a 64-year-old male with a past medical history significant for hypertension, hyperlipidemia, COPD recently placed on home oxygen, and chronic low back pain status post spinal cord stimulator with opiate dependence who presented to the ED with progressive worsening shortness of breath over the past month. The patient is resting in bed comfortably. The patient continues to have dyspnea on exertion but it is significantly improved the patient tolerated the BiPAP throughout the entire night with a smaller mass and his nasal bridge padded. The patient's hypercarbia significantly improved with CO2 now down to 62 with BiPAP 18/7 and FiO2 0.30. Plan to continue BiPAP only while napping or sleeping. The patient's orthopnea has also improved and he is able to lay more flat while sleeping. He has no complaints and denies headache, shortness of breath, chest pain, abdominal pain, nausea, vomiting, fever, chills, dysuria, diarrhea or constipation. He is voiding via Mccord catheter and eliminating without difficulty. Plan to remove Mccord catheter today. He is up ambulating with assistance. Exam Vital Signs (past 8 hours): - 01/30/20 04:32 01/30/20 04:54 01/30/20 05:23 Temperature Pulse Rate 69 69 Respiratory Rate 22 23 Blood Pressure 123/72 123/72 Pulse Oximetry 94 94 01/30/20 06:42 01/30/20 07:11 01/30/20 07:28 Temperature Pulse Rate 75 73 Respiratory Rate 16 Blood Pressure 130/73 Pulse Oximetry 94 01/30/20 07:43 01/30/20 08:35 01/30/20 08:57 Temperature 96.9 F L Pulse Rate 75 82 Respiratory Rate 20 Blood Pressure 130/73 120/59 L 120/59 L Pulse Oximetry 94 Fraction of Inspired Oxygen 0.30 Oxygen Delivery Method Nasal Cannula,BiPAP Oxygen Flow Rate 2 Narrative Exam Narrative: General: Older male sitting in bed and in no acute distress, appears older than stated age and chronically ill, well-developed, well-nourished, appropriately interactive. HEENT: Normocephalic, atraumatic. External ears without defect. Pupils equal, round, and reactive to light. Anicteric sclerae, moist conjunctivae, and no lid lag. Oropharynx free of erythema and cobble stoning with moist mucosa. Neck: Supple with full range of motion. No jugular venous distension. No lymphadenopathy or thyromegaly. Cardiovascular: Heart sounds distant but appear irregularly irregular without murmurs, rubs, or gallops appreciated. Pulmonary: Clear to auscultation bilaterally with improved aeration and no crackles, wheezes or rhonchi. Normal respiratory effort with no use of accessory muscles. Abdomen: Soft, obese, bowel sounds present, nontender, mild distension. No hepatosplenomegaly or masses appreciated. Extremities: No clubbing or cyanosis. Trace bipedal pitting edema. Skin: Normal temperature, turgor, and texture; no rash, ulcers, or subcutaneous nodules appreciated. Neurological: Cranial nerves grossly intact. Psychiatric: Normal mood and affect. Alert and oriented to person, place, and time. Objective Labs Result Diagrams: 01/30/20 04:47 01/30/20 04:47 Labs: Laboratory Results - last 24 hr 01/30/20 01/30/20 01/30/20 04:47 04:47 08:22 WBC 8.1 RBC 4.33 L Hgb 12.6 L Hct 38.5 L MCV 88.8 MCH 29.2 MCHC 32.8 RDW 14.1 Plt Count 151 Neut % (Auto) 66.9 Lymph % (Auto) 17.8 L Cuming % (Auto) 12.4 Eos % (Auto) 2.2 Baso % (Auto) 0.7 Neut # (Auto) 5400 Lymph # (Auto) 1500 Cuming # (Auto) 1000 H Eos # (Auto) 200 Baso # (Auto) 100 ABG pH 7.47 H ABG pCO2 62.1 H* ABG pO2 73 L ABG HCO3 45 H ABG Total CO2 47 H ABG O2 Saturation 95 ABG Base Excess 21.0 H FiO2 0.25 Sodium 137 Potassium 3.6 Chloride 87 L Carbon Dioxide 45 H* BUN 31 H Creatinine 0.83 Estimated GFR > 60.0 BUN/Creatinine Ratio 37.3 H Glucose 104 Calcium 9.4 Magnesium 2.0 Assessment & Plan Assessment & Plan narrative: Harvey Roberts is a 64-year-old male with a past medical history significant for hypertension, hyperlipidemia, COPD recently placed on home oxygen, and chronic low back pain status post spinal cord stimulator with opiate dependence, who presented to the ED with progressive worsening shortness of breath over the past month. 1. Acute on likely chronic hypoxemic and hypercarbic respiratory failure, present on admission. Acute portion resolved. -Acute portion secondary to new onset CHF CHF, probable progressive emphysema, and possibly new spiculated mass in right upper lobe. -Initial ABG demonstrated hypoxemic and hypercarbic respiratory failure with: pH 7.34, pCO2 90.9, PO2 100, HC03 49, with SpO2 97% on FiO2 0.40. -The patient has been admitted multiple times for COPD exacerbations but do not have prior blood gas for comparison. -Chest x-ray demonstrated bilateral interstitial prominence indicative of pulmonary edema and highly suspicious for new onset CHF given clinical picture. Do not suspect COPD exacerbation at this time and will hold off on glucocorticoids. COVID 19 negative and patient has no other evidence of infectious process at this time. CTA chest demonstrated -Continue respiratory therapy evaluation and treatment. Continue BiPAP s much as tolerated especially while napping or sleeping. Continue to monitor ABG to adjust BiPAP settings. Continue supplemental oxygen to maintain oxygen saturation 88-92%. Patient is currently on 2-3 L supplemental oxygen. Do not want to over oxygenate patient as this will drive hypercarbia as above. The patient's oxygenation has improved with diuresis as above. Continue DuoNebs twice daily, albuterol nebs every 4 hours while awake as needed for shortness of breath or wheezing, and budesonide nebulized twice daily. -Patient requires nocturnal and daytime ventilation. Home BiPAP insufficient due to severity of his COPD which is primary cause of patient's chronic hypoxemic and hypercarbic respiratory failure. Plan to acquire noninvasive ventilator per patient's home oxygen company. -Continue physical and occupational therapy evaluation and treatment. 2. 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 Acute exacerbation resolved. -Chest x-ray demonstrated bilateral interstitial prominence indicative of pulmonary edema. -ProBNP elevated at 2390. -Received furosemide 40 mg IV x1 in ED. Continue furosemide switched from 40 mg twice daily to 40 mg daily today as patient is euvolemic. -Echocardiogram demonstrated LV normal size with reduced function and EF 30-35%, moderate to severe global hypokinesis of left ventricle, right ventricle is mildly dilated, RV systolic function is mildly reduced, mild tricuspid regurg, RVSP is estimated to be at least 40 mmHg based on an estimated right atrial pressure of 8 mmHg. -Continue to monitor strict I&Os and daily weights. Net -7.6 L. -Continue monitor electrolytes and replete as needed. Goal K > 4.0 and Mg > 2.0. 3. Newly diagnosed atrial flutter with rapid ventricular rate, present on admission. RVR resolved. -CHADS2 Vasc score is a 2 based on hypertension and congestive heart failure. Discontinued aspirin 81 mg daily. Continue Eliquis 5 mg twice daily. -Discontinued diltiazem gtt and PO as contraindicated in HFrEF as above. Continue metoprolol tartrate and plan to consolidate from 50 mg every 6 hours to 100 mg twice daily. Heart rate is well controlled 80s to 90s at rest. -CTA ruled out pulmonary embolism and demonstrated centrilobular moderate emphysema. -Continue to monitor electrolytes and replete as needed especially while diuresing as above. Goal K > 4.0 and Mg > 2.0. 4. Oxygen-dependent COPD, chronic, present on admission. Stable. -Does not represent COPD exacerbation. -Continue respiratory therapy evaluation and treatment. Continue supplemental oxygen to maintain oxygen saturation 88-92%. Patient is currently on 2-3 L supplemental oxygen. Do not want to over oxygenate patient as this will drive hypercarbia as above. The patient's oxygenation has improved with diuresis as above. Continue DuoNebs twice daily, albuterol nebs every 4 hours while awake as needed for shortness of breath or wheezing, and budesonide nebulized twice daily. 5. New incidental spiculated right upper lobe lung nodule evident on CT, present on admission. Presumed stable. -CTA chest demonstrated a 9 mm irregular spiculated nodule is seen in the right upper lobe (series 5, image 138), new since the last CTA 12/2019, with reactive mediastinal and right hilar lymphadenopathy. Recommend repeat CT in 3 months per PCP. 6. Hypertension, chronic, present on admission. Stable. -Continue lisinopril 20 mg daily. 7. Hyperlipidemia, chronic, present on admission. Stable. -Continue pravastatin 10 mg daily at bedtime. 8. Chronic back pain with opiate dependence, present on admission. Stable. -Status post spinal cord stimulator for which the patient reports has improved his overall back pain. -Continue home oxycodone 10-325 mg every 6 hours as needed for back pain and gabapentin 600 mg 3 times daily. Continue bowel regimen with Colace 100 mg twice daily and MiraLax 17 g daily to avoid opiate induced constipation. Ordered daily bisacodyl suppository as needed for persistent constipation. 9. Nicotine dependence in remission, chronic, present on admission. Stable. -Patient reports he quit smoking 6 months ago and recommended he continue to abstain from smoking indefinitely. -Continue home bupropion 150 mg 3 times daily. Patient declined Nicoderm patch. Code status: Full code, surrogate decision maker is the patient's girlfriend or brother. VTE prophylaxis: Eliquis Disposition: Patient will discharge home with home health tomorrow with [facility].
[2020-01-30] MEDS: POTASSIUM CHLORIDE 20 MEQ TAB 40 MEQ PO (17:07)
[2020-01-30] MEDS: PRAVASTATIN 20 MG TABLET 10 MG PO (20:31)
[2020-01-30] MEDS: METOPROLOL IR 50 MG TABLET 100 MG PO (20:31)
[2020-01-31 00:04] VITALS: BP 97/62; PULSE 68; RESP 22; TEMP 36.6; O2SAT 96
[2020-01-31 01:20] VITALS: O2SAT 94
[2020-01-31] MEDS: OXYCODONE/ACETAMINOPHEN 5/325 TABLET 2 TAB PO ×3 (01:44→14:05)
[2020-01-31 05:01] VITALS: BP 96/61; PULSE 69; RESP 18; TEMP 36.2; O2SAT 95
[2020-01-31] MEDS: ALBUTEROL/IPRATROPIUM 3 ML AMPUL INH (07:39)
[2020-01-31] MEDS: BUDESONIDE 0.5 MG/2 ML NEB INH (07:39)
[2020-01-31 07:42] VITALS: PULSE 84; RESP 20; O2SAT 96
[2020-01-31 08:00] VITALS: BP 107/74; PULSE 70; RESP 26; TEMP 36.4; O2SAT 92
[2020-01-31 09:05] VITALS: BP 107/74; PULSE 75
[2020-01-31] MEDS: lisinopriL 20 MG TABLET PO (09:05)
[2020-01-31] MEDS: GABAPENTIN 600 MG TABLET PO ×2 (09:05→14:05)
[2020-01-31] MEDS: polyethylene glycoL 3350 17 GM POWD.PACK PO (09:05)
[2020-01-31] MEDS: POTASSIUM CHLORIDE 20 MEQ TAB 40 MEQ PO (09:05)
[2020-01-31] MEDS: METOPROLOL IR 50 MG TABLET 100 MG PO (09:05)
[2020-01-31] MEDS: DOCUSATE 100 MG CAPSULE PO (09:05)
[2020-01-31] MEDS: buPROPion SR 150 MG TAB PO ×2 (09:05→14:05)
[2020-01-31] MEDS: SODIUM CHLORIDE 0.9% FLUSH 10 ML IV (09:06)
[2020-01-31] MEDS: APIXABAN 5 MG TABLET PO (09:06)
[2020-01-31] MEDS: FUROSEMIDE 40 MG TABLET PO (09:06)
--- NOTE | 2020-01-31 10:35 | CM.DPC ---
DCP Cont: Patient is to be discharged home today. Updated Meenu at [facility], and they stated that they will look for discharge summary. Will have Alisia, care director, fax over DC summary when complete. Patient is to be set up with [facility] as well. P: Patient is supposed to discharge today home with [facility]. Sofía Michael RN/Manager Of Financial Reporting
--- NOTE | 2020-01-31 10:46 | PT.IPTN ---
Current Diagnoses Acute and chronic respiratory failure with hypercapnia (01/27/20) Physical Therapy Treatment Note M2 PT-IP Current Condition Start: 01/29/20 13:02 Freq: NEEDED Status: Active Protocol: Document 01/29/20 09:18 AB (Rec: 01/29/20 13:17 AB [id number]) Physical Therapy Current Condition Current Condition Evaluation Date 01/29/20 Treatment Diagnosis A-fib; CHF; difficulty in walking Onset Date 01/27/20 Precautions Other Precautions O2 sat M3 PT-IP Subjective Start: 01/29/20 13:02 Freq: NEEDED Status: Active Protocol: Document 01/31/20 10:35 AW (Rec: 01/31/20 10:46 AW [email or web address]) Subjective Physical Therapy Visit Type Type Treatment Note Visit Start Time 10:20 Visit Stop Time 10:32 Total Visit Minutes 12 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 Therapy Pain Assessment Pain When Pain Assessed During Mobility Pain Present Pain Present Denied Pain M4 PT-IP Mobility and Gait Start: 01/29/20 13:02 Freq: NEEDED Status: Active Protocol: Document 01/31/20 10:35 AW (Rec: 01/31/20 10:46 AW [email or web address]) PT-Transfer Assessment Sit to and From Stand Sit to and from Stand Standby Assistance,Use of Upper Extremities Equipment Transfer Assistive Device None,Gait Belt Transfers Transfer Destination Bed Transfer Technique ambulated without AD Transfer Ability Level of Assist Standby Assistance,Use of Upper Extremities Comments Mobility Comments Pt was working with RT as PT arrived but had a break and was willing to participate with PT. Pt stood from the chair using arms to assist SBA and was transferred to portable O2 with flow rate 2L/ min. SpO2 was 96% prior to starting session. Pt ambulated toward the end of the valle and participated in stair training. He continued to ambulate another 100 feet with two short standing rest breaks (<15 sec). He returned to the room and sat on the edge of the bed SBA. SpO2 was maintained 92-94% throughout session. Gait Assessment Gait Gait Assistance Required: Standby Assistance Distance (Feet) 100 Assistive Devices Assistive Device None,Gait Belt Orthotic/Prosthetic Devices or Brace: No Gait Deviations General Gait Pattern Antalgic,Flexed Trunk,Lateral Trunk Lean Factors Limiting Gait Function Factors Limiting Gait Function Decreased Activity Tolerance, Decreased Strength,Poor Balance,Respiratory Distress Comments Gait Comments Refer to mobility section. Pt' s labor of breathing was significantly reduced today compared with yesterday. Stair Climbing Assessment Evaluation Level of Assist On Stairs Standby Assistance Devices Stair Climbing Assistive Devices Right Railing Technique/Endurance Stair Climbing Direction Ascend and Descend Stair Climbing Technique Step Over Step Number of Steps Climbed 3 Stair Climbing Set # Repetitions (reps) 1 Comments Stair Climbing Comments Pt used light touch on hand rail as he climbed ICU stairs. He was able to turn safely on the third step and return to the landing SBA. PT-Balance Assessment Sitting Balance and Reactions Static Sitting Balance Ability Normal Dynamic Sitting Balance Ability Good Standing Balance and Reactions Static Standing Balance Ability Good Dynamic Standing Balance Ability Good Device Used without AD M5 PT-IP Objective Assessments Start: 01/29/20 13:02 Freq: NEEDED Status: Active Protocol: Document 01/29/20 09:18 AB (Rec: 01/29/20 13:17 AB [email or web address]) Orientation Orientation/Cognition Level of Alertness Alert Orientation Name,Place,Situation Language Function Ability No Deficits Noted Safety Awareness Decreased Safety Awareness Memory Description No Deficits Noted Gross Range of Motion Lower Extremity ROM Assessment Within Functional Limits Strength Lower Extremity Strength Assessment Right Impaired Hip 3+/5 Knee 4-/5 Coordination Assessment Gross Coordination Gross Coordination WNL Sensation Assessment Sensation Gross Sensation WNL Muscle Tone Muscle Tone WNL Yes M6 PT-IP Treatment Start: 01/29/20 13:02 Freq: NEEDED Status: Active Protocol: Document 01/31/20 10:35 AW (Rec: 01/31/20 10:46 AW [email or web address]) Physical Therapy Treatment Education Education Provided Safety Other Treatments Other Treatment Performed Continued to emphasize energy conservation. M7 PT-IP Assessment and Plan Start: 01/29/20 13:02 Freq: NEEDED Status: Active Protocol: Document 01/31/20 10:35 AW (Rec: 01/31/20 10:46 AW [email or web address]) PT Summary Assessment and Plan Potential Rehabilitation Potential Good Status of Condition at Evaluation Stable Summary Impairments Pain,ROM,Strength,Balance,Bed Mobility,Transfers,Gait, Activity Tolerance Progress Towards Goals Progressing Toward Goals Assessment Summary Pt requires SBA for all mobility but was able to safely progress gait distance today with reduced labor of breathing and reduced need for rest breaks. He was able to safely navigate stairs. His support system at home can provide the assist he needs. Pt is safe for discharge. Goals Bed Mobility Goal Independent Transfer Goal Independent Gait Goal Independent Gait Distance 100 Other Goals up/down 2 steps without rails SBA Days to Meet Goals 3 Frequency of Treatment Frequency Of Treatment Once a Day Treatment Plan Physical Therapy Treatment Plan Bed Mobility Training,Transfer Training,Gait Training, Therapeutic Exercise,Balance Retraining,Discharge Planning, Hot or Cold Pack,Neuromuscular Re-ed,Coordination Retraining Other Recommendations and Next Treatment progress gait distance as able Focus , stair training Recommendations To Nursing Amount of Assist Needed Standby Assistance Discharge Recommendations PT Discharge Recommendations Home with Assistance, Outpatient PT Other Discharge Recommendations pt will benefit from outpt cardiopulmonary rehab Transportation Needs at Discharge Private Vehicle
--- NOTE | 2020-01-31 13:35 | P.DS_ITS ---
History of Present Illness History of Present Illness Date Patient Seen: 01/27/20 Chief complaint: trouble breathing Narrative: Written by Dr. Brock: Harvey Roberts is a 64 year old male with past medical history of COPD, recently placed on home oxygen, chronic low back pain with opioid dependence, history spinal stimulator evaluation, hypertension, obesity who presented with worsening shortness of breath over the past month. Patient was scheduled for a pulmonary function test today, but took his albuterol this morning and the test was rescheduled for next week. He felt like he could not last another week so decided to come the emergency room for further evaluation. He has been seeing his primary care provider with worsening lower extremity edema and shortness of breath. His lower extremity edema started about 2 weeks ago. Patient endorses shortness of breath at rest for the past month, but is able to do most of his activities including shopping. He cannot lay flat at night and has been sleeping in his recliner for a while. He denies any palpitations, chest pain, dizziness, nausea, vomiting, left arm or shoulder discomfort. He does endorse diaphoresis when walking a short distance. In the emergency room, patient was hypertensive, mild increase in his home oxygen use at 3 L, and tachycardic into the 140s at times. EKG showed atrial flutter with variable conduction and a rate of 140. Chest x-ray showed bilateral hazy opacities consistent with pulmonary edema. Initial labs showed a carbon dioxide level of 41, creatinine of 0.55, lactate of 0.7. Troponin was 0.03. ProBNP was elevated at 2390. Procalcitonin is negative. COVID-19 PCR was also negative. CBC was unremarkable. D-dimer was negative for age at 255. ABG showed a respiratory acidosis with pH of 7.32, and a pCO2 of 87.7. PO2 was 102 with an FiO2 30 on 3 L of nasal cannula at the time. Patient was given IV diltiazem x2 doses, with mild slowing of his rate, metoprolol 5 mg, and was given a digoxin load as well. He was started on a BiPAP therapy after COVID-19 testing was negative and will be admitted to the ICU for further management. Discharge Providers Provider Date of admission: 01/27/20 16:42 Discharge Date: 01/31/20 Primary care physician: Miguel Angel Park MD Consults: 01/27/20 17:49 Consult to Respiratory Therapy Evaluate & Treat Comment: Physician Instructions: Evaluate and treat 01/29/20 06:02 Consult to Occupational Therapy Evaluate & Treat Comment: Physician Instructions: Evaluate and treat Consult to Physical Therapy Evaluate & Treat Comment: Physician Instructions: Evaluate and Treat 01/29/20 10:58 Consult to Home Health Routine Comment: [facility] ACCEPTS THE REFERRAL Reason For Exam: HOME HEALTH RN/OT/PT AT D/C 01/31/20 09:44 Consult to Dietitian, Adult Stat Comment: Reason For Exam: heart failure, COPD/emphysema O2 dep and BIPAP Discharge provider: Katie Contreras DO Summary Hospital Course Discharge Diagnosis: 1. Acute on likely chronic hypoxemic and hypercarbic respiratory failure, present on admission. Acute portion resolved. 2. 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 Acute exacerbation resolved. 3. Newly diagnosed atrial flutter with rapid ventricular rate, present on admission. RVR resolved. 4. Oxygen-dependent COPD, chronic, present on admission. Stable. 5. New incidental spiculated right upper lobe lung nodule evident on CT, present on admission. Presumed stable. 6. Hypertension, chronic, present on admission. Stable. 7. Hyperlipidemia, chronic, present on admission. Stable. 8. Chronic back pain with opiate dependence, present on admission. Stable. 9. Nicotine dependence in remission, chronic, present on admission. Stable. Hospital Course: Harvey Roberts is a 64-year-old male with a past medical history significant for hypertension, hyperlipidemia, COPD recently placed on home oxygen, and chronic low back pain status post spinal cord stimulator with opiate dependence, who presented to the ED with progressive worsening shortness of breath over the past month. 1. Acute on likely chronic hypoxemic and hypercarbic respiratory failure, present on admission. Acute portion resolved. -Acute portion secondary to new onset CHF CHF, probable progressive emphysema, and possibly new spiculated mass in right upper lobe. -Initial ABG demonstrated hypoxemic and hypercarbic respiratory failure with: pH 7.34, pCO2 90.9, PO2 100, HC03 49, with SpO2 97% on FiO2 0.40. -The patient has been admitted multiple times for COPD exacerbations but do not have prior blood gas for comparison. -Chest x-ray demonstrated bilateral interstitial prominence indicative of pulmonary edema and highly suspicious for new onset CHF given clinical picture. Do not suspect COPD exacerbation at this time and will hold off on glucocorticoids. COVID 19 negative and patient has no other evidence of infectious process at this time. CTA chest demonstrated no pulmonary embolism, small bilateral pleural effusions and bibasilar atelectasis, a 9 mm nodule in the right upper lobe, moderate emphysema, mediastinal and right hilar lymphadenopathy most likely reactive, mild pericardial thickening or small pericardial effusion. -Continued respiratory therapy evaluation and treatment. Continued BiPAP s much as tolerated especially while napping or sleeping. Continued to monitor ABG to adjust BiPAP settings. Continued supplemental oxygen to maintain oxygen saturat ion 88-92%. Patient is currently on 2-3 L supplemental oxygen. Do not want to over oxygenate patient as this will drive hypercarbia as above. The patient's oxygenation has improved with diuresis as above. Continue DuoNebs twice daily, albuterol nebs every 4 hours while awake as needed for shortness of breath or wheezing, and budesonide nebulized twice daily. -Patient requires nocturnal and daytime ventilation. Home BiPAP insufficient due to severity of his COPD which is primary cause of patient's chronic hypoxemic and hypercarbic respiratory failure. Patient will have noninvasive ventilator per patient's home oxygen company arranged to be delivered at discharge. -Continued physical and occupational therapy evaluation and treatment. 2. 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 Acute exacerbation re solved. -Chest x-ray demonstrated bilateral interstitial prominence indicative of pulmonary edema. -ProBNP elevated at 2390. -Received furosemide 40 mg IV x1 in ED. Continued IV diuresis through hosp italization and discharged on mg daily. -Echocardiogram demonstrated LV normal size with reduced function and EF 30-35%, moderate to severe global hypokinesis of left ventricle, right ventricle is mildly dilated, RV systolic function is mildly reduced, mild tricuspid regurg, RVSP is estimated to be at least 40 mmHg based on an estimated right atrial pressure of 8 mmHg. -Continued to monitor strict I&Os and daily weights. Net -8 L. -Continued monitor electrolytes and replete as needed. Goal K > 4.0 and Mg > 2.0. 3. Newly diagnosed atrial flutter with rapid ventricular rate, present on admission. RVR resolved. -CHADS2 Vasc score is a 2 based on hypertension and congestive heart failure. Discontinued aspirin 81 mg daily. Continued Eliquis 5 mg twice daily. -Discontinued diltiazem gtt and PO as contraindicated in HFrEF as above. Continued metoprolol tartrate 100 mg twice daily. Heart rate is well controlled 80s to 90s at rest. -CTA ruled out pulmonary embolism and demonstrated centrilobular moderate emphysema. -Continued to monitor electrolytes and replete as needed especially while diuresing as above. Goal K > 4.0 and Mg > 2.0. 4. Oxygen-dependent COPD, chronic, present on admission. Stable. -Does not represent COPD exacerbation. -Continued respiratory therapy evaluation and treatment. Continued supplemental oxygen to maintain oxygen saturation 88-92%. Patient is currently on 2-3 L supplemental oxygen. Do not want to over oxygenate patient as this will drive hypercarbia as above. The patient's oxygenation has improved with diuresis as above. Continued DuoNebs twice daily, albuterol nebs every 4 hours while awake as needed for shortness of breath or wheezing, and budesonide nebulized twice daily. 5. New incidental spiculated right upper lobe lung nodule evident on CT, present on admission. Presumed stable. -CTA chest demonstrated a 9 mm irregular spiculated nodule is seen in the right upper lobe (series 5, image 138), new since the last CTA 12/2019, with reactive mediastinal and right hilar lymphadenopathy. Recommend repeat CT in 3 months per PCP. 6. Hypertension, chronic, present on admission. Stable. -Continued lisinopril 20 mg daily. 7. Hyperlipidemia, chronic, present on admission. Stable. -Continued pravastatin 10 mg daily at bedtime. 8. Chronic back pain with opiate dependence, present on admission. Stable. -Status post spinal cord stimulator for which the patient reports has improved his overall back pain. -Continued home oxycodone 10-325 mg every 6 hours as needed for back pain and gabapentin 600 mg 3 times daily. Continued bowel regimen with Colace 100 mg twice daily and MiraLax 17 g daily to avoid opiate induced constipation. Ordered daily bisacodyl suppository as needed for persistent constipation. 9. Nicotine dependence in remission, chronic, present on admission. Stable. -Patient reports he quit smoking 6 months ago and recommended he continue to abstain from smoking indefinitely. -Continued home bupropion 150 mg 3 times daily. Patient declined Nicoderm patch. Exam Vital Signs (past 8 hours): - 01/31/20 07:42 01/31/20 08:00 01/31/20 09:05 Temperature 97.6 F Pulse Rate 84 70 75 Respiratory Rate 20 26 H Blood Pressure 107/74 107/74 Pulse Oximetry 96 92 Fraction of Inspired Oxygen 0.3 Oxygen Delivery Method High Flow Nasal Cannula Oxygen Flow Rate 3 Narrative Exam Narrative: General: Older male sitting in bed and in no acute distress, appears older than stated age and chronically ill, well-developed, well-nourished, appropriately interactive. HEENT: Normocephalic, atraumatic. External ears without defect. Pupils equal, round, and reactive to light. Anicteric sclerae, moist conjunctivae, and no lid lag. Oropharynx free of erythema and cobble stoning with moist mucosa. Neck: Supple with full range of motion. No jugular venous distension. No lymphadenopathy or thyromegaly. Cardiovascular: Heart sounds distant but appear irregularly irregular without murmurs, rubs, or gallops appreciated. Pulmonary: Clear to auscultation bilaterally with improved aeration but still diminished with no crackles, wheezes or rhonchi. Normal respiratory effort with no use of accessory muscles. Abdomen: Soft, obese, bowel sounds present, nontender, mild distension. No hepatosplenomegaly or masses appreciated. Extremities: No clubbing or cyanosis. Trace bipedal pitting edema. Skin: Normal temperature, turgor, and texture; no rash, ulcers, or subcutaneous nodules appreciated. Neurological: Cranial nerves grossly intact. Psychiatric: Normal mood and affect. Alert and oriented to person, place, and time. Objective Labs Result Diagrams: 01/30/20 04:47 01/30/20 04:47 Discharge Plan Discharge Plan Patient Disposition: Home Health Service Transfer to: [facility] Discharge comment: You are being discharged home with home health for physical therapy, occupational therapy, nursing. You have COPD with respiratory failure and carbon dioxide retention and recommend continuous oxygen 2 L and a breathing machine or BiPAP called trilogy while napping or sleeping to help blow off your carbon dioxide. You have systolic congestive heart failure with an EF of 30-35% and had been placed on a diuretic called furosemide 40 mg daily. Please continue to consume a diet low in sodium and no more than 50-60 oz of fluid a day. You had atrial flutter which is an irregular heartbeat and put you at risk of blood clots. You have been prescribed metoprolol tartrate 100 mg twice daily to control your heart rate and Eliquis 5 mg twice daily which is a blood thinner to protect you against clots. Please follow-up with your primary care provider, Dr. Park, regarding your hospitalization. Discharge orders & Medications Prescriptions: New furosemide 40 mg Tablet 40 mg PO DAILY Qty: 30 RF: 0 metoprolol tartrate 50 mg Tablet 100 mg PO BID Qty: 120 RF: 0 Eliquis 5 mg Tablet 5 mg PO BID Qty: 60 RF: 0 Continued bupropion HCl 150 mg tablet sustained-release 12 hr 150 mg PO TID Qty: 270 RF: 1 albuterol sulfate [Ventolin HFA] 90 mcg/actuation HFA aerosol inhaler See Rx Instructions .ROUTE .COMPLEX Qty: 18 RF: 11 permethrin 5 % cream 1 applictn TOP ONCE Qty: 60 RF: 0 budesonide 0.5 mg/2 mL suspension for nebulization 2 ml INHALATION BID Qty: 2 RF: 11 albuterol sulfate 2.5 mg /3 mL (0.083 %) solution for nebulization 1.25 mg INHALATION Q4-6H PRN (Reason: shortness of breath or wheezing) Qty: 3 RF: 11 ipratropium bromide 0.02 % solution 2.5 ml INHALATION Q4H PRN (Reason: shortness of breath or wheezing) Qty: 2.5 RF: 11 oxycodone-acetaminophen 10-325 mg tablet 1 tab PO Q6H PRN (Reason: pain) Qty: 120 RF: 0 gabapentin 600 mg tablet 600 mg PO TID Qty: 270 RF: 3 lisinopril 20 mg tablet 20 mg PO DAILY RF: 0 pravastatin 10 mg tablet 10 mg PO BEDTIME RF: 0 docusate sodium 100 mg capsule 100 mg PO BID RF: 0 Follow up/Referrals: Miguel Angel Park MD [Primary Care Provider] - 1 Week (appt:02/07 @ 10:30 check in at 10:[address] park ) Diet/Activity/Treatments Diet: Low-fat, Low-sodium and Low-cholesterol Oxygen: 2 L continuous, BiPAP/trilogy while sleeping or napping Visit Report/Discharge Packet Instructions: The Mediterranean Diet and Good Health, DI for Heart Failure, DI for Chronic Obstructive Pulmonary Disease, DI for Atrial Flutter, Fluid Restricted Diet, Low-Sodium Diet, How to Use a Bilevel Positive Airway Pressure (BiPAP) Device, Apixaban Visit Report Forms: Patient Portal/API, Stroke Signs & Symptoms Discharge Data Primary Care Provider: Miguel Angel Park Discharges patient from system. Discharge Date/Time: 01/31/20 14:10
--- NOTE | 2020-01-31 13:40 | OT.IP.TRT ---
Current Diagnoses Acute and chronic respiratory failure with hypercapnia (01/27/20) Occupational Therapy Treatment Note M2 OT-IP Current Condition Start: 01/29/20 12:42 Freq: Status: Active Protocol: Document 01/29/20 12:42 CGR (Rec: 01/29/20 12:55 CGR [email or web address]) Occupational Therapy Current Condition Current Condition Evaluation Date 01/29/20 Treatment Diagnosis hypoxia, COPD exacerbation, Afib Diagnosis Onset Date 01/27/20 M3 OT- IP Subjective and Pain Start: 01/29/20 12:42 Freq: Status: Active Protocol: Document 01/31/20 13:39 CGR (Rec: 01/31/20 13:40 CGR [email or web address]) OT- Subjective Occupational Therapy Visit Type Type Administrative Note Notes Attempted to see pt for OT services for shower. Pt declined to perform at this time stating his plans for discharge home today and requesting to shower when home . Pt declined all other activities at this time and awaiting lunch. No OT services rendered.
--- NOTE | 2020-01-31 14:36 | DIET.PN ---
Dietary Progress Note Assessment: Mr. Roberts is a 64 year old male with past medical history of COPD O2 Dependent, chronic low back pain, hypertension, obesity who presented with worsening shortness of breath over the past month. He has been seeing his primary care provider with worsening lower extremity edema and shortness of breath. His lower extremity edema started about 2 weeks ago. He reports good appetite and that he eats plenty. Endorses heart healthy eating, but admits he eats too much. He reports weight gain of 5-10 lb in the last week from fluid retention. Intake: meat, potatoes, fruits, plenty of sweets. Cooking usually involves frying or frozen. Independently shops/cooks. HT: 78in WT: 275lb UBW: fluctuates BMI: 31.8 Labs: pH: 7.47 H CO2: 62.1 H O2: 73 L Chl 87 L MNA: 14 Avelino: 21 PO's: 100% Nutrition Diagnosis: Altered nutrition related lab values r/t cardiac/ pulmonary dysfunction aeb altered pO2 and pCO2, edema, Shortness of breath, estimated intake of food high in sodium/fluid. Interventions: 1. Discussed heart healthy nutrition therapy including limiting sodium, cholesterol, and simple starches/sugars. Listed recommended amounts and label reading. Handouts provided. 2. Discussed COPD nutrition therapy. Discussed importance of small frequent meals and fluid restrictions if eating becomes difficult with breathing or significant, unintentional weight loss occurs. 3. Discussed healthy intentional weight loss of 1-2 lbs/wk for heart health. 4. Discussed referral to outpatient care. Diet Order: Heart healthy EER: 2500 lashay (20cal/kg) ; 125-150g pro (1-1.2) Monitoring/Evaluations: PO's, associated labs
--- NOTE | 2020-01-31 14:43 | PC.NURSE ---
REVIEWED AT LENGTH NEW ONSET OF CHF AND FOLLOW UP PLAN AND NEW RX WELL DIETARY GUIDELINES - DISCHARGED FROM HOSPITAL AT THIS TIME
[2020-02-24 15:49] LABS: TCO2 ABG > 50 mmol/L (21-31)
== END 2020-01-31 14:10 | disposition home or self-care (01) | DRG 291 ==
LOC: ED 14:57 → AC 16:42 → ICU 17:07
PROVIDERS: Internal Medicine; Nurse Practitioner Adult Health; Admitting Provider Internal Medicine; Emergency Provider Emergency Medicine; PCP Student in an Organized Health Care Education/Training Program; Referring Provider Emergency Medicine; Visit Provider Internal Medicine
DX: I11.0 Hypertensive heart disease with heart failure (principal); J96.22 Acute and chronic respiratory failure with hypercapnia; J96.21 Acute and chronic respiratory failure with hypoxia; I48.92 Unspecified atrial flutter; I50.43 Acute on chronic combined systolic (congestive) and diastolic (congestive) heart failure; Z99.81 Dependence on supplemental oxygen; J44.9 Chronic obstructive pulmonary disease, unspecified; G89.29 Other chronic pain; F17.210 Nicotine dependence, cigarettes, uncomplicated; E78.5 Hyperlipidemia, unspecified; R91.8 Other nonspecific abnormal finding of lung field; Z11.59 Encounter for screening for other viral diseases; Z79.891 Long term (current) use of opiate analgesic
CPT/HCPCS: 36415; 36600; 71045; 71275; 80048; 80053; 80076; 82550; 82553; 82728; 82805; 82962; 83036; 83605; 83615; 83735; 83880; 84145; 84443; 84484; 85025; 85379; 85610; 85730; 86140; 87040; 87635; 93005; 93306; 94640; 94660; 94762; 96374; 96375; 97116; 97162; 97165; 97530; 97535; 99284; J1160; J1650; J1940; J7613; Q9967

== ENCOUNTER → 2020-02-14 13:38 | Outpatient (CLI) | payer MEDICARE, SELFPAY ==
[2020-01-31 13:55] VITALS: PULSE 68; RESP 24; O2SAT 96; BMI 31.8
[2020-02-15 20:01] LABS: COVID19 Sendout Not Detected (Not Detect)
== END ==
PROVIDERS: PCP Student in an Organized Health Care Education/Training Program; Visit Provider Physician Assistant
DX: Z11.59 Encounter for screening for other viral diseases (principal)
CPT/HCPCS: 87635

== ENCOUNTER → 2020-02-17 08:00 | Outpatient (CLI) | payer MEDICARE, SELFPAY ==
[2020-01-31 13:55] VITALS: PULSE 68; RESP 24; O2SAT 96; BMI 31.8
--- NOTE | 2020-04-13 10:20 | PM.PFT.1 ---
Pulmonary Function Test Referral & Results Date Patient Seen: 02/17/20 Requesting provider: Miguel Angel Park Indication: COPD Results: The spirometry demonstrates an FVC of 2.67 L which is 43% of predicted. The FEV1 was measured at 0.77 L which is 16% of predicted. The FEV1/FVC ratio was 29 which is 38% of predicted. Following the administration of bronchodilator there was a 40% improvement in FEV1 and a 126% improvement in FEF 25-75%. Lung volumes show an SVC of 2.58 L which is 43% of predicted. The diffusing capacity was measured at 15.38 which is 35% of predicted. No hemoglobin value was provided, so no correction for potential anemia could be made, if appropriate. The maximum voluntary ventilation was severely reduced Interpretation: This study demonstrates severe obstructive lung disease with an FEV1 of less than 1 L. There is evidence of significant benefit following bronchodilator administration based on the improvement in FEV1 and FEF 25-75% as above There is also moderately severe restrictive lung disease based on reduction in SVC There is also severe reduction in diffusing capacity to the point where patient may well be hypoxic at times on room air
== END ==
PROVIDERS: PCP Student in an Organized Health Care Education/Training Program; Referring Provider Student in an Organized Health Care Education/Training Program; Visit Provider Internal Medicine
DX: J44.9 Chronic obstructive pulmonary disease, unspecified (principal); Z87.891 Personal history of nicotine dependence
CPT/HCPCS: 94060; 94726; 94729

== ENCOUNTER → 2020-05-03 11:33 | Outpatient (CLI) | payer MEDICARE, SELFPAY ==
[2020-01-31 13:55] VITALS: PULSE 68; RESP 24; O2SAT 96; BMI 31.8
--- NOTE | 2020-05-03 11:35 | DI.CT.S_ITS ---
PROCEDURE: CT CHEST WO CON INDICATIONS: 3mo f/u of spiculated lung nodule TECHNIQUE: Noncontrast 5 mm thick sections acquired from the pulmonary apices to the posterior costophrenic angles. 1 mm lung window, 5 mm thick coronal and sagittal and 7 mm axial MIP reformats were then acquired. For radiation dose reduction, the following was used: automated exposure control, adjustment of mA and/or kV according to patient size. COMPARISON: [facility], CT, CT ANGIO CHEST PE PROTOCOL, 12/28/2019, 16:03. [facility], CT, CT ANGIO CHEST PE PROTOCOL, 01/28/2020, 14:18. FINDINGS: Image quality: Excellent. Lungs and pleura: No acute air space opacities. The area of alveolar infiltration in the lung parenchyma immediately anterior to the major fissure within the posterior aspect of the right upper lobe has resolved, and a focus of more dense radiodensity in that area seen on prior CT scanning 01/28/20 has resolved except for a slight degree of alveolar scarring. This is seen on current study series 3, image 162. No solid mass lesion remains. No new lesion has developed elsewhere. No pleural effusions or pneumothorax. Central and peripheral airways are patent and normal in caliber. Mediastinum: Heart size is normal. No pericardial effusion. There is, however, new mediastinal adenopathy by size criteria. At the right paratracheal middle mediastinal space a lymph node previously absent on CT chest 12/28/19 and normal in short axis dimension 01/28/20 has enlarged and now measures up to 2.9 x 3.3 cm. Its exact boundaries are less well visualized due to absence of intravenous contrast but clearly this interval size changer time is significant and deviates the superior vena cava laterally in that area. Immediately posterior to this higher density lymph node are 2 smaller nodes, with combined dimension of up to 2.1 by 1.7 cm. No additional adenopathy elsewhere is seen through the chest and thoracic inlet. No axillary adenopathy is found. Thoracic aorta and central pulmonary arteries are normal in size. Esophagus is normal in caliber. No hiatal hernia. Bones and chest wall: No suspicious bony lesions. No vertebral body compression fractures. No axillary or supraclavicular adenopathy by size criteria. Thyroid gland appears normal where well seen. Ovoid sharply demarcated cutaneous/subcutaneous mass measuring up to 1.7 cm medial to the right nipple, possibly a sebaceous cyst and previously present. Abdomen: Visualized upper abdominal solid organs and bowel loops appear normal in the absence of contrast. IMPRESSION: 1. At the anterior margin of the right major fissure on prior CT scanning in January of this year focal alveolar infiltration had been present and a possible solid mass lesion was also noted at the margin of that airspace disease. The airspace disease has entirely resolved. There is a small residual presumed area of alveolar scarring at the site of prior solid-appearing mass. Continued attention to that site on follow-up CT scanning is anticipated. 2. There is an unexpected finding of a enlarged lymph node at the right paratracheal space of the middle mediastinum, measuring up to 2.9 x 3.3 by 4.5 cm. Etiology is uncertain. The exact boundaries of this enlarged node are indeterminate due to absence of intravenous contrast. Follow-up contrast-enhanced CT scanning of the chest likely is warranted to establish accurate baseline for follow-up. 3. An ovoid soft tissue mass at the skin surface is present on the right, previously present and measuring approximately 1.7 cm in maximal dimension. It is located immediately medial to the right nipple. This has an appearance suggestive of a sebaceous cyst. Please correlate clinically. Dictated by: Ramos Arteaga M.D. on 05/03/2020 at 13:48 Approved by: Ramos Arteaga M.D. on 05/03/2020 at 14:26
== END ==
PROVIDERS: PCP Student in an Organized Health Care Education/Training Program; Referring Provider Student in an Organized Health Care Education/Training Program; Visit Provider Student in an Organized Health Care Education/Training Program
DX: R91.1 Solitary pulmonary nodule (principal); R59.0 Localized enlarged lymph nodes; N63.10 Unspecified lump in the right breast, unspecified quadrant
CPT/HCPCS: 71250

== ENCOUNTER → 2020-05-16 11:15 | Outpatient (CLI) | payer MEDICARE, SELFPAY ==
[2020-01-31 13:55] VITALS: PULSE 68; RESP 24; O2SAT 96; BMI 31.8
--- NOTE | 2020-05-16 11:17 | DI.CT.S_ITS ---
PROCEDURE: CT CHEST W CON INDICATIONS: Re-eval mediastinal lymphedenopathy from non-contrast CT TECHNIQUE: After the administration of intravenous contrast, 5 mm thick sections acquired from the pulmonary apices to the posterior costophrenic angles. 1 mm axial lung, 5 mm thick coronal and sagittal reformats and 7 mm axial MIP were acquired. For radiation dose reduction, the following was used: automated exposure control, adjustment of mA and/or kV according to patient size. COMPARISON: [facility], CT, CT ANGIO CHEST PE PROTOCOL, 12/28/2019, 16:03. [facility], CT, CT CHEST WO CON, 05/03/2020, 11:41. FINDINGS: Image quality: Excellent. Lungs and pleura: No acute air space opacities. No pleural effusions or pneumothorax. Central and peripheral airways are patent and normal in caliber. Mediastinum: Heart size is normal. No pericardial effusion. The previously identified mediastinal adenopathy at the right paratracheal middle mediastinum measures now 4.1 cm AP, 3.5 cm transverse and 4.9 cm craniocaudad. No new adenopathy has developed elsewhere. Thoracic aorta and central pulmonary arteries are normal in size. Esophagus is normal in caliber. No hiatal hernia. Bones and chest wall: No suspicious bony lesions. No vertebral body compression fractures. No axillary or supraclavicular adenopathy by size criteria. Thyroid gland appears normal and what appears to be a sebaceous cyst is again seen at the right anterior chest wall at the same axial level as the enlarged mediastinal lymph nodes, best seen series 2, image 25. This structure has been previously present and has not enlarged. . Abdomen: Visualized upper abdominal solid organs appear normal. Upper abdominal bowel loops are normal in caliber. IMPRESSION: Right paratracheal enlarged middle mediastinal lymph nodes are stable over time with reference to the noncontrast CT scanning performed 05/03/20. These were not present on prior chest CT 12/28/19, and the appearance could be a manifestation of metastatic disease or lymphoma. Follow-up by nuclear medicine PET-CT scanning may be warranted. Stable appearing right anterior chest wall sebaceous cyst again noted. Dictated by: Ramos Arteaga M.D. on 05/16/2020 at 14:10 Approved by: Ramos Arteaga M.D. on 05/16/2020 at 14:27
[2020-05-16 11:56] LABS: BUN Creatinine Ratio 28.6 (6-22); Blood Urea Nitrogen 42 mg/dL (9-20); Estimated Glomerular Filt Rate 48.4 mL/min (>60)
== END ==
PROVIDERS: PCP Student in an Organized Health Care Education/Training Program; Referring Provider Student in an Organized Health Care Education/Training Program; Visit Provider Student in an Organized Health Care Education/Training Program
DX: R59.0 Localized enlarged lymph nodes (principal); L72.3 Sebaceous cyst; T50.8X5A Adverse effect of diagnostic agents, initial encounter; N14.1 Nephropathy induced by other drugs, medicaments and biological substances
CPT/HCPCS: 71260; 82565; 84520; Q9967